=== PATIENT | male | born 1965 | race Caucasian/White ===

== ENCOUNTER 2020-04-04 10:50 | Inpatient (IN) ==
[2020-04-04 11:34] LABS: Hematocrit (blood only) 31.4 % (42-52); Hemoglobin 9.8 g/dL (14.0-18.0); Mean Corpuscular Hemoglobin 28.5 pg (25-34); Mean Corpuscular Hgb Conc 31.2 g/dL (32-36); Mean Corpuscular Volume 91.3 fL (80-100); RDW Coefficient of Variation 14.1 % (11.5-14.5); RDW Standard Deviation 46.2 fL (36.4-46.3); Red Blood Count 3.44 M/uL (4.7-6.1); White Blood Count 5.41 K/uL (4.8-10.8)
[2020-04-04 11:48] LABS: INR 1.2 (0.9-1.1); Partial Thromboplastin Ratio 1.3; Prothrombin Time 12.4 Seconds (9.0-12.0)
[2020-04-04 11:54] LABS: Basophils # (auto) 0.01 K/uL (0-0.2); Basophils % (auto) 0.2 %; Eosinophils # (auto) 0.09 K/uL (0-0.5); Eosinophils % (auto) 1.7 %; Immature Granulocytes # (auto) 0.01 K/uL (0.00-0.02); Immature Granulocytes % (auto) 0.2 %; Lymphocytes # (auto) 0.62 K/uL (1.2-3.4); Lymphocytes % (auto) 11.5 %; Mean Platelet Volume 10.9 fL (7.4-10.4); Monocytes # (auto) 0.63 K/uL (0.11-0.59); Monocytes % (auto) 11.6 %; Neutrophils # (auto) 4.05 K/uL (1.4-6.5); Neutrophils % (auto) 74.8 %; Platelet Count 80 K/uL (130-400); Platelet Estimate Decreased (Normal)
[2020-04-04] MEDS ORDERED: ACETAMINOPHEN 1000 MG/100 ML IV IV STA (11:55)
--- NOTE | 2020-04-04 12:06 | Emergency Department Note ---
History of Present Illness General Chief complaint: Illness Time Seen by Provider: 04/04/20 11:41 Source: patient and EMS Mode of arrival: EMS Limitations: no limitations History of Present Illness Provider complaint: shortness of breath This 54-year-old male patient with significant past medical history of MS, type 2 diabetes with CKD, end-stage renal disease on dialysis, morbid obesity, thrombocytopenia, hypertension, DVT, asthma, presents to the emergency department today via ambulance for evaluation of abnormal vital signs and shortness of breath. The patient was diagnosed 2 days ago with Covid-19. He st ates at that time, he was feeling some increased shortness of breath and fever. He does occasionally wear 2 L of oxygen at night, but since his diagnosis has been on oxygen [id number]. The patient is feeling somewhat better with 5 L of O2 via nasal cannula. He reports congestion and difficulty catching his breath. He is having difficulty with any sort of activity. He has taken no medications for his symptoms. Patient denies any chest pain, abdominal pain, nausea, vomiting, headache, dizziness, visual disturbances, numbness, tingling, weakness, or other associated symptoms. Home Medications Home Medications Medication Instructions Recorded Confirmed Type Unobtainable 04/04/20 04/04/20 History Allergies Allergy/AdvReac Type Severity Reaction Status Date / Time No Known Allergies Allergy Unverified 04/04/20 12:13 Past Med/Surg History Medical History A-V fistula left forearm Abnormal posture Anemia Asthma Chronic kidney disease Depression DVT (deep venous thrombosis) ESRD (end stage renal disease) on dialysis Generalized muscle weakness GERD (gastroesophageal reflux disease) Hyperlipidemia Hypertension Morbid obesity Multiple sclerosis Osteoarthritis Paradoxical insomnia Thrombocytopenia Type 2 diabetes mellitus Family History (Updated 04/04/20 @ 15:00 by Tyrone Geiger) Father , in his late 40s Myocardial infarction Social History Smoking Status: Former smoker Tobacco Type: Cigarettes Age Started Using Tobacco: 18; packs per day: 0.5; Smoking End Date: 2011; Hx Alcohol Use: No marital status: Current Living Situation: Shelter current occupational status: disabled 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 Children do You have: 4 Feels Safe at Home: Yes Review of Systems A total of 10 systems reviewed and were otherwise negative Physical Exam Vital Signs Vital Signs - 24 hr 04/04/20 11:21 04/04/20 11:31 04/04/20 13:10 Temperature 38.7 C H Temperature Source Oral Pulse Rate 55 L 55 L Pulse Rate [Apical] 53 L Pulse Rate from SpO2 Sensor 55 L Respiratory Rate 24 23 20 Respiratory Effort / Characteristics Respiratory Depth Respiratory Pattern Blood Pressure 121/59 L 118/35 L Blood Pressure [Right Arm] 135/66 Blood Pressure Mean 79 49 Blood Pressure Mean [Right Arm] 89 Pulse Oximetry 100 100 95 Oxygen Delivery Method Nasal Cannula Nasal Cannula Oxygen Flow Rate 5 5 Sepsis Recent Fever Within 48 Hours Yes Sepsis New/Unexplained Change in Mental Status N/A Sepsis Action Taken by Nursing No Action Required 04/04/20 14:00 04/04/20 14:49 04/04/20 16:08 Temperature Temperature Source Pulse Rate Pulse Rate [Apical] 57 L 52 L 46 L Pulse Rate from SpO2 Sensor Respiratory Rate 20 16 22 Respiratory Effort / Characteristics Non-Labored Spontaneous Respiratory Depth Normal Respiratory Pattern Regular Blood Pressure Blood Pressure [Right Arm] 132/65 108/55 L 110/54 L Blood Pressure Mean Blood Pressure Mean [Right Arm] 87 72 72 Pulse Oximetry 98 97 98 Oxygen Delivery Method Nasal Cannula Nasal Cannula Nasal Cannula Oxygen Flow Rate 5 5 5 Sepsis Recent Fever Within 48 Hours Sepsis New/Unexplained Change in Mental Status Sepsis Action Taken by Nursing VITALS: Vitals are noted on the nurse's note and reviewed by myself. P. He is normotensive atient is febrile and bradycardic. O2 saturation 100% on 5 L of oxygen. GENERAL: This is a 54-year-old obese white male, chronically ill-appearing but in no acute distress, nondiaphoretic, well-developed well-nourished. SKIN: The skin was without rashes, erythema, edema, or bruising. There is no tenting of the skin. Capillary refill less than 2 seconds. HEAD: Normocephalic atraumatic. EYES: Conjunctivae without injection, sclerae without icterus. NECK: Supple without nuchal rigidity. No lymphadenopathy. No JVD. HEART: Regular rate and rhythm without murmurs gallops or rubs. LUNGS: Diffuse wheezing and rhonchi throughout. No retractions or accessory muscle use. ABDOMEN: Positive bowel sounds x 4. Obese, soft, nontender, without masses or organomegaly. Torres sign negative. No guarding or rebound tenderness. MUSCULOSKELETAL: No muscle atrophy, erythema, or edema noted. Full range of motion without joint tenderness in all extremities. No tenderness to palpation. Normal gait. Strength 5/5 throughout. NEURO: Patient was alert and oriented to person place and time. No focal neurological deficits. Course Course The patient was seen and evaluated as above. An order was placed for continuous cardiac monitoring. The monitor shows a sinus bradycardia at a rate of 46. IV access obtained, labs drawn. Imaging performed and reviewed by myself and radiologist as noted. Labs reviewed by myself. I discussed the findings with the patient at bedside. I discussed the case with my attending. I discussed case with the process engineering manager. I discussed the case with nurse working with Dr. Geiger who did agree to see and evaluate the patient. Please see hospitalist dictation regarding ongoing management and pain. Administered Medications Discontinued Medications Acetaminophen (Acetaminophen 1000 Mg/100 Ml Iv) 1,000 mg IV NOW STA Stop: 04/04/20 11:56 Last Admin: 04/04/20 13:09 Dose: 1,000 mg Documented by: [id number] Dexamethasone (Dexamethasone 4 Mg Tab) 6 mg PO NOW STA Stop: 04/04/20 14:46 Last Admin: 04/04/20 15:36 Dose: Not Given Documented by: [id number] Dexamethasone (Dexamethasone Sod Inj 4 Mg/Ml Vial) 6 mg IV NOW STA Stop: 04/04/20 14:56 Last Admin: 04/04/20 15:46 Dose: 6 mg Documented by: [id number] Medical Decision Making Differential Diagnosis Reactive airway disease, pneumonia, pneumothorax, COPD, CHF, infections, cardiac ischemia, pulmonary embolism, musculoskeletal, gastrointestinal, as well as other pathologies. Medical Records Attestation: I reviewed the patient's medical records. Notes sent with the patient from [facility] reviewed. Home Medications Current Medication List: was personally reviewed by me Laboratory Data Attestation: I reviewed the patient's lab results. No leukocytosis. Mild anemia with a hemoglobin of 9.8. This is appear to be chronic. Thrombocytopenia of 80,000, which again is slightly lower than baseline. INR 1.2. Creatinine 6.26, but note the patient is on dialysis. Sodium 130. Magnesium 2.2, potassium 4.3. Lactic acid 1.0. Troponin negative.. No significant hepatic abnormality. Result diagrams: 04/04/20 11:15 04/04/20 11:15 Lab Results 04/04/20 04/04/20 04/04/20 Range/Units 11:15 11:15 11:15 WBC 5.41 (4.8-10.8) K/uL RBC 3.44 L (4.7-6.1) M/uL Hgb 9.8 L (14.0-18.0) g/dL Hct 31.4 L (42-52) % MCV 91.3 (80-100) fL MCH 28.5 (25-34) pg MCHC 31.2 L (32-36) g/dL RDW Std Deviation 46.2 (36.4-46.3) fL RDW Coeff of Emiliano 14.1 (11.5-14.5) % Plt Count 80 L (130-400) K/uL MPV 10.9 H (7.4-10.4) fL Immature Gran % (Auto) 0.2 % Neut % (Auto) 74.8 % Lymph % (Auto) 11.5 % Waldo % (Auto) 11.6 % Eos % (Auto) 1.7 % Baso % (Auto) 0.2 % Neut # (Auto) 4.05 (1.4-6.5) K/uL Lymph # (Auto) 0.62 L (1.2-3.4) K/uL Waldo # (Auto) 0.63 H (0.11-0.59) K/uL Eos # (Auto) 0.09 (0-0.5) K/uL Baso # (Auto) 0.01 (0-0.2) K/uL Immature Gran # (Auto) 0.01 (0.00-0.02) K/uL Platelet Estimate Decreased L (Normal) PT 12.4 H (9.0-12.0) Seconds INR 1.2 H (0.9-1.1) APTT 37.0 H (21.0-31.0) Seconds PTT Ratio 1.3 D-Dimer (0-500) ug/L FEU Sodium 130 L (136-145) mmol/L Potassium 4.3 (3.5-5.1) mmol/L Chloride 97 L (98-107) mmol/L Carbon Dioxide 26 (21-32) mmol/L Anion Gap 7.0 (3-11) BUN 41 H (7-18) mg/dl Creatinine 6.26 H* (0.6-1.4) mg/dl Est Cr Clr Drug Dosing 16.5 ml/min Est GFR ( Amer) 10.9 Est GFR (Non-Af Amer) 9.4 BUN/Creatinine Ratio 6.5 L (10-20) Glucose 128 H (70-99) mg/dl Lactate (0.4-2.0) mmol/L Calcium 9.4 (8.5-10.1) mg/dl Magnesium 2.2 (1.8-2.4) mg/dl Ferritin (8-388) ng/ml Total Bilirubin 0.6 (0.2-1) mg/dl AST 29 (15-37) U/L ALT 34 (12-78) U/L Alkaline Phosphatase 77 (45-117) U/L Lactate Dehydrogenase (87-241) U/L Total Creatine Kinase (39-308) U/L Troponin I < 0.015 (0-0.045) ng/ml C-Reactive Protein (0-0.29) mg/dl Total Protein 6.2 L (6.4-8.2) gm/dl Albumin 3.0 L (3.4-5.0) gm/dl Globulin 3.2 (2.5-4.0) gm/dl Albumin/Globulin Ratio 0.9 (0.9-2) 04/04/20 04/04/20 04/04/20 Range/Units 11:15 11:15 11:24 WBC (4.8-10.8) K/uL RBC (4.7-6.1) M/uL Hgb (14.0-18.0) g/dL Hct (42-52) % MCV (80-100) fL MCH (25-34) pg MCHC (32-36) g/dL RDW Std Deviation (36.4-46.3) fL RDW Coeff of Emiliano (11.5-14.5) % Plt Count (130-400) K/uL MPV (7.4-10.4) fL Immature Gran % (Auto) % Neut % (Auto) % Lymph % (Auto) % Waldo % (Auto) % Eos % (Auto) % Baso % (Auto) % Neut # (Auto) (1.4-6.5) K/uL Lymph # (Auto) (1.2-3.4) K/uL Waldo # (Auto) (0.11-0.59) K/uL Eos # (Auto) (0-0.5) K/uL Baso # (Auto) (0-0.2) K/uL Immature Gran # (Auto) (0.00-0.02) K/uL Platelet Estimate (Normal) PT (9.0-12.0) Seconds INR (0.9-1.1) APTT (21.0-31.0) Seconds PTT Ratio D-Dimer 500 (0-500) ug/L FEU Sodium (136-145) mmol/L Potassium (3.5-5.1) mmol/L Chloride (98-107) mmol/L Carbon Dioxide (21-32) mmol/L Anion Gap (3-11) BUN (7-18) mg/dl Creatinine (0.6-1.4) mg/dl Est Cr Clr Drug Dosing ml/min Est GFR ( Amer) Est GFR (Non-Af Amer) BUN/Creatinine Ratio (10-20) Glucose (70-99) mg/dl Lactate 1.0 (0.4-2.0) mmol/L Calcium (8.5-10.1) mg/dl Magnesium (1.8-2.4) mg/dl Ferritin (8-388) ng/ml Total Bilirubin (0.2-1) mg/dl AST (15-37) U/L ALT (12-78) U/L Alkaline Phosphatase (45-117) U/L Lactate Dehydrogenase 160 (87-241) U/L Total Creatine Kinase (39-308) U/L Troponin I (0-0.045) ng/ml C-Reactive Protein (0-0.29) mg/dl Total Protein (6.4-8.2) gm/dl Albumin (3.4-5.0) gm/dl Globulin (2.5-4.0) gm/dl Albumin/Globulin Ratio (0.9-2) 04/04/20 Range/Units 11:24 WBC (4.8-10.8) K/uL RBC (4.7-6.1) M/uL Hgb (14.0-18.0) g/dL Hct (42-52) % MCV (80-100) fL MCH (25-34) pg MCHC (32-36) g/dL RDW Std Deviation (36.4-46.3) fL RDW Coeff of Emiliano (11.5-14.5) % Plt Count (130-400) K/uL MPV (7.4-10.4) fL Immature Gran % (Auto) % Neut % (Auto) % Lymph % (Auto) % Waldo % (Auto) % Eos % (Auto) % Baso % (Auto) % Neut # (Auto) (1.4-6.5) K/uL Lymph # (Auto) (1.2-3.4) K/uL Waldo # (Auto) (0.11-0.59) K/uL Eos # (Auto) (0-0.5) K/uL Baso # (Auto) (0-0.2) K/uL Immature Gran # (Auto) (0.00-0.02) K/uL Platelet Estimate (Normal) PT (9.0-12.0) Seconds INR (0.9-1.1) APTT (21.0-31.0) Seconds PTT Ratio D-Dimer (0-500) ug/L FEU Sodium (136-145) mmol/L Potassium (3.5-5.1) mmol/L Chloride (98-107) mmol/L Carbon Dioxide (21-32) mmol/L Anion Gap (3-11) BUN (7-18) mg/dl Creatinine (0.6-1.4) mg/dl Est Cr Clr Drug Dosing ml/min Est GFR ( Amer) Est GFR (Non-Af Amer) BUN/Creatinine Ratio (10-20) Glucose (70-99) mg/dl Lactate (0.4-2.0) mmol/L Calcium (8.5-10.1) mg/dl Magnesium (1.8-2.4) mg/dl Ferritin 2751.8 H (8-388) ng/ml Total Bilirubin (0.2-1) mg/dl AST (15-37) U/L ALT (12-78) U/L Alkaline Phosphatase (45-117) U/L Lactate Dehydrogenase (87-241) U/L Total Creatine Kinase 40 (39-308) U/L Troponin I (0-0.045) ng/ml C-Reactive Protein 1.10 H (0-0.29) mg/dl Total Protein (6.4-8.2) gm/dl Albumin (3.4-5.0) gm/dl Globulin (2.5-4.0) gm/dl Albumin/Globulin Ratio (0.9-2) Imaging Data Radiologist's Impression: XR chest 1V portable HISTORY: 54 years-old Male Sepsis acute sepsis COMPARISON: None TECHNIQUE: Portable AP view the chest FINDINGS: Cardiac silhouette is mildly enlarged. Hypoinflation. Mild to moderate right hemidiaphragm elevation with bibasilar densities. No pneumothorax, large pleural effusion or overt pulmonary edema. Cholecystectomy. Bones appear grossly intact. IMPRESSION: 1. No acute process. 2. Hypoinflation with right diaphragmatic elevation and right greater left bibasilar opacities suggestive of atelectasis. Superimposed pneumonia would be difficult to exclude. ACT 112: Negative or not required by law. The above report was generated using voice recognition software. It may contain grammatical, syntax or spelling errors. Electronically signed by: Esequiel Israel M.D. 04/04/2020 12:14 PM ECG Data Attestation: I personally reviewed and interpreted this ECG as follows: Indication: + SOB/dyspnea Rate (beats per minute): 72 Rhythm: + sinus with SA ECG Intervals/blocks: + Normal QT ECG Bradford: + Left axis deviation ECG ST segments: no ST depression, no ST elevation and no T-wave inversions ECG Findings: + PVCs Comparison ECG Date: no prior available Blood Pressure Blood Pressure Findings: Normal blood pressure MDM Narrative This 54-year-old male patient presents to the emergency department today for acute respiratory failure associated with COVID-19. Patient has had increased o xygen requirements for the past 2 days. He is febrile with diffuse wheezing and rhonchi noted on examination. The patient is otherwise in no acute distress. Patient is anemic and thrombocytopenic which is chronic. Acute cardiac work-up negative. Chest x-ray without clear evidence of pneumonia. Patient is mildly hyponatremic with a sodium of 130. Patient will be admitted due to his increased oxygen requirements associated with the acute respiratory failure with hypoxia and COVID-19, particularly in the setting of many chronic illnesses. Please see hospitalist dictation regarding agree management care of this patient. The chart was completed utilizing [employer] voice recognition software. Grammatical errors, random word insertions, pronoun errors, and incomplete sentences are an occasional consequence of this system due to software limitations, ambient noise, and hardware issues. Any formal questions or concerns about the content, text, or information contained within the body of this dictation should be directly addressed to the provider for clarification. Impression & Plan Acute respiratory failure with hypoxia, Pneumonia due to COVID-19 virus, ESRD (end stage renal disease) on dialysis Discharge Plan Visit Data Chief Complaint: Illness ED Provider: James Bah ED Midlevel Provider: Lolis Senior Discharge Problem: Acute respiratory failure with hypoxia, Pneumonia due to COVID-19 virus, ESRD (end stage renal disease) on dialysis Patient Disposition: Admitted As Inpatient Discharge Instructions Interventions: ED Discharge Assessment Last Done: 04/04/20 16:09 Forms Stand Alone Forms: [employer] Prescriptions Prescriptions: No Action Unobtainable RF: 0 Referrals Referrals: Dionna Mayfield [Primary Care Provider] -
[2020-04-04 12:08] LABS: Alanine Aminotransferase 34 U/L (12-78); Albumin Globulin Ratio 0.9 (0.9-2); Alkaline Phosphatase 77 U/L (45-117); Aspartate Aminotransferase 29 U/L (15-37); BUN Creatinine Ratio 6.5 (10-20); Bilirubin,Total 0.6 mg/dl (0.2-1); Blood Urea Nitrogen 41 mg/dl (7-18); Calcium 9.4 mg/dl (8.5-10.1); Carbon Dioxide 26 mmol/L (21-32); Chloride 97 mmol/L (98-107); Creatinine Clr Calc Pharmacy 16.5 ml/min; Est GFR (African American) 10.9; Est GFR (Non-African American) 9.4; Globulin 3.2 gm/dl (2.5-4.0); Glucose 128 mg/dl (70-99); Magnesium 2.2 mg/dl (1.8-2.4); Potassium 4.3 mmol/L (3.5-5.1); Sodium 130 mmol/L (136-145); Total Protein 6.2 gm/dl (6.4-8.2); Troponin I < 0.015 ng/ml (0-0.045)
--- NOTE | 2020-04-04 12:16 | XRay Report ---
XR chest 1V portable HISTORY: 54 years-old Male Sepsis acute sepsis COMPARISON: None TECHNIQUE: Portable AP view the chest FINDINGS: Cardiac silhouette is mildly enlarged. Hypoinflation. Mild to moderate right hemidiaphragm elevation with bibasilar densities. No pneumothorax, large pleural effusion or overt pulmonary edema. Cholecyst ectomy. Bones appear grossly intact. IMPRESSION: 1. No acute process. 2. Hypoinflation with right diaphragmatic elevation and right greater left bibasilar opacities sugges tive of atelectasis. Superimposed pneumonia would be difficult to exclude. ACT 112: Negative or not required by law. The above report was generated using voice recognition software. It may contain grammatical, syntax o r spelling errors. Electronically signed by: Esequiel Israel M.D. 04/04/2020 12:14 PM
--- NOTE | 2020-04-04 14:07 | Emergency Department Note ---
ED Visit Note Patient was seen by our PA/SENIOR HADOOP DEVELOPER. I was involved in the patient's care and did evaluate the patient myself. I was involved in the care throughout the ER stay. The patient presents short of breath. He is coronavirus positive. The test was done prior to arrival and had returned positive. The patient is requiring oxygen, this is not typically the case. He does have some significant underlying medical issues. He is a custodial resident. The patient is going to be hospitalized, the on-call hospitalist was consulted. .
[2020-04-04] MEDS ORDERED: ACETAMINOPHEN 325 MG TAB PO SCH (14:37)
[2020-04-04] MEDS ORDERED: dexAMETHasone 4 MG TAB PO STA (14:45)
[2020-04-04] MEDS ORDERED: DEXAMETHASONE SOD INJ 4 MG/ML VIAL IV STA (14:55)
[2020-04-04 15:01] LABS: D Dimer 500 ug/L FEU (0-500)
--- NOTE | 2020-04-04 15:02 | History & Physical Report ---
Date of Service April 04, 2020 Assessment & Plan (1) Pneumonia due to COVID-19 virus: Initial diagnosis on 04/02/20. Escalating O2 requirements since that time. At baseline is not on O2. Has known asthma (vs COPD). In light of hypoxia, severe wheezing, NC O2 requirement, etc will treat with decadron x 10 days. Will use larger dose than studied/conventional given his asthma exacerbation (will start with decadron 6mg IV TID). Unfortunately remdesivir has NOT been studied in patients with ESRD. [id number], I would consider a 5-day course of remdesivir if patient worsens further overnight. There is now a building thought that benefits may outweigh risks in those with GFR <30. Lastly, I spoke extensively with patient regarding convalescent plasma. I reviewed risks/benefits and gave FDA-issued handout on convalescent plasma. Blood consent form completed, type/screen done, and plasma ordered. Give as soon as available. Check baseline d-dimer, ferritin, crp, cpk. Repeat dimer in am. Pulmonary toilet - mucinex, flutter valve, etc. (2) Acute respiratory failure with hypoxia: 2nd to COVID-19. see above. If any worsening obtain repeat imaging and consider IV antibiotic therapy to cover any superimposed pneumonia process. (3) Asthma: Long-standing history of such. Cannot rule out COPD given prior, extensive smoking history. [id number] he has significant wheezing on exam. Will Rx for asthma exacerbation with decadron 6mg IV q8h. Combivent 1 puff qid. (4) ESRD (end stage renal disease) on dialysis: Spoke with Dr Stoll from [facility] who will coordinate the pt's HD schedule of M/W/F. Continue phosphate binders. No evidence of any volume overload today. (5) Type 2 diabetes mellitus: Diet-controlled at the SNF, but with IV steroids anticipate hyperglycemia. Lantus 10 units HS. Novolog ac/hs. Adjust as needed. (6) Multiple sclerosis: Takes Aubagio 14mg daily. I looked at prescribing data for this medication and it suggests that the drug be suspended in the face of a serious infection. Will check with neurology about this in am to see if they agree that it should be held while here. He has a left foot drop and left proximal leg weakness as well. Does not ambulate at the SNF. (7) Depression: Cont home meds including prozac, abilify, etc. (8) Thrombocytopenia: Platelet count was 114 in January. Now 80s today. It is listed in his SNF records that this is a chronic issue for him. Uncertain of etiology. Chronic ITP? other? COVID-19 can cause bone marrow suppression and thrombocytopenia. CBC in am. (9) Morbid obesity: (10) History of DVT (deep vein thrombosis): details uncertain. does take eliquis 5mg BID at SNF. at high risk of recurrent VTE in light of COVID-19 infection, nonambulatory status, and prior VTE history. continue eliquis as previous. (11) Hypertension: hold amlodipine 10mg daily. (12) Hyperlipidemia: hold statin. (13) DVT prophylaxis: eliquis 5mg BID no contact information in chart for family/friends/POA place in PCU History of Present Illness Chief Complaint: worsening O2 requirement, known COVID-19 infection Primary Care Provider: Dionna Mayfield 54yo male, ESRD on HD M/W/F, MS, asthma, HTN, h/o DVT - presenting from [facility] with worsening O2 requirement related to COVID-19 infection. Was diagnosed on Wednesday of this week. I was unclear by his history if this was discovered during routine screening OR the test was obtained because of symptoms. Either way he states his symptoms began on Wednesday with generalized malaise, fevers, chills, cough and shortness of breath. Multiple times during the encounter he said "I just don't feel good." Cough is dry. He has ongoing wheezing. Was started on oxygen earlier this week and his O2 requirements have steadily increased in the last 24 hours. Mentions a h/o PAULINE and should be on BIPAP but has not used such in a long time. Records from the SNF were reviewed. Medication list shows that he takes daily Aubagio for his MS. Dose is 14mg once daily by mouth. Also takes amlodipine 10mg daily and lyrica. Oddly he is also on gabapentin. Patient reports moving from [place] to [facility] in the last year. He is originally from [place] and wanted to be closer to family. He has 4 children and states that he is but they all live out of state (?). Allergies Allergy/AdvReac Type Severity Reaction Status Date / Time No Known Allergies Allergy Unverified 04/04/20 12:13 Home Medications Home Medications Medication Instructions Recorded Confirmed Type Unobtainable 04/04/20 04/04/20 History Past Med/Surg History Medical History (Updated 04/04/20 @ 21:49 by Tyrone Geiger) A-V fistula left forearm Abnormal posture Anemia Asthma Depression DVT (deep venous thrombosis) ESRD (end stage renal disease) on dialysis Generalized muscle weakness GERD (gastroesophageal reflux disease) Hyperlipidemia Hypertension Morbid obesity Multiple sclerosis Osteoarthritis Paradoxical insomnia Thrombocytopenia Type 2 diabetes mellitus Surgical History (Updated 04/04/20 @ 21:43 by Tyrone Geiger) S/P arteriovenous (AV) fistula creation Family History (Updated 04/04/20 @ 15:00 by Tyrone Geiger) Father , in his late 40s Myocardial infarction Social History Smoking Status: Former smoker Tobacco Type: Cigarettes Age Started Using Tobacco: 18; packs per day: 0.5; Smoking End Date: 2011; Hx Alcohol Use: No Hx Substance Use: No Preferred Language: Nigerien Communication Ability: Effective Rubber Attacher Required: No Beliefs That Will Affect Care: None marital status: Current Living Situation: Prison current occupational status: disabled 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 Children do You have: 4 Other Information That Helps Us Care for You: No Feels Safe at Home: Yes Safety Concerns: Feels Safe At This Time Assistive Devices: Denture - Upper, Denture - Lower, Glasses and Mechanical Lift Review of Systems Constitutional: + fever, + chills, + fatigue, + malaise and + weakness; no anorexia Eyes: no worsening vision Ear, Nose, Mouth, Throat: no nasal congestion, no sore throat and no dysphagia Respiratory: + cough, + chest congestion, + dyspnea and + wheezing; no sputum production Cardiovascular: no chest pain Gastrointestinal: no abdominal pain, no nausea, no vomiting, no constipation, no diarrhea/loose stools and no blood in stools Genitourinary: + problem reported (rare urine production ) Musculoskeletal: no myalgia Integumentary: no rash Neurologic: + localized weakness (left leg and foot - chronic; patient does not ambulate at [facility]) Psychiatric: + depression Endocrine: diet-controlled T2DM Hematologic / Lymphatic: no easy bruising Physical Exam Constitutional: + ill appearing and + morbidly obese; no acute distress and no altered mental status Eyes: PERRL ENMT: Mouth: + dry oral mucous membranes Neck: trachea midline, no thyromegaly Respiratory: no respiratory distress Auscultation: + crackles (b/l bases, worse on left) and + wheezes (extensive, all lung segments b/l ) Cardiovascular: Rate/Rhythm: regular rhythm and + bradycardic Heart Sounds: normal S1 and normal S2; no murmur Vessels: posterior tibial pulses present and dorsalis pedis pulses present; no JVD Extremities: + AV fistula (left arm ); no edema Gastrointestinal (Abdomen): normal bowel sounds, soft, nontender, no hepatosplenomegaly Musculoskeletal: Extremities: + clubbing Skin: no rashes, warm and dry Neurologic: left hip flexion 3/5 strength; foot drop on left; RLE strength 5/5 Psychiatric: Orientation: alert and oriented x 3 Affect: + depressed affect Lymphatic: no cervical lymphadenopathy Results & Data Results & Data ([facility]) Vital Signs (Past 12 Hours) Vital Signs Temp Pulse Pulse Resp BP BP Pulse Ox 04/04/20 14:49 52 L 16 108/55 L 97 04/04/20 14:00 57 L 20 132/65 98 04/04/20 13:10 53 L 20 135/66 95 04/04/20 11:31 55 L 23 118/35 L 100 04/04/20 11:21 38.7 C H 55 L 24 121/59 L 100 Laboratory Results Laboratory Results - last 24 hr 04/04/20 04/04/20 04/04/20 11:15 11:15 11:15 WBC 5.41 RBC 3.44 L Hgb 9.8 L Hct 31.4 L MCV 91.3 MCH 28.5 MCHC 31.2 L RDW Std Deviation 46.2 RDW Coeff of Emiliano 14.1 Plt Count 80 L MPV 10.9 H Immature Gran % (Auto) 0.2 Neut % (Auto) 74.8 Lymph % (Auto) 11.5 [place] % (Auto) 11.6 Eos % (Auto) 1.7 Baso % (Auto) 0.2 Neut # (Auto) 4.05 Lymph # (Auto) 0.62 L [place] # (Auto) 0.63 H Eos # (Auto) 0.09 Baso # (Auto) 0.01 Immature Gran # (Auto) 0.01 Platelet Estimate Decreased L PT 12.4 H INR 1.2 H APTT 37.0 H PTT Ratio 1.3 D-Dimer Sodium 130 L Potassium 4.3 Chloride 97 L Carbon Dioxide 26 Anion Gap 7.0 BUN 41 H Creatinine 6.26 H* Est Cr Clr Drug Dosing 16.5 Est GFR ( Amer) 10.9 Est GFR (Non-Af Amer) 9.4 BUN/Creatinine Ratio 6.5 L Glucose 128 H POC Glucose Lactate Calcium 9.4 Magnesium 2.2 Ferritin Total Bilirubin 0.6 AST 29 ALT 34 Alkaline Phosphatase 77 Lactate Dehydrogenase Total Creatine Kinase Troponin I < 0.015 C-Reactive Protein Total Protein 6.2 L Albumin 3.0 L Globulin 3.2 Albumin/Globulin Ratio 0.9 Blood Type Antibody Screen 04/04/20 04/04/20 04/04/20 11:15 11:15 11:24 WBC RBC Hgb Hct MCV MCH MCHC RDW Std Deviation RDW Coeff of Emiliano Plt Count MPV Immature Gran % (Auto) Neut % (Auto) Lymph % (Auto) [place] % (Auto) Eos % (Auto) Baso % (Auto) Neut # (Auto) Lymph # (Auto) [place] # (Auto) Eos # (Auto) Baso # (Auto) Immature Gran # (Auto) Platelet Estimate PT INR APTT PTT Ratio D-Dimer 500 Sodium Potassium Chloride Carbon Dioxide Anion Gap BUN Creatinine Est Cr Clr Drug Dosing Est GFR ( Amer) Est GFR (Non-Af Amer) BUN/Creatinine Ratio Glucose POC Glucose Lactate 1.0 Calcium Magnesium Ferritin Total Bilirubin AST ALT Alkaline Phosphatase Lactate Dehydrogenase 160 Total Creatine Kinase Troponin I C-Reactive Protein Total Protein Albumin Globulin Albumin/Globulin Ratio Blood Type Antibody Screen 04/04/20 04/04/20 04/04/20 11:24 15:07 17:00 WBC RBC Hgb Hct MCV MCH MCHC RDW Std Deviation RDW Coeff of Emiliano Plt Count MPV Immature Gran % (Auto) Neut % (Auto) Lymph % (Auto) [place] % (Auto) Eos % (Auto) Baso % (Auto) Neut # (Auto) Lymph # (Auto) [place] # (Auto) Eos # (Auto) Baso # (Auto) Immature Gran # (Auto) Platelet Estimate PT INR APTT PTT Ratio D-Dimer Sodium Potassium Chloride Carbon Dioxide Anion Gap BUN Creatinine Est Cr Clr Drug Dosing Est GFR ( Amer) Est GFR (Non-Af Amer) BUN/Creatinine Ratio Glucose POC Glucose 96 Lactate Calcium Magnesium Ferritin 2751.8 H Total Bilirubin AST ALT Alkaline Phosphatase Lactate Dehydrogenase Total Creatine Kinase 40 Troponin I C-Reactive Protein 1.10 H Total Protein Albumin Globulin Albumin/Globulin Ratio Blood Type O Negative Antibody Screen NEGATIVE 04/04/20 20:22 WBC RBC Hgb Hct MCV MCH MCHC RDW Std Deviation RDW Coeff of Emiliano Plt Count MPV Immature Gran % (Auto) Neut % (Auto) Lymph % (Auto) [place] % (Auto) Eos % (Auto) Baso % (Auto) Neut # (Auto) Lymph # (Auto) [place] # (Auto) Eos # (Auto) Baso # (Auto) Immature Gran # (Auto) Platelet Estimate PT INR APTT PTT Ratio D-Dimer Sodium Potassium Chloride Carbon Dioxide Anion Gap BUN Creatinine Est Cr Clr Drug Dosing Est GFR ( Amer) Est GFR (Non-Af Amer) BUN/Creatinine Ratio Glucose POC Glucose 209 H Lactate Calcium Magnesium Ferritin Total Bilirubin AST ALT Alkaline Phosphatase Lactate Dehydrogenase Total Creatine Kinase Troponin I C-Reactive Protein Total Protein Albumin Globulin Albumin/Globulin Ratio Blood Type Antibody Screen Diagnostic Findings cxr: IMPRESSION: 1. No acute process. 2. Hypoinflation with right diaphragmatic elevation and right greater left bibasilar opacities suggestive of atelectasis. Superimposed pneumonia would be difficult to exclude. EKG - sinus bradycardia, no ST changes Code Status & VTE Plan Code Status full VTE Prophylaxis Plan VTE Prophylaxis will be ordered: Yes PG Care Time/CCT Total # of Minutes Spent Total Time Spent with Patient: Total time spent is greater than 50% in coordination of care (as documented) at patient's floor/unit and/or counseling patient: Coding Level of Care Code 22400 Initial Inpt Care Lvl 3 Diagnoses Pneumonia due to COVID-19 virus U07.1; J12.89 Acute respiratory failure with hypoxia J96.01 Asthma J45.901 Asthma severity: unspecified severity Asthma persistence: unspecified Asthma complication type: with acute exacerbation ESRD (end stage renal disease) on dialysis N18.6; Z99.2 Type 2 diabetes mellitus E11.69 Diabetes mellitus mcfp insulin use: without long term care social worker use Diabetes mellitus complication status: with other specified complication Multiple sclerosis G35 Depression F32.9 Depression Type: unspecified Thrombocytopenia D69.6 Morbid obesity E66.01 History of DVT (deep vein thrombosis) Z86.718 Hypertension I10 Hypertension type: essential hypertension Hyperlipidemia E78.2 Hyperlipidemia type: mixed hyperlipidemia DVT prophylaxis Z29.9 (1) Type 2 diabetes mellitus Diabetes mellitus long term care social worker insulin use: without mcfp use Diabetes mellitus complication status: with other specified complication Qualified Code(s): E11.69 - Type 2 diabetes mellitus with other specified complication (2) Depression Depression Type: unspecified Qualified Code(s): F32.9 - Major depressive disorder, single episode, unspecified (3) Asthma Asthma severity: unspecified severity Asthma persistence: unspecified Asthma complication type: with acute exacerbation Qualified Code(s): J45.901 - Unspecified asthma with (acute) exacerbation (4) Hypertension Hypertension type: essential hypertension Qualified Code(s): I10 - Essential (primary) hypertension (5) Hyperlipidemia Hyperlipidemia type: mixed hyperlipidemia Qualified Code(s): E78.2 - Mixed hyperlipidemia
[2020-04-04 15:58] LABS: C Reactive Protein 1.1 mg/dl (0-0.29); Ferritin 2751.8 ng/ml (8-388)
[2020-04-04] MEDS ORDERED: ONDANSETRON INJ 2 MG/ML 2 ML VIAL IV PRN (16:56)
[2020-04-04] MEDS ORDERED: ACETAMINOPHEN 325 MG TAB PO PRN (16:56)
[2020-04-04] MEDS ORDERED: IPRATROPIUM BROMIDE/ALBUTEROL respimat INH INH SCH (17:00)
[2020-04-04] MEDS: IPRATROPIUM BROMIDE HFA INHALER INH SCH ×2 (17:37→20:41)
[2020-04-04] MEDS: ALBUTEROL HFA 8 GM INHALER INH SCH ×2 (17:37→20:41)
[2020-04-04] MEDS ORDERED: DEXTROSE 50% 50 ML SYRINGE IV PRN (17:45)
[2020-04-04] MEDS ORDERED: GLUCOSE 40% GEL 15 GM TUBE PO PRN (17:45)
[2020-04-04] MEDS ORDERED: CARBOHYDRATES FOR HYPOGLYCEMIA PO PRN (17:45)
[2020-04-04] MEDS ORDERED: GLUCOSE 10 TABS/TUBE PO PRN (17:45)
[2020-04-04] MEDS ORDERED: GLUCAGON FOR INJ 1 MG VIAL IM PRN (17:45)
--- NOTE | 2020-04-04 17:54 | Electrocardiogram Report ---
Test Reason : Blood Pressure : / mmHG Vent. Rate : 072 BPM Atrial Rate : 062 BPM P-R Int : 190 ms QRS Dur : 098 ms QT Int : 392 ms P-R-T Axes : 061 -37 055 degrees QTc Int : 429 ms Sinus rhythm with sinus arrhythmia with frequent Premature ventricular complexes Left axis deviation Abnormal ECG No previous ECGs available Confirmed by Gregg Currie ([id number]) on 04/04/2020 5:53:28 PM Referred By: Confirmed By:Franck Currie
[2020-04-04] MEDS: CALCIUM ACETATE 667 MG CAP/TAB PO SCH (18:29)
[2020-04-04] MEDS: INSULIN ASPART 100 UNITS/ML 3 ML PEN SC SCH ×2 (18:35→20:32)
[2020-04-04] MEDS: traZODone HCL 100 MG TAB PO SCH (20:18)
[2020-04-04] MEDS: APIXABAN 2.5 MG TAB PO SCH (20:18)
[2020-04-04] MEDS: guaiFENesin 600 MG TABCR PO SCH (20:19)
[2020-04-04] MEDS: ERYTHROMYCIN DELAYED RELEASE 250 MG CAP PO SCH (20:19)
[2020-04-04] MEDS: GABAPENTIN 100 MG CAP PO SCH (20:20)
[2020-04-04] MEDS: FLUoxetine HCL 20 MG CAP PO SCH (20:22)
[2020-04-04] MEDS: rOPINIRole HCL 0.25 MG TABLET PO SCH (20:22)
[2020-04-04] MEDS: PANTOprazole 40 MG TAB PO SCH (20:23)
[2020-04-04] MEDS ORDERED: dexAMETHasone 6 MG in DEXTROSE 5% 25 ML IV SCH (21:00)
[2020-04-04] MEDS: INSULIN GLARGINE SOLOSTAR 100 UNITS/ML 3 ML PEN SC SCH (22:02)
[2020-04-04] MEDS: DEXAMETHASONE SOD PHOSPHATE 6 MG in SYRINGE 0 ML IV SCH (23:13)
[2020-04-05 06:33] LABS: Hematocrit (blood only) 33.5 % (42-52); Hemoglobin 10.7 g/dL (14.0-18.0); Mean Corpuscular Hemoglobin 28.5 pg (25-34); Mean Corpuscular Hgb Conc 31.9 g/dL (32-36); Mean Corpuscular Volume 89.3 fL (80-100); RDW Coefficient of Variation 13.7 % (11.5-14.5); RDW Standard Deviation 44.9 fL (36.4-46.3); Red Blood Count 3.75 M/uL (4.7-6.1)
[2020-04-05 06:43] LABS: Platelet Count 69 K/uL (130-400)
[2020-04-05 06:58] LABS: Eosinophils # (auto) 0.01 K/uL (0-0.5); Eosinophils % (auto) 0.5 %; Immature Granulocytes # (auto) 0.02 K/uL (0.00-0.02); Immature Granulocytes % (auto) 1.1 %; Lymphocytes # (auto) 0.27 K/uL (1.2-3.4); Lymphocytes % (auto) 14.2 %; Monocytes # (auto) 0.08 K/uL (0.11-0.59); Monocytes % (auto) 4.2 %; Neutrophils # (auto) 1.52 K/uL (1.4-6.5)
[2020-04-05 07:12] LABS: BUN Creatinine Ratio 7.3 (10-20); Calcium 9.1 mg/dl (8.5-10.1); Creatinine Clr Calc Pharmacy 14.1 ml/min; Est GFR (African American) 8.8; Est GFR (Non-African American) 7.6; Potassium 4.4 mmol/L (3.5-5.1)
[2020-04-05 07:18] LABS: D Dimer 580 ug/L FEU (0-500)
--- NOTE | 2020-04-05 07:29 | Hospitalist Progress Note ---
Date of Service April 05, 2020 Assessment & Plan (1) Pneumonia due to COVID-19 virus: Initial diagnosis on 04/02/20. At baseline is not on O2. Has known asthma (vs COPD). In light of hypoxia, severe wheezing, NC O2 requirement, etc will treat with decadron x 10 days. Unfortunately remdesivir has NOT been studied in patients with ESRD. The patient was educated and consented regarding convalescent plasma. I reviewed risks/benefits and gave FDA-issued handout on convalescent plasma. Blood consent form completed, type/screen done, and plasma ordered. Pulmonary toilet - mucinex, flutter valve, etc., CXR is not significantly altered, oxygen requirement is 2L, will consider reducing decadron if clinically improving (2) Acute respiratory failure with hypoxia: 2nd to COVID-19. see above. No pneumonia (3) Asthma: Long-standing history of such. Cannot rule out COPD given prior, extensive smoking history. [id number] he has significant wheezing on exam. Will Rx for asthma exacerbation with decadron Combivent 1 puff qid. (4) ESRD (end stage renal disease) on dialysis: Dr Stoll from [facility] who will coordinate the pt's HD s chedule of M/W/F. Continue phosphate binders. No evidence of any volume overload today. (5) Type 2 diabetes mellitus: Diet-controlled at the SNF, but with IV steroids anticipate hyperglycemia. Lantus 10 units HS. Novolog ac/hs. Adjust as needed. (6) Multiple sclerosis: Takes Aubagio 14mg daily. The prescribing data for this medication and it suggests that the drug be suspended in the face of a serious infection. Will check with neurology about this in am to see if they agree that it should be held while here. He has a left foot drop and left proximal leg weakness as well. Does not ambulate at the SNF. (7) Depression: Cont home meds including prozac, abilify, etc. (8) Thrombocytopenia: Platelet count low, records that this is a chronic issue for him. CBC in am. (9) Morbid obesity: (10) History of DVT (deep vein thrombosis): details uncertain. does take eliquis 5mg BID at SNF. at high risk of recurrent VTE in light of COVID-19 infection, nonambulatory status, and prior VTE history. continue eliquis as previous. (11) Hypertension: hold amlodipine 10mg daily. (12) Hyperlipidemia: hold statin. (13) DVT prophylaxis: eliquis 5mg BID no contact information in chart for family/friends/POA Pt is a full code Admission and Anticipated Discharge Date Admission Date: April 04, 2020 Subjective Patient seen in his hospital room. He states he feels better. He feels fairly significantly short of breath. He does have audible wheezes on examination. He is having diarrhea for the first time over the last 24 hours he denies loss of taste or smell Review of Systems Review of Systems: Mild distress and fatigue no headache, blurry or double vision no speech or swallowing issues no chest pain, pressure or palpitations Venous breath nonproductive cough no abdominal pain, nausea or vomiting, diarrhea on 04/05/2020 no dysuria, hematuria or frequency no focal joint pain or swelling no back pain, CVA tenderness or radicular pain no bruising, bleeding or rashes Physical Exam Physical Exam: The patient appeared well nourished and normally developed. Vital signs as documented. Head exam is normocephalic atraumatic no scleral icterus Neck is without JVD, thyromegaly, or carotid bruits. Lungs are clear to auscultation, no focal loss of breath sounds Cardiac exam, Rhythm is regular.. No murmurs, rubs or gallops. Abdominal exam reveals normal bowel sounds, soft non tender, no masses Extremities are nonedematous and both pedal pulses are present Neurologic exam is alert and oriented, no focal loss of strength or sensation Skin is without bruises or rashes Psychologically is without concerns for anxiety or depression. Results & Data Results & Data ([facility]) Vital Signs (Past 12 Hours) Vital Signs Temp Pulse Pulse Resp BP BP Pulse Ox 04/05/20 03:08 97.7 F 48 L 18 165/75 H 96 04/04/20 23:40 44 L 16 150/79 H 97 04/04/20 23:14 98.1 F 44 L 16 163/79 H 97 04/04/20 23:04 98.2 F 45 L 18 156/97 H 98 04/04/20 22:04 97.7 F 45 L 20 156/78 H 98 04/04/20 21:46 99.5 F 47 L 20 151/74 H 98 04/04/20 21:34 98.2 F 45 L 16 154/76 H 98 04/04/20 21:19 98.2 F 92 H 18 152/64 H 98 04/04/20 21:03 98.2 F 46 L 18 154/92 H 97 04/04/20 20:37 97.9 F 50 L 20 148/79 H 98 04/04/20 20:02 87 18 98 PG Care Time/CCT Total # of Minutes Spent Total Time Spent with Patient: Total time spent is greater than 50% in coordination of care (as documented) at patient's floor/unit and/or counseling p atient: Coding Level of Care Code 12341 Subseq Hosp Care Lvl 3 Diagnoses Pneumonia due to COVID-19 virus U07.1; J12.89 Acute respiratory failure with hypoxia J96.01 Asthma J45.901 Asthma complication type: with acute exacerbation Asthma persistence: unspecified Asthma severity: unspecified severity ESRD (end stage renal disease) on dialysis N18.6; Z99.2 Type 2 diabetes mellitus E11.69 Diabetes mellitus complication status: with other specified complication Diabetes mellitus group home insulin use: without bed bug exterminator use Multiple sclerosis G35 Depression F32.9 Depression Type: unspecified Thrombocytopenia D69.6 Morbid obesity E66.01 History of DVT (deep vein thrombosis) Z86.718 Hypertension I10 Hypertension type: essential hypertension Hyperlipidemia E78.2 Hyperlipidemia type: mixed hyperlipidemia DVT prophylaxis Z29.9 (1) Type 2 diabetes mellitus Diabetes mellitus complication status: with other specified complication Diabetes mellitus group home insulin use: without bed bug exterminator use Qualified Code(s): E11.69 - Type 2 diabetes mellitus with other specified complication (2) Depression Depression Type: unspecified Qualified Code(s): F32.9 - Major depressive disorder, single episode, unspecified (3) Hyperlipidemia Hyperlipidemia type: mixed hyperlipidemia Qualified Code(s): E78.2 - Mixed hyperlipidemia (4) Hypertension Hypertension type: essential hypertension Qualified Code(s): I10 - Essential (primary) hypertension (5) Asthma Asthma complication type: with acute exacerbation Asthma persistence: unspecified Asthma severity: unspecified severity Qualified Code(s): J45.901 - Unspecified asthma with (acute) exacerbation
[2020-04-05] MEDS: ALBUTEROL HFA 8 GM INHALER INH SCH ×4 (07:59→21:18)
[2020-04-05] MEDS: IPRATROPIUM BROMIDE HFA INHALER INH SCH ×4 (08:00→21:19)
[2020-04-05] MEDS: guaiFENesin 600 MG TABCR PO SCH ×2 (08:15→20:12)
[2020-04-05] MEDS: ARIPiprazole 15 MG TAB PO SCH (08:15)
[2020-04-05] MEDS: DEXAMETHASONE SOD PHOSPHATE 6 MG in SYRINGE 0 ML IV SCH (08:15)
[2020-04-05] MEDS: APIXABAN 2.5 MG TAB PO SCH ×2 (08:15→20:11)
[2020-04-05] MEDS: INSULIN ASPART 100 UNITS/ML 3 ML PEN SC SCH ×4 (08:15→20:17)
[2020-04-05] MEDS: ERYTHROMYCIN DELAYED RELEASE 250 MG CAP PO SCH ×3 (08:16→20:11)
[2020-04-05] MEDS: TAMSULOSIN HCL 0.4 MG CAP PO SCH (08:16)
[2020-04-05] MEDS: CALCIUM ACETATE 667 MG CAP/TAB PO SCH ×3 (08:16→16:55)
[2020-04-05] MEDS: GABAPENTIN 100 MG CAP PO SCH ×3 (08:16→20:11)
[2020-04-05 09:03] LABS: Hepatitis B Surface Ab Quant 40.47 mIU/mL (>or=10mIU/mL Immune); Hepatitis B Surface Antibody Immune
[2020-04-05 09:13] LABS: Hepatitis B Surface Antigen Neg (Neg)
[2020-04-05] MEDS: rOPINIRole HCL 0.25 MG TABLET PO SCH ×2 (10:17→20:11)
[2020-04-05] MEDS: PANTOprazole 40 MG TAB PO SCH ×2 (10:17→20:11)
--- NOTE | 2020-04-05 11:53 | Consultation Report ---
DATE OF CONSULTATION: 04/05/2020 REASON FOR CONSULT: Dialysis, patient admitted with shortness of breath related with COVID-19 infection. HISTORY OF PRESENT ILLNESS: The patient is a 54-year-old male with ESRD, on chronic hemodialysis Wednesday, Wednesday, and Wednesday at the [facility] in [place]. The patient is currently a resident of [facility] for rehabilitation. He was sent over from the assisted living because of shortness of breath. He was found to have COVID-19 infection. He did not get remdesivir because of dialysis status, but he did get convalescent plasma yesterday. He missed his dialysis on Wednesday because he was too sick to go to dialysis. He has not been eating, drinking much in the last 4-5 days. He was having pretty classic symptoms of the COVID-19 infection for the last few days. He appears to be somewhat better today than yesterday. It also appears that he was diagnosed with COVID-19 infection at the snf itself on Wednesday. He was transferred yesterday because of worsening of the symptoms. Since admission, he is feeling better and at this time he is on 1 liter of oxygen and is able to maintain normal oxygen saturation. His vital signs are also stable otherwise with a blood pressure of 158/69. ALLERGIES: None. HOME MEDICATIONS: List was reviewed and is as per the reconciliation list. PAST MEDICAL AND SURGICAL HISTORY: He has an AV fistula, anemia, depression, history of DVT, end-stage renal disease on dialysis, GERD, hyperlipidemia, hypertension, history of obesity, thrombocytopenia, longstanding type 2 diabetes, status post AV fistula creation surgery. SOCIAL HISTORY: Former smoker, no alcohol. Currently in snf, he is disabled. He is of the impression that his stay at the snf is temporary. REVIEW OF SYSTEMS: As detailed in HPI and listed otherwise, 12 systems reviewed and negative. The positive review of system includes fever, chills, fatigue, malaise, weakness, cough, shortness of breath, wheezing, some nausea and poor appetite. PHYSICAL EXAMINATION: GENERAL: Middle-aged white male who appears chronically ill. He does not appear to be in severe respiratory distress at this time. He is awake, alert, oriented x3 and was able to tell me pretty detailed account of his problem. HEENT: Mucous membrane moist. NECK: Supple. No jugular venous distention. CHEST: Bilateral decreased breath sounds and crackles and wheezing bilaterally. CARDIOVASCULAR: S1 and S2, regular. Soft systolic murmur heard. ABDOMEN: Soft, nontender. EXTREMITIES: Shows no edema. VITAL SIGNS: Shows blood pressure 158/69, pulse rate 56, temperature 36.5, 98% on 1 liter nasal cannula. LABORATORY TESTS: From this morning shows sodium 127, potassium 4.4, chloride 94, BUN 55, creatinine 7.5, calcium 9.1. Ferritin is 2752. CRP is 1.1, hemoglobin 10.7, WBC count 1.9. He does have lymphopenia and it is lower today than yesterday. Chest x-ray shows no major finding. ASSESSMENT AND PLAN: A 54-year-old male with endstage renal disease, on chronic hemodialysis, now admitted with severe COVID-19 infection. I have been consulted for dialysis management. End-stage renal disease: Does not have any fluid overload at this time, his shortness of breath appears to be almost entirely from the pulmonary aspect rather than fluid overload. He will be getting dialysis later today for 3 hours and we will try to take about 1.5-2 kilo of fluid off. He has hyponatremia from endstage renal disease and should get better after dialysis. Otherwise, no major electrolyte issue. His next dialysis will be on Wednesday as per his regular schedule. It is worth noting that as a chronic dialysis patient with diabetes, his risk of mortality is significantly higher. It is also concerning that he has markers of systemic inflammation including extremely elevated ferritin, elevated CRP and decreasing lymphocyte count which makes his prognosis worse. However, he does appear to be somewhat better today than yesterday which is encouraging. Continue daily labs.
[2020-04-05] MEDS: ZINC SULFATE 220 MG CAPSULE PO SCH (16:55)
[2020-04-05] MEDS: traZODone HCL 100 MG TAB PO SCH (20:11)
[2020-04-05] MEDS: FLUoxetine HCL 20 MG CAP PO SCH (20:12)
[2020-04-05] MEDS: INSULIN GLARGINE SOLOSTAR 100 UNITS/ML 3 ML PEN SC SCH (20:17)
[2020-04-05] MEDS ORDERED: FAMOTIDINE 20 MG in SYRINGE 3 ML IV SCH (21:00)
[2020-04-06] MEDS: ALBUTEROL HFA 8 GM INHALER INH SCH ×4 (07:58→20:21)
[2020-04-06] MEDS: IPRATROPIUM BROMIDE HFA INHALER INH SCH ×4 (07:58→20:22)
[2020-04-06] MEDS: rOPINIRole HCL 0.25 MG TABLET PO SCH ×2 (09:00→20:05)
[2020-04-06] MEDS: PANTOprazole 40 MG TAB PO SCH ×2 (09:00→20:05)
[2020-04-06] MEDS: APIXABAN 2.5 MG TAB PO SCH (09:00)
[2020-04-06] MEDS: GABAPENTIN 100 MG CAP PO SCH ×3 (09:00→20:06)
[2020-04-06] MEDS: guaiFENesin 600 MG TABCR PO SCH ×2 (09:00→20:03)
[2020-04-06] MEDS: ERYTHROMYCIN DELAYED RELEASE 250 MG CAP PO SCH ×3 (09:00→20:07)
[2020-04-06] MEDS: ZINC SULFATE 220 MG CAPSULE PO SCH (09:01)
[2020-04-06] MEDS: TAMSULOSIN HCL 0.4 MG CAP PO SCH (09:01)
[2020-04-06] MEDS: CALCIUM ACETATE 667 MG CAP/TAB PO SCH ×3 (09:01→17:07)
[2020-04-06] MEDS: ARIPiprazole 15 MG TAB PO SCH (09:01)
[2020-04-06] MEDS: DEXAMETHASONE SOD PHOSPHATE 6 MG in SYRINGE 0 ML IV SCH (09:02)
[2020-04-06] MEDS: INSULIN ASPART 100 UNITS/ML 3 ML PEN SC SCH ×4 (09:22→21:07)
--- NOTE | 2020-04-06 13:56 | Hospitalist Progress Note ---
Date of Service April 06, 2020 Assessment & Plan (1) Pneumonia due to COVID-19 virus: Initial diagnosis on 04/02/20. At baseline is not on O2. Has known asthma (vs COPD). In light of hypoxia, severe wheezing, NC O2 requirement, etc will treat with decadron x 10 days. Unfortunately remdesivir has NOT been studied in patients with ESRD. The patient was educated and consented regarding convalescent plasma. Dr fernández reviewed risks/benefits and gave FDA-issued handout on convalescent plasma. Blood consent form completed, type/screen done, and plasma given. Pulmonary toilet - mucinex, flutter valve, etc., CXR is not significantly altered, oxygen requirement now on room air, will consider reducing decadron if clinically improving (2) Acute respiratory failure with hypoxia: 2nd to COVID-19. see above. No pneumonia (3) Asthma: improved with decadron Combivent 1 puff qid. (4) ESRD (end stage renal disease) on dialysis: Dr Stoll from [facility] who will coordinate the pt's HD schedule of M/W/F. Continue phosphate binders. No evidence of any volume overload today. (5) Type 2 diabetes mellitus: Diet-controlled at the [facility], but with IV steroids anticipate hyperglycemia. Lantus 10 units HS. Novolog ac/hs. (6) Multiple sclerosis: Takes Aubagio 14mg daily. The prescribing data for this medication and it suggests that the drug be suspended in the face of a serious infection. Will check with neurology about this in am to see if they agree that it should be held while here. He has a left foot drop and left proximal leg weakness as well. Does not ambulate at the SNF. (7) Depression: Cont home meds including prozac, abilify, etc. (8) Thrombocytopenia: Platelet count low, records that this is a chronic issue for him. CBC in am. (9) Morbid obesity: (10) History of DVT (deep vein thrombosis): details uncertain. does take eliquis 5mg BID at SNF. at high risk of recurrent VTE in light of COVID-19 infection, nonambulatory status, and prior VTE history. continue eliquis as previous. (11) Hypertension: hold amlodipine 10mg daily. (12) Hyperlipidemia: hold statin. (13) DVT prophylaxis: eliquis 5mg BID no contact information in chart for family/friends/POA Pt is a full code Admission and Anticipated Discharge Date Admission Date: April 04, 2020 Subjective Patient seen in his hospital room. He states he feels better. HE is now on room air and feels near his baseline, some scant wheezes remain on exam Review of Systems Review of Systems: Mild distress and fatigue no headache, blurry or double vision no speech or swallowing issues no chest pain, pressure or palpitations minor shortness of breath nonproductive cough no abdominal pain, nausea or vomiting, diarrhea on 04/05/2020 no dysuria, hematuria or frequency no focal joint pain or swelling no back pain, CVA tenderness or radicular pain no bruising, bleeding or rashes Physical Exam Physical Exam: The patient appeared well nourished and normally developed. Vital signs as documented. Head exam is normocephalic atraumatic no scleral icterus Neck is without JVD, thyromegaly, or carotid bruits. Lungs are clear to auscultation, no focal loss of breath sounds Cardiac exam, Rhythm is regular.. No murmurs, rubs or gallops. Abdominal exam reveals normal bowel sounds, soft non tender, no masses Extremities are nonedematous and both pedal pulses are present Neurologic exam is alert and oriented, no focal loss of strength or sensation Skin is without bruises or rashes Psychologically is without concerns for anxiety or depression. Results & Data Results & Data ([facility]) Vital Signs (Past 12 Hours) Vital Signs Temp Pulse Pulse Resp BP Pulse Ox 04/06/20 11:46 98.1 F 48 L 19 121/53 L 94 04/06/20 11:18 46 L 18 93 04/06/20 08:01 98.2 F 44 L 19 125/67 94 04/06/20 08:00 46 L 04/06/20 07:58 46 L 18 96 04/06/20 03:02 97.9 F 47 L 16 134/75 95 PG Care Time/CCT Total # of Minutes Spent Total Time Spent with Patient: Total time spent is greater than 50% in coordination of care (as documented) at patient's floor/unit and/or counseling patient: Coding Level of Care Code 56476 Subseq Hosp Care Lvl 2 Diagnoses Pneumonia due to COVID-19 virus U07.1; J12.89 Acute respiratory failure with hypoxia J96.01 Asthma J45.901 Asthma severity: unspecified severity Asthma persistence: unspecified Asthma complication type: with acute exacerbation ESRD (end stage renal disease) on dialysis N18.6; Z99.2 Type 2 diabetes mellitus E11.69 Diabetes mellitus 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 insulin use: without longterm use Diabetes mellitus complication status: with other specified complication Multiple sclerosis G35 Depression F32.9 Depression Type: unspecified Thrombocytopenia D69.6 Morbid obesity E66.01 History of DVT (deep vein thrombosis) Z86.718 Hypertension I10 Hypertension type: essential hypertension Hyperlipidemia E78.2 Hyperlipidemia type: mixed hyperlipidemia DVT prophylaxis Z29.9 (1) Asthma Asthma severity: unspecified severity Asthma persistence: unspecified Asthma complication type: with acute exacerbation Qualified Code(s): J45.901 - Unspecified asthma with (acute) exacerbation (2) Type 2 diabetes mellitus Diabetes mellitus longterm insulin use: without 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 use Diabetes mellitus complication status: with other specified complication Qualified Code(s): E11.69 - Type 2 diabetes mellitus with other specified complication (3) Depression Depression Type: unspecified Qualified Code(s): F32.9 - Major depressive disorder, single episode, unspecified (4) Hypertension Hypertension type: essential hypertension Qualified Code(s): I10 - Essential (primary) hypertension (5) Hyperlipidemia Hyperlipidemia type: mixed hyperlipidemia Qualified Code(s): E78.2 - Mixed hyperlipidemia
[2020-04-06] MEDS: FLUoxetine HCL 20 MG CAP PO SCH (20:02)
[2020-04-06] MEDS: traZODone HCL 100 MG TAB PO SCH (20:03)
[2020-04-06] MEDS: APIXABAN 5 MG TABLET PO SCH (20:04)
[2020-04-06] MEDS: INSULIN GLARGINE SOLOSTAR 100 UNITS/ML 3 ML PEN SC SCH (21:06)
[2020-04-07] MEDS: IPRATROPIUM BROMIDE HFA INHALER INH SCH ×4 (07:20→20:27)
[2020-04-07] MEDS: ALBUTEROL HFA 8 GM INHALER INH SCH ×4 (07:20→20:27)
[2020-04-07 07:35] LABS: Creatinine Clr Calc Pharmacy 14.6 ml/min; Est GFR (Non-African American) 7.8
[2020-04-07] MEDS: ARIPiprazole 15 MG TAB PO SCH (08:43)
[2020-04-07] MEDS: ERYTHROMYCIN DELAYED RELEASE 250 MG CAP PO SCH ×3 (08:43→20:00)
[2020-04-07] MEDS: guaiFENesin 600 MG TABCR PO SCH ×2 (08:43→20:02)
[2020-04-07] MEDS: ZINC SULFATE 220 MG CAPSULE PO SCH (08:43)
[2020-04-07] MEDS: GABAPENTIN 100 MG CAP PO SCH ×3 (08:44→20:02)
[2020-04-07] MEDS: rOPINIRole HCL 0.25 MG TABLET PO SCH ×2 (08:44→20:01)
[2020-04-07] MEDS: PANTOprazole 40 MG TAB PO SCH ×2 (08:44→20:01)
[2020-04-07] MEDS: TAMSULOSIN HCL 0.4 MG CAP PO SCH (08:44)
[2020-04-07] MEDS: APIXABAN 5 MG TABLET PO SCH ×2 (08:45→20:02)
[2020-04-07] MEDS: CALCIUM ACETATE 667 MG CAP/TAB PO SCH ×3 (08:46→17:25)
[2020-04-07] MEDS: DEXAMETHASONE SOD PHOSPHATE 6 MG in SYRINGE 0 ML IV SCH (08:46)
[2020-04-07] MEDS: INSULIN ASPART 100 UNITS/ML 3 ML PEN SC SCH ×4 (09:23→21:09)
[2020-04-07 09:38] LABS: BUN Creatinine Ratio 9.5 (10-20); Calcium 8.3 mg/dl (8.5-10.1); Creatinine Clr Calc Pharmacy 14.3 ml/min; Est GFR (African American) 8.8; Est GFR (Non-African American) 7.6
--- NOTE | 2020-04-07 14:22 | Hospitalist Progress Note ---
Date of Service April 07, 2020 Assessment & Plan (1) Pneumonia due to COVID-19 virus: Initial diagnosis on 04/02/20. At baseline is now on minimal O2. Has known asthma (vs COPD). In light of hypoxia, severe wheezing, NC O2 requirement, etc will treat with decadron x 10 days. Unfortunately remdesivir has NOT been studied in patients with ESRD. The patient was educated and consented regarding convalescent plasma. Dr fernández reviewed risks/benefits and gave FDA-issued handout on convalescent plasma. Blood consent form completed, type/screen done, and plasma given. Pulmonary toilet - mucinex, flutter valve, etc., CXR is not significantly altered, oxygen requirement now on room air, will consider reducing decadron if clinically improving (2) Acute respiratory failure with hypoxia: 2nd to COVID-19. see above. No pneumonia (3) Asthma: improved with decadron Combivent 1 puff qid. (4) ESRD (end stage renal disease) on dialysis: Dr Stoll from [facility] who will coordinate the pt's HD schedule of M/W/F. Continue phosphate binders. No evidence of any volume overload today. (5) Type 2 diabetes mellitus: Diet-controlled at the SNF, but with IV steroids anticipate hyperglycemia. Lantus 10 units HS. Novolog ac/hs. (6) Multiple sclerosis: Takes Aubagio 14mg daily. The prescribing data for this medication and it suggests that the drug be suspended in the face of a serious infection. He has a left foot drop and left proximal leg weakness as well. Does not ambulate at the SNF. (7) Depression: Cont home meds including prozac, abilify, etc. (8) Thrombocytopenia: Platelet count low, records that this is a chronic issue for him. (9) Morbid obesity: (10) History of DVT (deep vein thrombosis): details uncertain. does take eliquis 5mg BID at SNF. at high risk of recurrent VTE in light of COVID-19 infection, nonambulatory status, and prior VTE history. continue eliquis as previous. (11) Hypertension: hold amlodipine 10mg daily. (12) Hyperlipidemia: hold statin. (13) DVT prophylaxis: eliquis 5mg BID no contact information in chart for family/friends/POA Pt is a full code Admission and Anticipated Discharge Date Admission Date: April 04, 2020 Subjective Patient seen in his hospital room. He states he feels better. Once again returns to some supplemental oxygen however this may have somewhat something to do with the fact that he is predialysis will continue to be supported overall he has no clinical decline Review of Systems Review of Systems: Mild distress and fatigue no headache, blurry or double vision no speech or swallowing issues no chest pain, pressure or palpitations minor shortness of breath nonproductive cough no abdominal pain, nausea or vomiting, diarrhea on 04/05/2020 no dysuria, hematuria or frequency no focal joint pain or swelling no back pain, CVA tenderness or radicular pain no bruising, bleeding or rashes Physical Exam Physical Exam: The patient appeared well nourished and normally developed. Vital signs as documented. Head exam is normocephalic atraumatic no scleral icterus Neck is without JVD, thyromegaly, or carotid bruits. Lungs are clear to auscultation, no focal loss of breath sounds Cardiac exam, Rhythm is regular.. No murmurs, rubs or gallops. Abdominal exam reveals normal bowel sounds, soft non tender, no masses Extremities are nonedematous and both pedal pulses are present Neurologic exam is alert and oriented, no focal loss of strength or sensation Skin is without bruises or rashes Psychologically is without concerns for anxiety or depression. Results & Data Results & Data ([facility]) Vital Signs (Past 12 Hours) Vital Signs Temp Pulse Pulse Resp BP Pulse Ox 04/07/20 11:40 97.7 F 51 L 19 131/69 93 04/07/20 11:39 18 93 04/07/20 07:26 49 L 04/07/20 07:23 20 93 04/07/20 07:15 97.7 F 58 L 18 144/71 H 93 04/07/20 02:44 98.1 F 46 L 18 127/80 96 PG Care Time/CCT Total # of Minutes Spent Total Time Spent with Patient: Total time spent is greater than 50% in coordination of care (as documented) at patient's floor/unit and/or counseling patient: Coding Level of Care Code 28487 Subseq Hosp Care Lvl 2 Diagnoses Pneumonia due to COVID-19 virus U07.1; J12.89 Acute respiratory failure with hypoxia J96.01 Asthma J45.901 Asthma severity: unspecified severity Asthma persistence: unspecified Asthma complication type: with acute exacerbation ESRD (end stage renal disease) on dialysis N18.6; Z99.2 Type 2 diabetes mellitus E11.69 Diabetes mellitus skilled nursing insulin use: without long term care administrator use Diabetes mellitus complication status: with other specified complication Multiple sclerosis G35 Depression F32.9 Depression Type: unspecified Thrombocytopenia D69.6 Morbid obesity E66.01 History of DVT (deep vein thrombosis) Z86.718 Hypertension I10 Hypertension type: essential hypertension Hyperlipidemia E78.2 Hyperlipidemia type: mixed hyperlipidemia DVT prophylaxis Z29.9 (1) Asthma Asthma severity: unspecified severity Asthma persistence: unspecified Asthma complication type: with acute exacerbation Qualified Code(s): J45.901 - Unspecified asthma with (acute) exacerbation (2) Type 2 diabetes mellitus Diabetes mellitus long term care administrator insulin use: without skilled nursing use Diabetes mellitus complication status: with other specified complication Qualified Code(s): E11.69 - Type 2 diabetes mellitus with other specified complication (3) Depression Depression Type: unspecified Qualified Code(s): F32.9 - Major depressive disorder, single episode, unspecified (4) Hypertension Hypertension type: essential hypertension Qualified Code(s): I10 - Essential (primary) hypertension (5) Hyperlipidemia Hyperlipidemia type: mixed hyperlipidemia Qualified Code(s): E78.2 - Mixed hyperlipidemia
[2020-04-07] MEDS: traZODone HCL 100 MG TAB PO SCH (20:00)
[2020-04-07] MEDS: FLUoxetine HCL 20 MG CAP PO SCH (20:03)
[2020-04-07] MEDS ORDERED: FAMOTIDINE 20 MG TAB PO SCH (21:00)
[2020-04-07] MEDS: INSULIN GLARGINE SOLOSTAR 100 UNITS/ML 3 ML PEN SC SCH (21:09)
[2020-04-08] MEDS ORDERED: SODIUM CHLORIDE 0.9% 1000ML 1,000 ML IV PRN (07:40)
[2020-04-08] MEDS: IPRATROPIUM BROMIDE HFA INHALER INH SCH (07:52)
[2020-04-08] MEDS: ALBUTEROL HFA 8 GM INHALER INH SCH (07:53)
[2020-04-08] MEDS ORDERED: EPOETIN ALFA 4,000 UNIT/ML VIAL IV SCH (08:00)
[2020-04-08] MEDS ORDERED: HEPARIN SOD (PORCINE) 1000 UNIT/ML 10 ML VIAL IV ONE (08:00)
[2020-04-08] MEDS: CALCIUM ACETATE 667 MG CAP/TAB PO SCH ×3 (08:47→18:37)
[2020-04-08] MEDS: rOPINIRole HCL 0.25 MG TABLET PO SCH ×2 (08:47→21:13)
[2020-04-08] MEDS: APIXABAN 5 MG TABLET PO SCH ×2 (08:47→21:14)
[2020-04-08] MEDS: guaiFENesin 600 MG TABCR PO SCH ×2 (08:47→21:14)
[2020-04-08] MEDS: DEXAMETHASONE SOD PHOSPHATE 6 MG in SYRINGE 0 ML IV SCH (08:47)
[2020-04-08] MEDS: TAMSULOSIN HCL 0.4 MG CAP PO SCH (08:47)
[2020-04-08] MEDS: GABAPENTIN 100 MG CAP PO SCH ×3 (08:47→21:18)
[2020-04-08] MEDS: PANTOprazole 40 MG TAB PO SCH ×2 (08:47→21:14)
[2020-04-08] MEDS: ERYTHROMYCIN DELAYED RELEASE 250 MG CAP PO SCH ×3 (08:48→21:14)
[2020-04-08] MEDS: ZINC SULFATE 220 MG CAPSULE PO SCH (08:48)
[2020-04-08] MEDS: ARIPiprazole 15 MG TAB PO SCH (08:48)
[2020-04-08] MEDS: INSULIN ASPART 100 UNITS/ML 3 ML PEN SC SCH ×4 (09:02→21:16)
[2020-04-08] MEDS ORDERED: ALBUTEROL HFA 8 GM INHALER INH PRN (09:29)
[2020-04-08] MEDS ORDERED: IPRATROPIUM BROMIDE HFA INHALER INH PRN (09:29)
[2020-04-08] MEDS ORDERED: HEPARIN SOD (PORCINE) 1000 UNIT/ML 10 ML VIAL ONE (14:55)
[2020-04-08] MEDS: HEPARIN SOD (PORCINE) 1000 UNIT/ML 10 ML VIAL IV SCH (15:13)
[2020-04-08] MEDS ORDERED: EPOETIN ALFA IV SCH (15:45)
--- NOTE | 2020-04-08 16:53 | Hospitalist Progress Note ---
Date of Service April 08, 2020 Assessment & Plan (1) Pneumonia due to COVID-19 virus: Initial diagnosis on 04/02/20. At baseline is now on minimal O2. Has known asthma (vs COPD). In light of hypoxia, severe wheezing, NC O2 requirement, etc will treat with decadron x 10 days. Unfortunately remdesivir has NOT been studied in patients with ESRD. The patient was educated and consented regarding convalescent plasma. Blood consent form completed, type/screen done, and plasma given. Pulmonary toilet - mucinex, flutter valve, etc., CXR is not significantly altered, oxygen requirement now on room air stable for discharge tomorrow, complete full course of Decadron (2) Acute respiratory failure with hypoxia: 2nd to COVID-19. see above. No pneumonia no distress on room air during my visit (3) Asthma: improved with decadron Combivent 1 puff qid. no wheezing on exam (4) ESRD (end stage renal disease) on dialysis: Dr Stoll from [facility] who will coordinate the pt's HD schedule of M/W/F. Continue phosphate binders. No evidence of any volume overload on exam tolerated HD today under direction of Dr. North (5) Type 2 diabetes mellitus: Diet-controlled at the SNF, but with IV steroids anticipate hyperglycemia. Lantus 10 units HS. Novolog ac/hs, will tighten correction factor and carb coverage due to hyperglycemia follow closely (6) Multiple sclerosis: Takes Aubagio 14mg daily. The prescribing data for this medication and it suggests that the drug be suspended in the face of a serious infection. He has a left foot drop and left proximal leg weakness as well. Does not ambulate at the SNF. (7) Depression: Cont home meds including prozac, abilify, etc. (8) Thrombocytopenia: Platelet count low, records that this is a chronic issue for him. check CBC tomorrow (9) Morbid obesity: (10) History of DVT (deep vein thrombosis): details uncertain. does take eliquis 5mg BID at SNF. at high risk of recurrent VTE in light of COVID-19 infection, nonambulatory status, and prior VTE history. continue eliquis as previous. (11) Hypertension: resume Norvasc (12) Hyperlipidemia: hold statin. (13) DVT prophylaxis: eliquis 5mg BID no contact information in chart for family/friends/POA Pt is a full code Admission and Anticipated Discharge Date Admission Date: April 04, 2020 Subjective patient is breathing well, no cough, no fever, no distress at all tolerating HD well he is eating, no nausea, he is moving bowels d/w Dr. Norht, plan for discharge tomorrow and resume HD on Wed as normally scheduled d/w , patient can go back to [facility] tomorrow Review of Systems Review of Systems: All systems reviewed & are unremarkable except as noted in Subjective Physical Exam Constitutional: WD/WN, vitals as above no acute distress Eyes: PERRL, conjunctivae normal, anicteric sclerae ENMT: external ear and nose normal, oropharynx normal Neck: trachea midline, no thyromegaly Respiratory: normal respiratory effort, lungs clear to auscultation Cardiovascular: RRR, no murmur, no edema Gastrointestinal (Abdomen): normal bowel sounds, soft, nontender, no hepatosplenomegaly Musculoskeletal: no cyanosis or clubbing, extremities motor strength 5/5 Skin: no rashes, warm and dry Neurologic: patellar DTR's 2+ bilat, sensation intact and PERRL, EOMI, accommodation nl, no face palsy, no dysarthria Psychiatric: A+Ox3, euthymic affect Lymphatic: no cervical or axillary lymphadenopathy Results & Data Results & Data ([facility]) Vital Signs (Past 12 Hours) Vital Signs Temp Pulse Pulse Resp BP BP Pulse Ox 04/08/20 16:40 66 173/82 H 04/08/20 16:20 65 176/97 H 04/08/20 16:00 60 150/96 H 04/08/20 15:40 63 178/99 H 04/08/20 15:20 64 176/98 H 04/08/20 15:00 64 150/49 H 04/08/20 14:40 63 169/95 H 04/08/20 14:20 59 L 171/90 H 04/08/20 14:00 36.6 C 57 L 04/08/20 11:24 37.0 C 57 L 19 158/85 H 85 L 04/08/20 10:09 90 04/08/20 07:53 52 L 16 91 04/08/20 07:36 36.7 C 53 L 18 157/83 H 91 Laboratory Results Laboratory Results - last 24 hr 04/07/20 04/07/20 04/08/20 16:54 19:59 07:39 POC Glucose 209 H 246 H 139 H 04/08/20 04/08/20 12:05 16:17 POC Glucose 190 H 135 H Medications Administered Current Inpatient Medications Acetaminophen (Acetaminophen 325 Mg Tab) 650 mg PO Q4H PRN PRN Reason: Pain or Fever Stop: 05/04/20 16:55 Albuterol (Albuterol Hfa 8 Gm Inhaler) 1 puffs INH QIDR PRN PRN Reason: Shortness Of Breath Or Wheezing Stop: 05/04/20 16:55 Apixaban (Apixaban 5 Mg Tablet) 5 mg PO BID [facility] Stop: 05/06/20 20:59 Last Admin: 04/08/20 08:47 Dose: 5 mg Documented by: Aripiprazole (Aripiprazole 15 Mg Tab) [facility] [place] Stop: 05/05/20 08:59 Last Admin: 04/08/20 08:48 Dose: 15 mg Documented by: Calcium Acetate (Calcium Acetate 667 Mg Cap/Tab) 2,668 mg PO TIDM [facility] Stop: 05/04/20 16:59 Last Admin: 04/08/20 12:14 Dose: 2,668 mg Documented by: Dextrose (Dextrose 50% 50 Ml Syringe) 25 - 50 ml IV UD PRN; Protocol PRN Reason: Hypoglycemia Protocol Stop: 05/04/20 17:44 Erythromycin (Erythromycin Delayed Release 250 Mg Cap) 250 mg PO TID [facility] Stop: 05/04/20 20:59 Last Admin: 04/08/20 14:33 Dose: 250 mg Documented by: Famotidine (Famotidine 20 Mg Tab) 20 mg PO Q2D@2100 [facility]; Protocol Stop: 05/07/20 20:59 Last Admin: 04/07/20 20:03 Dose: 20 mg Documented by: Fluoxetine HCl (Fluoxetine Hcl 20 Mg Cap) 60 mg PO HS [facility] Stop: 05/04/20 20:59 Last Admin: 04/07/20 20:03 Dose: 60 mg Documented by: Gabapentin (Gabapentin 100 Mg Cap) 100 mg PO TID [facility] Stop: 05/04/20 20:59 Last Admin: 04/08/20 14:33 Dose: 100 mg Documented by: Glucagon (Glucagon For Inj 1 Mg Vial) 1 mg IM UD PRN; Protocol PRN Reason: Hypoglycemia Protocol Stop: 05/04/20 17:44 Glucose (Glucose 40% Gel 15 Gm Tube) 15 - 30 gm PO UD PRN; Protocol PRN Reason: Hypoglycemia Protocol Stop: 05/04/20 17:44 Glucose (Glucose 10 Tabs/Tube) 4 - 8 tabs PO UD PRN; Protocol PRN Reason: Hypoglycemia Protocol Stop: 05/04/20 17:44 Guaifenesin (Guaifenesin 600 Mg Tabcr) 600 mg PO Q12 CATIE Stop: 05/04/20 20:59 Last Admin: 04/08/20 08:47 Dose: 600 mg Documented by: Dexamethasone Sodium Phosphate (6 mg/ Syringe) 1.5 mls @ 1 mls/min IV DAILY@0900 [facility] Stop: 05/06/20 08:59 Last Admin: 04/08/20 08:47 Dose: 1 mls/min Documented by: Insulin Aspart (Insulin Aspart 100 Units/Ml 3 Ml Pen) 0 units SC ACHS [facility] Stop: 05/04/20 17:14 Last Admin: 04/08/20 16:45 Dose: Not Given Documented by: Insulin Glargine (Insulin Glargine Solostar 100 Units/Ml 3 Ml Pen) 10 units SC HS [facility] Stop: 05/04/20 21:34 Last Admin: 04/07/20 21:09 Dose: 10 units Documented by: Ipratropium Gibbs (Ipratropium Gibbs Hfa Inhaler) 1 puffs INH QIDR PRN PRN Reason: Shortness Of Breath Or Wheezing Stop: 05/04/20 16:55 Miscellaneous (Carbohydrates For Hypoglycemia ) 15 - 30 gm PO UD PRN PRN Reason: Hypoglycemia Treatment Stop: 05/04/20 17:44 Miscellaneous (Aubagio - Teriflunomide - Order Awaiting Action) 1 ea N/A QAM [facility] Stop: 05/05/20 08:59 Ondansetron HCl (Ondansetron Inj 2 Mg/Ml 2 Ml Vial) 4 mg IV Q6H PRN PRN Reason: Nausea Stop: 05/04/20 16:55 Pantoprazole Sodium (Pantoprazole 40 Mg Tab) 40 mg PO BID [facility] Stop: 05/04/20 20:59 Last Admin: 04/08/20 08:47 Dose: 40 mg Documented by: Ropinirole HCl (Ropinirole Hcl 0.25 Mg Tablet) 0.5 mg PO BID [facility] Stop: 05/04/20 20:59 Last Admin: 04/08/20 08:47 Dose: 0.5 mg Documented by: Tamsulosin HCl (Tamsulosin Hcl 0.4 Mg Cap) 0.4 mg PO QAM [facility] Stop: 05/05/20 08:59 Last Admin: 04/08/20 08:47 Dose: 0.4 mg Documented by: Trazodone HCl (Trazodone Hcl 100 Mg Tab) 100 mg PO HS [facility] Stop: 05/04/20 20:59 Last Admin: 04/07/20 20:00 Dose: 100 mg Documented by: Zinc Sulfate (Zinc Sulfate 220 Mg Capsule) 220 mg PO QAM [facility] Stop: 05/05/20 15:44 Last Admin: 04/08/20 08:48 Dose: 220 mg Documented by: PG Care Time/CCT Total # of Minutes Spent Total Time Spent with Patient: Total time spent is greater than 50% in coordination of care (as documented) at patient's floor/unit and/or counseling patient: Coding Level of Care Code 30991 Subseq Hosp Care Lvl 3 Diagnoses Pneumonia due to COVID-19 virus U07.1; J12.89 Acute respiratory failure with hypoxia J96.01 Asthma J45.901 Asthma complication type: with acute exacerbation Asthma persistence: unspecified Asthma severity: unspecified severity ESRD (end stage renal disease) on dialysis N18.6; Z99.2 Type 2 diabetes mellitus E11.69 Diabetes mellitus complication status: with other specified complication Diabetes mellitus fpc insulin use: without buttermaker continuous churn use Multiple sclerosis G35 Depression F32.9 Depression Type: unspecified Thrombocytopenia D69.6 Morbid obesity E66.01 History of DVT (deep vein thrombosis) Z86.718 Hypertension I10 Hypertension type: essential hypertension Hyperlipidemia E78.2 Hyperlipidemia type: mixed hyperlipidemia DVT prophylaxis Z29.9 (1) Type 2 diabetes mellitus Diabetes mellitus complication status: with other specified complication Diabetes mellitus fpc insulin use: without fpc use Qualified Code(s): E11.69 - Type 2 diabetes mellitus with other specified complication (2) Depression Depression Type: unspecified Qualified Code(s): F32.9 - Major depressive disorder, single episode, unspecified (3) Hyperlipidemia Hyperlipidemia type: mixed hyperlipidemia Qualified Code(s): E78.2 - Mixed hyperlipidemia (4) Hypertension Hypertension type: essential hypertension Qualified Code(s): I10 - Essential (primary) hypertension (5) Asthma Asthma complication type: with acute exacerbation Asthma persistence: unspecified Asthma severity: unspecified severity Qualified Code(s): J45.901 - Unspecified asthma with (acute) exacerbation
[2020-04-08] MEDS: FLUoxetine HCL 20 MG CAP PO SCH (21:13)
[2020-04-08] MEDS: traZODone HCL 100 MG TAB PO SCH (21:14)
[2020-04-08] MEDS: INSULIN GLARGINE SOLOSTAR 100 UNITS/ML 3 ML PEN SC SCH (21:14)
--- NOTE | 2020-04-08 21:31 | Communication Note ---
Date of Service: April 08, 2020 Pt care reviewed w/ Dr Sevilla and RN. he is improving clinically and per report for possible d/c tomorrow I reviewed his chart and after discussion w/ care team modified his dialysis orders for today. PE deferred in interest of preserving PPE. I increased his tx time to 4h, increased UF target, added heparin to tx plan>> pt tolerated 2.5L UF w/o incident. He will dialyze next at [facility] unit on covid shift at end of the day on 04/10.
[2020-04-09 06:44] LABS: Hematocrit (blood only) 31.5 % (42-52); Hemoglobin 9.8 g/dL (14.0-18.0); Mean Corpuscular Hemoglobin 27.3 pg (25-34); Mean Corpuscular Hgb Conc 31.1 g/dL (32-36); Mean Corpuscular Volume 87.7 fL (80-100); Red Blood Count 3.59 M/uL (4.7-6.1)
[2020-04-09 06:45] LABS: Mean Platelet Volume 10.2 fL (7.4-10.4); Platelet Count 87 K/uL (130-400)
[2020-04-09 07:15] LABS: Eosinophils # (auto) 0.02 K/uL (0-0.5); Eosinophils % (auto) 0.2 %; Immature Granulocytes # (auto) 0.06 K/uL (0.00-0.02); Immature Granulocytes % (auto) 0.7 %; Lymphocytes # (auto) 0.58 K/uL (1.2-3.4); Lymphocytes % (auto) 6.9 %; Monocytes # (auto) 0.41 K/uL (0.11-0.59); Monocytes % (auto) 4.9 %; Neutrophils # (auto) 7.33 K/uL (1.4-6.5); Neutrophils % (auto) 87.3 %
[2020-04-09 07:33] LABS: BUN Creatinine Ratio 8.9 (10-20); Calcium 8.4 mg/dl (8.5-10.1); Creatinine Clr Calc Pharmacy 19.6 ml/min; Est GFR (African American) 12.9; Est GFR (Non-African American) 11.1; Magnesium 2.1 mg/dl (1.8-2.4); Potassium 3.4 mmol/L (3.5-5.1)
[2020-04-09] MEDS: ERYTHROMYCIN DELAYED RELEASE 250 MG CAP PO SCH (08:35)
[2020-04-09] MEDS: APIXABAN 5 MG TABLET PO SCH (08:35)
[2020-04-09] MEDS: guaiFENesin 600 MG TABCR PO SCH (08:36)
[2020-04-09] MEDS: rOPINIRole HCL 0.25 MG TABLET PO SCH (08:36)
[2020-04-09] MEDS: ZINC SULFATE 220 MG CAPSULE PO SCH (08:36)
[2020-04-09] MEDS: CALCIUM ACETATE 667 MG CAP/TAB PO SCH ×2 (08:36→11:51)
[2020-04-09] MEDS: TAMSULOSIN HCL 0.4 MG CAP PO SCH (08:36)
[2020-04-09] MEDS: PANTOprazole 40 MG TAB PO SCH (08:36)
[2020-04-09] MEDS: ARIPiprazole 15 MG TAB PO SCH (08:36)
[2020-04-09] MEDS: GABAPENTIN 100 MG CAP PO SCH (08:37)
[2020-04-09] MEDS: DEXAMETHASONE SOD PHOSPHATE 6 MG in SYRINGE 0 ML IV SCH (08:37)
[2020-04-09] MEDS ORDERED: amLODIPine BESYLATE 5 MG TAB PO SCH (09:00)
[2020-04-09] MEDS: INSULIN ASPART 100 UNITS/ML 3 ML PEN SC SCH ×2 (09:06→12:12)
--- NOTE | 2020-04-09 10:51 | Discharge Summary ---
Date of Service April 09, 2020 Admission HPI Per Admitting Provider 54yo male, ESRD on HD M/W/F, MS, asthma, HTN, h/o DVT - presenting from [facility] with worsening O2 requirement related to COVID-19 infection. Was diagnosed on Wednesday of this week. I was unclear by his history if this was discovered during routine screening OR the test was obtained because of symptoms. Either way he states his symptoms began on Wednesday with generalized malaise, fevers, chills, cough and shortness of breath. Multiple times during the encounter he said "I just don't feel good." Cough is dry. He has ongoing wheezing. Was started on oxygen earlier this week and his O2 requirements have steadily increased in the last 24 hours. Mentions a h/o PAULINE and should be on BIPAP but has not used such in a long time. Records from the SNF were reviewed. Medication list shows that he takes daily Aubagio for his MS. Dose is 14mg once daily by mouth. Also takes amlodipine 10mg daily and lyrica. Oddly he is also on gabapentin. Patient reports moving from [place] to [facility] in the last year. He is originally from [place] and wanted to be closer to family. He has 4 children and states that he is but they all live out of state (?). Principal Diagnosis Pneumonia due to COVID 19 Discharge Exam Constitutional WD/WN, vitals as above no acute distress Eyes PERRL, conjunctivae normal, anicteric sclerae ENMT external ear and nose normal, oropharynx normal Neck trachea midline, no thyromegaly Respiratory normal respiratory effort, lungs clear to auscultation Cardiovascular RRR, no murmur, no edema Gastrointestinal (Abdomen) normal bowel sounds, soft, nontender, no hepatosplenomegaly Musculoskeletal no cyanosis or clubbing, extremities motor strength 5/5 Skin no rashes, warm and dry Neurologic patellar DTR's 2+ bilat, sensation intact and PERRL, EOMI, accommodation nl, no face palsy, no dysarthria Psychiatric A+Ox3, euthymic affect Lymphatic no cervical or axillary lymphadenopathy Discharge Data Allergies Allergy/AdvReac Type Severity Reaction Status Date / Time No Known Allergies Allergy Unverified 04/04/20 12:13 Consultations 04/04/20 13:31 ED Decision to Admit Stat 04/04/20 14:37 Consult Nephrology Routine Hospital Course (1) Pneumonia due to COVID-19 virus: Initial diagnosis on 04/02/20. At baseline is now on minimal O2. Has known asthma (vs COPD). In light of hypoxia, severe wheezing, NC O2 requirement, etc will treat with decadron Unfortunately remdesivir has NOT been studied in patients with ESRD. The patient was educated and consented regarding convalescent plasma. Blood consent form completed, type/screen done, and plasma given. Pulmonary toilet - mucinex, flutter valve, etc., CXR is not significantly altered, oxygen requirement now on room air stable for discharge, he is not on oxygen during the day, only at night time which is typical for him completed 7 days of Decadron, his breathing is at baseline, no further Decadron prescribed (2) Acute respiratory failure with hypoxia: 2nd to COVID-19. see above. No pneumonia no distress on room air two days in a row, says he is feeling back to baseline (3) Asthma: improved with decadron Combivent 1 puff qid. no wheezing on exam (4) ESRD (end stage renal disease) on dialysis: Dr Stoll from [facility] who will coordinate the pt's HD schedule of M/W/F. Continue phosphate binders. No evidence of any volume overload on exam tolerated HD the day prior to discharge, plan to resume outpatient HD on 04/10 (5) Type 2 diabetes mellitus: Diet-controlled at the SNF, but with IV steroids anticipate hyperglycemia. Lantus 10 units HS. Novolog ac/hs, will tighten correction factor and carb coverage due to hyperglycemia follow closely (6) Multiple sclerosis: Takes Aubagio 14mg daily. The prescribing data for this medication and it suggests that the drug be suspended in the face of a serious infection. He has a left foot drop and left proximal leg weakness as well. Does not ambulate at the SNF. (7) Depression: Cont home meds including prozac, abilify, etc. (8) Thrombocytopenia: Platelet count low, records that this is a chronic issue for him. check CBC tomorrow (9) Morbid obesity: (10) History of DVT (deep vein thrombosis): details uncertain. does take eliquis 5mg BID at SNF. at high risk of recurrent VTE in light of COVID-19 infection, nonambulatory status, and prior VTE history. continue eliquis as previous. (11) Hypertension: resume Norvasc (12) Hyperlipidemia: hold statin. Total Time Total Time Spent Total Time Spent (In Minutes): 32 Total Time Includes: Examination of the Patient, Discharge Planning, Medication Reconciliation and Communication With Other Providers Discharge Plan Discharge Items Patient Disposition: Transfer Assisted Fac Reason For Visit: COVID 19 PNEUMONIA,ACUTE HYPOXIC RESP FAILURE, ESR Discharge Diagnosis: COVID 19 pneumonia Acute hypoxic respiratory failure ESRD on dialysis Asthma Multiple sclerosis Condition on Discharge: Good Activity: Resume your previous activity Non-emergency contact: Primary Care Provider Call non-emergency contact if: you have any medication questions, your symptoms worsen and you have a fever Follow-up/Referrals: Dionna Mayfield [Primary Care Provider] - (this week) Diet: Carb Consistent or DM2 and Dialysis Renal Addtl Attending Provider Instructions: Medications: listed as new medications due to issue with initial medicine reconciliation please continue prior medications that he was taking prior to hospitalization COVID 19 viral pneumonia, acute hypoxic respiratory failure he is now stable on room air during the day, continues to use oxygen at night which is his baseline completed 7 days of Decadron, received convalescent plasma and took Zinc for 7 days no further treatment needed, he is recovered continue to use his inhalers PRN for his asthma if he has dyspnea, wheezing ESRD on HD: resume HD tomorrow as normally scheduled follows with [facility] DM type II: follow diabetic diet he was on insulin while here due to Decadron use you can resume his prior regimen once back at [facility] follow up with provider at [facility] this week if possible Pending Studies at Discharge: No Stand-Alone Forms: My [facility] Skilled Items Patient informed of condition?: Yes DNR: No Discharge Level of Care: Skilled Communicable Disease: No Discharge Prognosis: Stable Lines: None Urinary Catheter: No Medications and DC Order Prescriptions: New acetaminophen 325 mg Tablet 650 mg PO Q4H PRN (Reason: fever or pain) Qty: 30 RF: 0 erythromycin [Diaz-Tab] 250 mg Tablet,Delayed Release (Dr/Ec) 250 mg PO TID 30 Days Qty: 90 RF: 0 amlodipine [Norvasc] 5 mg Tablet 10 mg PO QAM 30 Days Qty: 60 RF: 0 famotidine 20 mg Tablet 20 mg PO Q2D@2100 30 Days RF: 0 tamsulosin 0.4 mg Capsule 0.4 mg PO QAM 30 Days Qty: 30 RF: 0 trazodone 100 mg Tablet 100 mg PO HS 30 Days Qty: 30 RF: 0 ropinirole 0.25 mg Tablet 0.5 mg PO BID 30 Days Qty: 120 RF: 0 pantoprazole 40 mg Tablet,Delayed Release (Dr/Ec) 40 mg PO BID 30 Days Qty: 60 RF: 0 gabapentin 100 mg Capsule 100 mg PO TID 30 Days Qty: 90 RF: 0 albuterol sulfate [Ventolin HFA] 90 mcg/actuation Hfa Aerosol Inhaler 1 puff inhalation QIDR PRN (Reason: shortness of breath or wheezing) Qty: 8.5 RF: 0 fluoxetine 20 mg Capsule 60 mg PO HS 30 Days Qty: 90 RF: 0 aripiprazole [Abilify] 15 mg Tablet 15 mg PO QAM 30 Days Qty: 30 RF: 0 calcium acetate(phosphat bind) 667 mg Capsule 2,668 mg PO TIDM 30 Days Qty: 120 RF: 0 Atrovent HFA 17 mcg/actuation Hfa Aerosol Inhaler 1 puff inhalation QIDR PRN (Reason: shortness of breath or wheezing) 30 Days RF: 0 Eliquis 5 mg Tablet 5 mg PO BID 30 Days Qty: 60 RF: 0 No Action Unobtainable RF: 0 Discharge Orders: Discharge Order (Routine); Ordered 04/09/20 Ordered By: Werner Sheehan/Other Patient Handouts: 2019-nCoV, COVID-19 Home Care, Preventing the Spread of ..., COVID-19 Childbirth, Caring for Someone Who Has COVID- 19, Dealing With the Stress of ..., Simple Ways to Avoid COVID-19, Symptoms of COVID-19 Infection Admission Data Admit Date/Time: 04/04/20 14:55 Attending Provider: Werner Sevilla Admit Provider: Tyrone Geiger Primary Care Provider: Dionna Mayfield Other Providers: Tyrone Geiger ; Tristen Stoll ; Tran, Other Interventions: Discharge Summary Assessment (RN) Last Done: 04/09/20 12:27 Coding Level of Care Code D/C Day Management >30 mins Diagnoses Pneumonia due to COVID-19 virus U07.1; J12.89 Acute respiratory failure with hypoxia J96.01 Asthma J45.901 Asthma complication type: with acute exacerbation Asthma persistence: unspecified Asthma severity: unspecified severity ESRD (end stage renal disease) on dialysis N18.6; Z99.2 Type 2 diabetes mellitus E11.69 Diabetes mellitus complication status: with other specified complication 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
== END 2020-04-09 13:23 | DRG 177 ==
LOC: ED 10:50 → 2E 14:55 → SUATTDRO 14:55 → 2E 16:09

== ENCOUNTER 2020-04-12 08:19 | Inpatient (IN) ==
[2020-04-12] MEDS ORDERED: ALBUTEROL HFA 8 GM INHALER INH ONE (08:31)
--- NOTE | 2020-04-12 09:06 | Emergency Department Note ---
History of Present Illness General Chief complaint: Shortness of Breath/Dyspnea Stated complaint: SOB after dialysis +COVID Time Seen by Provider: 04/12/20 08:23 Source: patient, EMS, RN notes reviewed and old records reviewed Mode of arrival: EMS Limitations: no limitations History of Present Illness Provider complaint: Shortness of Breath Onset (ago): hour(s) less than 1 Location: chest Radiation: non-radiation Severity: moderate Current Pain Intensity: 0 Relieved By: + immobilization Exacerbated By: + movement Associated symptoms: no chest pain, no diaphoresis, no fever/chills, no he adaches and no nausea/vomiting Treatments prior to arrival: none This is a 54-year-old male who tested positive for COVID approximately 10 days ago who presents the emergency department after dialysis today. The patient reportedly got through about 90% of his dialysis before he became extremely short of breath. The patient has been living at the [facility]. He is normally on 5 L of oxygen however is on 6 L here. Home Medications Home Medications Medication Instructions Recorded Confirmed Type acetaminophen 650 mg PO Q4H PRN #30 tab 04/09/20 04/12/20 Rx albuterol sulfate [Ventolin HFA] 1 puff INHALATION QIDR PRN #8.5 g 04/09/20 04/12/20 Rx amlodipine [Norvasc] 10 mg PO QAM 30 Days #60 tab 04/09/20 04/12/20 Rx apixaban [Eliquis] 5 mg PO BID 30 Days #60 tab 04/09/20 04/12/20 Rx aripiprazole [Abilify] 15 mg PO QAM 30 Days #30 tab 04/09/20 04/12/20 Rx calcium acetate(phosphat bind) 2,668 mg PO TIDM 30 Days #120 cap 04/09/20 04/12/20 Rx erythromycin [Diaz-Tab] 250 mg PO TID 30 Days #90 tab 04/09/20 04/12/20 Rx famotidine 20 mg PO Q2D@2100 30 Days tab 04/09/20 04/12/20 Rx fluoxetine 60 mg PO HS 30 Days #90 cap 04/09/20 04/12/20 Rx gabapentin 100 mg PO TID 30 Days #90 cap 04/09/20 04/12/20 Rx ipratropium bromide [Atrovent HFA] 1 puff INHALATION QIDR PRN 30 Days 04/09/20 04/12/20 Rx g pantoprazole 40 mg PO BID 30 Days #60 tab 04/09/20 04/12/20 Rx ropinirole 0.5 mg PO BID 30 Days #120 tab 04/09/20 04/12/20 Rx tamsulosin 0.4 mg PO QAM 30 Days #30 cap 04/09/20 04/12/20 Rx trazodone 100 mg PO HS 30 Days #30 tab 04/09/20 04/12/20 Rx Allergies Allergy/AdvReac Type Severity Reaction Status Date / Time No Known Allergies Allergy Unverified 04/12/20 10:10 Past Med/Surg History Medical History A-V fistula left forearm Abnormal posture Acute respiratory failure with hypoxia Anemia Asthma Depression DVT (deep venous thrombosis) ESRD (end stage renal disease) on dialysis Generalized muscle weakness GERD (gastroesophageal reflux disease) Hyperlipidemia Hypertension Morbid obesity Multiple sclerosis Osteoarthritis Paradoxical insomnia Pneumonia due to COVID-19 virus Thrombocytopenia Type 2 diabetes mellitus Surgical History S/P arteriovenous (AV) fistula creation Family History Father , in his late 40s Myocardial infarction Social History Smoking Status: Former smoker Tobacco Type: Cigarettes Age Started Using Tobacco: 18; packs per day: 0.5; Smoking End Date: 2011; Second Hand Exposure: No; Do You Dip or Chew Tobacco: No; Tobacco Cessation Education Requested by Patient: No Hx Alcohol Use: No Hx Substance Use: No Preferred Language: Sinhala Communication Ability: Effective Guard Entrance Registrar Required: No Beliefs That Will Affect Care: None marital status: Unknown Current Living Situation: Skilled Nursing current occupational status: disabled 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 Children do You have: 4 Other Information That Helps Us Care for You: No Feels Safe at Home: Yes Safety Concerns: Feels Safe At This Time Assistive Devices: Oxygen - Continuous Assistive Devices Comment: list needs verified on unit, Review of Systems A total of 10 systems reviewed and were otherwise negative Physical Exam Vital Signs Vital Signs - 24 hr 04/12/20 09:10 04/12/20 09:20 04/12/20 09:30 Pulse Rate 71 69 70 Pulse Rate from SpO2 Sensor 71 69 70 Respiratory Rate Blood Pressure 155/92 H Blood Pressure Mean 107 Pulse Oximetry 98 98 98 04/12/20 09:40 04/12/20 09:50 04/12/20 10:00 Pulse Rate 67 70 67 Pulse Rate from SpO2 Sensor 67 70 67 Respiratory Rate 20 20 22 Blood Pressure 153/84 H Blood Pressure Mean 110 Pulse Oximetry 98 97 98 04/12/20 10:10 04/12/20 10:20 Pulse Rate 66 66 Pulse Rate from SpO2 Sensor Respiratory Rate 22 20 Blood Pressure Blood Pressure Mean Pulse Oximetry VITAL SIGNS - Vital signs and nursing notes were reviewed. GENERAL - 54-year-old male appearing stated age who is in moderate distress. Communicates poorly with provider, Belly breathing SKIN - Without rashes. HEAD - NC/AT. EYES - PERRL with EOMI bilaterally. Sclera anicteric. Palpebral conjunctiva pink and moist with no injection noted. EARS - No deformities of external structures noted on gross examination bilaterally. No pain elicited with palpation of the tragus bilaterally. External auditory canals without discharge or otorrhea. Tympanic membranes pearly cabrera without retraction or bulging. No fluid or purulent material visualized behind the TM. Handle of malleus, umbo, cone of light, pars tensa/flaccid all easily visualized. NOSE - Midline and without cyanosis. No epistaxis or purulent drainage noted. Septum midline without deviation or septal hematoma noted. MOUTH/OROPHARYNX - Without perioral cyanosis. Buccal mucosa pink and moist and without leukoplakia. Tongue midline with equal elevation of palate bilaterally. No tonsillar hypertrophy, erythema, or exudates noted. dentition noted. NECK - Neck with FROM. Supple to palpation. lymphadenopathy noted. No nuchal rigidity. LUNGS - Chest wall symmetric without accessory muscle use, intercostals retractions, or central cyanosis. Normal vesicular breath sounds CTA B/L. No wheezes, rales, or rhonchi appreciated. CARDIAC - RRR with S1/S2. No murmur, rubs, or gallops appreciated. ABDOMEN - Abdominal contour without pulsations or visible masses. BS normoactive all four quadrants. No tenderness, palpable masses, hepatospl enomegaly, or ascites noted. EXTREMITIES - No clubbing or peripheral cyanosis. No pretibial edema present. AV fistula noted left arm NEUROLOGIC - Cranial nerves II through XII grossly intact. Sensory intact to light touch throughout. Patellar reflexes +2/4. PSYCH - A&Ox3 and cooperates fully with examiner. Pt is very pleasant and interacts well with examiner. Course Administered Medications Amlodipine Besylate (Amlodipine Besylate 5 Mg Tab) 10 mg PO QAM CATIE Stop: 05/13/20 08:59 Last Admin: 04/13/20 08:32 Dose: 10 mg Documented by: [id number] Apixaban (Apixaban 5 Mg Tablet) 5 mg PO BID CATIE Stop: 05/12/20 20:59 Last Admin: 04/13/20 08:31 Dose: 5 mg Documented by: [id number] Admin: 04/12/20 20:42 Dose: 5 mg Documented by: [id number] Aripiprazole (Aripiprazole 15 Mg Tab) 15 mg PO QAM CATIE Stop: 05/13/20 08:59 Last Admin: 04/13/20 08:33 Dose: 15 mg Documented by: [id number] Calcium Acetate (Calcium Acetate 667 Mg Cap/Tab) 2,668 mg PO TIDM CATIE Stop: 05/12/20 12:16 Last Admin: 04/13/20 08:33 Dose: 2,668 mg Documented by: [id number] Admin: 04/12/20 17:00 Dose: 2,668 mg Documented by: [id number] Admin: 04/12/20 13:43 Dose: 2,668 mg Documented by: [id number] Famotidine (Famotidine 20 Mg Tab) 20 mg PO Q2D@2100 CATIE Stop: 05/12/20 20:59 Last Admin: 04/12/20 20:44 Dose: 20 mg Documented by: [id number] Fluoxetine HCl (Fluoxetine Hcl 20 Mg Cap) 60 mg PO HS CATIE Stop: 05/12/20 20:59 Last Admin: 04/12/20 20:44 Dose: 60 mg Documented by: [id number] Gabapentin (Gabapentin 100 Mg Cap) 100 mg PO TID CATIE Stop: 05/12/20 13:59 Last Admin: 04/13/20 08:31 Dose: 100 mg Documented by: [id number] Admin: 04/12/20 20:43 Dose: 100 mg Documented by: [id number] Admin: 04/12/20 13:42 Dose: 100 mg Documented by: [id number] Dexamethasone Sodium Phosphate (6 mg/ Syringe) 1.5 mls @ 1 mls/min IV QAM CATIE Stop: 05/13/20 08:59 Last Admin: 04/13/20 08:34 Dose: 1 mls/min Documented by: [id number] Piperacillin Sod/Tazobactam (Sod 4.5 gm/ Dextrose) 120 mls @ 30 mls/hr IV Q12H CATIE; Protocol Stop: 04/19/20 19:59 Last Admin: 04/13/20 07:39 Dose: 30 mls/hr Documented by: [id number] Infusion: 04/13/20 01:40 Dose: 0 mls/hr Documented by: [id number] Admin: 04/12/20 20:41 Dose: 30 mls/hr Documented by: [id number] Insulin Aspart (Insulin Aspart 100 Units/Ml 3 Ml Pen) 0 units SC ACHS CATIE Stop: 05/12/20 16:29 Last Admin: 04/13/20 08:40 Dose: 9 units Documented by: [id number] Cosigned by: [id number] Admin: 04/12/20 20:51 Dose: 4 units Documented by: [id number] Cosigned by: [id number] Admin: 04/12/20 16:56 Dose: 7 units Documented by: [id number] Cosigned by: [id number] Pantoprazole Sodium (Pantoprazole 40 Mg Tab) 40 mg PO BID CATIE Stop: 05/12/20 20:59 Last Admin: 04/13/20 08:31 Dose: 40 mg Documented by: [id number] Admin: 04/12/20 20:43 Dose: 40 mg Documented by: [id number] Ropinirole HCl (Ropinirole Hcl 0.25 Mg Tablet) 0.5 mg PO BID CATIE Stop: 05/12/20 20:59 Last Admin: 04/13/20 08:32 Dose: 0.5 mg Documented by: [id number] Admin: 04/12/20 20:44 Dose: 0.5 mg Documented by: [id number] Tamsulosin HCl (Tamsulosin Hcl 0.4 Mg Cap) 0.4 mg PO QAM [facility] Stop: 05/13/20 08:59 Last Admin: 04/13/20 08:34 Dose: 0.4 mg Documented by: [id number] Trazodone HCl (Trazodone Hcl 100 Mg Tab) 100 mg PO HS CATIE Stop: 05/12/20 20:59 Last Admin: 04/12/20 20:42 Dose: 100 mg Documented by: [id number] Discontinued Medications Albuterol (Albuterol Hfa 8 Gm Inhaler) 2 puffs INH NOW ONE Stop: 04/12/20 08:32 Last Admin: 04/12/20 09:50 Dose: 2 puffs Documented by: [id number] Dexamethasone (Dexamethasone Sod Inj 10 Mg/Ml Vial) 10 mg IV NOW ONE Stop: 04/12/20 09:57 Last Admin: 04/12/20 11:17 Dose: 10 mg Documented by: [id number] Piperacillin Sod/Tazobactam Sod (Zosyn) 4.5 gm in 120 mls @ 240 mls/hr IV NOW ONE Stop: 04/12/20 10:25 Last Infusion: 04/12/20 12:20 Dose: 0 mls/hr Documented by: [id number] Admin: 04/12/20 11:17 Dose: 240 mls/hr Documented by: [id number] Levofloxacin/Dextrose (Levaquin/D5w) 750 mg in 150 mls @ 100 mls/hr IV NOW STA Stop: 04/12/20 11:25 Last Infusion: 04/12/20 13:19 Dose: 0 mls/hr Documented by: [id number] Admin: 04/12/20 11:17 Dose: 100 mls/hr Documented by: [id number] Medical Decision Making Differential Diagnosis Reactive airway disease, pneumonia, pneumothorax, COPD, CHF, infections, cardiac ischemia, pulmonary embolism, musculoskeletal, gastrointestinal, as well as other pathologies. Medical Records Attestation: I reviewed the patient's medical records. Home Medications Current Medication List: was personally reviewed by me Laboratory Data Attestation: I reviewed the patient's lab results. Result diagrams: 04/13/20 06:31 04/13/20 06:31 Lab Results 04/12/20 04/12/20 04/12/20 Range/Units 08:36 08:36 09:17 WBC (4.8-10.8) K/uL RBC (4.7-6.1) M/uL Hgb (14.0-18.0) g/dL Hct (42-52) % MCV (80-100) fL MCH (25-34) pg MCHC (32-36) g/dL RDW Std Deviation (36.4-46.3) fL RDW Coeff of Emiliano (11.5-14.5) % Plt Count (130-400) K/uL MPV (7.4-10.4) fL Immature Gran % (Auto) % Neut % (Auto) % Lymph % (Auto) % Mcminn % (Auto) % Eos % (Auto) % Baso % (Auto) % Neut # (Auto) (1.4-6.5) K/uL Lymph # (Auto) (1.2-3.4) K/uL Mcminn # (Auto) (0.11-0.59) K/uL Eos # (Auto) (0-0.5) K/uL Baso # (Auto) (0-0.2) K/uL Immature Gran # (Auto) (0.00-0.02) K/uL ESR (0-14) mm/hr PT (9.0-12.0) Seconds INR (0.9-1.1) APTT (21.0-31.0) Seconds PTT Ratio VBG pH (7.36-7.41) VBG pCO2 (38-50) mmHg VBG pO2 mmHg VBG HCO3 mmol/L VBG O2 Saturation % VBG Base Excess mEq/L Barometric Pressure mm/Hg Sodium (136-145) mmol/L Potassium (3.5-5.1) mmol/L Chloride (98-107) mmol/L Carbon Dioxide (21-32) mmol/L Anion Gap (3-11) BUN (7-18) mg/dl Creatinine (0.6-1.4) mg/dl Est Cr Clr Drug Dosing ml/min Est GFR ( Amer) Est GFR (Non-Af Amer) BUN/Creatinine Ratio (10-20) Glucose (70-99) mg/dl Lactate (0.4-2.0) mmol/L Calcium (8.5-10.1) mg/dl Magnesium (1.8-2.4) mg/dl Ferritin (8-388) ng/ml Total Bilirubin (0.2-1) mg/dl AST (15-37) U/L ALT (12-78) U/L Alkaline Phosphatase (45-117) U/L Total Creatine Kinase (39-308) U/L CK-MB (CK-2) (0.5-3.6) ng/ml CK/CKMB % Calc (0-3.0) Troponin I (0-0.045) ng/ml C-Reactive Protein (0-0.29) mg/dl Total Protein (6.4-8.2) gm/dl Albumin (3.4-5.0) gm/dl Globulin (2.5-4.0) gm/dl Albumin/Globulin Ratio (0.9-2) Procalcitonin (0-0.5) ng/ml COVID-19 Eval Order Covid19 Done at [facility] COVID-19 PCR POSITIVE A* (Negative) Blood Type O Negative Antibody Screen NEGATIVE 04/12/20 04/12/20 04/12/20 Range/Units 09:17 09:17 09:17 WBC 10.12 (4.8-10.8) K/uL RBC 3.89 L (4.7-6.1) M/uL Hgb 11.0 L (14.0-18.0) g/dL Hct 35.1 L (42-52) % MCV 90.2 (80-100) fL MCH 28.3 (25-34) pg MCHC 31.3 L (32-36) g/dL RDW Std Deviation 47.4 H (36.4-46.3) fL RDW Coeff of Emiliano 14.4 (11.5-14.5) % Plt Count 114 L (130-400) K/uL MPV 9.7 (7.4-10.4) fL Immature Gran % (Auto) 1.4 % Neut % (Auto) 87.0 % Lymph % (Auto) 3.1 % Mcminn % (Auto) 6.9 % Eos % (Auto) 1.5 % Baso % (Auto) 0.1 % Neut # (Auto) 8.81 H (1.4-6.5) K/uL Lymph # (Auto) 0.31 L (1.2-3.4) K/uL Mcminn # (Auto) 0.70 H (0.11-0.59) K/uL Eos # (Auto) 0.15 (0-0.5) K/uL Baso # (Auto) 0.01 (0-0.2) K/uL Immature Gran # (Auto) 0.14 H (0.00-0.02) K/uL ESR 43 H (0-14) mm/hr PT 14.0 H (9.0-12.0) Seconds INR 1.3 H (0.9-1.1) APTT 29.9 (21.0-31.0) Seconds PTT Ratio 1.1 VBG pH (7.36-7.41) VBG pCO2 (38-50) mmHg VBG pO2 mmHg VBG HCO3 mmol/L VBG O2 Saturation % VBG Base Excess mEq/L Barometric Pressure mm/Hg Sodium (136-145) mmol/L Potassium (3.5-5.1) mmol/L Chloride (98-107) mmol/L Carbon Dioxide (21-32) mmol/L Anion Gap (3-11) BUN (7-18) mg/dl Creatinine (0.6-1.4) mg/dl Est Cr Clr Drug Dosing ml/min Est GFR ( Amer) Est GFR (Non-Af Amer) BUN/Creatinine Ratio (10-20) Glucose (70-99) mg/dl Lactate (0.4-2.0) mmol/L Calcium (8.5-10.1) mg/dl Magnesium (1.8-2.4) mg/dl Ferritin (8-388) ng/ml Total Bilirubin (0.2-1) mg/dl AST (15-37) U/L ALT (12-78) U/L Alkaline Phosphatase (45-117) U/L Total Creatine Kinase (39-308) U/L CK-MB (CK-2) (0.5-3.6) ng/ml CK/CKMB % Calc (0-3.0) Troponin I (0-0.045) ng/ml C-Reactive Protein (0-0.29) mg/dl Total Protein (6.4-8.2) gm/dl Albumin (3.4-5.0) gm/dl Globulin (2.5-4.0) gm/dl Albumin/Globulin Ratio (0.9-2) Procalcitonin (0-0.5) ng/ml COVID-19 Eval Order COVID-19 PCR (Negative) Blood Type Antibody Screen 1004/12/20 04/12/20 Range/Units 09:17 09:17 09:17 WBC (4.8-10.8) K/uL RBC (4.7-6.1) M/uL Hgb (14.0-18.0) g/dL Hct (42-52) % MCV (80-100) fL MCH (25-34) pg MCHC (32-36) g/dL RDW Std Deviation (36.4-46.3) fL RDW Coeff of Emiliano (11.5-14.5) % Plt Count (130-400) K/uL MPV (7.4-10.4) fL Immature Gran % (Auto) % Neut % (Auto) % Lymph % (Auto) % Mcminn % (Auto) % Eos % (Auto) % Baso % (Auto) % Neut # (Auto) (1.4-6.5) K/uL Lymph # (Auto) (1.2-3.4) K/uL Mcminn # (Auto) (0.11-0.59) K/uL Eos # (Auto) (0-0.5) K/uL Baso # (Auto) (0-0.2) K/uL Immature Gran # (Auto) (0.00-0.02) K/uL ESR (0-14) mm/hr PT (9.0-12.0) Seconds INR (0.9-1.1) APTT (21.0-31.0) Seconds PTT Ratio VBG pH (7.36-7.41) VBG pCO2 (38-50) mmHg VBG pO2 mmHg VBG HCO3 mmol/L VBG O2 Saturation % VBG Base Excess mEq/L Barometric Pressure mm/Hg Sodium 134 L (136-145) mmol/L Potassium 3.4 L (3.5-5.1) mmol/L Chloride 94 L (98-107) mmol/L Carbon Dioxide 31 (21-32) mmol/L Anion Gap 9.0 (3-11) BUN 40 H (7-18) mg/dl Creatinine 5.05 H* (0.6-1.4) mg/dl Est Cr Clr Drug Dosing 20.9 ml/min Est GFR ( Amer) 14.1 Est GFR (Non-Af Amer) 12.2 BUN/Creatinine Ratio 7.9 L (10-20) Glucose 108 H (70-99) mg/dl Lactate 0.5 (0.4-2.0) mmol/L Calcium 8.8 (8.5-10.1) mg/dl Magnesium 2.2 (1.8-2.4) mg/dl Ferritin 2950.6 H (8-388) ng/ml Total Bilirubin 1.0 (0.2-1) mg/dl AST 12 L (15-37) U/L ALT 16 (12-78) U/L Alkaline Phosphatase 68 (45-117) U/L Total Creatine Kinase 62 (39-308) U/L CK-MB (CK-2) 3.1 (0.5-3.6) ng/ml CK/CKMB % Calc 5.0 H (0-3.0) Troponin I < 0.015 (0-0.045) ng/ml C-Reactive Protein 6.82 H (0-0.29) mg/dl Total Protein 6.7 (6.4-8.2) gm/dl Albumin 2.9 L (3.4-5.0) gm/dl Globulin 3.8 (2.5-4.0) gm/dl Albumin/Globulin Ratio 0.8 L (0.9-2) Procalcitonin 4.42 H (0-0.5) ng/ml COVID-19 Eval Order COVID-19 PCR (Negative) Blood Type Antibody Screen 04/12/20 Range/Units 09:21 WBC (4.8-10.8) K/uL RBC (4.7-6.1) M/uL Hgb (14.0-18.0) g/dL Hct (42-52) % MCV (80-100) fL MCH (25-34) pg MCHC (32-36) g/dL RDW Std Deviation (36.4-46.3) fL RDW Coeff of Emiliano (11.5-14.5) % Plt Count (130-400) K/uL MPV (7.4-10.4) fL Immature Gran % (Auto) % Neut % (Auto) % Lymph % (Auto) % Mcminn % (Auto) % Eos % (Auto) % Baso % (Auto) % Neut # (Auto) (1.4-6.5) K/uL Lymph # (Auto) (1.2-3.4) K/uL Mcminn # (Auto) (0.11-0.59) K/uL Eos # (Auto) (0-0.5) K/uL Baso # (Auto) (0-0.2) K/uL Immature Gran # (Auto) (0.00-0.02) K/uL ESR (0-14) mm/hr PT (9.0-12.0) Seconds INR (0.9-1.1) APTT (21.0-31.0) Seconds PTT Ratio VBG pH 7.43 H (7.36-7.41) VBG pCO2 47 (38-50) mmHg VBG pO2 40 mmHg VBG HCO3 30 mmol/L VBG O2 Saturation 71.6 % VBG Base Excess 5.2 mEq/L Barometric Pressure 735.3 mm/Hg Sodium (136-145) mmol/L Potassium (3.5-5.1) mmol/L Chloride (98-107) mmol/L Carbon Dioxide (21-32) mmol/L Anion Gap (3-11) BUN (7-18) mg/dl Creatinine (0.6-1.4) mg/dl Est Cr Clr Drug Dosing ml/min Est GFR ( Amer) Est GFR (Non-Af Amer) BUN/Creatinine Ratio (10-20) Glucose (70-99) mg/dl Lactate (0.4-2.0) mmol/L Calcium (8.5-10.1) mg/dl Magnesium (1.8-2.4) mg/dl Ferritin (8-388) ng/ml Total Bilirubin (0.2-1) mg/dl AST (15-37) U/L ALT (12-78) U/L Alkaline Phosphatase (45-117) U/L Total Creatine Kinase (39-308) U/L CK-MB (CK-2) (0.5-3.6) ng/ml CK/CKMB % Calc (0-3.0) Troponin I (0-0.045) ng/ml C-Reactive Protein (0-0.29) mg/dl Total Protein (6.4-8.2) gm/dl Albumin (3.4-5.0) gm/dl Globulin (2.5-4.0) gm/dl Albumin/Globulin Ratio (0.9-2) Procalcitonin (0-0.5) ng/ml COVID-19 Eval Order COVID-19 PCR (Negative) Blood Type Antibody Screen Imaging Data Radiologist's Impression: [place], [place] [phone] XRay Report Patient: LEI ARDONAdmit Date: 04/12/20 MR#: [id number]: [id number] ENZODick Acct ID:[id number]: HEARTKACY Date: 1965City Zip: [place] [address] Age: 54Location: ED Sex: MRoom/Bed: Att Phy:Diagnosis: SOB after dialysis +COVID Kassi Phy: Garcia MayfieldyService Date: 04/12/20 Fam Phy:Interpreting Phy: Jam Israel Admit Phy: Ordering Phy: Liban Lamas MD cc: ~ XR chest 1V portable HISTORY: 54 years-old Male SEPSIS acute sepsis COMPARISON: Chest radiograph 04/04/2020 TECHNIQUE: Portable AP view of the chest FINDINGS: Cardiomegaly with hypoinflation. Unchanged right hemidiaphragmatic elevation with right lung base opacities. Mild blunting of the costophrenic angles. Pulmonary vascular congestion. No pneumothorax. Patchy bilateral opacities. Degenerative changes of the shoulders and spine. Cholecystectomy. IMPRESSION: 1. Cardiomegaly with pulmonary vascular congestion. 2. Subtle patchy bilateral opacities are suspicious for a nonspecific infectious or inflammatory pneumonitis. 3. Unchanged right hemidiaphragmatic elevation. ACT 112: Negative or not required by law. The above report was generated using voice recognition software. It may contain grammatical, syntax or spelling errors. Electronically signed by: Esequiel Israel M.D. 04/12/2020 9:54 AM Dictated: 04/12/20952 Transcribed: 04/12/20952 ECG Data Attestation: I personally reviewed and interpreted this ECG as follows: Indication: + SOB/dyspnea Rate (beats per minute): 75 Rhythm: + normal sinus ECG Intervals/blocks: + Prolonged QT ECG [place]: + Normal ECG ST segments: no ST depression and no ST elevation ECG Findings: + PACs Comparison ECG Date: from (04/04/2020) Change: the following changes noted (Qt has lengthened) MDM Narrative This is a 54-year-old male sent over from dialysis over concerns of the patient is extremely short of breath. He is requiring more oxygen here at 6 L. The patient does have a slight elevation in his white blood cell count was started on broad-spectrum antibiotics including Zosyn. He is still COVID positive. He was given Decadron here in the emergency department. I did discuss the case with the hospitalist service who did agree to admit the patient. Patient is in agreement with the treatment plan. Patient was seen and evaluated as above in room C5. Review was performed of nursing notes and vital signs. I did review pertinent previous visits and patient history. After obtaining a thorough history and physical examination the above work up was performed. An order was placed for continuous cardiac monitoring. The monitor shows a rate of 47 with Normal Sinus rhythm. The patient was evaluated during the global COVID-19 pandemic, and that diagnosis was suspected/considered upon their initial presentation. Their evaluation, treatment and testing was consistent with current guidelines for patients who present with complaints or symptoms that may be related to COVID- 19. Impression & Plan COVID-19, Acute hypoxemic respiratory failure Discharge Plan Visit Data Chief Complaint: Shortness of Breath/Dyspnea Stated Complaint: SOB after dialysis +COVID ED Provider: Liban Lamas Discharge Problem: COVID-19, Acute hypoxemic respiratory failure Patient Disposition: Admitted As Inpatient Discharge Instructions Interventions: ED Discharge Assessment Last Done: 04/12/20 11:16
[2020-04-12 09:37] LABS: Basophils # (auto) 0.01 K/uL (0-0.2); Basophils % (auto) 0.1 %; Eosinophils # (auto) 0.15 K/uL (0-0.5); Eosinophils % (auto) 1.5 %; Hematocrit (blood only) 35.1 % (42-52); Immature Granulocytes # (auto) 0.14 K/uL (0.00-0.02); Immature Granulocytes % (auto) 1.4 %; Lymphocytes # (auto) 0.31 K/uL (1.2-3.4); Lymphocytes % (auto) 3.1 %; Mean Corpuscular Hemoglobin 28.3 pg (25-34); Mean Corpuscular Hgb Conc 31.3 g/dL (32-36); Mean Corpuscular Volume 90.2 fL (80-100); Mean Platelet Volume 9.7 fL (7.4-10.4); Monocytes % (auto) 6.9 %; Neutrophils # (auto) 8.81 K/uL (1.4-6.5); Platelet Count 114 K/uL (130-400); RDW Coefficient of Variation 14.4 % (11.5-14.5); RDW Standard Deviation 47.4 fL (36.4-46.3); Red Blood Count 3.89 M/uL (4.7-6.1); White Blood Count 10.12 K/uL (4.8-10.8)
[2020-04-12 09:41] LABS: Base Excess VBG 5.2 mEq/L; Oxygen Saturation VBG 71.6 %; pH VBG 7.43 (7.36-7.41)
[2020-04-12 09:47] LABS: INR 1.3 (0.9-1.1); Partial Thromboplastin Ratio 1.1; Partial Thromboplastin Time 29.9 Seconds (21.0-31.0)
--- NOTE | 2020-04-12 09:55 | XRay Report ---
XR chest 1V portable HISTORY: 54 years-old Male SEPSIS acute sepsis COMPARISON: Chest radiograph 04/04/2020 TECHNIQUE: Portable AP view of the chest FINDINGS: Cardiomegaly with hypoinflation. Unchanged right hemidiaphragmatic elevation with right lung base opa cities. Mild blunting of the costophrenic angles. Pulmonary vascular congestion. No pneumothorax. Pat emi bilateral opacities. Degenerative changes of the shoulders and spine. Cholecystectomy. IMPRESSION: 1. Cardiomegaly with pulmonary vascular congestion. 2. Subtle patchy bilateral opacities are suspicious for a nonspecific infectious or inflammatory pneu monitis. 3. Unchanged right hemidiaphragmatic elevation. ACT 112: Negative or not required by law. The above report was generated using voice recognition software. It may contain grammatical, syntax o r spelling errors. Electronically signed by: Esequiel Israel M.D. 04/12/2020 9:54 AM
[2020-04-12] MEDS ORDERED: PIPERACILL/TAZOBAC CONSULT ACTIVE PRN (09:56)
[2020-04-12] MEDS ORDERED: levoFLOXacin/D5W 750 MG/150 ML BAG IV STA (09:56)
[2020-04-12] MEDS ORDERED: PIPERACILLIN/TAZOBACTAM 4.5 GM/120 ML BAG IV ONE (09:56)
[2020-04-12] MEDS ORDERED: DEXAMETHASONE SOD INJ 10 MG/ML VIAL IV ONE (09:56)
[2020-04-12 10:29] LABS: Alanine Aminotransferase 16 U/L (12-78); Albumin Globulin Ratio 0.8 (0.9-2); Albumin Level 2.9 gm/dl (3.4-5.0); Alkaline Phosphatase 68 U/L (45-117); Aspartate Aminotransferase 12 U/L (15-37); BUN Creatinine Ratio 7.9 (10-20); Blood Urea Nitrogen 40 mg/dl (7-18); C Reactive Protein 6.82 mg/dl (0-0.29); Calcium 8.8 mg/dl (8.5-10.1); Carbon Dioxide 31 mmol/L (21-32); Chloride 94 mmol/L (98-107); Creatine Kinase 62 U/L (39-308); Creatine Kinase MB 3.1 ng/ml (0.5-3.6); Creatinine Clr Calc Pharmacy 20.9 ml/min; Est GFR (African American) 14.1; Est GFR (Non-African American) 12.2; Ferritin 2950.6 ng/ml (8-388); Globulin 3.8 gm/dl (2.5-4.0); Glucose 108 mg/dl (70-99); Magnesium 2.2 mg/dl (1.8-2.4); Potassium 3.4 mmol/L (3.5-5.1); Sodium 134 mmol/L (136-145); Total Protein 6.7 gm/dl (6.4-8.2); Troponin I < 0.015 ng/ml (0-0.045)
--- NOTE | 2020-04-12 10:54 | Electrocardiogram Report ---
Test Reason : Blood Pressure : / mmHG Vent. Rate : 075 BPM Atrial Rate : 075 BPM P-R Int : 196 ms QRS Dur : 088 ms QT Int : 434 ms P-R-T Axes : 028 -32 048 degrees QTc Int : 484 ms Poor data quality, interpretation may be adversely affected Sinus rhythm with Premature atrial complexes Possible Left atrial enlargement Left axis deviation Prolonged QT Abnormal ECG When compared with ECG of 04-APR-2020 11:05, QT has lengthened Confirmed by Angel Baez ([id number]) on 04/12/2020 10:53:44 AM Referred By: Dionna Montesdrew Confirmed By:Angel Baez
[2020-04-12] MEDS ORDERED: ACETAMINOPHEN 325 MG TAB PO PRN (12:17)
[2020-04-12] MEDS ORDERED: ALBUT/IPRATROP 3MG/0.5MG NEB 3 ML VIAL NEB PRN (12:17)
[2020-04-12] MEDS ORDERED: ONDANSETRON INJ 2 MG/ML 2 ML VIAL IV PRN (12:17)
[2020-04-12] MEDS ORDERED: levoFLOXacin/D5W 750 MG/150 ML BAG IV ONE (12:45)
[2020-04-12] MEDS: GABAPENTIN 100 MG CAP PO SCH ×2 (13:42→20:43)
[2020-04-12] MEDS: CALCIUM ACETATE 667 MG CAP/TAB PO SCH ×2 (13:43→17:00)
[2020-04-12] MEDS ORDERED: GLUCOSE 10 TABS/TUBE PO PRN (14:00)
[2020-04-12] MEDS ORDERED: ERYTHROMYCIN 250 MG TABEC PO SCH (14:00)
[2020-04-12] MEDS ORDERED: GLUCAGON FOR INJ 1 MG VIAL IM PRN (14:00)
[2020-04-12] MEDS ORDERED: CARBOHYDRATES FOR HYPOGLYCEMIA PO PRN (14:00)
[2020-04-12] MEDS ORDERED: DEXTROSE 50% 50 ML SYRINGE IV PRN (14:00)
[2020-04-12] MEDS ORDERED: GLUCOSE 40% GEL 15 GM TUBE PO PRN (14:00)
--- NOTE | 2020-04-12 15:48 | History & Physical Report ---
Date of Service April 12, 2020 Assessment & Plan (1) Bacterial pneumonia: patient was discharged three days ago with COVID 19 pneumonia he completed plasma and Decadron he was doing well, 90% saturations on room air, no distress he returns with wet cough, more dyspnea, he denies fever/chills, says his appetite has been okay he made it through HD today will treat with Zosyn and Levaquin initially, likely cut to one antibiotic after 48 hours resume Decadron flutter valve, incentive spirometer, duoneb PRN (2) COVID-19: original diagnosis on 04/02 he tested positive still here in the ED, today is day 10 since diagnosis will resume Decadron 6mg IV daily since he returned to hospital with dyspnea (3) ESRD (end stage renal disease) on dialysis: had HD today, follows with Dr. North, Estefanía will consult nephrology, appears euvolemic, plan for HD on Wednesday which is normal schedule (4) Type 2 diabetes mellitus: diabetic diet, Novolog SS (5) Multiple sclerosis: (6) Acute hypoxemic respiratory failure: due to combination of suspected bacterial pneumonia, COVID 19, asthma no wheezing on exam treat pneumonia and COVID 19, wean oxygen as tolerated of note, he wears up to 4L at night normally Admission and Anticipated Discharge Date Admission Date: April 12, 2020 History of Present Illness Chief Complaint: I feel short of breath Primary Care Provider: Dionna Mayfield 54 yo male with history of ESRD on HD, multiple sclerosis confined to bed, resident of [facility], presents to the ED today due to worsening shortness of breath. Patient was treated for 7 days for COVID 19 pneumonia here at [facility], he was discharged on 11/07 after receiving 7 days of dexamethasone and convalescent plasma, did not get Remdesivir due to renal failure. He did quite well, was stable on room air for two days prior to discharge. He received HD on 04/08 and was discharged on 04/09. He said that he started to develop worsening breathing and a wet cough yesterday. He was not eating as well. No fever or chills. He went to HD this morning and was actually able to complete a session and was then sent to the ED for evaluation. He was requiring 6L NC with saturations in high 90's. He was not in respiratory distress. CXR with bilateral infiltrates. ESR, CRP and procalcitonin all elevated. He was given Zosyn and Levaquin and admission requested. Allergies Allergy/AdvReac Type Severity Reaction Status Date / Time No Known Allergies Allergy Unverified 04/12/20 10:10 Home Medications Home Medications Medication Instructions Recorded Confirmed Type acetaminophen 650 mg PO Q4H PRN #30 tab 04/09/20 04/12/20 Rx albuterol sulfate [Ventolin HFA] 1 puff INHALATION QIDR PRN #8.5 g 04/09/20 04/12/20 Rx amlodipine [Norvasc] 10 mg PO QAM 30 Days #60 tab 04/09/20 04/12/20 Rx apixaban [Eliquis] 5 mg PO BID 30 Days #60 tab 04/09/20 04/12/20 Rx aripiprazole [Abilify] 15 mg PO QAM 30 Days #30 tab 04/09/20 04/12/20 Rx calcium acetate(phosphat bind) 2,668 mg PO TIDM 30 Days #120 cap 04/09/20 04/12/20 Rx erythromycin [Diaz-Tab] 250 mg PO TID 30 Days #90 tab 04/09/20 04/12/20 Rx famotidine 20 mg PO Q2D@2100 30 Days tab 04/09/20 04/12/20 Rx fluoxetine 60 mg PO HS 30 Days #90 cap 04/09/20 04/12/20 Rx gabapentin 100 mg PO TID 30 Days #90 cap 04/09/20 04/12/20 Rx ipratropium bromide [Atrovent HFA] 1 puff INHALATION QIDR PRN 30 Days 04/09/20 04/12/20 Rx g pantoprazole 40 mg PO BID 30 Days #60 tab 04/09/20 04/12/20 Rx ropinirole 0.5 mg PO BID 30 Days #120 tab 04/09/20 04/12/20 Rx tamsulosin 0.4 mg PO QAM 30 Days #30 cap 04/09/20 04/12/20 Rx trazodone 100 mg PO HS 30 Days #30 tab 04/09/20 04/12/20 Rx Past Med/Surg History Medical History A-V fistula left forearm Abnormal posture Acute respiratory failure with hypoxia Anemia Asthma Depression DVT (deep venous thrombosis) ESRD (end stage renal disease) on dialysis Generalized muscle weakness GERD (gastroesophageal reflux disease) Hyperlipidemia Hypertension Morbid obesity Multiple sclerosis Osteoarthritis Paradoxical insomnia Pneumonia due to COVID-19 virus Thrombocytopenia Type 2 diabetes mellitus Surgical History S/P arteriovenous (AV) fistula creation Family History Father , in his late 40s Myocardial infarction Social History Smoking Status: Former smoker Tobacco Type: Cigarettes Age Started Using Tobacco: 18; packs per day: 0.5; Smoking End Date: 2011; Second Hand Exposure: No; Do You Dip or Chew Tobacco: No; Tobacco Cessation Education Requested by Patient: No Hx Alcohol Use: No Hx Substance Use: No Preferred Language: Frisian Communication Ability: Effective Beater Boss Required: No Beliefs That Will Affect Care: None marital status: Unknown Current Living Situation: [facility] current occupational status: disabled 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 Children do You have: 4 Other Information That Helps Us Care for You: No Feels Safe at Home: Yes Safety Concerns: Feels Safe At This Time Assistive Devices: Oxygen - Continuous Assistive Devices Comment: list needs verified on unit, Review of Systems Review of Systems: All systems reviewed & are unremarkable except as noted in HPI & below Constitutional: + fatigue, + weakness and + anorexia; no fever, no chills and no sweats Respiratory: + cough, + chest congestion, + dyspnea, + dyspnea on exertion and + sputum production; no wheezing Cardiovascular: no chest pain, no palpitations, no lightheadedness, no syncope and no edema Gastrointestinal: no abdominal pain, no nausea, no vomiting, no constipation and no diarrhea/loose stools Physical Exam Constitutional: WD/WN, vitals as above + ill appearing; no acute distress Eyes: PERRL, conjunctivae normal, anicteric sclerae ENMT: external ear and nose normal, oropharynx normal Neck: trachea midline, no thyromegaly Respiratory: + cough and + tachypneic Auscultation: + diminished lung sounds, + rhonchi and + wheezes; no crackles Cardiovascular: RRR, no murmur, no edema Gastrointestinal (Abdomen): normal bowel sounds, soft, nontender, no hepatosplenomegaly Musculoskeletal: Head/Neck/Chest: normocephalic, head atraumatic and neck supple Extremities: extremities normal to inspection and + abnormal strength (lower extremity weakness) Skin: no rashes, warm and dry Neurologic: patellar DTR's 2+ bilat, sensation intact and PERRL, EOMI, accommodation nl, no face palsy, no dysarthria Psychiatric: A+Ox3, euthymic affect Lymphatic: no cervical or axillary lymphadenopathy Results & Data Results & Data ([facility]) Vital Signs (Past 12 Hours) Vital Signs Temp Pulse Resp BP BP Pulse Ox 04/12/20 12:23 37 C 18 155/75 H 97 04/12/20 10:50 71 23 04/12/20 10:40 72 23 04/12/20 10:30 64 23 146/84 H 04/12/20 10:20 66 20 04/12/20 10:10 66 22 04/12/20 10:00 67 22 153/84 H 98 04/12/20 09:50 70 20 97 04/12/20 09:40 67 20 98 04/12/20 09:30 70 155/92 H 98 04/12/20 09:20 69 98 04/12/20 09:10 71 98 04/12/20 09:00 71 20 99 04/12/20 08:50 74 23 98 04/12/20 08:40 78 18 99 04/12/20 08:35 74 24 135/83 99 04/12/20 08:33 77 26 H 99 04/12/20 08:30 75 25 H 149/86 H 99 04/12/20 08:28 36.9 C 75 26 H 149/86 H 99 Laboratory Results Laboratory Results - last 24 hr 04/12/20 04/12/20 04/12/20 08:36 08:36 09:17 WBC RBC Hgb Hct MCV MCH MCHC RDW Std Deviation RDW Coeff of Emiliano Plt Count MPV Immature Gran % (Auto) Neut % (Auto) Lymph % (Auto) [place] % (Auto) Eos % (Auto) Baso % (Auto) Neut # (Auto) Lymph # (Auto) [place] # (Auto) Eos # (Auto) Baso # (Auto) Immature Gran # (Auto) ESR PT INR APTT PTT Ratio VBG pH VBG pCO2 VBG pO2 VBG HCO3 VBG O2 Saturation VBG Base Excess Barometric Pressure Sodium Potassium Chloride Carbon Dioxide Anion Gap BUN Creatinine Est Cr Clr Drug Dosing Est GFR ( Amer) Est GFR (Non-Af Amer) BUN/Creatinine Ratio Glucose POC Glucose Lactate Calcium Magnesium Ferritin Total Bilirubin AST ALT Alkaline Phosphatase Total Creatine Kinase CK-MB (CK-2) CK/CKMB % Calc Troponin I C-Reactive Protein Total Protein Albumin Globulin Albumin/Globulin Ratio Procalcitonin COVID-19 Eval Order Covid19 Done at [facility] COVID-19 PCR POSITIVE A* Blood Type O Negative Antibody Screen NEGATIVE 04/12/20 04/12/20 04/12/20 09:17 09:17 09:17 WBC 10.12 RBC 3.89 L Hgb 11.0 L Hct 35.1 L MCV 90.2 MCH 28.3 MCHC 31.3 L RDW Std Deviation 47.4 H RDW Coeff of Emiliano 14.4 Plt Count 114 L MPV 9.7 Immature Gran % (Auto) 1.4 Neut % (Auto) 87.0 Lymph % (Auto) 3.1 [place] % (Auto) 6.9 Eos % (Auto) 1.5 Baso % (Auto) 0.1 Neut # (Auto) 8.81 H Lymph # (Auto) 0.31 L [place] # (Auto) 0.70 H Eos # (Auto) 0.15 Baso # (Auto) 0.01 Immature Gran # (Auto) 0.14 H ESR 43 H PT 14.0 H INR 1.3 H APTT 29.9 PTT Ratio 1.1 VBG pH VBG pCO2 VBG pO2 VBG HCO3 VBG O2 Saturation VBG Base Excess Barometric Pressure Sodium Potassium Chloride Carbon Dioxide Anion Gap BUN Creatinine Est Cr Clr Drug Dosing Est GFR ( Amer) Est GFR (Non-Af Amer) BUN/Creatinine Ratio Glucose POC Glucose Lactate Calcium Magnesium Ferritin Total Bilirubin AST ALT Alkaline Phosphatase Total Creatine Kinase CK-MB (CK-2) CK/CKMB % Calc Troponin I C-Reactive Protein Total Protein Albumin Globulin Albumin/Globulin Ratio Procalcitonin COVID-19 Eval Order COVID-19 PCR Blood Type Antibody Screen 04/12/20 04/12/20 04/12/20 09:17 09:17 09:17 WBC RBC Hgb Hct MCV MCH MCHC RDW Std Deviation RDW Coeff of Emiliano Plt Count MPV Immature Gran % (Auto) Neut % (Auto) Lymph % (Auto) [place] % (Auto) Eos % (Auto) Baso % (Auto) Neut # (Auto) Lymph # (Auto) [place] # (Auto) Eos # (Auto) Baso # (Auto) Immature Gran # (Auto) ESR PT INR APTT PTT Ratio VBG pH VBG pCO2 VBG pO2 VBG HCO3 VBG O2 Saturation VBG Base Excess Barometric Pressure Sodium 134 L Potassium 3.4 L Chloride 94 L Carbon Dioxide 31 Anion Gap 9.0 BUN 40 H Creatinine 5.05 H* Est Cr Clr Drug Dosing 20.9 Est GFR ( Amer) 14.1 Est GFR (Non-Af Amer) 12.2 BUN/Creatinine Ratio 7.9 L Glucose 108 H POC Glucose Lactate 0.5 Calcium 8.8 Magnesium 2.2 Ferritin 2950.6 H Total Bilirubin 1.0 AST 12 L ALT 16 Alkaline Phosphatase 68 Total Creatine Kinase 62 CK-MB (CK-2) 3.1 CK/CKMB % Calc 5.0 H Troponin I < 0.015 C-Reactive Protein 6.82 H Total Protein 6.7 Albumin 2.9 L Globulin 3.8 Albumin/Globulin Ratio 0.8 L Procalcitonin 4.42 H COVID-19 Eval Order COVID-19 PCR Blood Type Antibody Screen 04/12/20 04/12/20 04/12/20 09:21 12:24 16:35 WBC RBC Hgb Hct MCV MCH MCHC RDW Std Deviation RDW Coeff of Emiliano Plt Count MPV Immature Gran % (Auto) Neut % (Auto) Lymph % (Auto) [place] % (Auto) Eos % (Auto) Baso % (Auto) Neut # (Auto) Lymph # (Auto) [place] # (Auto) Eos # (Auto) Baso # (Auto) Immature Gran # (Auto) ESR PT INR APTT PTT Ratio VBG pH 7.43 H VBG pCO2 47 VBG pO2 40 VBG HCO3 30 VBG O2 Saturation 71.6 VBG Base Excess 5.2 Barometric Pressure 735.3 Sodium Potassium Chloride Carbon Dioxide Anion Gap BUN Creatinine Est Cr Clr Drug Dosing Est GFR ( Amer) Est GFR (Non-Af Amer) BUN/Creatinine Ratio Glucose POC Glucose 181 H 201 H Lactate Calcium Magnesium Ferritin Total Bilirubin AST ALT Alkaline Phosphatase Total Creatine Kinase CK-MB (CK-2) CK/CKMB % Calc Troponin I C-Reactive Protein Total Protein Albumin Globulin Albumin/Globulin Ratio Procalcitonin COVID-19 Eval Order COVID-19 PCR Blood Type Antibody Screen 04/12/20 20:24 WBC RBC Hgb Hct MCV MCH MCHC RDW Std Deviation RDW Coeff of Emiliano Plt Count MPV Immature Gran % (Auto) Neut % (Auto) Lymph % (Auto) [place] % (Auto) Eos % (Auto) Baso % (Auto) Neut # (Auto) Lymph # (Auto) [place] # (Auto) Eos # (Auto) Baso # (Auto) Immature Gran # (Auto) ESR PT INR APTT PTT Ratio VBG pH VBG pCO2 VBG pO2 VBG HCO3 VBG O2 Saturation VBG Base Excess Barometric Pressure Sodium Potassium Chloride Carbon Dioxide Anion Gap BUN Creatinine Est Cr Clr Drug Dosing Est GFR ( Amer) Est GFR (Non-Af Amer) BUN/Creatinine Ratio Glucose POC Glucose 220 H Lactate Calcium Magnesium Ferritin Total Bilirubin AST ALT Alkaline Phosphatase Total Creatine Kinase CK-MB (CK-2) CK/CKMB % Calc Troponin I C-Reactive Protein Total Protein Albumin Globulin Albumin/Globulin Ratio Procalcitonin COVID-19 Eval Order COVID-19 PCR Blood Type Antibody Screen Diagnostic Findings XR chest 1V portable HISTORY: 54 years-old Male SEPSIS acute sepsis COMPARISON: Chest radiograph 04/04/2020 TECHNIQUE: Portable AP view of the chest FINDINGS: Cardiomegaly with hypoinflation. Unchanged right hemidiaphragmatic elevation with right lung base opacities. Mild blunting of the costophrenic angles. Pulmonary vascular congestion. No pneumothorax. Patchy bilateral opacities. Degenerative changes of the shoulders and spine. Cholecystectomy. IMPRESSION: 1. Cardiomegaly with pulmonary vascular congestion. 2. Subtle patchy bilateral opacities are suspicious for a nonspecific infectious or inflammatory pneumonitis. 3. Unchanged right hemidiaphragmatic elevation. Medications Administered Current Inpatient Medications Acetaminophen (Acetaminophen 325 Mg Tab) 650 mg PO Q4H PRN PRN Reason: fever or pain Stop: 05/12/20 12:16 Albuterol (Albut/Ipratrop 3mg/0.5mg Neb 3 Ml Vial) 3 ml NEB Q2R PRN PRN Reason: Dyspnea Stop: 05/12/20 12:16 Amlodipine Besylate (Amlodipine Besylate 5 Mg Tab) 10 mg PO QAM [facility] Stop: 05/13/20 08:59 Apixaban (Apixaban 5 Mg Tablet) 5 mg PO BID [facility] Stop: 05/12/20 20:59 Last Admin: 04/12/20 20:42 Dose: 5 mg Documented by: Aripiprazole (Aripiprazole 15 Mg Tab) 15 mg PO QAM [facility] Stop: 05/13/20 08:59 Calcium Acetate (Calcium Acetate 667 Mg Cap/Tab) 2,668 mg PO TIDM [facility]IE Stop: 05/12/20 12:16 Last Admin: 04/12/20 17:00 Dose: 2,668 mg Documented by: Dextrose (Dextrose 50% 50 Ml Syringe) 25 - 50 ml IV UD PRN; Protocol PRN Reason: Hypoglycemia Protocol Stop: 05/12/20 13:59 Famotidine (Famotidine 20 Mg Tab) 20 mg PO Q2D@2100 [facility] Stop: 05/12/20 20:59 Last Admin: 04/12/20 20:44 Dose: 20 mg Documented by: Fluoxetine HCl (Fluoxetine Hcl 20 Mg Cap) 60 mg PO HS [facility] Stop: 05/12/20 20:59 Last Admin: 04/12/20 20:44 Dose: 60 mg Documented by: Gabapentin (Gabapentin 100 Mg Cap) 100 mg PO TID [facility]IE Stop: 05/12/20 13:59 Last Admin: 04/12/20 20:43 Dose: 100 mg Documented by: Glucagon (Glucagon For Inj 1 Mg Vial) 1 mg IM UD PRN; Protocol PRN Reason: Hypoglycemia Protocol Stop: 05/12/20 13:59 Glucose (Glucose 40% Gel 15 Gm Tube) 15 - 30 gm PO UD PRN; Protocol PRN Reason: Hypoglycemia Protocol Stop: 05/12/20 13:59 Glucose (Glucose 10 Tabs/Tube) 4 - 8 tabs PO UD PRN; Protocol PRN Reason: Hypoglycemia Protocol Stop: 05/12/20 13:59 Levofloxacin/Dextrose (Levaquin/D5w) 500 mg in 100 mls @ 100 mls/hr IV Q48H CATIE; Protocol Stop: 04/19/20 23:59 Dexamethasone Sodium Phosphate (6 mg/ Syringe) 1.5 mls @ 1 mls/min IV QAM [facility] Stop: 05/13/20 08:59 Piperacillin Sod/Tazobactam (Sod 4.5 gm/ Dextrose) 120 mls @ 30 mls/hr IV Q12H [facility]; Protocol Stop: 04/19/20 19:59 Last Admin: 04/12/20 20:41 Dose: 30 mls/hr Documented by: Insulin Aspart (Insulin Aspart 100 Units/Ml 3 Ml Pen) 0 units SC ACHS [facility] Stop: 05/12/20 16:29 Last Admin: 04/12/20 20:51 Dose: 4 units Documented by: Miscellaneous (Carbohydrates For Hypoglycemia ) 15 - 30 gm PO UD PRN PRN Reason: Hypoglycemia Treatment Stop: 05/12/20 13:59 Miscellaneous Information (Piperacill/Tazobac Consult Active) 1 ea N/A UD PRN PRN Reason: Consult Stop: 05/12/20 09:55 Ondansetron HCl (Ondansetron Inj 2 Mg/Ml 2 Ml Vial) 4 mg IV Q6H PRN PRN Reason: Nausea Stop: 05/12/20 12:16 Pantoprazole Sodium (Pantoprazole 40 Mg Tab) 40 mg PO BID [facility] Stop: 05/12/20 20:59 Last Admin: 04/12/20 20:43 Dose: 40 mg Documented by: Ropinirole HCl (Ropinirole Hcl 0.25 Mg Tablet) 0.5 mg PO BID CATIE Stop: 05/12/20 20:59 Last Admin: 04/12/20 20:44 Dose: 0.5 mg Documented by: Tamsulosin HCl (Tamsulosin Hcl 0.4 Mg Cap) 0.4 mg PO QAM [facility] Stop: 05/13/20 08:59 Trazodone HCl (Trazodone Hcl 100 Mg Tab) 100 mg PO HS [facility] Stop: 05/12/20 20:59 Last Admin: 04/12/20 20:42 Dose: 100 mg Documented by: Code Status & VTE Plan VTE Prophylaxis Plan VTE Prophylaxis will be ordered: Yes PG Care Time/CCT Total # of Minutes Spent Total Time Spent with Patient: Total time spent is greater than 50% in coordination of care (as documented) at patient's floor/unit and/or counseling patient: Coding Level of Care Code 36932 Initial Inpt Care Lvl 3 Diagnoses Bacterial pneumonia J15.9 COVID-19 U07.1 ESRD (end stage renal disease) on dialysis N18.6; Z99.2 Type 2 diabetes mellitus E11.69 Diabetes mellitus complication status: with other specified complication Diabetes mellitus long term care social worker insulin use: without fpc use Multiple sclerosis G35 Acute hypoxemic respiratory failure J96.01 (1) Type 2 diabetes mellitus Diabetes mellitus complication status: with other specified complication Diabetes mellitus long term care social worker insulin use: without long term care social worker use Qualified Code(s): E11.69 - Type 2 diabetes mellitus with other specified complication
[2020-04-12] MEDS: INSULIN ASPART 100 UNITS/ML 3 ML PEN SC SCH ×2 (16:56→20:51)
[2020-04-12] MEDS: PIPERACILLIN/TAZOBACTAM 4.5 GM in DEXTROSE 5% 100 ML IV SCH (20:41)
[2020-04-12] MEDS: APIXABAN 5 MG TABLET PO SCH (20:42)
[2020-04-12] MEDS: traZODone HCL 100 MG TAB PO SCH (20:42)
[2020-04-12] MEDS: PANTOprazole 40 MG TAB PO SCH (20:43)
[2020-04-12] MEDS: FAMOTIDINE 20 MG TAB PO SCH (20:44)
[2020-04-12] MEDS: rOPINIRole HCL 0.25 MG TABLET PO SCH (20:44)
[2020-04-12] MEDS: FLUoxetine HCL 20 MG CAP PO SCH (20:44)
[2020-04-13] MEDS ORDERED: HEPARIN SOD (PORCINE) 1000 UNIT/ML 10 ML VIAL IV ONE (06:18)
[2020-04-13] MEDS ORDERED: SODIUM CHLORIDE 0.9% 1000ML 1,000 ML IV PRN (06:18)
--- NOTE | 2020-04-13 06:36 | Nephrology Consultation ---
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 -HD today 3hr tx goal uf 2.5L as bp tolerates to help optimize breathing -next HD planned for 04/15 Present on Admission?: Yes (2) Acute hypoxemic respiratory failure: at baseline pt does not require 02NC by day; was on 4L 72 hrs ago and bumped up to 6L at dialysis prior to admission Present on Admission?: Yes (3) COVID-19: per primary service Present on Admission?: Yes History of Present Illness Reason for Consultation: ESRD on dialysis Requesting Physician: Dr Sevilla Attending Physician: Werner Sevilla, DO History of Present Illness 54 y/o M whom I'm asked to see for dialysis needs was admitted yesterday with covid pneumonia. PMH includes multiple sclerosis and w/c bound at baseline, ESRD on MWF HD under my care at [facility]; DM, depression, nocturnal hypoxia on 02HS. He is a [facility] resident. He was recently admitted here for a week w/ covid PNA with 04/09 d/c on RA. He dialyzed at [facility] on 04/11 and was on 4L at that time (does not routinely require 02NC by day). Yesterday he was sent to hospital after dialysis d/t productive cough, increasing 02 needs of 6L, dyspnea. C19 in ER yesterday was again positive; CXR w/ BL infiltrates. He has been afebrile since admission; is this AM on 5L 02nc . nursing reports excoriated areas on buttocks but no edema Allergies Allergy/AdvReac Type Severity Reaction Status Date / Time No Known Allergies Allergy Unverified 04/12/20 10:10 Home Medications Home Medications Medication Instructions Recorded Confirmed Type acetaminophen 650 mg PO Q4H PRN #30 tab 04/09/20 04/12/20 Rx albuterol sulfate [Ventolin HFA] 1 puff INHALATION QIDR PRN #8.5 g 04/09/20 04/12/20 Rx amlodipine [Norvasc] 10 mg PO QAM 30 Days #60 tab 04/09/20 04/12/20 Rx apixaban [Eliquis] 5 mg PO BID 30 Days #60 tab 04/09/20 04/12/20 Rx aripiprazole [Abilify] 15 mg PO QAM 30 Days #30 tab 04/09/20 04/12/20 Rx calcium acetate(phosphat bind) 2,668 mg PO TIDM 30 Days #120 cap 04/09/2003/28 Rx erythromycin [Diaz-Tab] 250 mg PO TID 30 Days #90 tab 04/09/20 04/12/20 Rx famotidine 20 mg PO Q2D@2100 30 Days tab 04/09/20 04/12/20 Rx fluoxetine 60 mg PO HS 30 Days #90 cap 04/09/20 04/12/20 Rx gabapentin 100 mg PO TID 30 Days #90 cap 04/09/20 04/12/20 Rx ipratropium bromide [Atrovent HFA] 1 puff INHALATION QIDR PRN 30 Days 04/09/20 04/12/20 Rx g pantoprazole 40 mg PO BID 30 Days #60 tab 04/09/20 04/12/20 Rx ropinirole 0.5 mg PO BID 30 Days #120 tab 04/09/20 04/12/20 Rx tamsulosin 0.4 mg PO QAM 30 Days #30 cap 04/09/20 04/12/20 Rx trazodone 100 mg PO HS 30 Days #30 tab 04/09/20 04/12/20 Rx Patient History Medical History A-V fistula left forearm Abnormal posture Acute respiratory failure with hypoxia Anemia Asthma Depression DVT (deep venous thrombosis) ESRD (end stage renal disease) on dialysis Generalized muscle weakness GERD (gastroesophageal reflux disease) Hyperlipidemia Hypertension Morbid obesity Multiple sclerosis Osteoarthritis Paradoxical insomnia Pneumonia due to COVID-19 virus Thrombocytopenia Type 2 diabetes mellitus Surgical History S/P arteriovenous (AV) fistula creation Family History Father , in his late 40s Myocardial infarction Social History Smoking Status: Former smoker Tobacco Type: Cigarettes Age Started Using Tobacco: 18; packs per day: 0.5; Smoking End Date: 2011; Second Hand Exposure: No; Do You Dip or Chew Tobacco: No; Tobacco Cessation Education Requested by Patient: No Hx Alcohol Use: No Hx Substance Use: No Preferred Language: Tristanian Communication Ability: Effective Business Continuity Specialist Required: No Beliefs That Will Affect Care: None marital status: Unknown Current Living Situation: Shelter current occupational status: disabled 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 Children do You have: 4 Other Information That Helps Us Care for You: No Feels Safe at Home: Yes Safety Concerns: Feels Safe At This Time Assistive Devices: Oxygen - Continuous Assistive Devices Comment: list needs verified on unit, Review of Systems Review of Systems: obtained w/ pt permission by phone Respiratory: + cough (improving) and + dyspnea (improving) Cardiovascular: no chest pain and no edema Genitourinary: + problem reported (anuric at baseline) Musculoskeletal: no joint pain and no myalgia Physical Exam Physical Exam: PE deferred d/t efforts to limit staff exposure to covid and to preserve PPE; his voice is tired and weak but not overtly dypsneic by phone Results & Data ([facility]) Vital Signs (Past 12 Hours) Vital Signs Temp Pulse Resp BP Pulse Ox 04/13/20 04:11 36.4 C L 46 L 16 135/74 96 04/12/20 23:59 36.5 C 52 L 13 135/72 96 04/12/20 20:22 36.8 C 61 25 H 147/71 H 97 Laboratory Results 04/12/20 09:17 04/12/20 09:17 Diagnostic Findings cxr 1. Cardiomegaly with pulmonary vascular congestion. 2. Subtle patchy bilateral opacities are suspicious for a nonspecific infectious or inflammatory pneumonitis. 3. Unchanged right hemidiaphragmatic elevation.
[2020-04-13 07:37] LABS: Eosinophils # (auto) 0.01 K/uL (0-0.5); Eosinophils % (auto) 0.2 %; Hematocrit (blood only) 32.4 % (42-52); Hemoglobin 10.2 g/dL (14.0-18.0); Immature Granulocytes # (auto) 0.22 K/uL (0.00-0.02); Immature Granulocytes % (auto) 3.9 %; Lymphocytes # (auto) 0.28 K/uL (1.2-3.4); Mean Corpuscular Hemoglobin 28.3 pg (25-34); Mean Corpuscular Hgb Conc 31.5 g/dL (32-36); Mean Corpuscular Volume 89.8 fL (80-100); Mean Platelet Volume 9.8 fL (7.4-10.4); Monocytes # (auto) 0.33 K/uL (0.11-0.59); Monocytes % (auto) 5.9 %; Neutrophils # (auto) 4.78 K/uL (1.4-6.5); Platelet Count 124 K/uL (130-400); RDW Coefficient of Variation 14.2 % (11.5-14.5); RDW Standard Deviation 46.7 fL (36.4-46.3); Red Blood Count 3.61 M/uL (4.7-6.1); White Blood Count 5.62 K/uL (4.8-10.8)
[2020-04-13] MEDS: PIPERACILLIN/TAZOBACTAM 4.5 GM in DEXTROSE 5% 100 ML IV SCH ×2 (07:39→21:05)
[2020-04-13 08:22] LABS: BUN Creatinine Ratio 9.7 (10-20); Calcium 8.5 mg/dl (8.5-10.1); Creatinine Clr Calc Pharmacy 15.8 ml/min; Est GFR (African American) 10.1; Est GFR (Non-African American) 8.7; Magnesium 2.4 mg/dl (1.8-2.4); Potassium 4.1 mmol/L (3.5-5.1)
[2020-04-13] MEDS: APIXABAN 5 MG TABLET PO SCH ×2 (08:31→21:29)
[2020-04-13] MEDS: GABAPENTIN 100 MG CAP PO SCH ×3 (08:31→21:27)
[2020-04-13] MEDS: PANTOprazole 40 MG TAB PO SCH ×2 (08:31→21:29)
[2020-04-13] MEDS: rOPINIRole HCL 0.25 MG TABLET PO SCH ×2 (08:32→21:29)
[2020-04-13] MEDS: amLODIPine BESYLATE 5 MG TAB PO SCH (08:32)
[2020-04-13] MEDS: CALCIUM ACETATE 667 MG CAP/TAB PO SCH ×3 (08:33→17:47)
[2020-04-13] MEDS: ARIPiprazole 15 MG TAB PO SCH (08:33)
[2020-04-13] MEDS: TAMSULOSIN HCL 0.4 MG CAP PO SCH (08:34)
[2020-04-13] MEDS: DEXAMETHASONE SOD PHOSPHATE 6 MG in SYRINGE 0 ML IV SCH (08:34)
[2020-04-13] MEDS: INSULIN ASPART 100 UNITS/ML 3 ML PEN SC SCH ×4 (08:40→21:05)
[2020-04-13] MEDS ORDERED: dexAMETHasone 6 MG in DEXTROSE 5% 25 ML IV SCH (09:00)
[2020-04-13] MEDS: HEPARIN SOD (PORCINE) 1000 UNIT/ML 10 ML VIAL IV SCH ×2 (15:15→15:16)
--- NOTE | 2020-04-13 18:37 | Hospitalist Progress Note ---
Date of Service April 13, 2020 Assessment & Plan (1) Bacterial pneumonia: patient was discharged on 04/09 after 7 day admission for COVID 19 pneumonia he completed plasma and Decadron he was doing well, 90% saturations on room air, no distress he returns with wet cough, more dyspnea, he denies fever/chills, says his appetite has been okay he made it through HD on 04/12 will treat with Zosyn and Levaquin initially, likely cut to one antibiotic tomorrow resume Decadron flutter valve, incentive spirometer, duoneb PRN no fever, WBC normal, coughing less, requiring only 4L NC (2) COVID-19: original diagnosis on 04/02 he tested positive still here in the ED, today is day 10 since diagnosis will resume Decadron 6mg IV daily since he returned to hospital with dyspnea complete 5 days of Decadron, today is day 2 (3) ESRD (end stage renal disease) on dialysis: had HD 04/12, follows with Dr. North, Estefanía will consult nephrology, appears euvolemic, plan for HD on Wednesday which is normal schedule (4) Type 2 diabetes mellitus: diabetic diet, Novolog SS (5) Multiple sclerosis: (6) Acute hypoxemic respiratory failure: due to combination of suspected bacterial pneumonia, COVID 19, asthma no wheezing on exam treat pneumonia and COVID 19, wean oxygen as tolerated responding to treatment, titrated down to 4L from 6L Admission and Anticipated Discharge Date Admission Date: April 12, 2020 Subjective patient breathing better today, coughing up less sputum, less rhonchi he slept well last night, no fever/chills appetite is intact reviewed labs, WBC normal, BMP with elevated Cr and low sodium but he is dialysis patient Review of Systems Review of Systems: All systems reviewed & are unremarkable except as noted in Subjective Physical Exam Constitutional: WD/WN, vitals as above + ill appearing; no acute distress Eyes: PERRL, conjunctivae normal, anicteric sclerae ENMT: external ear and nose normal, oropharynx normal Neck: trachea midline, no thyromegaly Respiratory: + cough and + tachypneic Auscultation: + diminished lung sounds and + rhonchi; no crackles and no wheezes Cardiovascular: RRR, no murmur, no edema Gastrointestinal (Abdomen): normal bowel sounds, soft, nontender, no hepato splenomegaly Musculoskeletal: Head/Neck/Chest: normocephalic, head atraumatic and neck supple Extremities: extremities normal to inspection and + abnormal strength (lower extremity weakness) Skin: no rashes, warm and dry Neurologic: patellar DTR's 2+ bilat, sensation intact and PERRL, EOMI, accommodation nl, no face palsy, no dysarthria Psychiatric: A+Ox3, euthymic affect Lymphatic: no cervical or axillary lymphadenopathy Results & Data Results & Data ([facility]) Vital Signs (Past 12 Hours) Vital Signs Temp Pulse Pulse Pulse Resp BP BP 04/13/20 17:42 36.5 C 56 L 18 132/78 04/13/20 17:00 55 L 114/70 04/13/20 16:45 50 L 120/66 04/13/20 16:30 52 L 108/68 04/13/20 16:15 56 L 112/67 04/13/20 16:00 59 L 118/64 04/13/20 15:45 55 L 108/70 04/13/20 15:30 55 L 118/66 04/13/20 15:15 56 L 128/72 04/13/20 15:00 56 L 116/66 04/13/20 14:45 55 L 127/69 04/13/20 14:30 56 L 142/68 H 04/13/20 14:15 36.6 C 56 L 04/13/20 12:07 36.7 C 65 20 135/70 04/13/20 08:18 36.6 C 47 L 20 148/73 H 04/13/20 08:00 45 L Pulse Ox 04/13/20 17:42 97 04/13/20 17:00 04/13/20 16:45 04/13/20 16:30 04/13/20 16:15 04/13/20 16:00 04/13/20 15:45 04/13/20 15:30 04/13/20 15:15 04/13/20 15:00 04/13/20 14:45 04/13/20 14:30 04/13/20 14:15 04/13/20 12:07 95 04/13/20 08:18 98 04/13/20 08:00 Laboratory Results Laboratory Results - last 24 hr 04/12/20 04/13/20 04/13/20 20:24 06:31 06:31 WBC 5.62 RBC 3.61 L Hgb 10.2 L Hct 32.4 L MCV 89.8 MCH 28.3 MCHC 31.5 L RDW Std Deviation 46.7 H RDW Coeff of Emiliano 14.2 Plt Count 124 L MPV 9.8 Immature Gran % (Auto) 3.9 Neut % (Auto) 85.0 Lymph % (Auto) 5.0 Bradford % (Auto) 5.9 Eos % (Auto) 0.2 Baso % (Auto) 0.0 Neut # (Auto) 4.78 Lymph # (Auto) 0.28 L Bradford # (Auto) 0.33 Eos # (Auto) 0.01 Baso # (Auto) 0.00 Immature Gran # (Auto) 0.22 H Sodium 131 L Potassium 4.1 D Chloride 92 L Carbon Dioxide 27 Anion Gap 12.0 H BUN 65 H D Creatinine 6.67 H* D Est Cr Clr Drug Dosing 15.8 Est GFR ( Amer) 10.1 Est GFR (Non-Af Amer) 8.7 BUN/Creatinine Ratio 9.7 L Glucose 191 H POC Glucose 220 H Calcium 8.5 Magnesium 2.4 04/13/20 04/13/20 04/13/20 07:29 11:16 17:28 WBC RBC Hgb Hct MCV MCH MCHC RDW Std Deviation RDW Coeff of Emiliano Plt Count MPV Immature Gran % (Auto) Neut % (Auto) Lymph % (Auto) Bradford % (Auto) Eos % (Auto) Baso % (Auto) Neut # (Auto) Lymph # (Auto) Bradford # (Auto) Eos # (Auto) Baso # (Auto) Immature Gran # (Auto) Sodium Potassium Chloride Carbon Dioxide Anion Gap BUN Creatinine Est Cr Clr Drug Dosing Est GFR ( Amer) Est GFR (Non-Af Amer) BUN/Creatinine Ratio Glucose POC Glucose 201 H 262 H 168 H Calcium Magnesium Medications Administered Current Inpatient Medications Acetaminophen (Acetaminophen 325 Mg Tab) 650 mg PO Q4H PRN PRN Reason: fever or pain Stop: 05/12/20 12:16 Albuterol (Albut/Ipratrop 3mg/0.5mg Neb 3 Ml Vial) 3 ml NEB Q2R PRN PRN Reason: Dyspnea Stop: 05/12/20 12:16 Amlodipine Besylate (Amlodipine Besylate 5 Mg Tab) 10 mg PO QAM [facility] Stop: 05/13/20 08:59 Last Admin: 04/13/20 08:32 Dose: 10 mg Documented by: Apixaban (Apixaban 5 Mg Tablet) 5 mg PO BID [facility] Stop: 05/12/20 20:59 Last Admin: 04/13/20 08:31 Dose: 5 mg Documented by: Aripiprazole (Aripiprazole 15 Mg Tab) 15 mg PO QAM [facility] Stop: 05/13/20 08:59 Last Admin: 04/13/20 08:33 Dose: 15 mg Documented by: Calcium Acetate (Calcium Acetate 667 Mg Cap/Tab) 2,668 mg PO TIDM [facility] Stop: 05/12/20 12:16 Last Admin: 04/13/20 17:47 Dose: 2,668 mg Documented by: Dextrose (Dextrose 50% 50 Ml Syringe) 25 - 50 ml IV UD PRN; Protocol PRN Reason: Hypoglycemia Protocol Stop: 05/12/20 13:59 Famotidine (Famotidine 20 Mg Tab) 20 mg PO Q2D@2100 [facility] Stop: 05/12/20 20:59 Last Admin: 04/12/20 20:44 Dose: 20 mg Documented by: Fluoxetine HCl (Fluoxetine Hcl 20 Mg Cap) 60 mg PO HS [facility] Stop: 05/12/20 20:59 Last Admin: 04/12/20 20:44 Dose: 60 mg Documented by: Gabapentin (Gabapentin 100 Mg Cap) 100 mg PO TID [facility] Stop: 05/12/20 13:59 Last Admin: 04/13/20 16:09 Dose: Not Given Documented by: Glucagon (Glucagon For Inj 1 Mg Vial) 1 mg IM UD PRN; Protocol PRN Reason: Hypoglycemia Protocol Stop: 05/12/20 13:59 Glucose (Glucose 40% Gel 15 Gm Tube) 15 - 30 gm PO UD PRN; Protocol PRN Reason: Hypoglycemia Protocol Stop: 05/12/20 13:59 Glucose (Glucose 10 Tabs/Tube) 4 - 8 tabs PO UD PRN; Protocol PRN Reason: Hypoglycemia Protocol Stop: 05/12/20 13:59 Levofloxacin/Dextrose (Levaquin/D5w) 500 mg in 100 mls @ 100 mls/hr IV Q48H [facility]; Protocol Stop: 04/19/20 23:59 Dexamethasone Sodium Phosphate (6 mg/ Syringe) 1.5 mls @ 1 mls/min IV QAM [facility] Stop: 05/13/20 08:59 Last Admin: 04/13/20 08:34 Dose: 1 mls/min Documented by: Piperacillin Sod/Tazobactam (Sod 4.5 gm/ Dextrose) 120 mls @ 30 mls/hr IV Q12H [facility]; Protocol Stop: 04/19/20 19:59 Last Infusion: 04/13/20 11:39 Dose: Infused Documented by: Insulin Aspart (Insulin Aspart 100 Units/Ml 3 Ml Pen) 0 units SC ACHS [facility] Stop: 05/12/20 16:29 Last Admin: 04/13/20 17:45 Dose: 11 units Documented by: Miscellaneous (Carbohydrates For Hypoglycemia ) 15 - 30 gm PO UD PRN PRN Reason: Hypoglycemia Treatment Stop: 05/12/20 13:59 Miscellaneous Information (Piperacill/Tazobac Consult Active) 1 ea N/A UD PRN PRN Reason: Consult Stop: 05/12/20 09:55 Ondansetron HCl (Ondansetron Inj 2 Mg/Ml 2 Ml Vial) 4 mg IV Q6H PRN PRN Reason: Nausea Stop: 05/12/20 12:16 Pantoprazole Sodium (Pantoprazole 40 Mg Tab) 40 mg PO BID [facility] Stop: 05/12/20 20:59 Last Admin: 04/13/20 08:31 Dose: 40 mg Documented by: Ropinirole HCl (Ropinirole Hcl 0.25 Mg Tablet) 0.5 mg PO BID [facility] Stop: 05/12/20 20:59 Last Admin: 04/13/20 08:32 Dose: 0.5 mg Documented by: Tamsulosin HCl (Tamsulosin Hcl 0.4 Mg Cap) 0.4 mg PO QAM [facility] Stop: 05/13/20 08:59 Last Admin: 04/13/20 08:34 Dose: 0.4 mg Documented by: Trazodone HCl (Trazodone Hcl 100 Mg Tab) 100 mg PO HS [facility] Stop: 05/12/20 20:59 Last Admin: 04/12/20 20:42 Dose: 100 mg Documented by: PG Care Time/CCT Total # of Minutes Spent Total Time Spent with Patient: Total time spent is greater than 50% in coordination of care (as documented) at patient's floor/unit and/or counseling patient: Coding Level of Care Code 22207 Subseq Hosp Care Lvl 3 Diagnoses Bacterial pneumonia J15.9 COVID-19 U07.1 ESRD (end stage renal disease) on dialysis N18.6; Z99.2 Type 2 diabetes mellitus E11.69 Diabetes mellitus snf insulin use: without supervisor intermediates use Diabetes mellitus complication status: with other specified complication Multiple sclerosis G35 Acute hypoxemic respiratory failure J96.01 (1) Type 2 diabetes mellitus Diabetes mellitus snf insulin use: without supervisor intermediates use Diabetes mellitus complication status: with other specified complication Qualified Code(s): E11.69 - Type 2 diabetes mellitus with other specified complication
[2020-04-13] MEDS: traZODone HCL 100 MG TAB PO SCH (21:28)
[2020-04-13] MEDS: FLUoxetine HCL 20 MG CAP PO SCH (21:30)
[2020-04-14] MEDS: INSULIN ASPART 100 UNITS/ML 3 ML PEN SC SCH ×4 (08:15→20:38)
[2020-04-14] MEDS: DEXAMETHASONE SOD PHOSPHATE 6 MG in SYRINGE 0 ML IV SCH (08:20)
[2020-04-14] MEDS: CALCIUM ACETATE 667 MG CAP/TAB PO SCH ×3 (08:20→17:23)
[2020-04-14] MEDS: amLODIPine BESYLATE 5 MG TAB PO SCH (08:21)
[2020-04-14] MEDS: ARIPiprazole 15 MG TAB PO SCH (08:22)
[2020-04-14] MEDS: TAMSULOSIN HCL 0.4 MG CAP PO SCH (08:22)
[2020-04-14] MEDS: rOPINIRole HCL 0.25 MG TABLET PO SCH ×2 (08:23→20:31)
[2020-04-14] MEDS: GABAPENTIN 100 MG CAP PO SCH ×3 (08:24→20:32)
[2020-04-14] MEDS: APIXABAN 5 MG TABLET PO SCH ×2 (08:24→20:30)
[2020-04-14] MEDS: PANTOprazole 40 MG TAB PO SCH ×2 (08:24→20:32)
[2020-04-14] MEDS: PIPERACILLIN/TAZOBACTAM 4.5 GM in DEXTROSE 5% 100 ML IV SCH ×2 (08:25→20:24)
[2020-04-14] MEDS ORDERED: levoFLOXacin/D5W 500 MG/100 ML BAG IV SCH (16:00)
[2020-04-14] MEDS: FAMOTIDINE 20 MG TAB PO SCH (20:30)
[2020-04-14] MEDS: FLUoxetine HCL 20 MG CAP PO SCH (20:31)
[2020-04-14] MEDS: traZODone HCL 100 MG TAB PO SCH (20:32)
--- NOTE | 2020-04-14 23:05 | Hospitalist Progress Note ---
Date of Service April 14, 2020 Assessment & Plan (1) Bacterial pneumonia: patient was discharged on 04/09 after 7 day admission for COVID 19 pneumonia he completed plasma and Decadron he was doing well, 90% saturations on room air, no distress he returns with wet cough, more dyspnea, he denies fever/chills, says his appetite has been okay he made it through HD on 04/12 treated with Zosyn and Levaquin initially, stop Zosyn after today resumed Decadron 6mg IV daily, complete on 04/16 flutter valve, incentive spirometer, duoneb PRN no fever, WBC normal, coughing less, requiring only 3L NC plan for 7 days total antibiotics, cut to Levaquin alone complete 5 days total of Decadron, he had 7 days last admission for COVID likely back to [facility] on 04/16 (2) COVID-19: original diagnosis on 04/02 he is still testing positive on re-admission will resume Decadron 6mg IV daily since he returned to hospital with dyspnea complete 5 days of Decadron, today is day 3 (3) ESRD (end stage renal disease) on dialysis: had HD 04/12, follows with Dr. North, Estefanía will consult nephrology, appears euvolemic, plan for HD on Wednesday which is normal schedule (4) Type 2 diabetes mellitus: diabetic diet, Novolog SS no hypoglycemia (5) Multiple sclerosis: (6) Acute hypoxemic respiratory failure: due to combination of suspected bacterial pneumonia, COVID 19, asthma no wheezing on exam treat pneumonia and COVID 19, wean oxygen as tolerated responding to treatment, titrated down to 3L from 6L on admission no distress at all today of note, he wears 3-4L at night chronically Admission and Anticipated Discharge Date Admission Date: April 12, 2020 Subjective patient feeling much, much better breathing well on 3L, no distress at all, minimal cough eating quite well plan for HD tomorrow no labs today Review of Systems Review of Systems: All systems reviewed & are unremarkable except as noted in Subjective Constitutional: + weakness; no fever, no chills, no sweats and no fatigue Respiratory: + cough; no chest congestion, no dyspnea, no dyspnea on exertion, no pain with cough and no sputum production Cardiovascular: no chest pain, no syncope and no edema Gastrointestinal: no abdominal pain, no nausea, no vomiting, no constipation and no diarrhea/loose stools Physical Exam Constitutional: WD/WN, vitals as above no acute distress Neck: trachea midline, no thyromegaly Respiratory: normal respiratory effort and + cough; no respiratory distress and no labored breathing Auscultation: + diminished lung sounds; no crackles, no rales, no rhonchi and no wheezes Cardiovascular: Rate/Rhythm: regular rhythm and + bradycardic Heart Sounds: normal S1 and normal S2; no murmur Vessels: no JVD Extremities: normal capillary refill; no edema Gastrointestinal (Abdomen): normal bowel sounds, soft, nontender, no hepatosplenomegaly Musculoskeletal: Head/Neck/Chest: normocephalic, head atraumatic and neck s upple Extremities: extremities normal to inspection and + abnormal strength (lower extremity weakness) Skin: no rashes, warm and dry Neurologic: patellar DTR's 2+ bilat, sensation intact and PERRL, EOMI, accommodation nl, no face palsy, no dysarthria Psychiatric: A+Ox3, euthymic affect Lymphatic: no cervical or axillary lymphadenopathy Results & Data Results & Data ([facility]) Vital Signs (Past 12 Hours) Vital Signs Temp Pulse Pulse Pulse Resp BP Pulse Ox 04/14/20 19:00 36.4 C L 55 L 21 132/74 96 04/14/20 16:00 51 L 04/14/20 15:28 36.5 C 48 L 19 127/65 97 04/14/20 11:48 36.6 C 45 L 18 155/66 H 98 Laboratory Results Laboratory Results - last 24 hr 04/14/20 04/14/20 04/14/20 07:45 11:19 16:31 POC Glucose 193 H 250 H 215 H 04/14/20 20:21 POC Glucose 281 H Medications Administered Current Inpatient Medications Acetaminophen (Acetaminophen 325 Mg Tab) 650 mg PO Q4H PRN PRN Reason: fever or pain Stop: 05/12/20 12:16 Albuterol (Albut/Ipratrop 3mg/0.5mg Neb 3 Ml Vial) 3 ml NEB Q2R PRN PRN Reason: Dyspnea Stop: 05/12/20 12:16 Amlodipine Besylate (Amlodipine Besylate 5 Mg Tab) 10 mg PO QAM [facility] Stop: 05/13/20 08:59 Last Admin: 04/14/20 08:21 Dose: 10 mg Documented by: Apixaban (Apixaban 5 Mg Tablet) 5 mg PO BID [facility] Stop: 05/12/20 20:59 Last Admin: 04/14/20 20:30 Dose: 5 mg Documented by: Aripiprazole (Aripiprazole 15 Mg Tab) 15 mg PO QAM [facility] Stop: 05/13/20 08:59 Last Admin: 04/14/20 08:22 Dose: 15 mg Documented by: Calcium Acetate (Calcium Acetate 667 Mg Cap/Tab) 2,668 mg PO TIDM [facility] Stop: 05/12/20 12:16 Last Admin: 04/14/20 17:23 Dose: 2,668 mg Documented by: Dextrose (Dextrose 50% 50 Ml Syringe) 25 - 50 ml IV UD PRN; Protocol PRN Reason: Hypoglycemia Protocol Stop: 05/12/20 13:59 Famotidine (Famotidine 20 Mg Tab) 20 mg PO Q2D@2100 [facility] Stop: 05/12/20 20:59 Last Admin: 04/14/20 20:30 Dose: 20 mg Documented by: Fluoxetine HCl (Fluoxetine Hcl 20 Mg Cap) 60 mg PO HS [facility] Stop: 05/12/20 20:59 Last Admin: 04/14/20 20:31 Dose: 60 mg Documented by: Gabapentin (Gabapentin 100 Mg Cap) 100 mg PO TID [facility] Stop: 05/12/20 13:59 Last Admin: 04/14/20 20:32 Dose: 100 mg Documented by: Glucagon (Glucagon For Inj 1 Mg Vial) 1 mg IM UD PRN; Protocol PRN Reason: Hypoglycemia Protocol Stop: 05/12/20 13:59 Glucose (Glucose 40% Gel 15 Gm Tube) 15 - 30 gm PO UD PRN; Protocol PRN Reason: Hypoglycemia Protocol Stop: 05/12/20 13:59 Glucose (Glucose 10 Tabs/Tube) 4 - 8 tabs PO UD PRN; Protocol PRN Reason: Hypoglycemia Protocol Stop: 05/12/20 13:59 Levofloxacin/Dextrose (Levaquin/D5w) 500 mg in 100 mls @ 100 mls/hr IV Q48H [facility]; Protocol Stop: 04/19/20 23:59 Last Infusion: 04/14/20 16:40 Dose: Infused Documented by: Dexamethasone Sodium Phosphate (6 mg/ Syringe) 1.5 mls @ 1 mls/min IV QAM [facility] Stop: 05/13/20 08:59 Last Admin: 04/14/20 08:20 Dose: 1 mls/min Documented by: Piperacillin Sod/Tazobactam (Sod 4.5 gm/ Dextrose) 120 mls @ 30 mls/hr IV Q12H [facility]; Protocol Stop: 04/19/20 19:59 Last Admin: 04/14/20 20:24 Dose: 30 mls/hr Documented by: Insulin Aspart (Insulin Aspart 100 Units/Ml 3 Ml Pen) 0 units SC ACHS [facility] Stop: 05/12/20 16:29 Last Admin: 04/14/20 20:38 Dose: 8 units Documented by: Miscellaneous (Carbohydrates For Hypoglycemia ) 15 - 30 gm PO UD PRN PRN Reason: Hypoglycemia Treatment Stop: 05/12/20 13:59 Miscellaneous Information (Piperacill/Tazobac Consult Active) 1 ea N/A UD PRN PRN Reason: Consult Stop: 05/12/20 09:55 Ondansetron HCl (Ondansetron Inj 2 Mg/Ml 2 Ml Vial) 4 mg IV Q6H PRN PRN Reason: Nausea Stop: 05/12/20 12:16 Pantoprazole Sodium (Pantoprazole 40 Mg Tab) 40 mg PO BID [facility] Stop: 05/12/20 20:59 Last Admin: 04/14/20 20:32 Dose: 40 mg Documented by: Ropinirole HCl (Ropinirole Hcl 0.25 Mg Tablet) 0.5 mg PO BID [facility] Stop: 05/12/20 20:59 Last Admin: 04/14/20 20:31 Dose: 0.5 mg Documented by: Tamsulosin HCl (Tamsulosin Hcl 0.4 Mg Cap) 0.4 mg PO QAM [facility] Stop: 05/13/20 08:59 Last Admin: 04/14/20 08:22 Dose: 0.4 mg Documented by: Trazodone HCl (Trazodone Hcl 100 Mg Tab) 100 mg PO HS [facility] Stop: 05/12/20 20:59 Last Admin: 04/14/20 20:32 Dose: 100 mg Documented by: PG Care Time/CCT Total # of Minutes Spent Total Time Spent with Patient: Total time spent is greater than 50% in coordination of care (as documented) at patient's floor/unit and/or counseling patient: Coding Level of Care Code 82791 Subseq Hosp Care Lvl 3 Diagnoses Bacterial pneumonia J15.9 COVID-19 U07.1 ESRD (end stage renal disease) on dialysis N18.6; Z99.2 Type 2 diabetes mellitus E11.69 Diabetes mellitus exterminator helper termite insulin use: without exterminator helper termite use Diabetes mellitus complication status: with other specified complication Multiple sclerosis G35 Acute hypoxemic respiratory failure J96.01 (1) Type 2 diabetes mellitus Diabetes mellitus usp insulin use: without usp use Diabetes mellitus complication status: with other specified complication Qualified Code(s): E11.69 - Type 2 diabetes mellitus with other specified complication
[2020-04-15 06:35] LABS: Hematocrit (blood only) 31.7 % (42-52); Hemoglobin 9.7 g/dL (14.0-18.0); Mean Corpuscular Hgb Conc 30.6 g/dL (32-36); Mean Corpuscular Volume 91.6 fL (80-100); Mean Platelet Volume 9.5 fL (7.4-10.4); Platelet Count 136 K/uL (130-400); RDW Coefficient of Variation 14.4 % (11.5-14.5); RDW Standard Deviation 48.3 fL (36.4-46.3); Red Blood Count 3.46 M/uL (4.7-6.1); White Blood Count 8.78 K/uL (4.8-10.8)
[2020-04-15 07:18] LABS: BUN Creatinine Ratio 10.9 (10-20); Calcium 8.8 mg/dl (8.5-10.1); Creatinine Clr Calc Pharmacy 16.2 ml/min; Est GFR (African American) 10.5; Est GFR (Non-African American) 9.1; Potassium 3.6 mmol/L (3.5-5.1)
[2020-04-15] MEDS ORDERED: HEPARIN SOD (PORCINE) 1000 UNIT/ML 10 ML VIAL IV ONE (07:59)
[2020-04-15] MEDS ORDERED: SODIUM CHLORIDE 0.9% 1000ML 1,000 ML IV PRN (07:59)
[2020-04-15] MEDS ORDERED: EPOETIN ALFA 10,000 UNITS/ML VIAL IV ONE (07:59)
[2020-04-15] MEDS ORDERED: IRON SUCROSE 50 MG in SYRINGE 0 ML IV ONE (08:30)
[2020-04-15] MEDS: rOPINIRole HCL 0.25 MG TABLET PO SCH ×2 (08:54→20:58)
[2020-04-15] MEDS: PANTOprazole 40 MG TAB PO SCH ×2 (08:54→20:58)
[2020-04-15] MEDS: DEXAMETHASONE SOD PHOSPHATE 6 MG in SYRINGE 0 ML IV SCH (08:54)
[2020-04-15] MEDS: PIPERACILLIN/TAZOBACTAM 4.5 GM in DEXTROSE 5% 100 ML IV SCH (08:54)
[2020-04-15] MEDS: ARIPiprazole 15 MG TAB PO SCH (08:55)
[2020-04-15] MEDS: APIXABAN 5 MG TABLET PO SCH ×2 (08:55→20:58)
[2020-04-15] MEDS: amLODIPine BESYLATE 5 MG TAB PO SCH (08:55)
[2020-04-15] MEDS: GABAPENTIN 100 MG CAP PO SCH ×3 (08:55→20:58)
[2020-04-15] MEDS: CALCIUM ACETATE 667 MG CAP/TAB PO SCH ×3 (08:55→20:57)
[2020-04-15] MEDS: TAMSULOSIN HCL 0.4 MG CAP PO SCH (08:56)
[2020-04-15] MEDS: INSULIN ASPART 100 UNITS/ML 3 ML PEN SC SCH ×4 (09:28→21:03)
[2020-04-15] MEDS ORDERED: INSULIN GLARGINE SOLOSTAR 100 UNITS/ML 3 ML PEN SC SCH (11:30)
--- NOTE | 2020-04-15 12:50 | Progress Notes ---
DATE: 04/15/2020 NEPHROLOGY PROGRESS NOTE SUBJECTIVE: The patient appears to be stable and slightly better from yesterday. He feels less short of breath. His oxygen requirement has gone down a bit to 2-3 liters per minute now. He had dialysis without major problem on Wednesday and is due for dialysis again later today. OBJECTIVE: VITAL SIGNS: Blood pressure 136/75, pulse rate is 47 per minute, temperature 36.6, 98% on 2 liters nasal cannula, respiratory rate 18. GENERAL: The patient is awake, alert, oriented x3. HEENT: Mucous membranes moist. NECK: Supple. No jugular venous distention. CHEST: Bilateral occasional crackles at the bases. CARDIOVASCULAR: S1 and S2 regular. ABDOMEN: Soft, nontender. EXTREMITIES: Show no edema. Advanced signs of ischemia noted. LABORATORY TESTS: From this morning show hemoglobin 9.7. Sodium 137, potassium 3.6, BUN 70, creatinine 6.4, calcium 8.8. Chest x-ray shows pulmonary vascular congestion. ASSESSMENT AND PLAN: A 54-year-old male with end-stage renal disease as well as significant comorbid disease, now admitted with COVID-19 infection with pneumonia as well as congestive heart failure. The patient is an end-stage renal disease patient and gets dialysis Wednesday, Wednesday, Wednesday. We will do dialysis later today for 3 hours 45 minutes and we will try to take about 3.5 kilo off as tolerated by blood pressure. He does have some evidence of congestive heart failure on the x-ray, but not overtly on exam. We will do him on a 2K bath.
[2020-04-15] MEDS: HEPARIN SOD (PORCINE) 1000 UNIT/ML 10 ML VIAL IV SCH ×2 (15:30→16:30)
--- NOTE | 2020-04-15 19:08 | Hospitalist Progress Note ---
Date of Service April 15, 2020 Assessment & Plan (1) Bacterial pneumonia: patient was discharged on 04/09 after 7 day admission for COVID 19 pneumonia he completed plasma and Decadron he was doing well, 90% saturations on room air, no distress at that time of discharge he returned with wet cough, more dyspnea, he denies fever/chills, says his appetite has been okay he made it through HD on 04/12 prior to admission treated with Zosyn and Levaquin initially, have since discontinued Zosyn resumed Decadron 6mg IV daily, complete on 04/16 Continue flutter valve, incentive spirometer, duoneb PRN Remains afebrile, WBC normal, coughing less, oxygen requirement down to 2 L Blood cultures remain no growth plan for 7 days total antibiotics, cut to Levaquin alone today complete 5 days total of Decadron, he had 7 days last admission for COVID-last day would be 04/16 We will check procalcitonin again in the morning We will need to follow chest x-ray to resolution likely back to [facility] on 04/16 (2) COVID-19: original diagnosis on 04/02 he is still testing positive on re-admission As above, resumed Decadron 6mg IV daily since he returned to hospital with dyspnea complete 5 days of Decadron, today is day 4 Mild thrombocytopenia is improving (3) ESRD (end stage renal disease) on dialysis: had HD 04/12 and again on 04/15, follows with Estefanía Cobos Appreciate nephrology consultation Continue phosphate binder (4) Type 2 diabetes mellitus: diabetic diet, Novolog SS Becoming hyperglycemic with IV Decadron Increase Lantus and NovoLog today Check hemoglobin A1c in the morning (5) Multiple sclerosis: Bedbound and wheelchair-bound Supportive care Is not on medication for this Does take ropinirole for restless legs and gabapentin (6) Acute hypoxemic respiratory failure: Acute on chronic respiratory failure with hypoxia due to combination of suspected bacterial pneumonia, COVID 19, asthma Some mild wheezing on examination today treat pneumonia and COVID 19, wean oxygen as tolerated responding to treatment, titrated down to 2L from 6L on admission no distress at all today of note, he wears 3-4L at night chronically (7) Anemia: Anemia of chronic disease Was given IV iron today by nephrology Follow CBC Hemoglobin stable at 9.7 (8) Depression: Stable -Continue fluoxetine Trazodone at bedtime, Abilify (9) Hypertension: Blood pressures are controlled -Continue home amlodipine (10) History of DVT (deep vein thrombosis): Continues on apixaban Disposition-continued stay, but much improved, can likely discharge back to [facility] tomorrow Case management requested PT/OT consultations to make sure he is at his baseline physical status Admission and Anticipated Discharge Date Admission Date: April 12, 2020 Subjective Patient reports he feels well. He is currently receiving dialysis when I saw him. Denies any chest pains or shortness of breath, no nausea or vomiting. No abdominal pain. He reports that at baseline he does not stand and pivot as per case management notes. Question if he would benefit from any PT/OT as he is seems to be at his baseline. He is coughing up some white mucus. Remains on 2 L nasal cannula but pulse ox is 98% Telemetry with sinus bradycardia with rates in the 40s to 50s Review of Systems Review of Systems: All systems reviewed & are unremarkable except as noted in HPI & below Physical Exam Constitutional: well developed, + obese and comfortable; no acute distress and not ill appearing Eyes: + anicteric sclerae Neck: trachea midline, no thyromegaly Respiratory: normal respiratory effort Auscultation: + wheezes (A few scattered expiratory wheezes bilaterally); no rales and no rhonchi Cardiovascular: RRR, no murmur, no edema Extremities: + AV fistula (Left upper extremity) Chest (Breasts): Chest: normal inspection of chest Gastrointestinal (Abdomen): normal bowel sounds, soft, nontender, no hepatosplenomegaly Musculoskeletal: Extremities: + extremities abnormal to inspection (Atrophy of lower extremities), no cyanosis and no clubbing Skin: no rashes, warm and dry Neurologic: moves all extremities and awake; no focal motor deficits Psychiatric: A+Ox3, euthymic affect Lymphatic: no lymphedema Results & Data Results & Data ([facility]) Vital Signs (Past 12 Hours) Vital Signs Temp Pulse Pulse Pulse Pulse Resp BP 04/15/20 18:00 59 L 103/55 L 04/15/20 17:40 60 102/59 L 04/15/20 17:20 59 L 103/67 04/15/20 17:00 52 L 103/61 04/15/20 16:40 56 L 104/66 04/15/20 16:20 56 L 114/67 04/15/20 16:00 57 L 106/65 04/15/20 15:40 58 L 118/67 04/15/20 15:20 58 L 118/67 04/15/20 15:00 56 L 114/68 04/15/20 14:40 55 L 115/69 04/15/20 14:25 36.8 C 55 L 04/15/20 11:59 36.6 C 47 L 18 04/15/20 08:21 36.4 C L 44 L 19 BP Pulse Ox 04/15/20 18:00 04/15/20 17:40 04/15/20 17:20 04/15/20 17:00 04/15/20 16:40 04/15/20 16:20 04/15/20 16:00 04/15/20 15:40 04/15/20 15:20 04/15/20 15:00 04/15/20 14:40 04/15/20 14:25 04/15/20 11:59 136/75 98 04/15/20 08:21 164/70 H 100 Laboratory Results 04/15/20 04/15/20 04/15/20 Range/Units 18:50 16:30 11:52 WBC (4.8-10.8) K/uL RBC (4.7-6.1) M/uL Hgb (14.0-18.0) g/dL Hct (42-52) % MCV (80-100) fL MCH (25-34) pg MCHC (32-36) g/dL RDW Std Deviation (36.4-46.3) fL RDW Coeff of Emiliano (11.5-14.5) % Plt Count (130-400) K/uL MPV (7.4-10.4) fL Sodium (136-145) mmol/L Potassium (3.5-5.1) mmol/L Chloride (98-107) mmol/L Carbon Dioxide (21-32) mmol/L Anion Gap (3-11) BUN (7-18) mg/dl Creatinine (0.6-1.4) mg/dl Est Cr Clr Drug Dosing ml/min Est GFR ( Amer) Est GFR (Non-Af Amer) BUN/Creatinine Ratio (10-20) Glucose (70-99) mg/dl POC Glucose 150 H 206 H 292 H (70-99) mg/dl Calcium (8.5-10.1) mg/dl 04/15/20 04/15/20 04/15/20 Range/Units 07:52 06:14 06:14 WBC 8.78 (4.8-10.8) K/uL RBC 3.46 L (4.7-6.1) M/uL Hgb 9.7 L (14.0-18.0) g/dL Hct 31.7 L (42-52) % MCV 91.6 (80-100) fL MCH 28.0 (25-34) pg MCHC 30.6 L (32-36) g/dL RDW Std Deviation 48.3 H (36.4-46.3) fL RDW Coeff of Emiliano 14.4 (11.5-14.5) % Plt Count 136 (130-400) K/uL MPV 9.5 (7.4-10.4) fL Sodium 137 (136-145) mmol/L Potassium 3.6 (3.5-5.1) mmol/L Chloride 97 L (98-107) mmol/L Carbon Dioxide 30 (21-32) mmol/L Anion Gap 10.0 (3-11) BUN 70 H (7-18) mg/dl Creatinine 6.42 H* (0.6-1.4) mg/dl Est Cr Clr Drug Dosing 16.2 ml/min Est GFR ( Amer) 10.5 Est GFR (Non-Af Amer) 9.1 BUN/Creatinine Ratio 10.9 (10-20) Glucose 188 H (70-99) mg/dl POC Glucose 206 H (70-99) mg/dl Calcium 8.8 (8.5-10.1) mg/dl 04/14/20 Range/Units 20:21 WBC (4.8-10.8) K/uL RBC (4.7-6.1) M/uL Hgb (14.0-18.0) g/dL Hct (42-52) % MCV (80-100) fL MCH (25-34) pg MCHC (32-36) g/dL RDW Std Deviation (36.4-46.3) fL RDW Coeff of Emiliano (11.5-14.5) % Plt Count (130-400) K/uL MPV (7.4-10.4) fL Sodium (136-145) mmol/L Potassium (3.5-5.1) mmol/L Chloride (98-107) mmol/L Carbon Dioxide (21-32) mmol/L Anion Gap (3-11) BUN (7-18) mg/dl Creatinine (0.6-1.4) mg/dl Est Cr Clr Drug Dosing ml/min Est GFR ( Amer) Est GFR (Non-Af Amer) BUN/Creatinine Ratio (10-20) Glucose (70-99) mg/dl POC Glucose 281 H (70-99) mg/dl Calcium (8.5-10.1) mg/dl PG Care Time/CCT Total # of Minutes Spent Total Time Spent with Patient: Total time spent is greater than 50% in coordination of care (as documented) at patient's floor/unit and/or counseling patient: Coding Level of Care Code 36730 Subseq Hosp Care Lvl 3 Diagnoses Bacterial pneumonia J15.9 COVID-19 U07.1 ESRD (end stage renal disease) on dialysis N18.6; Z99.2 Type 2 diabetes mellitus E11.69 Diabetes mellitus alf insulin use: without alf use Diabetes mellitus complication status: with other specified complication Multiple sclerosis G35 Acute hypoxemic respiratory failure J96.01 Anemia D64.9 Depression F32.9 Depression Type: unspecified Hypertension I10 Hypertension type: essential hypertension History of DVT (deep vein thrombosis) Z86.718 (1) Type 2 diabetes mellitus Diabetes mellitus alf insulin use: without termite treater helper use Diabetes mellitus complication status: with other specified complication Qualified Code(s): E11.69 - Type 2 diabetes mellitus with other specified complication (2) Depression Depression Type: unspecified Qualified Code(s): F32.9 - Major depressive disorder, single episode, unspecified (3) Hypertension Hypertension type: essential hypertension Qualified Code(s): I10 - Essential (primary) hypertension
[2020-04-15] MEDS: traZODone HCL 100 MG TAB PO SCH (20:59)
[2020-04-15] MEDS: FLUoxetine HCL 20 MG CAP PO SCH (20:59)
[2020-04-16 06:23] LABS: Basophils # (auto) 0.01 K/uL (0-0.2); Basophils % (auto) 0.1 %; Eosinophils # (auto) 0.07 K/uL (0-0.5); Eosinophils % (auto) 0.8 %; Hematocrit (blood only) 34.1 % (42-52); Hemoglobin 10.3 g/dL (14.0-18.0); Immature Granulocytes # (auto) 0.21 K/uL (0.00-0.02); Immature Granulocytes % (auto) 2.5 %; Lymphocytes # (auto) 0.84 K/uL (1.2-3.4); Mean Corpuscular Hemoglobin 27.8 pg (25-34); Mean Corpuscular Hgb Conc 30.2 g/dL (32-36); Mean Corpuscular Volume 92.2 fL (80-100); Mean Platelet Volume 9.8 fL (7.4-10.4); Monocytes # (auto) 0.74 K/uL (0.11-0.59); Monocytes % (auto) 8.8 %; Neutrophils % (auto) 77.8 %; Platelet Count 131 K/uL (130-400); RDW Coefficient of Variation 14.5 % (11.5-14.5); RDW Standard Deviation 48.6 fL (36.4-46.3); White Blood Count 8.37 K/uL (4.8-10.8)
[2020-04-16 07:10] LABS: Albumin Globulin Ratio 0.8 (0.9-2); Albumin Level 2.7 gm/dl (3.4-5.0); BUN Creatinine Ratio 8.2 (10-20); Bilirubin,Total 0.5 mg/dl (0.2-1); Calcium 9.1 mg/dl (8.5-10.1); Creatinine Clr Calc Pharmacy 23.3 ml/min; Est GFR (African American) 16.1; Est GFR (Non-African American) 13.9; Globulin 3.5 gm/dl (2.5-4.0); Potassium 3.3 mmol/L (3.5-5.1); Total Protein 6.2 gm/dl (6.4-8.2)
[2020-04-16] MEDS: HEPARIN SOD (PORCINE) 1000 UNIT/ML 10 ML VIAL IV SCH (07:19)
[2020-04-16 08:08] LABS: Estimated Average Glucose 105 mg/dl; Hemoglobin A1C 5.3 % (4.5-5.6)
[2020-04-16] MEDS: DEXAMETHASONE SOD PHOSPHATE 6 MG in SYRINGE 0 ML IV SCH (08:48)
[2020-04-16] MEDS: ARIPiprazole 15 MG TAB PO SCH (08:49)
[2020-04-16] MEDS: TAMSULOSIN HCL 0.4 MG CAP PO SCH (08:49)
[2020-04-16] MEDS: PANTOprazole 40 MG TAB PO SCH (08:49)
[2020-04-16] MEDS: GABAPENTIN 100 MG CAP PO SCH ×2 (08:49→13:30)
[2020-04-16] MEDS: rOPINIRole HCL 0.25 MG TABLET PO SCH (08:49)
[2020-04-16] MEDS: CALCIUM ACETATE 667 MG CAP/TAB PO SCH ×2 (08:49→12:08)
[2020-04-16] MEDS: APIXABAN 5 MG TABLET PO SCH (08:49)
[2020-04-16] MEDS: amLODIPine BESYLATE 5 MG TAB PO SCH (08:49)
[2020-04-16] MEDS ORDERED: INSULIN GLARGINE SOLOSTAR 100 UNITS/ML 3 ML PEN SC SCH (09:00)
[2020-04-16] MEDS: INSULIN ASPART 100 UNITS/ML 3 ML PEN SC SCH ×2 (09:22→12:26)
[2020-04-16] MEDS ORDERED: levoFLOXacin 500 MG TAB PO SCH (12:00)
--- NOTE | 2020-04-16 14:43 | Discharge Summary ---
Date of Service April 16, 2020 Admission HPI Per Admitting Provider 54 yo male with history of ESRD on HD, multiple sclerosis confined to bed, resident of [facility], presents to the ED today due to worsening shortness of breath. Patient was treated for 7 days for COVID 19 pneumonia here at [facility], he was discharged on 11/07 after receiving 7 days of dexamethasone and convalescent plasma, did not get Remdesivir due to renal failure. He did quite well, was stable on room air for two days prior to discharge. He received HD on 04/08 and was discharged on 04/09. He said that he started to develop worsening breathing and a wet cough yesterday. He was not eating as well. No fever or chills. He went to HD this morning and was actually able to complete a session and was then sent to the ED for evaluation. He was requiring 6L NC with saturations in high 90's. He was not in respiratory distress. CXR with bilateral infiltrates. ESR, CRP and procalcitonin all elevated. He was given Zosyn and Levaquin and admission requested. Principal Diagnosis COVID-19 Pneumonia, Bacterial secondary pneumonia, acute on chronic respiratory failure with hypoxia Discharge Exam Constitutional well developed, + obese and comfortable; no acute distress and not ill appearing Eyes + anicteric sclerae Neck trachea midline, no thyromegaly Respiratory normal respiratory effort, lungs clear to auscultation Cardiovascular RRR, no murmur, no edema Extremities: + AV fistula (Left upper extremity) Chest (Breasts) Chest: normal inspection of chest Gastrointestinal (Abdomen) normal bowel sounds, soft, nontender, no hepatosplenomegaly Musculoskeletal Extremities: + extremities abnormal to inspection (Atrophy of lower extremities), no cyanosis and no clubbing Skin no rashes, warm and dry Neurologic moves all extremities and awake; no focal motor deficits Psychiatric A+Ox3, euthymic affect Lymphatic no lymphedema Discharge Data Allergies Allergy/AdvReac Type Severity Reaction Status Date / Time No Known Allergies Allergy Unverified 04/12/20 10:10 Consultations 04/12/20 10:19 ED Decision to Admit Stat 04/12/20 12:17 Consult Case Management - Discharge Planning Routine 04/12/20 13:44 Consult Nephrology Routine Ordered Studies CXR Hospital Course (1) Bacterial pneumonia: patient was discharged on 04/09 after 7 day admission for COVID 19 pneumonia he completed plasma and Decadron he was doing well, 90% saturations on room air, no distress at that time of discharge he returned with wet cough, more dyspnea, he denies fever/chills, says his appetite has been okay he made it through HD on 04/12 prior to admission treated with Zosyn and Levaquin initially, have since discontinued Zosyn resumed Decadron 6mg IV daily, finish out 3 more days of decadron po after discharge Continue flutter valve, incentive spirometer, duoneb PRN Remains afebrile, WBC normal, coughing less, oxygen requirement down to 2-3 L Blood cultures remain no growth plan for 7 days total antibiotics, cut to Levaquin alone for 4 more days Procalcitonin elevated secondary to renal failure We will need to follow chest x-ray to resolution Stable for dc back to [facility] on 04/16 (2) COVID-19: original diagnosis on 04/02 he is still testing positive on re-admission As above, resumed Decadron Mild thrombocytopenia is improving (3) ESRD (end stage renal disease) on dialysis: had HD 04/12 and again on 04/15, follows with Estefanía Cobos Appreciate nephrology consultation Continue phosphate binder (4) Type 2 diabetes mellitus: diabetic diet, Novolog SS Became hyperglycemic with IV Decadron Increased Lantus and NovoLog but no need to continue upon dc hemoglobin A1c low but unreliable in setting of anemia and CKD (5) Multiple sclerosis: Bedbound and wheelchair-bound Supportive care Is not on medication for this Does take ropinirole for restless legs and gabapentin (6) Acute hypoxemic respiratory failure: Acute on chronic respiratory failure with hypoxia due to combination of suspected bacterial pneumonia, COVID 19, asthma no wheezing treat pneumonia and COVID 19, wean oxygen as tolerated responding to treatment, titrated down to 2L from 6L on admission no distress at all today of note, he wears 3-4L at night chronically (7) Anemia: Anemia of chronic disease Was given IV iron today by nephrology Follow CBC Hemoglobin stable at 9.7 (8) Depression: Stable -Continue fluoxetine Trazodone at bedtime, Abilify (9) Hypertension: Blood pressures are controlled -Continue home amlodipine (10) History of DVT (deep vein thrombosis): Continues on apixaban Disposition-stable for dc to SNF Total Time Total Time Spent Total Time Spent (In Minutes): 35 min Total Time Includes: Examination of the Patient, Discharge Planning and Medic ation Reconciliation Discharge Plan Discharge Items Patient Disposition: Transfer Assisted Fac Reason For Visit: SOB after dialysis +COVID Discharge Diagnosis: COVID-19 Pneumonia bacterial pneumonia,acute on chronic respiratory failure with hypoxia Condition on Discharge: Fair Activity: Resume your previous activity Non-emergency contact: Primary Care Provider Call non-emergency contact if: you have any medication questions and your symptoms worsen Follow-up/Referrals: Dionna Mayfield [Primary Care Provider] - Diet: Carb Consistent or DM2 and Dialysis Renal Fluids: 1500ml (6 cups) Addtl Attending Provider Instructions: Please finish out the course of Levaquin for the pneumonia. You can continue 3 more days of dexamethasone for the COVID-19 pneumonia. Pending Studies at Discharge: Yes (Final blood cultures) Stand-Alone Forms: My [facility] Skilled Items Patient informed of condition?: Yes DNR: No Discharge Level of Care: Skilled Communicable Disease: No Discharge Prognosis: Improving Lines: None Urinary Catheter: No Medications and DC Order Prescriptions: New levofloxacin 500 mg Tablet 500 mg PO Q48H Qty: 2 RF: 0 dexamethasone 4 mg tablet 6 mg PO DAILY 3 Days Qty: 5 RF: 0 Continued acetaminophen 325 mg Tablet 650 mg PO Q4H PRN (Reason: fever or pain) Qty: 30 RF: 0 erythromycin [Diaz-Tab] 250 mg Tablet,Delayed Release (Dr/Ec) 250 mg PO TID 30 Days Qty: 90 RF: 0 amlodipine [Norvasc] 5 mg Tablet 10 mg PO QAM 30 Days Qty: 60 RF: 0 famotidine 20 mg Tablet 20 mg PO Q2D@2100 30 Days RF: 0 tamsulosin 0.4 mg Capsule 0.4 mg PO QAM 30 Days Qty: 30 RF: 0 trazodone 100 mg Tablet 100 mg PO HS 30 Days Qty: 30 RF: 0 ropinirole 0.25 mg Tablet 0.5 mg PO BID 30 Days Qty: 120 RF: 0 pantoprazole 40 mg Tablet,Delayed Release (Dr/Ec) 40 mg PO BID 30 Days Qty: 60 RF: 0 gabapentin 100 mg Capsule 100 mg PO TID 30 Days Qty: 90 RF: 0 albuterol sulfate [Ventolin HFA] 90 mcg/actuation Hfa Aerosol Inhaler 1 puff inhalation QIDR PRN (Reason: shortness of breath or wheezing) Qty: 8.5 RF: 0 fluoxetine 20 mg Capsule 60 mg PO HS 30 Days Qty: 90 RF: 0 aripiprazole [Abilify] 15 mg Tablet 15 mg PO QAM 30 Days Qty: 30 RF: 0 calcium acetate(phosphat bind) 667 mg Capsule 2,668 mg PO TIDM 30 Days Qty: 120 RF: 0 Atrovent HFA 17 mcg/actuation Hfa Aerosol Inhaler 1 puff inhalation QIDR PRN (Reason: shortness of breath or wheezing) 30 Days RF: 0 Eliquis 5 mg Tablet 5 mg PO BID 30 Days Qty: 60 RF: 0 Discharge Orders: Discharge Order (Routine); Ordered 04/16/20 Ordered By: Rebecca Ruelas Admission Data Admit Date/Time: 04/12/20 10:25 Attending Provider: Rebecca Ruelas Admit Provider: Werner Sevilla Primary Care Provider: Dionna Mayfield Other Providers: Werner Sevilla ; Kira North Other Interventions: Discharge Summary Assessment (RN) Last Done: 04/16/20 14:25 Coding Level of Care Code D/C Day Management >30 mins Diagnoses Bacterial pneumonia J15.9 COVID-19 U07.1 ESRD (end stage renal disease) on dialysis N18.6; Z99.2 Type 2 diabetes mellitus E11.69 Diabetes mellitus half-way insulin use: without project architect use Diabetes mellitus complication status: with other specified complication Multiple sclerosis G35 Acute hypoxemic respiratory failure J96.01 Anemia D64.9 Depression F32.9 Depression Type: unspecified Hypertension I10 Hypertension type: essential hypertension History of DVT (deep vein thrombosis) Z86.718
[2020-04-17] MEDS ORDERED: dexAMETHasone 1 MG TAB PO SCH (09:00)
== END 2020-04-16 14:59 | DRG 177 ==
LOC: ED 08:19 → SUATTDRO 10:25 → 2E 10:25

== ENCOUNTER 2020-04-24 21:55 | Inpatient (IN) ==
[2020-04-24 22:40] LABS: Hematocrit (blood only) 33.5 % (42-52); Hemoglobin 10.3 g/dL (14.0-18.0); Mean Corpuscular Hemoglobin 28.4 pg (25-34); Mean Corpuscular Hgb Conc 30.7 g/dL (32-36); Mean Corpuscular Volume 92.3 fL (80-100); RDW Coefficient of Variation 14.8 % (11.5-14.5); RDW Standard Deviation 50.4 fL (36.4-46.3); Red Blood Count 3.63 M/uL (4.7-6.1); White Blood Count 6.97 K/uL (4.8-10.8)
[2020-04-24 22:58] LABS: INR 1.2 (0.9-1.1); Partial Thromboplastin Ratio 1.2; Partial Thromboplastin Time 33.6 Seconds (21.0-31.0); Prothrombin Time 12.5 Seconds (9.0-12.0)
[2020-04-24 23:02] LABS: Mean Platelet Volume 10.5 fL (7.4-10.4); Platelet Count 93 K/uL (130-400)
[2020-04-24 23:03] LABS: Eosinophils # (auto) 0.06 K/uL (0-0.5); Eosinophils % (auto) 0.9 %; Immature Granulocytes # (auto) 0.04 K/uL (0.00-0.02); Immature Granulocytes % (auto) 0.6 %; Lymphocytes # (auto) 0.73 K/uL (1.2-3.4); Lymphocytes % (auto) 10.5 %; Monocytes # (auto) 0.46 K/uL (0.11-0.59); Monocytes % (auto) 6.6 %; Neutrophils # (auto) 5.68 K/uL (1.4-6.5); Neutrophils % (auto) 81.4 %; Platelet Estimate Decreased (Normal)
[2020-04-24 23:06] LABS: Alanine Aminotransferase 23 U/L (12-78); Albumin Globulin Ratio 0.7 (0.9-2); Albumin Level 2.6 gm/dl (3.4-5.0); Alkaline Phosphatase 92 U/L (45-117); Aspartate Aminotransferase 8 U/L (15-37); BUN Creatinine Ratio 8.6 (10-20); Bilirubin,Total 0.5 mg/dl (0.2-1); Blood Urea Nitrogen 43 mg/dl (7-18); Calcium 8.7 mg/dl (8.5-10.1); Carbon Dioxide 31 mmol/L (21-32); Chloride 94 mmol/L (98-107); Creatinine Clr Calc Pharmacy 21.4 ml/min; Est GFR (African American) 13.9; Globulin 3.6 gm/dl (2.5-4.0); Glucose 283 mg/dl (70-99); Magnesium 2.1 mg/dl (1.8-2.4); Potassium 3.7 mmol/L (3.5-5.1); Sodium 131 mmol/L (136-145); Total Protein 6.2 gm/dl (6.4-8.2); Troponin I < 0.015 ng/ml (0-0.045)
[2020-04-24] MEDS ORDERED: PIPERACILLIN/TAZOBACTAM 4.5 GM/120 ML BAG IV ONE (23:07)
[2020-04-24] MEDS ORDERED: PIPERACILL/TAZOBAC CONSULT ACTIVE PRN (23:07)
[2020-04-24] MEDS ORDERED: DEXAMETHASONE SOD INJ 10 MG/ML VIAL IV ONE (23:16)
[2020-04-24] MEDS ORDERED: VANCOMYCIN HCL 2,250 MG in SODIUM CHLORIDE 0.9% 500 ML IV ONE (23:16)
[2020-04-24] MEDS ORDERED: VANCOMYCIN CONSULT ACTIVE PRN (23:16)
--- NOTE | 2020-04-24 23:17 | Emergency Department Note ---
ED Visit Note Patient was seen by our PA/INSIDE CHANNEL ACCOUNT MANAGER. I was involved in the patient's care and did evaluate the patient myself. I was involved in the care throughout the ER stay. Patient presents with some shortness of breath. He does have a recent coronavirus diagnosis. Chest film shows a white out of the right lung. This will likely need to be addressed by pulmonology. He may require a thoracentesis. Certainly, this finding explains his dyspnea. Given his findings, given his worsening situation, hospitalization is warranted. .
[2020-04-24 23:23] LABS: Influenza A virus by PCR Negative (Negative); Influenza B virus by PCR Negative (Negative)
--- NOTE | 2020-04-24 23:26 | Emergency Department Note ---
History of Present Illness General Chief complaint: Shortness of Breath/Dyspnea Stated complaint: SOB, R LOWER LOBE PNX, COVID + Time Seen by Provider: 04/24/20 22:27 History of Present Illness This 54 yo presents to the ER complaining of cough, congestion shortness of breath and fever today Location: Chest Quality: Coughing Severity: Moderate Duration:1 Day Timing: Patient an x-ray at the senior care and has pneumonia and was sent in Context: Symptoms got worse and patient came in Modifying factors: better with nothing; worse with activity This is the patient's third ER evaluation for Covid this month. He was hospitalized 2 of the times. He states he was feeling better until today from his last discharge. Patient denies chest pain, abdominal pain, loss of taste, loss of smell, vomiting, diarrhea. Patient states he is end-stage renal disease and dialyzes Wednesday. He went today. He is a full code. Home Medications Home Medications Medication Instructions Recorded Confirmed Type Eliquis 5 mg PO BID 30 Days #60 tab 04/09/20 04/24/20 Rx amlodipine [Norvasc] 10 mg PO QAM 30 Days #60 tab 04/09/20 04/24/20 Rx aripiprazole [Abilify] 15 mg PO QAM 30 Days #30 tab 04/09/20 04/24/20 Rx calcium acetate(phosphat bind) 2,668 mg PO TIDM 30 Days #120 cap 04/09/20 04/24/20 Rx erythromycin [Diaz-Tab] 250 mg PO TID 30 Days #90 tab 04/09/20 04/24/20 Rx fluoxetine 60 mg PO HS 30 Days #90 cap 04/09/20 04/24/20 Rx gabapentin 100 mg PO TID 30 Days #90 cap 04/09/20 04/24/20 Rx pantoprazole 40 mg PO BID 30 Days #60 tab 04/09/20 04/24/20 Rx ropinirole 0.5 mg PO BID 30 Days #120 tab 04/09/20 04/24/20 Rx tamsulosin 0.4 mg PO QAM 30 Days #30 cap 04/09/20 04/24/20 Rx trazodone 100 mg PO HS 30 Days #30 tab 04/09/20 04/24/20 Rx albuterol sulfate [Ventolin HFA] 1 puff INHALATION Q4H PRN 04/24/20 04/24/20 History dextromethorphan-guaifenesin 1 tab PO Q12H PRN 04/24/20 04/24/20 History [Mucinex DM] famotidine 20 mg PO Q OTHER DAY 04/24/20 04/24/20 History teriflunomide 14 mg PO QAM 04/24/20 04/24/20 History Allergies Allergy/AdvReac Type Severity Reaction Status Date / Time No Known Allergies Allergy Verified 04/24/20 23:33 Past Med/Surg History Medical History (Updated 04/25/20 @ 00:17 by Awilda Sanchez PA-C) A-V fistula left forearm Abnormal posture Acute respiratory failure with hypoxia Anemia Asthma Depression DVT (deep venous thrombosis) ESRD (end stage renal disease) on dialysis Generalized muscle weakness GERD (gastroesophageal reflux disease) Hyperlipidemia Hypertension Morbid obesity Multiple sclerosis Osteoarthritis Paradoxical insomnia Pneumonia due to COVID-19 virus Thrombocytopenia Type 2 diabetes mellitus Surgical History S/P arteriovenous (AV) fistula creation Family History Father , in his late 40s Myocardial infarction Social History Smoking Status: Former smoker Tobacco Type: Cigarettes Age Started Using Tobacco: 18; packs per day: 0.5; Second Hand Exposure: No; Hx Alcohol Use: No Hx Substance Use: No Preferred Language: Japanese Communication Ability: Effective Wire Temperer Required: No Beliefs That Will Affect Care: None marital status: Unknown Current Living Situation: [facility] current occupational status: disabled 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 Children do You have: 4 Feels Safe at Home: Yes Assistive Devices: Oxygen - Continuous Review of Systems A total of 10 systems reviewed and were otherwise negative Physical Exam Vital Signs Vital Signs - 24 hr 04/24/20 22:18 04/24/20 22:33 04/24/20 23:15 Temperature 37.2 C Temperature Source Oral Pulse Rate 90 Pulse Rate [Right] 79 Pulse Rhythm [Right] Regular Pulse Strength [Right] Normal Respiratory Rate 19 16 Respiratory Effort / Characteristics Labored Labored Non-Labored Respiratory Depth Normal Normal Respiratory Pattern Regular Blood Pressure 155/77 H Blood Pressure [Right Arm] 155/77 H Blood Pressure Mean 103 Blood Pressure Mean [Right Arm] 103 Blood Pressure Position [Right Arm] Sitting Pulse Oximetry 95 95 94 Oxygen Delivery Method Nasal Cannula Nasal Cannula Nasal Cannula Oxygen Flow Rate 3 3 3 Sepsis Recent Fever Within 48 Hours Yes Sepsis New/Unexplained Change in Mental Status N/A Sepsis Action Taken by Nursing No Action Required 04/24/20 23:54 Temperature Temperature Source Pulse Rate Pulse Rate [Right] 103 H Pulse Rhythm [Right] Regular Pulse Strength [Right] Normal Respiratory Rate 22 Respiratory Effort / Characteristics Respiratory Depth Shallow Respiratory Pattern Blood Pressure Blood Pressure [Right Arm] 137/79 Blood Pressure Mean Blood Pressure Mean [Right Arm] 98 Blood Pressure Position [Right Arm] Sitting Pulse Oximetry 94 Oxygen Delivery Method Non-rebreather Oxygen Flow Rate 15 Sepsis Recent Fever Within 48 Hours Sepsis New/Unexplained Change in Mental Status Sepsis Action Taken by Nursing VITALS: Vitals are noted on the nurse's note and reviewed by myself. Vital signs reviewed. GENERAL: White male working to breathe chronically ill-appearing SKIN: Left arm fistula, rest of the skin was without rashes, erythema, edema, or bruising. There is no tenting of the skin. Capillary reflex less than 2 seconds. HEAD: Normocephalic atraumatic. EARS: External auditory canals clear, tympanic membranes pearly cabrera without erythema or effusion bilaterally. EYES: Pupils equal round and reactive to light and accommodation. Conjunctivae without injection, sclerae without icterus. Extraocular movements intact. NOSE: Patent, turbinates without inflammation or discharge. No sinus tenderness. MOUTH: Mucous membranes mildly dry. Pharynx without erythema or exudate. Uvula midline. Airway patent. Tongue does not deviate. NECK: Supple without nuchal rigidity. No lymphadenopathy. No thyromegaly. Cervical spine is nontender. No JVD. HEART: Regular rate and rhythm LUNGS: Diminished breath sounds in the right lung, left lung with end expiratory wheezes. ABDOMEN: Positive bowel sounds x 4. Normal tympanic percussion. Soft, nontender, without masses or organomegaly. Torres sign negative. No guarding or rebound tenderness. No CVA tenderness MUSCULOSKELETAL: No muscle atrophy, erythema, noted. NEURO: Patient was alert and oriented to person place and time. Normal sensation to light and sharp touch. No focal neurological deficits. Course Administered Medications Vancomycin HCl 2,250 mg/ (Sodium Chloride) 545 mls @ 200 mls/hr IV NOW ONE Stop: 04/25/20 01:59 Last Admin: 04/24/20 23:38 Dose: 200 mls/hr Documented by: [id number] Miscellaneous Information (Piperacill/Tazobac Consult Active) 1 ea N/A UD PRN PRN Reason: Consult Stop: 05/24/20 23:06 Last Admin: 04/24/20 23:15 Dose: 1 ea Documented by: [id number] Discontinued Medications Albuterol (Albut/Ipratrop 3mg/0.5mg Neb 3 Ml Vial) 12 ml NEB ONE ONE Stop: 04/24/20 23:49 Last Admin: 04/25/20 00:10 Dose: 12 ml Documented by: [id number] Dexamethasone (Dexamethasone Sod Inj 10 Mg/Ml Vial) 10 mg IV NOW ONE Stop: 04/24/20 23:17 Last Admin: 04/24/20 23:38 Dose: 10 mg Documented by: [id number] Piperacillin Sod/Tazobactam Sod (Zosyn) 4.5 gm in 120 mls @ 240 mls/hr IV NOW ONE Stop: 04/24/20 23:36 Last Infusion: 04/24/20 23:39 Dose: 0 mls/hr Documented by: [id number] Admin: 04/24/20 23:15 Dose: 240 mls/hr Documented by: [id number] Miscellaneous (Rapid Sequence Induction Bag) Confirm Administered Dose 1 ea .ROUTE .STK-MED ONE Stop: 04/25/20 00:37 Last Admin: 04/25/20 00:43 Dose: Not Given Documented by: [id number] Critical Care Time Critical Care Time: Yes Total Critical Care Time: 60 I have personally spent 60 minutes of critical care time in the direct kriss gement of this patient. This includes bedside care, interpretation of diagnostic studies, and testing, discussion with consultants, patient, and family members, and other required patient management activities. This 60 minutes is in excess of all separately billable procedures. Medical Decision Making Medical Records Attestation: I reviewed the patient's medical records. Home Medications Current Medication List: was personally reviewed by me Laboratory Data Attestation: I reviewed the patient's lab results. Result diagrams: 04/24/20 22:00 04/24/20 22:00 Lab Results 04/24/20 04/24/20 04/24/20 Range/Units 22:00 22:00 22:00 WBC 6.97 (4.8-10.8) K/uL RBC 3.63 L (4.7-6.1) M/uL Hgb 10.3 L (14.0-18.0) g/dL POC Hgb (14.0-18.0) g/dl Hct 33.5 L (42-52) % POC Hct (42-52) % MCV 92.3 (80-100) fL MCH 28.4 (25-34) pg MCHC 30.7 L (32-36) g/dL RDW Std Deviation 50.4 H (36.4-46.3) fL RDW Coeff of Emiliano 14.8 H (11.5-14.5) % Plt Count 93 L (130-400) K/uL MPV 10.5 H (7.4-10.4) fL Immature Gran % (Auto) 0.6 % Neut % (Auto) 81.4 % Lymph % (Auto) 10.5 % [place] % (Auto) 6.6 % Eos % (Auto) 0.9 % Baso % (Auto) 0.0 % Neut # (Auto) 5.68 (1.4-6.5) K/uL Lymph # (Auto) 0.73 L (1.2-3.4) K/uL [place] # (Auto) 0.46 (0.11-0.59) K/uL Eos # (Auto) 0.06 (0-0.5) K/uL Baso # (Auto) 0.00 (0-0.2) K/uL Immature Gran # (Auto) 0.04 H (0.00-0.02) K/uL Platelet Estimate Decreased L (Normal) PT 12.5 H (9.0-12.0) Seconds INR 1.2 H (0.9-1.1) APTT 33.6 H (21.0-31.0) Seconds PTT Ratio 1.2 POC pH (7.35-7.45) POC pCO2 (35-46) mmHg POC pO2 (80-95) mmHg POC HCO3 (19-24) ghassan/L POC Total CO2 (24-31) mmol/L POC Base Excess (-9-1.8) ghassan/L POC ABG O2 Sat (90-95) % POC Sodium (135-144) mmol/L Sodium 131 L (136-145) mmol/L POC Potassium (3.3-5.0) mmol/L Potassium 3.7 (3.5-5.1) mmol/L Chloride 94 L (98-107) mmol/L Carbon Dioxide 31 (21-32) mmol/L Anion Gap 6.0 (3-11) BUN 43 H (7-18) mg/dl Creatinine 5.10 H* (0.6-1.4) mg/dl Est Cr Clr Drug Dosing 21.4 ml/min Est GFR ( Amer) 13.9 Est GFR (Non-Af Amer) 12.0 BUN/Creatinine Ratio 8.6 L (10-20) Glucose 283 H (70-99) mg/dl Lactate (0.4-2.0) mmol/L Calcium 8.7 (8.5-10.1) mg/dl Magnesium 2.1 (1.8-2.4) mg/dl Total Bilirubin 0.5 (0.2-1) mg/dl AST 8 L (15-37) U/L ALT 23 (12-78) U/L Alkaline Phosphatase 92 (45-117) U/L Troponin I < 0.015 (0-0.045) ng/ml Total Protein 6.2 L (6.4-8.2) gm/dl Albumin 2.6 L (3.4-5.0) gm/dl Globulin 3.6 (2.5-4.0) gm/dl Albumin/Globulin Ratio 0.7 L (0.9-2) Procalcitonin (0-0.5) ng/ml COVID-19 Eval Order COVID-19 PCR (Negative) Influ A Molecular Assay (Negative) Influ B Molecular Assay (Negative) 04/24/20 04/24/20 04/24/20 Range/Units 22:00 22:15 22:48 WBC (4.8-10.8) K/uL RBC (4.7-6.1) M/uL Hgb (14.0-18.0) g/dL POC Hgb (14.0-18.0) g/dl Hct (42-52) % POC Hct (42-52) % MCV (80-100) fL MCH (25-34) pg MCHC (32-36) g/dL RDW Std Deviation (36.4-46.3) fL RDW Coeff of Emiliano (11.5-14.5) % Plt Count (130-400) K/uL MPV (7.4-10.4) fL Immature Gran % (Auto) % Neut % (Auto) % Lymph % (Auto) % [place] % (Auto) % Eos % (Auto) % Baso % (Auto) % Neut # (Auto) (1.4-6.5) K/uL Lymph # (Auto) (1.2-3.4) K/uL [place] # (Auto) (0.11-0.59) K/uL Eos # (Auto) (0-0.5) K/uL Baso # (Auto) (0-0.2) K/uL Immature Gran # (Auto) (0.00-0.02) K/uL Platelet Estimate (Normal) PT (9.0-12.0) Seconds INR (0.9-1.1) APTT (21.0-31.0) Seconds PTT Ratio POC pH (7.35-7.45) POC pCO2 (35-46) mmHg POC pO2 (80-95) mmHg POC HCO3 (19-24) ghassan/L POC Total CO2 (24-31) mmol/L POC Base Excess (-9-1.8) ghassan/L POC ABG O2 Sat (90-95) % POC Sodium (135-144) mmol/L Sodium (136-145) mmol/L POC Potassium (3.3-5.0) mmol/L Potassium (3.5-5.1) mmol/L Chloride (98-107) mmol/L Carbon Dioxide (21-32) mmol/L Anion Gap (3-11) BUN (7-18) mg/dl Creatinine (0.6-1.4) mg/dl Est Cr Clr Drug Dosing ml/min Est GFR ( Amer) Est GFR (Non-Af Amer) BUN/Creatinine Ratio (10-20) Glucose (70-99) mg/dl Lactate 1.2 (0.4-2.0) mmol/L Calcium (8.5-10.1) mg/dl Magnesium (1.8-2.4) mg/dl Total Bilirubin (0.2-1) mg/dl AST (15-37) U/L ALT (12-78) U/L Alkaline Phosphatase (45-117) U/L Troponin I (0-0.045) ng/ml Total Protein (6.4-8.2) gm/dl Albumin (3.4-5.0) gm/dl Globulin (2.5-4.0) gm/dl Albumin/Globulin Ratio (0.9-2) Procalcitonin 4.22 H (0-0.5) ng/ml COVID-19 Eval Order COVID-19 PCR (Negative) Influ A Molecular Assay Negative (Negative) Influ B Molecular Assay Negative (Negative) 04/24/20 04/24/20 04/25/20 Range/Units 22:48 22:48 00:17 WBC (4.8-10.8) K/uL RBC (4.7-6.1) M/uL Hgb (14.0-18.0) g/dL POC Hgb 12.6 L (14.0-18.0) g/dl Hct (42-52) % POC Hct 37 L (42-52) % MCV (80-100) fL MCH (25-34) pg MCHC (32-36) g/dL RDW Std Deviation (36.4-46.3) fL RDW Coeff of Emiliano (11.5-14.5) % Plt Count (130-400) K/uL MPV (7.4-10.4) fL Immature Gran % (Auto) % Neut % (Auto) % Lymph % (Auto) % [place] % (Auto) % Eos % (Auto) % Baso % (Auto) % Neut # (Auto) (1.4-6.5) K/uL Lymph # (Auto) (1.2-3.4) K/uL [place] # (Auto) (0.11-0.59) K/uL Eos # (Auto) (0-0.5) K/uL Baso # (Auto) (0-0.2) K/uL Immature Gran # (Auto) (0.00-0.02) K/uL Platelet Estimate (Normal) PT (9.0-12.0) Seconds INR (0.9-1.1) APTT (21.0-31.0) Seconds PTT Ratio POC pH 7.39 (7.35-7.45) POC pCO2 49 H (35-46) mmHg POC pO2 93 (80-95) mmHg POC HCO3 29 H (19-24) ghassan/L POC Total CO2 31 (24-31) mmol/L POC Base Excess 4.0 H (-9-1.8) ghassan/L POC ABG O2 Sat 97.0 H (90-95) % POC Sodium 131 L (135-144) mmol/L Sodium (136-145) mmol/L POC Potassium 3.7 (3.3-5.0) mmol/L Potassium (3.5-5.1) mmol/L Chloride (98-107) mmol/L Carbon Dioxide (21-32) mmol/L Anion Gap (3-11) BUN (7-18) mg/dl Creatinine (0.6-1.4) mg/dl Est Cr Clr Drug Dosing ml/min Est GFR ( Amer) Est GFR (Non-Af Amer) BUN/Creatinine Ratio (10-20) Glucose (70-99) mg/dl Lactate (0.4-2.0) mmol/L Calcium (8.5-10.1) mg/dl Magnesium (1.8-2.4) mg/dl Total Bilirubin (0.2-1) mg/dl AST (15-37) U/L ALT (12-78) U/L Alkaline Phosphatase (45-117) U/L Troponin I (0-0.045) ng/ml Total Protein (6.4-8.2) gm/dl Albumin (3.4-5.0) gm/dl Globulin (2.5-4.0) gm/dl Albumin/Globulin Ratio (0.9-2) Procalcitonin (0-0.5) ng/ml COVID-19 Eval Order Covid19 Done at [facility] COVID-19 PCR POSITIVE A* (Negative) Influ A Molecular Assay (Negative) Influ B Molecular Assay (Negative) Imaging Data Attestation: I personally reviewed and interpreted this imaging study as follows: MDM Narrative Prior records/ancillary studies reviewed. Triage Nursing notes reviewed. Additional history obtained from nursing. The patient's history was concerning for respiratory difficulties. Differential diagnosis: Etiologies such as infections, reactive airway disease, pneumonia, pneumothorax, COPD, CHF, cardiac ischemia, pulmonary embolism, musculoskeletal, gastrointestinal, as well as others were entertained. Physical examination: As above. ER treatment provided: An order was placed for continuous cardiac monitoring. The monitor shows a rate of 60-1 10 with a sinus rhythm. Zosyn, vancomycin, Decadron, nebulizer, BiPAP Intubation, propofol drip On reassessment the patient felt better. Diagnostic interpretation by me: The electrocardiogram was poor baseline, left axis deviation, no acute ST-T wave changes. Impression sinus rhythm with left axis deviation unchanged from prior interpreted by myself EKG ordered for dyspnea I think arrhythmia is unlikely. EKG shows normal sinus rhythm with no interval abnormalities such as QT prolongation or WPW. There are no findings to suggest Brugada syndrome. Cardiac monitoring in the emergency department reveals no tachycardic or bradycardic dysrhythmia. Hypertrophic cardiomyopathy was considered but there are no clear historical elements pointing toward this. EKG is not suggestive. The QRS voltage is not extremely large and there are no suggestive Q waves. The labs revealed blood cultures pending. Positive Covid test, patient was positive last week and has not had a negative yet. Elevated procalcitonin ABG was reviewed. Imaging studies: Chest x-ray with right lung hao out possibly underlying pneumonia per my interpretation Chest x-ray shows proper placement of ET tube. Consultation: A consultation was placed with the midlevel home help aide Gerardo and Dr. Mccoy hospitalist. The case was discussed and diagnostics were reviewed. The patient was evaluated in the ER for further treatment. This appears to be consistent with pneumonia with Covid and acute respiratory failure. Patient was placed on BiPAP. He did have great improvement. Pulmonology is requesting the patient be intubated for bronchoscopy in the morning. Patient was intubated by my attending. Patient is a full code. He was started on broad-spectrum antibiotics. Blood cultures are pending. Positive Covid test. He was admitted to the unit. Case was discussed extensively with the admitting team, Dr. Mccoy and Gerardo the midlevel who spoke with pulmonology and is requesting the patient be intubated for bronchoscopy in the morning. By the evaluation outlined above emergent etiologies such as cardiac ischemia, reactive airway disease, pneumothorax, musculoskeletal, as well as others were deemed relatively unlikely. The pt informed about the findings as listed above. All questions were answered and pleased with the treatment. The chart was completed utilizing [employer] Speech voice recognition software. Grammatical errors, random word insertions, pronoun errors, and incomplete s entences are an occassional consequence of this system due to software limitations, ambient noise, and hardware issues. Any formal questions or concerns about the content, text, or information contained within the body of this dictation should be directly addressed to the physician news production assistant for cl arification. Impression & Plan ARF (acute respiratory failure), Sepsis, Pneumonia, COVID-19 Discharge Plan Visit Data Chief Complaint: Shortness of Breath/Dyspnea Stated Complaint: SOB, R LOWER LOBE PNX, COVID + ED Provider: James Bah ED Midlevel Provider: Awilda Sanchez Discharge Problem: ARF (acute respiratory failure), Sepsis, Pneumonia, COVID-19 Patient Disposition: Admitted As Inpatient Condition: Critical Forms Stand Alone Forms: [facility] Prescriptions Prescriptions: No Action erythromycin [Diaz-Tab] 250 mg Tablet,Delayed Release (Dr/Ec) 250 mg PO TID 30 Days Qty: 90 RF: 0 amlodipine [Norvasc] 5 mg Tablet 10 mg PO QAM 30 Days Qty: 60 RF: 0 tamsulosin 0.4 mg Capsule 0.4 mg PO QAM 30 Days Qty: 30 RF: 0 trazodone 100 mg Tablet 100 mg PO HS 30 Days Qty: 30 RF: 0 ropinirole 0.25 mg Tablet 0.5 mg PO BID 30 Days Qty: 120 RF: 0 pantoprazole 40 mg Tablet,Delayed Release (Dr/Ec) 40 mg PO BID 30 Days Qty: 60 RF: 0 gabapentin 100 mg Capsule 100 mg PO TID 30 Days Qty: 90 RF: 0 fluoxetine 20 mg Capsule 60 mg PO HS 30 Days Qty: 90 RF: 0 aripiprazole [Abilify] 15 mg Tablet 15 mg PO QAM 30 Days Qty: 30 RF: 0 calcium acetate(phosphat bind) 667 mg Capsule 2,668 mg PO TIDM 30 Days Qty: 120 RF: 0 Eliquis 5 mg Tablet 5 mg PO BID 30 Days Qty: 60 RF: 0 Mucinex DM 30-600 mg Tablet Extended Release 12 Hr 1 tab PO Q12H PRN (Reason: COUGH/CONGESTION) RF: 0 teriflunomide 14 mg Tablet 14 mg PO QAM RF: 0 famotidine 20 mg tablet 20 mg PO Q OTHER DAY RF: 0 albuterol sulfate [Ventolin HFA] 90 mcg/actuation HFA aerosol inhaler 1 puff inhalation Q4H PRN (Reason: shortness of breath or wheezing) RF: 0 Referrals Referrals: Dionna Mayfield [Primary Care Provider] - Discharge Problem: ARF (acute respiratory failure) Qualifiers: Respiratory failure complication: unspecified whether with hypoxia or hypercapnia Qualified Code(s): J96.00 - Acute respiratory failure, unspecified whether with hypoxia or hypercapnia
[2020-04-24] MEDS ORDERED: ALBUT/IPRATROP 3MG/0.5MG NEB 3 ML VIAL NEB ONE (23:48)
--- NOTE | 2020-04-25 00:22 | History & Physical Report ---
Date of Service April 25, 2020 Assessment & Plan (1) Admitted to intensive care unit: Admit to intensive care unit with acute respiratory failure/collapse of right lung/pneumonia due to COVID-19 virus Present on Admission?: Yes (2) Pneumonia due to COVID-19 virus: Decadron 6 mg IV every morning. Vancomycin IV per pharmacokinetic monitoring Zosyn 4.5 g IV every 12 hours Lovenox 100 mg subcu every 24 hours Famotidine 20 mg IV every 12 hours Present on Admission?: Yes (3) Sepsis: Present on Admission?: Yes (4) Collapse of right lung: Will need bronchoscopy Present on Admission?: Yes (5) ESRD (end stage renal disease) on dialysis: Dialysis on Wednesday, Wednesday, Wednesday Present on Admission?: Yes (6) Multiple sclerosis: Hold medications until extubated Present on Admission?: Yes History of Present Illness Chief Complaint: The patient is referred from [facility] due to worsening shortness of breath, cough and fever that developed today after dialysis. Primary Care Provider: Dionna Mayfield The patient is a 54-year-old male with a past medical history including COVID- 19 pneumonia, hyperlipidemia, hypertension, history of DVT, thrombocytopenia, diabetes mellitus type 2, depression, asthma, ESRD on dialysis and multiple sclerosis. He was most recently admitted for Covid from 04/12-04/16/2020, and reports he been feeling better until today. While in the emergency department, the patient continued to decompensate, he was found to have white out of his right lung, and was intubated while in the ED and then admitted to the ICU. Allergies Allergy/AdvReac Type Severity Reaction Status Date / Time No Known Allergies Allergy Verified 04/24/20 23:33 Home Medications Home Medications Medication Instructions Recorded Confirmed Type Eliquis 5 mg PO BID 30 Days #60 tab 04/09/20 04/24/20 Rx amlodipine [Norvasc] 10 mg PO QAM 30 Days #60 tab 04/09/20 04/24/20 Rx aripiprazole [Abilify] 15 mg PO QAM 30 Days #30 tab 04/09/20 04/24/20 Rx calcium acetate(phosphat bind) 2,668 mg PO TIDM 30 Days #120 cap 04/09/20 04/24/20 Rx erythromycin [Diaz-Tab] 250 mg PO TID 30 Days #90 tab 04/09/20 04/24/20 Rx fluoxetine 60 mg PO HS 30 Days #90 cap 04/09/20 04/24/20 Rx gabapentin 100 mg PO TID 30 Days #90 cap 04/09/20 04/24/20 Rx pantoprazole 40 mg PO BID 30 Days #60 tab 04/09/20 04/24/20 Rx ropinirole 0.5 mg PO BID 30 Days #120 tab 04/09/20 04/24/20 Rx tamsulosin 0.4 mg PO QAM 30 Days #30 cap 04/09/20 04/24/20 Rx trazodone 100 mg PO HS 30 Days #30 tab 04/09/20 04/24/20 Rx albuterol sulfate [Ventolin HFA] 1 puff INHALATION Q4H PRN 04/24/20 04/24/20 History dextromethorphan-guaifenesin 1 tab PO Q12H PRN 04/24/20 04/24/20 History [Mucinex DM] famotidine 20 mg PO Q OTHER DAY 04/24/20 04/24/20 History teriflunomide 14 mg PO QAM 04/24/20 04/24/20 History Past Med/Surg History Medical History (Updated 04/25/20 @ 06:12 by Claude Moe MD) A-V fistula left forearm Abnormal posture Acute respiratory failure with hypoxia Anemia Asthma Depression DVT (deep venous thrombosis) ESRD (end stage renal disease) on dialysis Generalized muscle weakness GERD (gastroesophageal reflux disease) Hyperlipidemia Hypertension Morbid obesity Multiple sclerosis Osteoarthritis Paradoxical insomnia Pneumonia due to COVID-19 virus Thrombocytopenia Type 2 diabetes mellitus Surgical History S/P arteriovenous (AV) fistula creation Family History Father , in his late 40s Myocardial infarction Social History Smoking Status: Unknown if ever smoked Tobacco Type: Cigarettes Age Started Using Tobacco: 18; packs per day: 0.5; Second Hand Exposure: No; Hx Alcohol Use: No Hx Substance Use: No Preferred Language: Bhutanese Communication Ability: Impaired Solar Energy 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 Required: No Beliefs That Will Affect Care: None marital status: Unknown Current Living Situation: Skilled Nursing current occupational status: disabled 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 Neck--supple. No JVD. No bruits. Thyroid normal, trachea midline, no adenopathy. Heart--normal S1 and S2. No murmurs, rubs or gallops. Lungs--decreased breath sounds on right. Abdomen--normal bowel sounds and soft. Nontender. Nondistended. Extremities--no cyanosis or clubbing. No edema. Dermatologic--normal skin turgor, normal color, no abnormal lymph nodes, no rash. Neurologic--cranial nerves II through XII grossly intact. Rheumatologic--limited exam Psychiatric--lethargic Results & Data Results & Data ([facility]) Vital Signs (Past 12 Hours) Vital Signs Temp Pulse Pulse Resp BP BP Pulse Ox 04/24/20 23:54 103 H 22 137/79 94 04/24/20 23:15 79 16 155/77 H 94 04/24/20 22:33 95 04/24/20 22:18 99.0 F 90 19 155/77 H 95 Laboratory Results Laboratory Results WBC 11.08 K/uL (4.8-10.8) H 04/25/20 05:13 RBC 3.66 M/uL (4.7-6.1) L 04/25/20 05:13 Hgb 10.3 g/dL (14.0-18.0) L 04/25/20 05:13 POC Hgb 11.9 g/dl (14.0-18.0) L 04/25/20 02:51 Hct 33.4 % (42-52) L 04/25/20 05:13 POC Hct 35 % (42-52) L 04/25/20 02:51 MCV 91.3 fL (80-100) 04/25/20 05:13 MCH 28.1 pg (25-34) 04/25/20 05:13 MCHC 30.8 g/dL (32-36) L 04/25/20 05:13 RDW Std Deviation 49.3 fL (36.4-46.3) H 04/25/20 05:13 RDW Coeff of Emiliano 14.8 % (11.5-14.5) H 04/25/20 05:13 Plt Count 80 K/uL (130-400) L 04/25/20 05:13 MPV 9.8 fL (7.4-10.4) 04/25/20 05:13 Immature Gran % (Auto) 0.5 % 04/25/20 05:13 Neut % (Auto) 92.6 % 04/25/20 05:13 Lymph % (Auto) 5.4 % 04/25/20 05:13 [place] % (Auto) 1.4 % 04/25/20 05:13 Eos % (Auto) 0.0 % 04/25/20 05:13 Baso % (Auto) 0.1 % 04/25/20 05:13 Neut # (Auto) 10.27 K/uL (1.4-6.5) H 04/25/20 05:13 Lymph # (Auto) 0.60 K/uL (1.2-3.4) L 04/25/20 05:13 [place] # (Auto) 0.15 K/uL (0.11-0.59) 04/25/20 05:13 Eos # (Auto) 0.00 K/uL (0-0.5) 04/25/20 05:13 Baso # (Auto) 0.01 K/uL (0-0.2) 04/25/20 05:13 Immature Gran # (Auto) 0.05 K/uL (0.00-0.02) H 04/25/20 05:13 Platelet Estimate Decreased (Normal) L 04/24/20 22:00 PT 12.8 Seconds (9.0-12.0) H 04/25/20 05:13 INR 1.2 (0.9-1.1) H 04/25/20 05:13 APTT 31.3 Seconds (21.0-31.0) H 04/25/20 05:13 PTT Ratio 1.1 04/25/20 05:13 Sample Site R Radial 04/25/20 02:51 POC pH 7.42 (7.35-7.45) 04/25/20 02:51 POC pCO2 45 mmHg (35-46) 04/25/20 02:51 POC pO2 84 mmHg (80-95) 04/25/20 02:51 POC HCO3 29 ghassan/L (19-24) H 04/25/20 02:51 POC Total CO2 30 mmol/L (24-31) 04/25/20 02:51 POC Base Excess 4.0 ghassan/L (-9-1.8) H 04/25/20 02:51 ABG pH (Temp Correct) 7.409 (7.35-7.45) 04/25/20 02:51 ABG pCO2 (Temp Corrct 46 mmHg (35-46) 04/25/20 02:51 POC ABG pO2 at Pt Temp 86 04/25/20 02:51 POC ABG O2 Sat 96.0 % (90-95) H 04/25/20 02:51 Davonte Test Pass 04/25/20 02:51 O2 Delivery Device Ventilator 04/25/20 02:51 POC O2 Rate 22 04/25/20 02:51 POC FiO2 100 % 04/25/20 02:51 Tidal Volume 450 04/25/20 02:51 PEEP 8 04/25/20 02:51 POC Sodium 130 mmol/L (135-144) L 04/25/20 02:51 Sodium 131 mmol/L (136-145) L 04/24/20 22:00 POC Potassium 3.8 mmol/L (3.3-5.0) 04/25/20 02:51 Potassium 3.7 mmol/L (3.5-5.1) 04/24/20 22:00 Chloride 94 mmol/L (98-107) L 04/24/20 22:00 Carbon Dioxide 31 mmol/L (21-32) 04/24/20 22:00 Anion Gap 6.0 (3-11) 04/24/20 22:00 BUN 43 mg/dl (7-18) H 04/24/20 22:00 Creatinine 5.10 mg/dl (0.6-1.4) H* 04/24/20 22:00 Est Cr Clr Drug Dosing 21.4 ml/min 04/24/20 22:00 Est GFR ( Amer) 13.9 04/24/20 22:00 Est GFR (Non-Af Amer) 12.0 04/24/20 22:00 BUN/Creatinine Ratio 8.6 (10-20) L 04/24/20 22:00 Glucose 283 mg/dl (70-99) H 04/24/20 22:00 POC Glucose 249 mg/dl (70-99) H 04/25/20 05:22 Lactate 1.2 mmol/L (0.4-2.0) 04/24/20 22:15 Calcium 8.7 mg/dl (8.5-10.1) 04/24/20 22:00 Magnesium 2.1 mg/dl (1.8-2.4) 04/24/20 22:00 Total Bilirubin 0.5 mg/dl (0.2-1) 04/24/20 22:00 AST 8 U/L (15-37) L 04/24/20 22:00 ALT 23 U/L (12-78) 04/24/20 22:00 Alkaline Phosphatase 92 U/L (45-117) 04/24/20 22:00 Troponin I < 0.015 ng/ml (0-0.045) 04/24/20 22:00 Total Protein 6.2 gm/dl (6.4-8.2) L 04/24/20 22:00 Albumin 2.6 gm/dl (3.4-5.0) L 04/24/20 22:00 Globulin 3.6 gm/dl (2.5-4.0) 04/24/20 22:00 Albumin/Globulin Ratio 0.7 (0.9-2) L 04/24/20 22:00 Procalcitonin 4.22 ng/ml (0-0.5) H 04/24/20 22:00 COVID-19 Eval Order Covid19 Done at [facility] 04/24/20 22:48 COVID-19 PCR POSITIVE (Negative) A* 04/24/20 22:48 Influ A Molecular Assay Negative (Negative) 04/24/20 22:48 Influ B Molecular Assay Negative (Negative) 04/24/20 22:48 Diagnostic Findings [facility] Patient: LEI ARDON (Male) : 69 Status: IP Date: 04/25/20 01:59 Room #: 106 History: POSITIVE COVID-19, PT ON VENT, SOB, PNA Slices: [phone] Priors: Cindy: Dawit Plasencia @ [phone] Exams: CT CHEST Without Contrast Contrast: Accession Numbers: [id number] Preliminary Findings Only See Final Report For Complete Findings CT CHEST Without Contrast: Essentially complete collapse of the right lung with consolidation/aspiration. Central obstructing lesion not excluded. Some debris/opacification and obliteration of the airway on the right side. Small right pleural effusion. Significant volume loss in the right hemithorax with shift of the heart and other mediastinal structures to the right. Endotracheal tube. Small pericardial effusion. Mild consolidation in the left lung base. Surgical changes related to the stomach. Cholecystectomy. Radiologist: Stanislav Malagon M.D. Study ready at 02:03 and initial results transmitted at 02:33 Results also transmitted to [facility] Floor ICU @ [phone] (Fax) *This report constitutes a preliminary interpretation only. Non-acute findings felt to be unrelated to the clinical presentation may not be discussed in this report. The study will be interpreted and a final report will be generated by the local Radiologist the following shift. To reach the hospital radiology department call [phone]. If a discrepancy is found between the preliminary and final interpretations of this study, please notify us via our Client Portal at [email or web address] under QA Exams.You can also fax this report with a description of the discrepancy, or include the final report, to our daytime fax number [phone].If faxing, please indicate the severity of discrepancy using one of the following categories: [ ] 1 - Agree/Informational [ ] 2 - Unlikely to Affect Management [ ] 3 - Possible Eventual Change of Management [ ] 4 - Probable Immediate Change of Management For all other patient related information, please fax us at [phone]. [id number] Code Status & VTE Plan Code Status Full code VTE Prophylaxis Plan VTE Prophylaxis will be ordered: Yes Critical Care Time Critical Care Time: Yes Total Critical Care Time: 40 PG Care Time/CCT Total # of Minutes Spent Total Time Spent with Patient: Total time spent is greater than 50% in coordination of care (as documented) at patient's floor/unit and/or counseling patient: Critical Care Time: Yes Total Critical Care Time: 40 Coding Level of Care Code 68581 Initial Inpt Care Lvl 3 Diagnoses Admitted to intensive care unit Z78.9 Pneumonia due to COVID-19 virus U07.1; J12.89 Sepsis A41.9 Collapse of right lung J98.11 ESRD (end stage renal disease) on dialysis N18.6; Z99.2 Multiple sclerosis G35 Additional Codes Critical Care Time - Critical Care Time: Yes ([id number]) Time Spent (min) 40
[2020-04-25 00:31] LABS: iSTAT Arterial Blood Gas HCO3 29 meg/L (19-24); iSTAT Arterial Blood Gas pCO2 49 mmHg (35-46); iSTAT Arterial Blood Gas pH 7.39 (7.35-7.45); iSTAT Arterial Blood Gas pO2 93 mmHg (80-95); iSTAT Carbon Dioxide 31 mmol/L (24-31); iSTAT Hematocrit 37 % (42-52); iSTAT Hemoglobin 12.6 g/dl (14.0-18.0); iSTAT Potassium 3.7 mmol/L (3.3-5.0); iSTAT Sodium 131 mmol/L (135-144)
[2020-04-25] MEDS ORDERED: RAPID SEQUENCE INDUCTION BAG ONE (00:36)
[2020-04-25] MEDS ORDERED: PROPOFOL IV EMULSION 10 MG/ML 100 ML VIAL IV ONE (00:56)
[2020-04-25] MEDS ORDERED: PROPOFOL BOLUS FROM BAG IV PRN (01:07)
[2020-04-25] MEDS ORDERED: STAT IV Infusion **Titration per Protocol STA ×3 (01:07→04:55)
[2020-04-25] MEDS ORDERED: propofoL 1,000 MG/100 ML VIAL IV SCH (01:15)
--- NOTE | 2020-04-25 01:17 | Emergency Department Note ---
ED Visit Note Patient's respiratory status declined while here in the ED. He was seen by the ICU staff and intubation was felt necessary. Patient did consent to intubation. He understands the need for help with his breathing. Intubation: This procedure was performed by me. Patient received 20 mg of etomidate IV, 70 mg of rocuronium IV. The patient was hyper oxygenated. Using rapid technique, the patient was intubated with the glide scope, a #4 blade was used. Some suction was required. No complication. The endotracheal tube was placed at 25 centimeters at the the lips. Good O2 saturation noted afterwards. Good CO2 color change. Breath sounds were full on the left, there were minimal breath sounds on the right but the right lung was known to be a white out on the previous chest film. Post intubation chest x-ray was ordered. Patient was placed on a propofol drip for sedation. Patient was transferred to the ICU. . : ARF (acute respiratory failure) Qualifiers: Respiratory failure complication: unspecified whether with hypoxia or hypercapnia Qualified Code(s): J96.00 - Acute respiratory failure, unspecified whether with hypoxia or hypercapnia
[2020-04-25] MEDS ORDERED: VANCOMYCIN CONSULT ACTIVE PRN (02:30)
[2020-04-25] MEDS ORDERED: VANCOMYCIN HCL 1,000 MG in SODIUM CHLORIDE 0.9% 250 ML IV SCH (02:30)
[2020-04-25] MEDS ORDERED: ICU PROTOCOL FOR HYPERGLYCEMIA PRN ×2 (02:30→05:25)
[2020-04-25] MEDS ORDERED: PIPERACILL/TAZOBAC CONSULT ACTIVE PRN (02:30)
--- NOTE | 2020-04-25 02:49 | Critical Care Consultation ---
Date of Consultation April 25, 2020 Assessment & Plan (1) Acute hypoxemic respiratory failure: Reason Critically Ill: 54-year-old male presents to the ICU with positive COVID-19, acute hypoxemic respiratory failure, and complete collapse of right lung from what appears to be consolidation of the right main bronchus. Neuro - Sedation: Propofol, fentanyl drips Multiple sclerosispatient is currently resident of [facility] and confined to bed, on teriflunomide Cardiac - Currently normotensive without vasopressors, normal sinus rhythm on monitor Troponin negative Continue to monitor on telemetry Respiratory - Acute hypoxic respiratory failurechest x-ray with hao out right lung burch, patient severely hypoxic on BiPAP, intubated in the emergency department with plans for bronch this a.m. -CT chest without contrast: "Complete collapse of right lung with consolidation/aspiration. Central obstructing lesion not excluded. Some debris/opacification in obliteration of the airway of the right side. Small right pleural effusion. Significant volume loss in the right kimberlyn thorax with shift of heart and other mediastinal structures to the right. Small pericardial effusion. Mild consolidation of the left lung base." -ET tube 25 cm at the teeth, vent settings: 22/450/8/90 percent. Will wean as tolerated -Anticipate bronc cultures to follow -Patient with previous diagnosis of COVID-19, retest remains positive, previously on 4 L nasal cannula at [facility] -History of asthma, will continue DuoNeb as needed -History of MS, anticipate potential difficulty weaning from ventilator -Continuous monitoring on pulse ox GI - N.p.o. RENAL/LYTES - ESRDscheduled for MWF hemodialysis, underwent HD earlier Wednesday without complication -Electrolytes within normal limits, monitor routine BMPs -Consult nephrology to coordinate hemodialysis - Anuric ENDO - DM type IIlast hemoglobin A1c 5.3 -Sliding scale as needed -ICU hyperglycemic protocol HEME - Anemiahemoglobin at baseline from prior admissions, no indication for transfusion at this time -We will monitor routine CBCs ID - Bacterial pneumonia?/Sepsis?/COVID-19per CT imaging patient likely has aspiration pneumonia versus potential superimposed bacterial pneumonia following COVID-19 infection -Procalcitonin is elevated to 5, lactate negative, no leukocytosis or fevers -Influenza negative -COVID-19 remains positive, patient has previously underwent convalescent plasma and dexamethasone, did not undergo remdesivir due to renal function -Blood cultures pending, unable to obtain urine sample due to anuria -Continue broad-spectrum antibiotics Zosyn and vancomycin for now -Patient undergo bronchoscopy today, will follow up bronchoscopy cultures with wash LINES/IV ACCESS - Peripheral IVs, ETT DVT PROPHYLAXIS - Rupali Marmolejo I have personally spent 55 minutes of critical care time in the direct management of this patient. This is a life/limb threatening event. This includes time spent evaluating patient, direct bedside care, chart review, placing orders, interpretation of diagnostic studies, discussion with consultants, patient, and family members, as well as other required patient management activities. This time is exclusive of all separately billable procedures, and teaching time and separate from and in addition to any other critical care service time. Thank you for allowing us to participate in the care of this patient. Please refer to my attending physician's documentation for any further recommendations. (2) COVID-19: (3) Pneumonia: (4) Anemia: (5) Bacterial pneumonia: (6) Hyperlipidemia: (7) Hypertension: (8) Multiple sclerosis: (9) Asthma: (10) Depression: (11) ESRD (end stage renal disease) on dialysis: (12) Thrombocytopenia: History of Present Illness Attending Physician: Claude Moe MD History of Present Illness Mr. Santos is a 54-year-old male and resident of [facility] with ESRD (on hemodialysis MW), DM type II, multiple sclerosis and confined to bed, and COVID-19 pneumonia and he is required 2 hospital admissions for hypoxia (is now on 4 L nasal cannula at baseline) within the last month. Patient still testing positive for COVID-19. He was brought into the emergency department last night with complaints of shortness of breath and chest x-ray revealed whiteout of the entire right lung. He became increasingly hypoxic, and was placed on BiPAP and did show some improvement with oxygenation, and ABG did reveal a PO2 92 on 100% FiO2 with PEEP of 8. I evaluated the patient in the emergency department and discussed the patient's case with service associate/leather crafter, Dr. Melton. Plan was made to intubate patient stabilize airway, and will undergo bronchoscopy this a.m., and obtain CT once patient's airway stabilized. I did speak with the patient regarding CODE STATUS and he would like to remain full code. The patient was intubated by ER physician, without complication and taken for CT Noncon of the chest which confirmed complete collapse of the right lung with consolidation/aspiration. He is now transferred to the ICU for further management at this time, currently sedated on mechanical ventilation. Review of symptoms was limited as patient was tachypneic and on BiPAP during interview. He denied headache, dizziness, chest pain or palpitations, abdominal pain, nausea vomiting or diarrhea. His only complaint was severe shortness of breath that had started yesterday and prior to this event he was at baseline on home dose 4 L of nasal cannula. Patient did state that he received dialysis earlier in the day without issues. Allergies Allergy/AdvReac Type Severity Reaction Status Date / Time No Known Allergies Allergy Verified 04/24/20 23:33 Home Medications Home Medications Medication Instructions Recorded Confirmed Type Eliquis 5 mg PO BID 30 Days #60 tab 04/09/20 04/24/20 Rx amlodipine [Norvasc] 10 mg PO QAM 30 Days #60 tab 04/09/20 04/24/20 Rx aripiprazole [Abilify] 15 mg PO QAM 30 Days #30 tab 04/09/20 04/24/20 Rx calcium acetate(phosphat bind) 2,668 mg PO TIDM 30 Days #120 cap 04/09/20 04/24/20 Rx erythromycin [Diaz-Tab] 250 mg PO TID 30 Days #90 tab 04/09/20 04/24/20 Rx fluoxetine 60 mg PO HS 30 Days #90 cap 04/09/20 04/24/20 Rx gabapentin 100 mg PO TID 30 Days #90 cap 04/09/20 04/24/20 Rx pantoprazole 40 mg PO BID 30 Days #60 tab 04/09/20 04/24/20 Rx ropinirole 0.5 mg PO BID 30 Days #120 tab 04/09/20 04/24/20 Rx tamsulosin 0.4 mg PO QAM 30 Days #30 cap 04/09/20 04/24/20 Rx trazodone 100 mg PO HS 30 Days #30 tab 04/09/20 04/24/20 Rx albuterol sulfate [Ventolin HFA] 1 puff INHALATION Q4H PRN 04/24/20 04/24/20 History dextromethorphan-guaifenesin 1 tab PO Q12H PRN 04/24/20 04/24/20 History [Mucinex DM] famotidine 20 mg PO Q OTHER DAY 04/24/20 04/24/20 History teriflunomide 14 mg PO QAM 04/24/20 04/24/20 History Patient History Medical History (Updated 04/25/20 @ 00:17 by Awilda Sanchez PA-C) A-V fistula left forearm Abnormal posture Acute respiratory failure with hypoxia Anemia Asthma Depression DVT (deep venous thrombosis) ESRD (end stage renal disease) on dialysis Generalized muscle weakness GERD (gastroesophageal reflux disease) Hyperlipidemia Hypertension Morbid obesity Multiple sclerosis Osteoarthritis Paradoxical insomnia Pneumonia due to COVID-19 virus Thrombocytopenia Type 2 diabetes mellitus Surgical History S/P arteriovenous (AV) fistula creation Family History Father , in his late 40s Myocardial infarction Social History Smoking Status: Unknown if ever smoked Tobacco Type: Cigarettes Age Started Using Tobacco: 18; packs per day: 0.5; Second Hand Exposure: No; Hx Alcohol Use: No Hx Substance Use: No Preferred Language: Chinese Communication Ability: Impaired Workforce Management Consultant Required: No Beliefs That Will Affect Care: None marital status: Unknown Current Living Situation: Assisted current occupational status: disabled 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 Children do You have: 4 Other Information That Helps Us Care for You: No Feels Safe at Home: Yes Safety Concerns: Feels Safe At This Time Assistive Devices: Oxygen - Continuous Review of Systems Review of Systems: All systems reviewed & are unremarkable except as noted in HPI & below Physical Exam Constitutional: + mechanically ventilated and + overweight Eyes: PERRL, conjunctivae normal, anicteric sclerae ENMT: external ear and nose normal, oropharynx normal Neck: trachea midline, no thyromegaly Respiratory: Lung sounds are significantly diminished in the right upper lower middle burch, rhonchi auscultated in the left lower lobe clear to auscultation on the left upper. Symmetrical movement. Mechanically ventilated. ET tube secured at 25 cm at the teeth. Cardiovascular: RRR, no murmur, no edema Heart Sounds: normal S1 and normal S2 Vessels: no JVD Extremities: no edema Gastrointestinal (Abdomen): normal bowel sounds, soft, nontender, no hepatosplenomegaly Skin: + dry skin Neurologic: Unable to assess due to sedation/paralytics following intubation Psychiatric: Prior to intubation patient was alert and oriented x3. He is now sedated. Results & Data Results & Data ([facility]) Vital Signs (Past 12 Hours) Vital Signs Temp Pulse Pulse Resp BP BP Pulse Ox 04/25/20 01:30 87 16 92/60 L 99 04/25/20 01:24 96 H 18 99/61 L 96 04/25/20 01:10 93 H 20 89/62 L 96 04/25/20 01:05 99 04/25/20 01:00 93 H 26 H 120/49 L 96 04/24/20 23:54 103 H 22 137/79 94 04/24/20 23:15 79 16 155/77 H 94 04/24/20 22:33 95 04/24/20 22:18 37.2 C 90 19 155/77 H 95 Coding Level of Care Code Critical Care 1st 30-74 mins Diagnoses Acute hypoxemic respiratory failure J96.01 COVID-19 U07.1 Pneumonia J18.9 Anemia D64.9 Bacterial pneumonia J15.9 Hyperlipidemia E78.2 Hyperlipidemia type: mixed hyperlipidemia Hypertension I10 Hypertension type: essential hypertension Multiple sclerosis G35 Asthma J45.901 Asthma complication type: with acute exacerbation Asthma persistence: unspecified Asthma severity: unspecified severity Depression F32.9 Depression Type: unspecified ESRD (end stage renal disease) on dialysis N18.6; Z99.2 Thrombocytopenia D69.6 (1) Depression Depression Type: unspecified Qualified Code(s): F32.9 - Major depressive disorder, single episode, unspecified (2) Hyperlipidemia Hyperlipidemia type: mixed hyperlipidemia Qualified Code(s): E78.2 - Mixed hyperlipidemia (3) Hypertension Hypertension type: essential hypertension Qualified Code(s): I10 - Essential (primary) hypertension (4) Asthma Asthma complication type: with acute exacerbation Asthma persistence: unspecified Asthma severity: unspecified severity Qualified Code(s): J45.901 - Unspecified asthma with (acute) exacerbation
[2020-04-25 03:06] LABS: iSTAT Allen Test Pass; iSTAT Art Bld Gas pCO2 Correct 46 mmHg (35-46); iSTAT Art Bld Gas pH Corrected 7.409 (7.35-7.45); iSTAT Arterial Blood Gas HCO3 29 meg/L (19-24); iSTAT Arterial Blood Gas pCO2 45 mmHg (35-46); iSTAT Arterial Blood Gas pH 7.42 (7.35-7.45); iSTAT Arterial Blood Gas pO2 84 mmHg (80-95); iSTAT Arterial Blood Gas pO2 C 86; iSTAT Carbon Dioxide 30 mmol/L (24-31); iSTAT FiO2 100 %; iSTAT Hematocrit 35 % (42-52); iSTAT Hemoglobin 11.9 g/dl (14.0-18.0); iSTAT Potassium 3.8 mmol/L (3.3-5.0); iSTAT Site R Radial; iSTAT Sodium 130 mmol/L (135-144)
[2020-04-25] MEDS: fentaNYL DRIP 1,250 MCG/250 ML BAG IV SCH (03:49)
[2020-04-25] MEDS ORDERED: GLUCOSE 40% GEL 15 GM TUBE PO PRN (05:24)
[2020-04-25] MEDS ORDERED: DEXTROSE 50% 50 ML SYRINGE IV PRN (05:24)
[2020-04-25] MEDS ORDERED: GLUCAGON FOR INJ 1 MG VIAL SQ PRN (05:24)
[2020-04-25] MEDS ORDERED: GLUCOSE 10 TABS/TUBE PO PRN (05:24)
[2020-04-25 05:35] LABS: Hematocrit (blood only) 33.4 % (42-52); Hemoglobin 10.3 g/dL (14.0-18.0); Mean Corpuscular Hemoglobin 28.1 pg (25-34); Mean Corpuscular Hgb Conc 30.8 g/dL (32-36); Mean Corpuscular Volume 91.3 fL (80-100); RDW Coefficient of Variation 14.8 % (11.5-14.5); RDW Standard Deviation 49.3 fL (36.4-46.3); Red Blood Count 3.66 M/uL (4.7-6.1); White Blood Count 11.08 K/uL (4.8-10.8)
[2020-04-25 05:47] LABS: INR 1.2 (0.9-1.1); Partial Thromboplastin Ratio 1.1; Partial Thromboplastin Time 31.3 Seconds (21.0-31.0); Prothrombin Time 12.8 Seconds (9.0-12.0)
[2020-04-25 05:55] LABS: Mean Platelet Volume 9.8 fL (7.4-10.4); Platelet Count 80 K/uL (130-400)
[2020-04-25 05:56] LABS: Basophils # (auto) 0.01 K/uL (0-0.2); Basophils % (auto) 0.1 %; Immature Granulocytes # (auto) 0.05 K/uL (0.00-0.02); Immature Granulocytes % (auto) 0.5 %; Lymphocytes % (auto) 5.4 %; Monocytes # (auto) 0.15 K/uL (0.11-0.59); Monocytes % (auto) 1.4 %; Neutrophils # (auto) 10.27 K/uL (1.4-6.5); Neutrophils % (auto) 92.6 %
[2020-04-25] MEDS ORDERED: PIPERACILLIN/TAZOBACTAM 3.375 GM in DEXTROSE 5% 100 ML IV SCH (06:00)
[2020-04-25 06:09] LABS: Albumin Level 2.3 gm/dl (3.4-5.0); BUN Creatinine Ratio 9.1 (10-20); Bilirubin Direct 0.2 mg/dl (0-0.2); Bilirubin,Total 0.8 mg/dl (0.2-1); Calcium 8.3 mg/dl (8.5-10.1); Creatinine Clr Calc Pharmacy 18.9 ml/min; Est GFR (African American) 12.7; Magnesium 2.2 mg/dl (1.8-2.4); Phosphorus 2.9 mg/dl (2.5-4.9); Potassium 4.5 mmol/L (3.5-5.1); Total Protein 5.6 gm/dl (6.4-8.2)
[2020-04-25] MEDS ORDERED: NovoLIN-R BOLUS FROM BAG IV ONE (06:15)
[2020-04-25] MEDS ORDERED: PHARMACY GLYCEMIC MGMT CONSULT PRN (06:16)
[2020-04-25] MEDS: INSULIN REGULAR 250 UNITS in SODIUM CHLORIDE 0.9% 247.5 ML IV SCH (06:24)
--- NOTE | 2020-04-25 06:48 | XRay Report ---
XR chest 1V portable HISTORY: 54 years-old Male SEPSIS acute sepsis COMPARISON: Chest radiograph 04/12/2020, chest CT 04/25/2020 TECHNIQUE: Portable AP view of the chest FINDINGS: Cardiac silhouette is normal in size. Left lung is generally clear. There is no pneumothorax. There i s near complete opacification of the right lung with minimal aerated right upper lung present. Mild r ightward midline shift. Degenerative changes of the shoulders and spine. IMPRESSION: 1. Near complete opacification of the right hemithorax with associated volume loss, likely secondary to mucous plugging. Correlate with chest CT of same day 2. Clear left lung. ACT 112: Negative or not required by law. The above report was generated using voice recognition software. It may contain grammatical, syntax o r spelling errors. Electronically signed by: Esequiel Israel M.D. 04/25/2020 6:47 AM
--- NOTE | 2020-04-25 06:58 | XRay Report ---
XR chest 1V portable CLINICAL HISTORY: post intubation RESPIRATORY FAILURE COMPARISON STUDY: 04/24/2020 FINDINGS: There has been interval insertion of a nasogastric tube 31 mm above the radha. There is ne ar complete opacification of the right hemithorax.[The left lung remains clear. IMPRESSION: 1. Near complete opacification right hemithorax 2. Interval placement of an endotracheal tube 31 mm above the radha ACT 112: Negative or not required by law. Electronically signed by: Jericho Gómez M.D. 04/25/2020 6:56 AM
--- NOTE | 2020-04-25 07:25 | Communication Note ---
Patient received in signout, continued severe acute hypoxic respiratory failure secondary to right lung consolidation with history of COVID-19 First diagnosed approximately April 04, not given right stem of year secondary to end-stage renal disease, status post convalescent serum given during 04/04/2010 admission. He was also started on Decadron during that hospital admission. He was subsequently admitted on 1016 while being started on Zosyn and Levaquin. He was discharged approximately 4 days later. He was deescalated from Zosyn to Levaquin and resumed Decadron 6 mg IV daily. It appears he finished 7 days of total treatment of Levaquin therapy. Date of Service: April 25, 2020 Neuro: Multiple sclerosis: -Steroids will be increasing his risk of long-term morbidity in relation to neuromuscular disease. Resp: (1) Acute hypoxemic respiratory failure: Severe - PF ratio 82 This is the third admission for hypoxic respiratory failure, this appears to be related to infiltrates of the right lung alone -Patient has a history of multiple sclerosis cannot exclude neuromuscular disease as a cause of this respiratory failure -Highly recommend pronation therapy, will attempt to utilize heavy sedation and minimize neuromuscular blockade given the neuromuscular disease On TERIFLUNOMIDE -Given this is the third exacerbation associated with Covid we will discontinue the TERIFLUNOMIDE given that high-dose steroids should also decrease the incidence of relapsing multiple sclerosis -We will order tracheal suction for MAIL HANDLER ASSISTANT with probable bronchoscopy to follow -Continue broad-spectrum antibiotics including vancomycin and Zosyn, adding doxycycline with hopes to transition to Levaquin should the prolonged QTC be resolved -Following ARDSnet high PEEP low FiO2 table COVID-19 infection -Patient outside optimal window for rest Denavir as well as end-stage renal disease unlikely to be effective at this time -Patient treated previously treated with convalescent plasma -Bio fire pending, I am more concerned about secondary consequence s/sequelae of a COVID-19 infection CV: Prolonged QTC -Last EKG obtained 04/12 and computer records Fluids/Renal: End-stage renal disease: Wednesday dialysis schedule -Nephrology consulted: Estefanía ID: Bio fire pending Sputum pending -Zosyn, vancomycin, doxycycline GI/Nutrition: Hold tube feeds in anticipation of need for proning Heme: Anemia of chronic disease -Previously given iron by the nephrology service DVT prophylaxis: Heparin Endocrine: Type 2 diabetes mellitus ICU hyperglycemia protocol Vascular access: PIV Code Status: Full Disposition: ICU Update: 1245. Was able to contact family friend Brina at [phone]. She has helped the patient since his relocation to the area from [place]. She reports that the patient has 2 children which have been estranged from him, she does not know of contact information however she will attempt to obtain what she can find. He has not filled out a healthcare power of corporate associate attorney at this time however they had discussions after his initial diagnosis and he would not want heroic measures undertaken which would include long-term mechanical ventilation or surgical tubes for artificial nutrition and hydration. Accordingly she also believes that he would not want cardiac resuscitation in event of cardiac arrest. I feel she has his best interests in mind and is the best surrogate decision maker we have at this time. She has also given consent for central venous access as the patient is crying vasoactive medication, arterial line for blood pressure monitoring as well as frequent ABGs as well as bronchoscopy in the event of mucous plugging or need for further diagnostics. Update: 1400 patient was arousable in the room, shook his head yes to him wanting cardiopulmonary resuscitation, appeared to understand concerns was hesitant in shaking his head yes a second time when we discussed a little bit of the possible outcomes. I feel that it is best to continue with a full code and routine ICU care at this time. We have successfully placed a central lumen catheter as well as a arterial line for blood draws. I have personally spent 100 minutes of critical care time in the direct management of this patient. This is a life/limb threatening event. This includes time spent evaluating patient, direct bedside care, chart review, placing orders, interpretation of diagnostic studies, discussion with consultants, patient, and/or family members regarding treatment decisions, as well as other required patient management activities. This time is exclusive of all separately billable procedures, and teaching time and separate from and in addition to any other critical care service time. Coding Level of Care Code Critical Care willie jacksont'l 30 min Time Spent (min) 100
[2020-04-25] MEDS ORDERED: INSULIN ASPART 100 UNITS/ML 3 ML PEN SC SCH (07:30)
--- NOTE | 2020-04-25 07:38 | CT Scan Report ---
CT chest wo con CT DOSE: 824.58 mGycm CLINICAL HISTORY: 54 years-old Male with pna, hx covid, sob. Pneumonia with shortness of breath. Acu te respiratory failure. TECHNIQUE: Multiaxial CT images of the chest were performed without contrast. A dose lowering techni que was utilized adhering to the principles of ALARA. COMPARISON: Chest radiograph of same day comment 04/12/2020. FINDINGS: Unremarkable thyroid. No pathologically enlarged lymph nodes identified. Heart is upper nielsen its of normal in size with moderate coronary artery calcifications. Small pericardial effusion. No th oracic aortic aneurysm. No pneumothorax. Trace left pleural effusion with minimal dependent subsegmental left lung base conso lidation with left lower lobe mucous plugging. Endotracheal tube is in satisfactory positioning termi nating 3.0 cm superior to the radha. Mild secretions within the trachea with a large amount of mucou s plugging within the right mainstem bronchus and right lung bronchi. Small right pleural effusion. T here is near complete consolidation/collapse of the right lung with minimal aerated lung and air bron chograms within the right upper lobe. There is mild rightward shift of the mediastinum. Postoperative changes of prior gastric bypass and cholecystectomy. No acute process of the imaged upp er abdomen. Degenerative changes of the spine and shoulders. No acute fracture. IMPRESSION: 1. Satisfactory positioning of the endotracheal tube. 2. Near complete collapse of the right lung secondary to extensive mucous plugging of the right yuko tem bronchus and right lung bronchi. 3. Mucous plugging of the left lower lobe with subsegmental left lower lobe consolidation. 4. Small right and trace left pleural effusions. 5. Small pericardial effusion. ACT 112: Negative or not required by law. Electronically signed by: Esequiel Israel M.D. 04/25/2020 7:37 AM
[2020-04-25] MEDS ORDERED: DOXYCYCLINE HYCLATE 200 MG in DEXTROSE 5% 100 ML IV ONE (08:00)
[2020-04-25] MEDS: INSULIN ASPART 100 UNITS/ML 3 ML PEN SC SCH ×4 (08:16→20:38)
[2020-04-25] MEDS: ENOXAPARIN 100 MG/1ML SYR SQ SCH (08:17)
[2020-04-25] MEDS ORDERED: FAMOTIDINE 20 MG in SYRINGE 3 ML IV SCH (09:00)
[2020-04-25] MEDS ORDERED: dexAMETHasone 6 MG in SYRINGE 0 ML IV SCH (09:00)
[2020-04-25] MEDS: PHENYLEPHRINE HCL 20 MG in DEXTROSE 5% 500 ML IV SCH ×5 (09:14→21:17)
--- NOTE | 2020-04-25 10:09 | Nephrology Consultation ---
Date of Consultation April 25, 2020 Assessment & Plan (1) ESRD (end stage renal disease) on dialysis: on MWF HD; this is not volume overload so much as mucous plugging/ consolidative process driving respiratory failure; chemistries acceptable >no indication for HD today; plan HD tomorrow Present on Admission?: Yes (2) Collapse of right lung: per critical care team; consider MS eval as below Present on Admission?: Yes (3) COVID-19: per critical care and primary service Present on Admission?: Yes (4) Multiple sclerosis: consider neuro eval to ensure MS care is optimized given serial admissions for respiratory issues after C19 >> ? if aspiration has a role here, ? if other care can be improved >> ? need for chest PT for example Present on Admission?: Yes History of Present Illness Reason for Consultation: ESRD on HD Requesting Physician: Dr. Moe Attending Physician: Tyrone Geiger History of Present Illness 54 y/o M whom I'm asked to see for dialysis needs was admitted last evening for 3rd time this month for acute respiratory failure. PMH includes bedbound status d/t multiple sclerosis, ESRD on HD MWF, DM2, C19 pneumonia earlier this month. At baseline this patient uses 2L 02 HS only; he was d/c from [facility] last admission on 2L NC; however on 04/19 on cohort shift at dialysis he was noted to be back on 4L NC. He did look clinically improved on 04/22 eval (cannot access what his 02 needs were though at this time) and he was per CDC guidelines dialyzed w/ regular dialysis patient population on 04/24 per routine and was on 3L 02NC at the time. Tmax since arrival to [facility] is 38.0. His breathing in ER deteriorated and he was intubated. Eval showed complete R lung collapse presumed from R mainstem bronchus consolidation. He is still C 19 positive. He is relatively new to this area as of late summer -- he is scheduled to establish with [facility] neurology but has not had any care for MS now for several months. Allergies Allergy/AdvReac Type Severity Reaction Status Date / Time No Known Allergies Allergy Verified 04/24/20 23:33 Home Medications Home Medications Medication Instructions Recorded Confirmed Type Eliquis 5 mg PO BID 30 Days #60 tab 04/09/20 04/24/20 Rx amlodipine [Norvasc] 10 mg PO QAM 30 Days #60 tab 04/09/20 04/24/20 Rx aripiprazole [Abilify] 15 mg PO QAM 30 Days #30 tab 04/09/20 04/24/20 Rx calcium acetate(phosphat bind) 2,668 mg PO TIDM 30 Days #120 cap 04/09/20 04/24/20 Rx erythromycin [Diaz-Tab] 250 mg PO TID 30 Days #90 tab 04/09/20 04/24/20 Rx fluoxetine 60 mg PO HS 30 Days #90 cap 04/09/20 04/24/20 Rx gabapentin 100 mg PO TID 30 Days #90 cap 04/09/20 04/24/20 Rx pantoprazole 40 mg PO BID 30 Days #60 tab 04/09/20 04/24/20 Rx ropinirole 0.5 mg PO BID 30 Days #120 tab 04/09/20 04/24/20 Rx tamsulosin 0.4 mg PO QAM 30 Days #30 cap 04/09/20 04/24/20 Rx trazodone 100 mg PO HS 30 Days #30 tab 04/09/20 04/24/20 Rx albuterol sulfate [Ventolin HFA] 1 puff INHALATION Q4H PRN 04/24/20 04/24/20 History dextromethorphan-guaifenesin 1 tab PO Q12H PRN 04/24/20 04/24/20 History [Mucinex DM] famotidine 20 mg PO Q OTHER DAY 04/24/20 04/24/20 History teriflunomide 14 mg PO QAM 04/24/20 04/24/20 History Patient History Medical History A-V fistula left forearm Abnormal posture Acute respiratory failure with hypoxia Anemia Asthma Depression DVT (deep venous thrombosis) ESRD (end stage renal disease) on dialysis Generalized muscle weakness GERD (gastroesophageal reflux disease) Hyperlipidemia Hypertension Morbid obesity Multiple sclerosis Osteoarthritis Palliative care encounter Paradoxical insomnia Pneumonia due to COVID-19 virus Thrombocytopenia Type 2 diabetes mellitus Surgical History S/P arteriovenous (AV) fistula creation Family History Father , in his late 40s Myocardial infarction Social History Smoking Status: Unknown if ever smoked Tobacco Type: Cigarettes Age Started Using Tobacco: 18; packs per day: 0.5; Second Hand Exposure: No; Hx Alcohol Use: No Hx Substance Use: No Preferred Language: [place] Communication Ability: Effective Bulbs Farmworker Required: No Beliefs That Will Affect Care: None marital status: Unknown Current Living Situation: Assisted current occupational status: disabled 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 Children do You have: 4 Other Information That Helps Us Care for You: No Feels Safe at Home: Yes Safety Concerns: Feels Safe At This Time Assistive Devices: Oxygen - Continuous Review of Systems Review of Systems: Unobtainable due to endotracheal tube Physical Exam Physical Exam: physical exam deferred d/t need to preserve PPE and minimize exposure to pt in iso for C19; pls refer to PE on H& P Results & Data ([facility]) Vital Signs (Past 12 Hours) Vital Signs Temp Pulse Pulse Pulse Resp BP BP 04/25/20 08:31 38.0 C H 75 81/45 L 04/25/20 08:01 38.0 C H 68 92/63 L 04/25/20 07:57 38.0 C H 69 94/56 L 04/25/20 07:41 59 L 22 04/25/20 07:30 37.9 C H 61 82/46 L 04/25/20 07:00 37.8 C H 61 89/57 L 04/25/20 04:38 37.5 C 64 72/49 L 04/25/20 04:30 37.5 C 65 74/48 L 04/25/20 04:00 37.4 C 68 73/45 L 04/25/20 03:37 37.4 C 73 75/50 L 04/25/20 03:30 37.4 C 74 79/49 L 04/25/20 03:10 37.4 C 73 86/51 L 04/25/20 03:00 37.4 C 77 83/49 L 04/25/20 02:51 22 04/25/20 02:30 84 107/66 04/25/20 02:05 37.4 C 78 23 105/67 04/25/20 01:55 37.4 C 84 25 H 107/54 L 04/25/20 01:30 87 16 92/60 L 04/25/20 01:24 96 H 18 99/61 L 04/25/20 01:10 93 H 20 89/62 L 04/25/20 01:05 04/25/20 01:00 93 H 26 H 120/49 L 04/25/20 00:10 100 H 27 H 04/25/20 00:00 100 H 27 H 04/24/20 23:54 103 H 22 137/79 04/24/20 23:15 79 16 155/77 H 04/24/20 22:33 04/24/20 22:18 37.2 C 90 19 155/77 H Pulse Ox 04/25/20 08:31 92 04/25/20 08:01 100 04/25/20 07:57 100 04/25/20 07:41 92 04/25/20 07:30 100 04/25/20 07:00 100 04/25/20 04:38 100 04/25/20 04:30 100 04/25/20 04:00 97 04/25/20 03:37 94 04/25/20 03:30 95 04/25/20 03:10 97 04/25/20 03:00 96 04/25/20 02:51 04/25/20 02:30 95 04/25/20 02:05 92 04/25/20 01:55 100 04/25/20 01:30 99 04/25/20 01:24 96 04/25/20 01:10 96 04/25/20 01:05 99 04/25/20 01:00 96 04/25/20 00:10 97 04/25/20 00:00 97 04/24/20 23:54 94 04/24/20 23:15 94 04/24/20 22:33 95 04/24/20 22:18 95 Laboratory Results 04/25/20 05:13 04/25/20 05:[address] 1. Satisfactory positioning of the endotracheal tube. 2. Near complete collapse of the right lung secondary to extensive mucous pl ugging of the right mainstem bronchus and right lung bronchi. 3. Mucous plugging of the left lower lobe with subsegmental left lower lobe consolidation. 4. Small right and trace left pleural effusions. 5. Small pericardial effusion.
[2020-04-25] MEDS ORDERED: ACETAMINOPHEN 1,000 MG/100 ML VIAL IV PRN (10:58)
--- NOTE | 2020-04-25 11:13 | Palliative Care Consultation ---
Date of Consultation April 25, 2020 Assessment & Plan (1) Palliative care encounter: This is a 54 year old male who presented to the [facility] from [facility] with SOB. He is COVID-19 positive. This is his third inpatient hospitalization since the beginning of March 2020. The patient has a PMH that includes multiple sclerosis for which he takes Teriflunomide chronically, DM2, ESRD on HD which is typically scheduled M/W/F, . The patient 54-year-old male presents to the ICU with positive COVID-19, acute hypoxemic respiratory failure, and complete collapse of right lung from what appears to be consolidation of the right main bronchus. The patient is currently intubated for management of acute respiratory failure. It is unclear whether the patient has bacterial pneumonia, sepsis or if this is being overall complicated by COVID-19. Palliative Care was consulted to discuss goals of care. As the patient is COVID-9 positive, I did not visit with this patient in his room. I did visualize the patient from the hallway window into his room and collaborated with Dr. Novoa and his care team. The patient is intubated and sedated with Fentanyl and Versed. His CXR today was thick white consolidation It is suspected that his neuromuscular disease is worsening with the steroids. The patient has a friend Yovani listed on his chart who I called and he said that he moved [place] here from [place] a few years ago and he knows he declined since. He does not have any legal decision making capabilities. He mentioned that the patient does have a sister, Brina who I did contact at [phone]. She and Yovani mentioned that their understanding that he would not want heroic measures taken. The patients sister Brina did mention that he has 3 adult children that are estranged from him and live in [place]. Dr. Novoa spoke with the patients sister as well and was able to get in touch with the patients legal ; however, they (patient and ) have not seen eachother in [address] Novoa did gain consent for central line placement and when he was in the room, the patient did nod appropriately while on the ventilator. He asked him if he would want to continue with aggressive care and he nodded yes that he would want to continue care. At this time, the patient will remain a full code as documented in the system. For now, continue aggressive treatment with hopes to extubate and have further discussion regarding goals of care, including a POLST form. Palliative will follow peripherally for now and see how patient progresses. POLST for prior to discharge, if discharge is possible, would be helpful. Patient seen with JO Villatoro. Discussed with Dr. Novoa. This unfortunate gentleman has poor prognosis with multiple admissions for covid 19 complications and comorbid ESRD and MS. He has likely had some neurological decline related to his serious illness. He has been able to indicate that he would like to continue with aggressive care at this time. We will work with him and his family to establish goals for his care moving forward. (2) ESRD (end stage renal disease) on dialysis: (3) COVID-19: (4) Collapse of right lung: History of Present Illness Reason for Consultation: Goals of Care Requesting Physician: Dr. Novoa Attending Physician: Tyrone Geiger History of Present Illness This is a 54 year old male who presented to the [facility] from [facility] with SOB. He is COVID-19 positive. This is his third inpatient hospitalization since the beginning of March 2020. The patient has a PMH that includes multiple sclerosis for which he takes Teriflunomide chronically, DM2, ESRD on HD which is typically scheduled M/W/, . The patient 54-year-old male presents to the ICU with positive COVID-19, acute hypoxemic respiratory failure, and complete collapse of right lung from what appears to be consolidation of the right main bronchus. The patient is currently intubated for management of acute respiratory failure. It is unclear whether the patient has bacterial pneumonia, sepsis or if this is being overall complicated by COVID-19. Palliative Care was consulted to discuss goals of care. Please see A/P for further details. Thank you kindly for involving the palliative care team with this patient. We will follow accordingly. Allergies Allergy/AdvReac Type Severity Reaction Status Date / Time No Known Allergies Allergy Verified 04/24/20 23:33 Home Medications Home Medications Medication Instructions Recorded Confirmed Type Eliquis 5 mg PO BID 30 Days #60 tab 04/09/20 04/24/20 Rx amlodipine [Norvasc] 10 mg PO QAM 30 Days #60 tab 04/09/20 04/24/20 Rx aripiprazole [Abilify] 15 mg PO QAM 30 Days #30 tab 04/09/20 04/24/20 Rx calcium acetate(phosphat bind) 2,668 mg PO TIDM 30 Days #120 cap 04/09/20 04/24/20 Rx erythromycin [Diaz-Tab] 250 mg PO TID 30 Days #90 tab 04/09/20 04/24/20 Rx fluoxetine 60 mg PO HS 30 Days #90 cap 04/09/20 04/24/20 Rx gabapentin 100 mg PO TID 30 Days #90 cap 04/09/20 04/24/20 Rx pantoprazole 40 mg PO BID 30 Days #60 tab 04/09/20 04/24/20 Rx ropinirole 0.5 mg PO BID 30 Days #120 tab 04/09/20 04/24/20 Rx tamsulosin 0.4 mg PO QAM 30 Days #30 cap 04/09/20 04/24/20 Rx trazodone 100 mg PO HS 30 Days #30 tab 04/09/20 04/24/20 Rx albuterol sulfate [Ventolin HFA] 1 puff INHALATION Q4H PRN 04/24/20 04/24/20 History dextromethorphan-guaifenesin 1 tab PO Q12H PRN 04/24/20 04/24/20 History [Mucinex DM] famotidine 20 mg PO Q OTHER DAY 04/24/20 04/24/20 History teriflunomide 14 mg PO QAM 04/24/20 04/24/20 History Patient History Medical History (Updated 04/25/20 @ 15:52 by JO Lin) A-V fistula left forearm Abnormal posture Acute respiratory failure with hypoxia Anemia Asthma Depression DVT (deep venous thrombosis) ESRD (end stage renal disease) on dialysis Generalized muscle weakness GERD (gastroesophageal reflux disease) Hyperlipidemia Hypertension Morbid obesity Multiple sclerosis Osteoarthritis Palliative care encounter Paradoxical insomnia Pneumonia due to COVID-19 virus Thrombocytopenia Type 2 diabetes mellitus Surgical History S/P arteriovenous (AV) fistula creation Family History Father , in his late 40s Myocardial infarction Social History Smoking Status: Unknown if ever smoked Tobacco Type: Cigarettes Age Started Using Tobacco: 18; packs per day: 0.5; Second Hand Exposure: No; Hx Alcohol Use: No Hx Substance Use: No Preferred Language: Danish Communication Ability: Impaired Auto Rental Clerk Required: No Beliefs That Will Affect Care: None marital status: Unknown Current Living Situation: [facility] current occupational status: disabled 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 Discussed with the manager warehouse Evaluated patients from the window. Results & Data ([facility]) Vital Signs (Past 12 Hours) Vital Signs Temp Pulse Pulse Pulse Resp BP BP 04/25/20 08:31 38.0 C H 75 81/45 L 04/25/20 08:01 38.0 C H 68 92/63 L 04/25/20 07:57 38.0 C H 69 94/56 L 04/25/20 07:41 59 L 22 04/25/20 07:30 37.9 C H 61 82/46 L 04/25/20 07:00 37.8 C H 61 89/57 L 04/25/20 04:38 37.5 C 64 72/49 L 04/25/20 04:30 37.5 C 65 74/48 L 04/25/20 04:00 37.4 C 68 73/45 L 04/25/20 03:37 37.4 C 73 75/50 L 04/25/20 03:30 37.4 C 74 79/49 L 04/25/20 03:10 37.4 C 73 86/51 L 04/25/20 03:00 37.4 C 77 83/49 L 04/25/20 02:51 22 04/25/20 02:30 84 107/66 04/25/20 02:05 37.4 C 78 23 105/67 04/25/20 01:55 37.4 C 84 25 H 107/54 L 04/25/20 01:30 87 16 92/60 L 04/25/20 01:24 96 H 18 99/61 L 04/25/20 01:10 93 H 20 89/62 L 04/25/20 01:05 04/25/20 01:00 93 H 26 H 120/49 L 04/25/20 00:10 100 H 27 H 04/25/20 00:00 100 H 27 H 04/24/20 23:54 103 H 22 137/79 04/24/20 23:15 79 16 155/77 H Pulse Ox 04/25/20 08:31 92 04/25/20 08:01 100 04/25/20 07:57 100 04/25/20 07:41 92 04/25/20 07:30 100 04/25/20 07:00 100 04/25/20 04:38 100 04/25/20 04:30 100 04/25/20 04:00 97 04/25/20 03:37 94 04/25/20 03:30 95 04/25/20 03:10 97 04/25/20 03:00 96 04/25/20 02:51 04/25/20 02:30 95 04/25/20 02:05 92 04/25/20 01:55 100 04/25/20 01:30 99 04/25/20 01:24 96 04/25/20 01:10 96 04/25/20 01:05 99 04/25/20 01:00 96 04/25/20 00:10 97 04/25/20 00:00 97 04/24/20 23:54 94 04/24/20 23:15 94 PG Care Time/CCT Total # of Minutes Spent Total Time Spent with Patient: Total time spent is greater than 50% in coordination of care (as documented) at patient's floor/unit and/or counseling patient: 70 Coding Level of Care Code 10970 Inpt Consult Level 3 Diagnoses Palliative care encounter Z51.5 ESRD (end stage renal disease) on dialysis N18.6; Z99.2 COVID-19 U07.1 Collapse of right lung J98.11 Time Spent (min) 70 Time Spent Midlevel Total time spent 70 minutes with > 50% of that time spent assessing the patient, discussing goals of care with patients family and collaborating with IDT.
[2020-04-25 11:32] LABS: Bordetella parapertussis PCR Not Detected (NotDetected); Bordetella pertussis PCR Not Detected (NotDetected); Chlamydia pneumoniae PCR Not Detected (NotDetected); Coronavirus 229E PCR Not Detected (NotDetected); Coronavirus CoV-2 (COVID19)PCR DETECTED (NotDetected); Coronavirus HKU1 PCR Not Detected (NotDetected); Coronavirus NL63 PCR Not Detected (NotDetected); Coronavirus OC43PCR Not Detected (NotDetected); Human Metapneumovirus PCR Not Detected (NotDetected); Influenza A PCR Not Detected (NotDetected); Influenza B PCR Not Detected (NotDetected); Mycoplasma pneumoniae PCR Not Detected (NotDetected); Parainfluenza Virus 1 PCR Not Detected (NotDetected); Parainfluenza Virus 2 PCR Not Detected (NotDetected); Parainfluenza Virus 3 PCR Not Detected (NotDetected); Parainfluenza Virus 4 PCR Not Detected (NotDetected); Respiratory Syncytial VirusPCR Not Detected (NotDetected); Rhinovirus/Enterovirus PCR Not Detected (NotDetected)
[2020-04-25 11:40] LABS: Adenovirus PCR Not Detected (NotDetected)
[2020-04-25] MEDS: ALBUMIN 25% 12.5 GM/50 ML VIAL IV SCH ×2 (11:51→13:11)
[2020-04-25] MEDS ORDERED: CASPOFUNGIN 70 MG in SODIUM CHLORIDE 0.9% 250 ML IV SCH (14:00)
--- NOTE | 2020-04-25 14:06 | Procedure Note ---
Procedure Note Date of Service April 25, 2020 Procedure date: Noted above Procedure: Central venous access Pre-procedure indication: Need for vasoactive medication administration Post-procedure Diagnosis: same as above Prior to Procedure: Informed Consent: The risks, benefits, indications, potential complications, and alternatives were explained to the patient's close decision-maker and informed consent obtained. Attending Staff: Flakita Novoa DO Resident/APC: Not applicable Skin Prep: Chlorhexidine Anesthesia: 4 mL 1% lidocaine without epinephrine The identity of the patient was confirmed and a bedside time out was performed. Description of Procedure: After sterile prep and sterile drape utilizing standard sterile technique the superficial skin of the right subclavian area was anesthetized. The target vessel was identified and entered with an 18-gauge needle. Dark venous blood return was noted. A guidewire was inserted through the needle and into the vessel. The needle was withdrawn and a small skin jeimy was made. A tissue dilator was advanced via Seldinger technique and removed. A triple lumen catheter was inserted via Seldinger technique and the guidewire removed. All ports camilo and flushed easily. A Biopatch was placed, and the catheter was secured via silk suture at 15 cm. A sterile dressing was then applied. Complications: None Estimated blood loss: Trace Patient tolerated the procedure well. The chest x-ray was reviewed, central venous catheter is in place, no pneumothorax is noted, there is improved aeration into the right lung, the NG tube tip terminates below the diaphragm. Coding CPT Codes Tubes, Drains, and Vasc Access - Tubes, Drains, and Vasc Access: [id number] Insertion Of Non-tunneled Catheter Age 7 Yrs> ([id number]) [facility] [place] Procedure Codes (Charges) Tubes, Drains, and Vasc Access Procedure 1: Tubes, Drains, and Vasc Access: [id number] Insertion Of Non-tunneled Catheter Age 7 Yrs>
--- NOTE | 2020-04-25 14:07 | Procedure Note ---
Procedure Note Date of Service April 25, 2020 Procedure date: Noted above Procedure: Radial artery cannulation Pre-procedure Diagnosis: Need for invasive monitoring, hypotension/frequent blood draws Post-procedure Diagnosis: same as above Prior to Procedure: Informed Consent: The risks, benefits, indications, potential complications, and alternatives were explained to the patient's medical decision-maker and informed consent obtained. Attending Staff: Flakita Novoa DO Skin Prep: Chlorhexidine Anesthesia: 3 mL 1% lidocaine without epinephrine The identity of the patient was confirmed and a bedside time out was performed. Description of Procedure: After sterile prep and sterile drape utilizing standard sterile technique the superficial skin of the right radial artery was anesthetized. The target artery was identified via dynamic ultrasound guidance and entered with a 20-gauge arrow Angiocath. Pulsatile bright red blood return was noted. Via modified Seldinger technique the self-contained guidewire was advanced and the Angiocath advanced over the guidewire. The guidewire was removed and brisk arterial blood return was noted. The pressure monitor was connected, and the arterial line was secured via commercial securement device. A sterile dressing was then applied. Complications: None Estimated blood loss: Trace Patient tolerated the procedure well. Procedure Date: April 25, 2020 Procedure: Procedural Ultrasound Indication: Arterial access for invasive monitoring Attending: Flakita Novoa DO Artery visualized: Yes Pulsatility of artery: Yes Artery patent: Yes Line confirmed in artery with ultrasound: Yes Impression: Successful arterial cannulation Images obtained are saved for permanent record Coding CPT Codes Tubes, Drains, and Vasc Access - Tubes, Drains, and Vasc Access: [id number] Place Catheter In Artery ([id number]) Tubes, Drains, and Vasc Access - Tubes, Drains, and Vasc Access: [id number] Ultrasound Guidance For Vascular ([id number]) [facility] Procedure Codes (Charges) Tubes, Drains, and Vasc Access Procedure 1: Tubes, Drains, and Vasc Access: [id number] Place Catheter In Artery Procedure 2: Tubes, Drains, and Vasc Access: [id number] Ultrasound Guidance For Vascular
--- NOTE | 2020-04-25 14:22 | XRay Report ---
SINGLE VIEW CHEST CLINICAL HISTORY: Enteric tube placement. Covid. FINDINGS: An AP, portable, upright chest radiograph is compared to chest x-ray and chest CT performed earlier the same day 04/25/2020. The examination is degraded by portable technique and patient rotat ion. The left lateral lung base is excluded. An endotracheal tube is unchanged in position. An enteri c tube has been placed. The tip projects below the diaphragm over the proximal stomach. A right subcl lu central venous catheter has been placed. The tip projects over the SVC. The cardiomediastinal s ilhouette is unremarkable. There is improved aeration of the right lung as compared to previous with right basilar consolidation and a small right pleural effusion. Mild dependent airspace opacities are seen at the left lung base. No pneumothorax is seen. The bony thorax is grossly intact. Cholecystect nellie clips are seen in the right upper quadrant. IMPRESSION: 1. A right subclavian central venous catheter and an enteric tube have been placed as above. 2. No pneumothorax is seen post procedure. 3. Significantly improved aeration of the right lung as compared to previous. 4. A small right pleural effusion and right basilar consolidation persist. ACT 112: Negative or not required by law. Electronically signed by: James Lucero M.D. 04/25/2020 2:20 PM
[2020-04-25] MEDS ORDERED: ROCURONIUM BROMIDE 10 MG/ML 5 ML VIAL IV ONE (14:27)
[2020-04-25] MEDS ORDERED: ETOMIDATE 2 MG/ML 20 ML VIAL IV ONE (14:27)
--- NOTE | 2020-04-25 14:36 | Communication Note ---
Date of Service: April 25, 2020 Events since admission noted. Patient received CVC and arterial line by ICU attending this am. FiO2 requirements have decreased since admission. Care plan was reviewed with bedside nursing. Cont IV decadron. Cont broad-spectrum IV antibiotics for bacterial superinfection. Initial diagnosis was several weeks ago at this point - additional plasma not indicated. Never received remdesivir due to ESRD/CKD. Appreciate nephrology and shirt folder assistance. Will continue to follow. Daily exam to be deferred due to vented status. yTrone Geiger MD
--- NOTE | 2020-04-25 14:52 | Pharmacy Report ---
Pharmacy Abx Dose Short Note - Date of Service April 25, 2020 - Assessment & Plan Assessment 54 year old M with his third admission this month presenting with COVID complications. He is receiving vancomycin, doxy, and zosyn empirically. MRSA nasal swab negative. Plan Vancomycin * Loading dose of 2,250mg X 1 administered last evening ~2330 * Will not redose today given loading dose and no HD plan * Random level ordered for: 04/26/20 with AM labs Pharmacy will continue to follow and will adjust dose/frequency as necessary. Thank you.
--- NOTE | 2020-04-25 15:00 | Pharmacy Report ---
Pharmacy Glycemic Short Note 2 - Date of Service April 25, 2020 - Glycemic Short BSG Results (Last 24 hours): 04/24/20 04/25/20 04/25/20 22:00 05:13 05:22 Glucose 283 H 250 H POC Glucose 249 H 04/25/20 04/25/20 04/25/20 07:52 09:18 10:15 Glucose POC Glucose 228 H 205 H 228 H 04/25/20 04/25/20 04/25/20 12:04 12:59 14:04 Glucose POC Glucose 208 H 191 H 175 H OUTPATIENT ANTIDIABETIC REGIMEN: * Does not appear to be on outpatient anti-diabetic agents * A1c: 5.3% 04-16-20, however, unreliable in HD. ASSESSMENT: * Despite no outpatient treatment for diabetes, patient has required ~4 units/hr of insulin infusion and appears to have been hyperglycemic in past admissions. He has been on a prolonged course of dexamethasone (taper to finish in 6 days) due to COVID-19 and is likely experiencing ICU stressors. Patient also requiring pressors at this time. Discussed with ICU team, and will continue with insulin infusion for now due to higher infusion rate and pressor requirement. * Will re-evaluate opportunities to transition off the insulin infusion as able. PLAN FOR INPATIENT GLYCEMIC CONTROL: * Hold outpatient oral diabetes medications * Continue IV insulin infusion * Goal 140-180 mg/dL * Bolus insulin * NovoLog per scale ACHS or Q6hrs while NPO per insulin infusion calculator
--- NOTE | 2020-04-25 15:59 | Consultation Report ---
DATE OF CONSULTATION: 04/25/2020 NEUROLOGY CONSULTATION NOTE CHIEF COMPLAINT: Acute hypoxic respiratory failure. HISTORY OF PRESENT ILLNESS: This is a 54-year-old male, unknown to the [facility] Neurology practice, although with a history of reported multiple sclerosis, on Aubagio (no records available or in EPIC), admitted to the intensive care unit on last evening for acute respiratory failure and collapse of the right lung secondary to pneumonia and COVID-19. On admission, the patient was started on Decadron as well as vancomycin and Zosyn. He does have a history of COVID-19 pneumonia. He also has a history of thrombocytopenia and end-stage renal disease, on dialysis. He was admitted for COVID from 04/12 through 04/16. He reportedly had been feeling better until yesterday. The patient decompensated in the Emergency Department, was found to have a hao-out right lung and was intubated in the Emergency Department. The patient never received remdesivir due to end-stage renal disease. The patient did have a temperature on admission, which was 38 degrees Celsius. Imaging showed a complete right lung collapse presumed due to a right main stem bronchus consolidation. The patient is new to the [facility] as of late summer. Per home medications, he is on Eliquis for history of DVT as well as he is on Abilify. He is also on teriflunomide 14 mg in the morning. There is no past medical record or previous records to review from his diagnosis of MS, although he is reportedly bedbound and lives at [facility]. Neurology was consulted regarding the multiple sclerosis management. ALLERGIES: No known drug allergies. HOME MEDICATIONS: Eliquis 5 mg twice daily, Norvasc 10 mg daily, Abilify 15 mg in the morning, fluoxetine 60 mg, gabapentin 100 mg 3 times daily, ropinirole 0.5 mg twice daily, trazodone 100 mg nightly, Aubagio 14 mg in the morning. PAST MEDICAL HISTORY: He has an AV fistula in the left forearm, [id number] respiratory failure, asthma, depression, DVT, end-stage renal disease, on dialysis, gastroesophageal reflux disease, hypertension, multiple sclerosis, pneumonia, thrombocytopenia, type 2 diabetes. PAST SURGICAL HISTORY: History of arteriovenous fistula. FAMILY HISTORY: His father is and in his late 40s of a myocardial infarction. SOCIAL HISTORY: He is a former smoker. Unknown if he is currently smoking. He is disabled. He is on continuous oxygen at home. REVIEW OF SYSTEMS: Unable to be obtained as the patient is intubated. PHYSICAL EXAMINATION: VITAL SIGNS: Blood pressure 128/82, pulse is 55, respiratory rate is 22, temperature is 37.5 degrees Celsius. The patient is mechanically ventilated. I did not see or examine this patient. DIAGNOSTIC TESTING AND LABORATORY VALUES: WBC 11.08, hemoglobin 10.3, platelet count 80. INR is 1.2. Sodium is 132, potassium is 3.8, chloride 95, carbon dioxide is 31, BUN is 50, creatinine is 5.50, AST is 8, ALT is 20. MRSA nasal screen is negative. COVID-19 PCR is detected. Chest x-ray; a right subclavian central venous catheter and an enteric tube have been in place. No pneumothorax is seen. Previous chest x-ray showed near complete opacification of the right hemithorax. Interval placement of an endotracheal tube above the radha. Chest CT performed on 04/24; near complete collapse of the right lung secondary to extensive mucus plugging of the right main stem bronchus and right lung bronchi. Mucus plugging of the left lower lobe with subsegmental left lower lobe consolidation. ASSESSMENT AND PLAN: A 54-year-old male with multiple medical comorbidities including end-stage renal disease, thrombocytopenia and reported multiple sclerosis on teriflunomide (no previous imaging or records available to review in [facility]) , admitted with acute hypoxic respiratory failure requiring mechanical ventilation due to COVID- 19 pneumonia or mucus plug. Currently, the patient is COVID-19 positive and on mechanical ventilation. Neurology was consulted regarding his reported diagnosis of multiple sclerosis and terminal manager management. It is unknown whether he was diagnosed with a primary progressive multiple sclerosis versus a relapse remitting multiple sclerosis. No previous neurology records, diagnostic testing, or imaging is available in [facility] or [facility]. Patient unknown to [facility]. Per review of medical notes the patient is bedbound and living in a [facility] facility which may suggest that he has a primary progressive multiple sclerosis which has a poor prognosis. I think at this point the acute respiratory hypoxic failure has nothing to do with his multiple sclerosis. Agree with stopping Aubagio for now. Can reconsider long-term disease modifying therapy once the patient is outside of the acute care hospital and more stable from an acute respiratory standpoint. We will need to obtain prior records. The overall clinical picture is not suggestive of a multiple sclerosis flare. Clinical history if devoid of features to suggest an underlying neuromuscular disorder. The patient will need MRI brain and cervical spine imaging at some point when stable to further dictate disease modifying therapy choice however this can be done as an outpatient when he is more stable. At this point, I think there is a limited role for neurology during this hospital admission. Please contact me with any additional questions or concerns. Otherwise, the patient can be seen on an outpatient basis to further discuss disease modifying therapy if needed. MTDD
[2020-04-25 16:18] LABS: iSTAT Arterial Blood Gas HCO3 24 meg/L (19-24); iSTAT Arterial Blood Gas pCO2 29 mmHg (35-46); iSTAT Arterial Blood Gas pH 7.53 (7.35-7.45); iSTAT Arterial Blood Gas pO2 61 mmHg (80-95); iSTAT Carbon Dioxide 25 mmol/L (24-31); iSTAT FiO2 30 %; iSTAT Site Art Line
[2020-04-25] MEDS: PIPERACILLIN/TAZOBACTAM 3.375 GM in DEXTROSE 5% 100 ML IV SCH (18:10)
[2020-04-25] MEDS: DOXYCYCLINE HYCLATE 100 MG in DEXTROSE 5% 100 ML IV SCH (20:12)
[2020-04-26] MEDS: PHENYLEPHRINE HCL 20 MG in DEXTROSE 5% 500 ML IV SCH ×2 (02:15→06:07)
[2020-04-26] MEDS: fentaNYL DRIP 1,250 MCG/250 ML BAG IV SCH (02:27)
[2020-04-26] MEDS: PIPERACILLIN/TAZOBACTAM 3.375 GM in DEXTROSE 5% 100 ML IV SCH (05:14)
[2020-04-26 05:20] LABS: Basophils # (auto) 0.01 K/uL (0-0.2); Basophils % (auto) 0.1 %; Eosinophils # (auto) 0.01 K/uL (0-0.5); Eosinophils % (auto) 0.1 %; Hematocrit (blood only) 30.5 % (42-52); Hemoglobin 9.6 g/dL (14.0-18.0); Immature Granulocytes # (auto) 0.04 K/uL (0.00-0.02); Immature Granulocytes % (auto) 0.5 %; Lymphocytes # (auto) 0.46 K/uL (1.2-3.4); Lymphocytes % (auto) 5.5 %; Mean Corpuscular Hemoglobin 28.5 pg (25-34); Mean Corpuscular Hgb Conc 31.5 g/dL (32-36); Mean Corpuscular Volume 90.5 fL (80-100); Mean Platelet Volume 9.8 fL (7.4-10.4); Neutrophils % (auto) 87.8 %; Platelet Count 101 K/uL (130-400); Red Blood Count 3.37 M/uL (4.7-6.1); White Blood Count 8.32 K/uL (4.8-10.8)
[2020-04-26 06:03] LABS: Albumin Level 2.6 gm/dl (3.4-5.0); BUN Creatinine Ratio 10.2 (10-20); Bilirubin Direct 0.1 mg/dl (0-0.2); Bilirubin,Total 0.6 mg/dl (0.2-1); Calcium 8.3 mg/dl (8.5-10.1); Creatinine Clr Calc Pharmacy 15.9 ml/min; Est GFR (African American) 10.4; Est GFR (Non-African American) 8.9; Magnesium 2.2 mg/dl (1.8-2.4); Phosphorus 4.1 mg/dl (2.5-4.9); Potassium 4.2 mmol/L (3.5-5.1)
[2020-04-26 06:19] LABS: INR 1.2 (0.9-1.1); Partial Thromboplastin Ratio 1.3; Partial Thromboplastin Time 36.2 Seconds (21.0-31.0); Prothrombin Time 12.6 Seconds (9.0-12.0)
--- NOTE | 2020-04-26 07:58 | XRay Report ---
XR chest 1V portable HISTORY: Pneumonia. Follow-up. COMPARISON: Chest 04/25/2020. FINDINGS: The endotracheal tube terminates approximately 3.8 cm from the radha. Right subclavian rubi tral venous catheter terminates in the SVC. A nasogastric tube terminates below the diaphragm. The ti p is not included on this study. Right perihilar and right base airspace opacities are again noted. T he heart remains enlarged. There are faint patchy left basilar airspace opacities. Suspect a trace ri ght pleural effusion. IMPRESSION: 1. Satisfactory support line placement. 2. Right greater than left basilar airspace opacities are again noted. This is consistent with pneumo carol. ACT 112: Negative or not required by law. Electronically signed by: Howard Stanford M.D. 04/26/2020 7:57 AM
--- NOTE | 2020-04-26 08:07 | Critical Care Progress Note ---
Date of Service April 26, 2020 Assessment & Plan (1) ARF (acute respiratory failure): Neuro: Multiple sclerosis: -Steroids will be increasing his risk of long-term morbidity in relation to neuromuscular disease. Resp: (1) Acute hypoxemic respiratory failure: Significant improvement -Patient saturating 94% on 30% FiO2 Significant improvement in right lung aeration -Patient has a history of multiple sclerosis cannot exclude neuromuscular disease as a cause of this respiratory failure -We did not need to utilize proning therapy because after intubation patient's ventilatory oxygenation requirements precipitously dropped -Given multiple sclerosis and risk for requiring long-term mechanical ventilation the patient has a negative inspiratory force of 30, he is coughing, his RSBI is an appropriate level and his vital capacity is approximately 1 L I feel it is best to proceed with extubation and support via high flow nasal cannula to provide some positive pressure but still allow him to clear his airway On TERIFLUNOMIDE -Given this is the third exacerbation associated with Covid we will discontinue the TERIFLUNOMIDE given that high-dose steroids should also decrease the incidence of relapsing multiple sclerosis -Given improvement in lung aeration and positive Covid we declined to perform a particle aerosolizing procedure -Awaiting sputum culture, will strongly consider de- escalation to single agent COVID-19 infection -Patient outside optimal window for resdemvir as well as end-stage renal disease unlikely to be effective at this time -Patient treated previously treated with convalescent plasma -Bio fire: Reviewed will discontinue vancomycin, Zosyn CV: Prolonged QTC: Resolved Fluids/Renal: End-stage renal disease: Wednesday dialysis schedule -Nephrology consulted: Estefanía ID: Sputum pending -Patient previously finished 7-day course of Levaquin, as I am most concerned of aspiration I will transition to Unasyn as single agent, patient does carry Pseudomonas risk however was also recently treated with Levaquin and statistics of hospital based sensitivities imply adequate sensitivity of Pseudomonas against Levaquin -Continue caspofungin for another 24 to 48 hours to allow for sputum culture growth GI/Nutrition: Will require swallow study, intubated for under 24 hours, extubation today Heme: Anemia of chronic disease -Previously given iron by the nephrology service DVT prophylaxis: Lovenox -Will transition to apixaban later today after swallow study. Endocrine: Type 2 diabetes mellitus ICU hyperglycemia protocol Vascular access: Central venous access placed 04/25, right radial A-line placed 04/25 Code Status: Full Disposition: ICU Wound care consult for gluteal skin issues (2) Sepsis: (3) Pneumonia: (4) COVID-19: (5) Anemia: (6) Acute hypoxemic respiratory failure: (7) Hypertension: (8) History of DVT (deep vein thrombosis): (9) S/P arteriovenous (AV) fistula creation: (10) Type 2 diabetes mellitus: (11) Multiple sclerosis: (12) ESRD (end stage renal disease) on dialysis: Admission and Anticipated Discharge Date Admission Date: April 25, 2020 Supervising Physician Co-Signing Physician Notes Patient was also discussed with the palliative care service. Patient does indeed want aggressive life-sustaining efforts undertaken. He also reports that surrogate decision makers. Brina and Yovani would be his We recognize that his goals may not be in line with what Yovani and surely may have understood and will be attempting to honor his wishes to the best of our ability and hopefully allow him to express these wishes with his chosen surrogate decision makers. Subjective No overnight events. Tolerating spontaneous breathing trial this morning Review of Systems Review of Systems: Unobtainable due to endotracheal tube Physical Exam Physical Exam: General: Alert. Following complex commands Skin: Warm, dry, Head: Atraumatic Ears, nose, mouth and throat: Obscured by endotracheal tube Cardiovascular: Normal peripheral perfusion Respiratory: no respiratory distress, coarse sounds over right lung field Gastrointestinal: Non distended Musculoskeletal: No deformity Results & Data Results & Data ([facility]) Vital Signs (Past 12 Hours) Vital Signs Temp Pulse Resp BP Pulse Ox 04/26/20 07:40 56 L 18 94 04/26/20 06:00 36.6 C 54 L 93 04/26/20 05:21 36.6 C 54 L 97 04/26/20 05:20 36.6 C 54 L 15 174/72 H 98 04/26/20 04:00 36.6 C 49 L 98 04/26/20 03:20 36.6 C 52 L 144/62 H 97 04/26/20 02:21 36.5 C 50 L 98 04/26/20 02:20 36.5 C 51 L 152/67 H 98 04/26/20 02:00 36.4 C L 63 97 04/26/20 01:20 36.4 C L 48 L 120/60 99 04/26/20 01:00 36.4 C L 47 L 99 04/26/20 00:21 36.5 C 47 L 99 04/26/20 00:20 36.5 C 46 L 128/60 99 04/26/20 00:00 36.5 C 47 L 98 04/25/20 23:20 36.6 C 48 L 123/64 97 04/25/20 22:38 48 L 13 98 04/25/20 22:19 36.8 C 48 L 130/61 100 04/25/20 22:00 36.8 C 49 L 100 04/25/20 21:20 36.7 C 51 L 114/57 L 98 04/25/20 21:00 36.6 C 57 L 96 04/25/20 20:20 36.4 C L 85 32 H 201/83 H 93 04/25/20 20:00 36.4 C L 69 94 Laboratory Results 04/26/20 04/26/20 04/26/20 Range/Units 08:41 04:50 04:50 WBC (4.8-10.8) K/uL RBC (4.7-6.1) M/uL Hgb (14.0-18.0) g/dL Hct (42-52) % MCV (80-100) fL MCH (25-34) pg MCHC (32-36) g/dL RDW Std Deviation (36.4-46.3) fL RDW Coeff of Emiliano (11.5-14.5) % Plt Count (130-400) K/uL MPV (7.4-10.4) fL Immature Gran % (Auto) % Neut % (Auto) % Lymph % (Auto) % [place] % (Auto) % Eos % (Auto) % Baso % (Auto) % Neut # (Auto) (1.4-6.5) K/uL Lymph # (Auto) (1.2-3.4) K/uL [place] # (Auto) (0.11-0.59) K/uL Eos # (Auto) (0-0.5) K/uL Baso # (Auto) (0-0.2) K/uL Immature Gran # (Auto) (0.00-0.02) K/uL PT 12.6 H (9.0-12.0) Seconds INR 1.2 H (0.9-1.1) APTT 36.2 H (21.0-31.0) Seconds PTT Ratio 1.3 Sample Site POC pH (7.35-7.45) POC pCO2 (35-46) mmHg POC pO2 (80-95) mmHg POC HCO3 (19-24) ghassan/L POC Total CO2 (24-31) mmol/L POC Base Excess (-9-1.8) ghassan/L POC ABG O2 Sat (90-95) % Davonte Test O2 Delivery Device POC O2 Rate POC FiO2 % Tidal Volume PEEP Sodium 130 L (136-145) mmol/L Potassium 4.2 (3.5-5.1) mmol/L Chloride 94 L (98-107) mmol/L Carbon Dioxide 25 (21-32) mmol/L Anion Gap 11.0 (3-11) BUN 65 H (7-18) mg/dl Creatinine 6.52 H* D (0.6-1.4) mg/dl Est Cr Clr Drug Dosing 15.9 ml/min Est GFR ( Amer) 10.4 Est GFR (Non-Af Amer) 8.9 BUN/Creatinine Ratio 10.2 (10-20) Glucose 102 H (70-99) mg/dl POC Glucose 114 H (70-99) mg/dl POC Glucose (other) (70-99) mg/dl Calcium 8.3 L (8.5-10.1) mg/dl Phosphorus 4.1 D (2.5-4.9) mg/dl Magnesium 2.2 (1.8-2.4) mg/dl Total Bilirubin 0.6 (0.2-1) mg/dl Direct Bilirubin 0.1 (0-0.2) mg/dl AST 6 L (15-37) U/L ALT 16 (12-78) U/L Alkaline Phosphatase 56 (45-117) U/L Total Protein 6.0 L (6.4-8.2) gm/dl Albumin 2.6 L (3.4-5.0) gm/dl Lipase 48 L (73-393) U/L Nasal Screen MRSA (PCR) (Negative) Random Vancomycin mcg/ml Adenovirus (PCR) (NotDetected) B. pertussis DNA (PCR) (NotDetected) B.parapertussis DNA PCR (NotDetected) C. pneumoniae DNA (PCR) (NotDetected) Coronavirus OC43 (PCR) (NotDetected) Coronavirus HKU1 (PCR) (NotDetected) Coronavirus 229E (PCR) (NotDetected) COVID-19 PCR (NotDetected) Coronavirus NL63 (PCR) (NotDetected) Human Metapneumovir PCR (NotDetected) Influenza Type A (PCR) (NotDetected) Influenza Type B (PCR) (NotDetected) M. pneumoniae (PCR) (NotDetected) Parainfluenza 1 (PCR) (NotDetected) Parainfluenza 2 (PCR) (NotDetected) Parainfluenza 3 (PCR) (NotDetected) Parainfluenza 4 (PCR) (NotDetected) RSV (PCR) (NotDetected) Entero/Rhino (PCR) (NotDetected) Beta-(1,3)-D-Glucan B-(1,3)-D-Glucan Intrp 04/26/20 04/26/20 04/26/20 Range/Units 04:50 04:50 03:20 WBC 8.32 (4.8-10.8) K/uL RBC 3.37 L (4.7-6.1) M/uL Hgb 9.6 L (14.0-18.0) g/dL Hct 30.5 L (42-52) % MCV 90.5 (80-100) fL MCH 28.5 (25-34) pg MCHC 31.5 L (32-36) g/dL RDW Std Deviation 50.0 H (36.4-46.3) fL RDW Coeff of Emiliano 15.0 H (11.5-14.5) % Plt Count 101 L (130-400) K/uL MPV 9.8 (7.4-10.4) fL Immature Gran % (Auto) 0.5 % Neut % (Auto) 87.8 % Lymph % (Auto) 5.5 % [place] % (Auto) 6.0 % Eos % (Auto) 0.1 % Baso % (Auto) 0.1 % Neut # (Auto) 7.30 H (1.4-6.5) K/uL Lymph # (Auto) 0.46 L (1.2-3.4) K/uL [place] # (Auto) 0.50 (0.11-0.59) K/uL Eos # (Auto) 0.01 (0-0.5) K/uL Baso # (Auto) 0.01 (0-0.2) K/uL Immature Gran # (Auto) 0.04 H (0.00-0.02) K/uL PT (9.0-12.0) Seconds INR (0.9-1.1) APTT (21.0-31.0) Seconds PTT Ratio Sample Site POC pH (7.35-7.45) POC pCO2 (35-46) mmHg POC pO2 (80-95) mmHg POC HCO3 (19-24) ghassan/L POC Total CO2 (24-31) mmol/L POC Base Excess (-9-1.8) ghassan/L POC ABG O2 Sat (90-95) % Davonte Test O2 Delivery Device POC O2 Rate POC FiO2 % Tidal Volume PEEP Sodium (136-145) mmol/L Potassium (3.5-5.1) mmol/L Chloride (98-107) mmol/L Carbon Dioxide (21-32) mmol/L Anion Gap (3-11) BUN (7-18) mg/dl Creatinine (0.6-1.4) mg/dl Est Cr Clr Drug Dosing ml/min Est GFR ( Amer) Est GFR (Non-Af Amer) BUN/Creatinine Ratio (10-20) Glucose (70-99) mg/dl POC Glucose (70-99) mg/dl POC Glucose (other) 95 (70-99) mg/dl Calcium (8.5-10.1) mg/dl Phosphorus (2.5-4.9) mg/dl Magnesium (1.8-2.4) mg/dl Total Bilirubin (0.2-1) mg/dl Direct Bilirubin (0-0.2) mg/dl AST (15-37) U/L ALT (12-78) U/L Alkaline Phosphatase (45-117) U/L Total Protein (6.4-8.2) gm/dl Albumin (3.4-5.0) gm/dl Lipase (73-393) U/L Nasal Screen MRSA (PCR) (Negative) Random Vancomycin 19.9 mcg/ml Adenovirus (PCR) (NotDetected) B. pertussis DNA (PCR) (NotDetected) B.parapertussis DNA PCR (NotDetected) C. pneumoniae DNA (PCR) (NotDetected) Coronavirus OC43 (PCR) (NotDetected) Coronavirus HKU1 (PCR) (NotDetected) Coronavirus 229E (PCR) (NotDetected) COVID-19 PCR (NotDetected) Coronavirus NL63 (PCR) (NotDetected) Human Metapneumovir PCR (NotDetected) Influenza Type A (PCR) (NotDetected) Influenza Type B (PCR) (NotDetected) M. pneumoniae (PCR) (NotDetected) Parainfluenza 1 (PCR) (NotDetected) Parainfluenza 2 (PCR) (NotDetected) Parainfluenza 3 (PCR) (NotDetected) Parainfluenza 4 (PCR) (NotDetected) RSV (PCR) (NotDetected) Entero/Rhino (PCR) (NotDetected) Beta-(1,3)-D-Glucan B-(1,3)-D-Glucan Intrp 04/26/20 04/26/20 04/26/20 Range/Units 02:07 01:05 00:09 WBC (4.8-10.8) K/uL RBC (4.7-6.1) M/uL Hgb (14.0-18.0) g/dL Hct (42-52) % MCV (80-100) fL MCH (25-34) pg MCHC (32-36) g/dL RDW Std Deviation (36.4-46.3) fL RDW Coeff of Emiliano (11.5-14.5) % Plt Count (130-400) K/uL MPV (7.4-10.4) fL Immature Gran % (Auto) % Neut % (Auto) % Lymph % (Auto) % [place] % (Auto) % Eos % (Auto) % Baso % (Auto) % Neut # (Auto) (1.4-6.5) K/uL Lymph # (Auto) (1.2-3.4) K/uL [place] # (Auto) (0.11-0.59) K/uL Eos # (Auto) (0-0.5) K/uL Baso # (Auto) (0-0.2) K/uL Immature Gran # (Auto) (0.00-0.02) K/uL PT (9.0-12.0) Seconds INR (0.9-1.1) APTT (21.0-31.0) Seconds PTT Ratio Sample Site POC pH (7.35-7.45) POC pCO2 (35-46) mmHg POC pO2 (80-95) mmHg POC HCO3 (19-24) ghassan/L POC Total CO2 (24-31) mmol/L POC Base Excess (-9-1.8) ghassan/L POC ABG O2 Sat (90-95) % Davonte Test O2 Delivery Device POC O2 Rate POC FiO2 % Tidal Volume PEEP Sodium (136-145) mmol/L Potassium (3.5-5.1) mmol/L Chloride (98-107) mmol/L Carbon Dioxide (21-32) mmol/L Anion Gap (3-11) BUN (7-18) mg/dl Creatinine (0.6-1.4) mg/dl Est Cr Clr Drug Dosing ml/min Est GFR ( Amer) Est GFR (Non-Af Amer) BUN/Creatinine Ratio (10-20) Glucose (70-99) mg/dl POC Glucose (70-99) mg/dl POC Glucose (other) 85 100 H 101 H (70-99) mg/dl Calcium (8.5-10.1) mg/dl Phosphorus (2.5-4.9) mg/dl Magnesium (1.8-2.4) mg/dl Total Bilirubin (0.2-1) mg/dl Direct Bilirubin (0-0.2) mg/dl AST (15-37) U/L ALT (12-78) U/L Alkaline Phosphatase (45-117) U/L Total Protein (6.4-8.2) gm/dl Albumin (3.4-5.0) gm/dl Lipase (73-393) U/L Nasal Screen MRSA (PCR) (Negative) Random Vancomycin mcg/ml Adenovirus (PCR) (NotDetected) B. pertussis DNA (PCR) (NotDetected) B.parapertussis DNA PCR (NotDetected) C. pneumoniae DNA (PCR) (NotDetected) Coronavirus OC43 (PCR) (NotDetected) Coronavirus HKU1 (PCR) (NotDetected) Coronavirus 229E (PCR) (NotDetected) COVID-19 PCR (NotDetected) Coronavirus NL63 (PCR) (NotDetected) Human Metapneumovir PCR (NotDetected) Influenza Type A (PCR) (NotDetected) Influenza Type B (PCR) (NotDetected) M. pneumoniae (PCR) (NotDetected) Parainfluenza 1 (PCR) (NotDetected) Parainfluenza 2 (PCR) (NotDetected) Parainfluenza 3 (PCR) (NotDetected) Parainfluenza 4 (PCR) (NotDetected) RSV (PCR) (NotDetected) Entero/Rhino (PCR) (NotDetected) Beta-(1,3)-D-Glucan B-(1,3)-D-Glucan Intrp 04/25/20 04/25/20 04/25/20 Range/Units 23:06 22:05 21:06 WBC (4.8-10.8) K/uL RBC (4.7-6.1) M/uL Hgb (14.0-18.0) g/dL Hct (42-52) % MCV (80-100) fL MCH (25-34) pg MCHC (32-36) g/dL RDW Std Deviation (36.4-46.3) fL RDW Coeff of Emiliano (11.5-14.5) % Plt Count (130-400) K/uL MPV (7.4-10.4) fL Immature Gran % (Auto) % Neut % (Auto) % Lymph % (Auto) % [place] % (Auto) % Eos % (Auto) % Baso % (Auto) % Neut # (Auto) (1.4-6.5) K/uL Lymph # (Auto) (1.2-3.4) K/uL [place] # (Auto) (0.11-0.59) K/uL Eos # (Auto) (0-0.5) K/uL Baso # (Auto) (0-0.2) K/uL Immature Gran # (Auto) (0.00-0.02) K/uL PT (9.0-12.0) Seconds INR (0.9-1.1) APTT (21.0-31.0) Seconds PTT Ratio Sample Site POC pH (7.35-7.45) POC pCO2 (35-46) mmHg POC pO2 (80-95) mmHg POC HCO3 (19-24) ghassan/L POC Total CO2 (24-31) mmol/L POC Base Excess (-9-1.8) ghassan/L POC ABG O2 Sat (90-95) % Davonte Test O2 Delivery Device POC O2 Rate POC FiO2 % Tidal Volume PEEP Sodium (136-145) mmol/L Potassium (3.5-5.1) mmol/L Chloride (98-107) mmol/L Carbon Dioxide (21-32) mmol/L Anion Gap (3-11) BUN (7-18) mg/dl Creatinine (0.6-1.4) mg/dl Est Cr Clr Drug Dosing ml/min Est GFR ( Amer) Est GFR (Non-Af Amer) BUN/Creatinine Ratio (10-20) Glucose (70-99) mg/dl POC Glucose (70-99) mg/dl POC Glucose (other) 98 100 H 100 H (70-99) mg/dl Calcium (8.5-10.1) mg/dl Phosphorus (2.5-4.9) mg/dl Magnesium (1.8-2.4) mg/dl Total Bilirubin (0.2-1) mg/dl Direct Bilirubin (0-0.2) mg/dl AST (15-37) U/L ALT (12-78) U/L Alkaline Phosphatase (45-117) U/L Total Protein (6.4-8.2) gm/dl Albumin (3.4-5.0) gm/dl Lipase (73-393) U/L Nasal Screen MRSA (PCR) (Negative) Random Vancomycin mcg/ml Adenovirus (PCR) (NotDetected) B. pertussis DNA (PCR) (NotDetected) B.parapertussis DNA PCR (NotDetected) C. pneumoniae DNA (PCR) (NotDetected) Coronavirus OC43 (PCR) (NotDetected) Coronavirus HKU1 (PCR) (NotDetected) Coronavirus 229E (PCR) (NotDetected) COVID-19 PCR (NotDetected) Coronavirus NL63 (PCR) (NotDetected) Human Metapneumovir PCR (NotDetected) Influenza Type A (PCR) (NotDetected) Influenza Type B (PCR) (NotDetected) M. pneumoniae (PCR) (NotDetected) Parainfluenza 1 (PCR) (NotDetected) Parainfluenza 2 (PCR) (NotDetected) Parainfluenza 3 (PCR) (NotDetected) Parainfluenza 4 (PCR) (NotDetected) RSV (PCR) (NotDetected) Entero/Rhino (PCR) (NotDetected) Beta-(1,3)-D-Glucan B-(1,3)-D-Glucan Intrp 04/25/20 04/25/20 04/25/20 Range/Units 20:27 18:18 16:05 WBC (4.8-10.8) K/uL RBC (4.7-6.1) M/uL Hgb (14.0-18.0) g/dL Hct (42-52) % MCV (80-100) fL MCH (25-34) pg MCHC (32-36) g/dL RDW Std Deviation (36.4-46.3) fL RDW Coeff of Emiliano (11.5-14.5) % Plt Count (130-400) K/uL MPV (7.4-10.4) fL Immature Gran % (Auto) % Neut % (Auto) % Lymph % (Auto) % [place] % (Auto) % Eos % (Auto) % Baso % (Auto) % Neut # (Auto) (1.4-6.5) K/uL Lymph # (Auto) (1.2-3.4) K/uL [place] # (Auto) (0.11-0.59) K/uL Eos # (Auto) (0-0.5) K/uL Baso # (Auto) (0-0.2) K/uL Immature Gran # (Auto) (0.00-0.02) K/uL PT (9.0-12.0) Seconds INR (0.9-1.1) APTT (21.0-31.0) Seconds PTT Ratio Sample Site POC pH (7.35-7.45) POC pCO2 (35-46) mmHg POC pO2 (80-95) mmHg POC HCO3 (19-24) ghassan/L POC Total CO2 (24-31) mmol/L POC Base Excess (-9-1.8) ghassan/L POC ABG O2 Sat (90-95) % [place]onte Test O2 Delivery Device POC O2 Rate POC FiO2 % Tidal Volume PEEP Sodium (136-145) mmol/L Potassium (3.5-5.1) mmol/L Chloride (98-107) mmol/L Carbon Dioxide (21-32) mmol/L Anion Gap (3-11) BUN (7-18) mg/dl Creatinine (0.6-1.4) mg/dl Est Cr Clr Drug Dosing ml/min Est GFR ( Amer) Est GFR (Non-Af Amer) BUN/Creatinine Ratio (10-20) Glucose (70-99) mg/dl POC Glucose (70-99) mg/dl POC Glucose (other) 96 124 H 155 H (70-99) mg/dl Calcium (8.5-10.1) mg/dl Phosphorus (2.5-4.9) mg/dl Magnesium (1.8-2.4) mg/dl Total Bilirubin (0.2-1) mg/dl Direct Bilirubin (0-0.2) mg/dl AST (15-37) U/L ALT (12-78) U/L Alkaline Phosphatase (45-117) U/L Total Protein (6.4-8.2) gm/dl Albumin (3.4-5.0) gm/dl Lipase (73-393) U/L Nasal Screen MRSA (PCR) (Negative) Random Vancomycin mcg/ml Adenovirus (PCR) (NotDetected) B. pertussis DNA (PCR) (NotDetected) B.parapertussis DNA PCR (NotDetected) C. pneumoniae DNA (PCR) (NotDetected) Coronavirus OC43 (PCR) (NotDetected) Coronavirus HKU1 (PCR) (NotDetected) Coronavirus 229E (PCR) (NotDetected) COVID-19 PCR (NotDetected) Coronavirus NL63 (PCR) (NotDetected) Human Metapneumovir PCR (NotDetected) Influenza Type A (PCR) (NotDetected) Influenza Type B (PCR) (NotDetected) M. pneumoniae (PCR) (NotDetected) Parainfluenza 1 (PCR) (NotDetected) Parainfluenza 2 (PCR) (NotDetected) Parainfluenza 3 (PCR) (NotDetected) Parainfluenza 4 (PCR) (NotDetected) RSV (PCR) (NotDetected) Entero/Rhino (PCR) (NotDetected) Beta-(1,3)-D-Glucan B-(1,3)-D-Glucan Intrp 04/25/20 04/25/20 04/25/20 Range/Units 16:01 15:23 14:04 WBC (4.8-10.8) K/uL RBC (4.7-6.1) M/uL Hgb (14.0-18.0) g/dL Hct (42-52) % MCV (80-100) fL MCH (25-34) pg MCHC (32-36) g/dL RDW Std Deviation (36.4-46.3) fL RDW Coeff of Emiliano (11.5-14.5) % Plt Count (130-400) K/uL MPV (7.4-10.4) fL Immature Gran % (Auto) % Neut % (Auto) % Lymph % (Auto) % [place] % (Auto) % Eos % (Auto) % Baso % (Auto) % Neut # (Auto) (1.4-6.5) K/uL Lymph # (Auto) (1.2-3.4) K/uL [place] # (Auto) (0.11-0.59) K/uL Eos # (Auto) (0-0.5) K/uL Baso # (Auto) (0-0.2) K/uL Immature Gran # (Auto) (0.00-0.02) K/uL PT (9.0-12.0) Seconds INR (0.9-1.1) APTT (21.0-31.0) Seconds PTT Ratio Sample Site Art Line POC pH 7.53 H* (7.35-7.45) POC pCO2 29 L (35-46) mmHg POC pO2 61 L (80-95) mmHg POC HCO3 24 (19-24) ghassan/L POC Total CO2 25 (24-31) mmol/L POC Base Excess 1.0 (-9-1.8) ghassan/L POC ABG O2 Sat 94.0 (90-95) % [place]onte Test NA O2 Delivery Device Ventilator POC O2 Rate 22 POC FiO2 30 % Tidal Volume 450 PEEP 10 Sodium (136-145) mmol/L Potassium (3.5-5.1) mmol/L Chloride (98-107) mmol/L Carbon Dioxide (21-32) mmol/L Anion Gap (3-11) BUN (7-18) mg/dl Creatinine (0.6-1.4) mg/dl Est Cr Clr Drug Dosing ml/min Est GFR ( Amer) Est GFR (Non-Af Amer) BUN/Creatinine Ratio (10-20) Glucose (70-99) mg/dl POC Glucose 166 H 175 H (70-99) mg/dl POC Glucose (other) (70-99) mg/dl Calcium (8.5-10.1) mg/dl Phosphorus (2.5-4.9) mg/dl Magnesium (1.8-2.4) mg/dl Total Bilirubin (0.2-1) mg/dl Direct Bilirubin (0-0.2) mg/dl AST (15-37) U/L ALT (12-78) U/L Alkaline Phosphatase (45-117) U/L Total Protein (6.4-8.2) gm/dl Albumin (3.4-5.0) gm/dl Lipase (73-393) U/L Nasal Screen MRSA (PCR) (Negative) Random Vancomycin mcg/ml Adenovirus (PCR) (NotDetected) B. pertussis DNA (PCR) (NotDetected) B.parapertussis DNA PCR (NotDetected) C. pneumoniae DNA (PCR) (NotDetected) Coronavirus OC43 (PCR) (NotDetected) Coronavirus HKU1 (PCR) (NotDetected) Coronavirus 229E (PCR) (NotDetected) COVID-19 PCR (NotDetected) Coronavirus NL63 (PCR) (NotDetected) Human Metapneumovir PCR (NotDetected) Influenza Type A (PCR) (NotDetected) Influenza Type B (PCR) (NotDetected) M. pneumoniae (PCR) (NotDetected) Parainfluenza 1 (PCR) (NotDetected) Parainfluenza 2 (PCR) (NotDetected) Parainfluenza 3 (PCR) (NotDetected) Parainfluenza 4 (PCR) (NotDetected) RSV (PCR) (NotDetected) Entero/Rhino (PCR) (NotDetected) Beta-(1,3)-D-Glucan B-(1,3)-D-Glucan Intrp 04/25/20 04/25/20 04/25/20 Range/Units 12:59 12:04 10:25 WBC (4.8-10.8) K/uL RBC (4.7-6.1) M/uL Hgb (14.0-18.0) g/dL Hct (42-52) % MCV (80-100) fL MCH (25-34) pg MCHC (32-36) g/dL RDW Std Deviation (36.4-46.3) fL RDW Coeff of Emiliano (11.5-14.5) % Plt Count (130-400) K/uL MPV (7.4-10.4) fL Immature Gran % (Auto) % Neut % (Auto) % Lymph % (Auto) % [place] % (Auto) % Eos % (Auto) % Baso % (Auto) % Neut # (Auto) (1.4-6.5) K/uL Lymph # (Auto) (1.2-3.4) K/uL [place] # (Auto) (0.11-0.59) K/uL Eos # (Auto) (0-0.5) K/uL Baso # (Auto) (0-0.2) K/uL Immature Gran # (Auto) (0.00-0.02) K/uL PT (9.0-12.0) Seconds INR (0.9-1.1) APTT (21.0-31.0) Seconds PTT Ratio Sample Site POC pH (7.35-7.45) POC pCO2 (35-46) mmHg POC pO2 (80-95) mmHg POC HCO3 (19-24) ghassan/L POC Total CO2 (24-31) mmol/L POC Base Excess (-9-1.8) ghassan/L POC ABG O2 Sat (90-95) % Davonte Test O2 Delivery Device POC O2 Rate POC FiO2 % Tidal Volume PEEP Sodium (136-145) mmol/L Potassium (3.5-5.1) mmol/L Chloride (98-107) mmol/L Carbon Dioxide (21-32) mmol/L Anion Gap (3-11) BUN (7-18) mg/dl Creatinine (0.6-1.4) mg/dl Est Cr Clr Drug Dosing ml/min Est GFR ( Amer) Est GFR (Non-Af Amer) BUN/Creatinine Ratio (10-20) Glucose (70-99) mg/dl POC Glucose 191 H 208 H (70-99) mg/dl POC Glucose (other) (70-99) mg/dl Calcium (8.5-10.1) mg/dl Phosphorus (2.5-4.9) mg/dl Magnesium (1.8-2.4) mg/dl Total Bilirubin (0.2-1) mg/dl Direct Bilirubin (0-0.2) mg/dl AST (15-37) U/L ALT (12-78) U/L Alkaline Phosphatase (45-117) U/L Total Protein (6.4-8.2) gm/dl Albumin (3.4-5.0) gm/dl Lipase (73-393) U/L Nasal Screen MRSA (PCR) (Negative) Random Vancomycin mcg/ml Adenovirus (PCR) Not Detected (NotDetected) B. pertussis DNA (PCR) Not Detected (NotDetected) B.parapertussis DNA PCR Not Detected (NotDetected) C. pneumoniae DNA (PCR) Not Detected (NotDetected) Coronavirus OC43 (PCR) Not Detected (NotDetected) Coronavirus HKU1 (PCR) Not Detected (NotDetected) Coronavirus 229E (PCR) Not Detected (NotDetected) COVID-19 PCR DETECTED A* (NotDetected) Coronavirus NL63 (PCR) Not Detected (NotDetected) Human Metapneumovir PCR Not Detected (NotDetected) Influenza Type A (PCR) Not Detected (NotDetected) Influenza Type B (PCR) Not Detected (NotDetected) M. pneumoniae (PCR) Not Detected (NotDetected) Parainfluenza 1 (PCR) Not Detected (NotDetected) Parainfluenza 2 (PCR) Not Detected (NotDetected) Parainfluenza 3 (PCR) Not Detected (NotDetected) Parainfluenza 4 (PCR) Not Detected (NotDetected) RSV (PCR) Not Detected (NotDetected) Entero/Rhino (PCR) Not Detected (NotDetected) Beta-(1,3)-D-Glucan B-(1,3)-D-Glucan Intrp 04/25/20 04/25/20 04/25/20 Range/Units 10:25 10:24 10:15 WBC (4.8-10.8) K/uL RBC (4.7-6.1) M/uL Hgb (14.0-18.0) g/dL Hct (42-52) % MCV (80-100) fL MCH (25-34) pg MCHC (32-36) g/dL RDW Std Deviation (36.4-46.3) fL RDW Coeff of Emiliano (11.5-14.5) % Plt Count (130-400) K/uL MPV (7.4-10.4) fL Immature Gran % (Auto) % Neut % (Auto) % Lymph % (Auto) % [place] % (Auto) % Eos % (Auto) % Baso % (Auto) % Neut # (Auto) (1.4-6.5) K/uL Lymph # (Auto) (1.2-3.4) K/uL [place] # (Auto) (0.11-0.59) K/uL Eos # (Auto) (0-0.5) K/uL Baso # (Auto) (0-0.2) K/uL Immature Gran # (Auto) (0.00-0.02) K/uL PT (9.0-12.0) Seconds INR (0.9-1.1) APTT (21.0-31.0) Seconds PTT Ratio Sample Site POC pH (7.35-7.45) POC pCO2 (35-46) mmHg POC pO2 (80-95) mmHg POC HCO3 (19-24) ghassan/L POC Total CO2 (24-31) mmol/L POC Base Excess (-9-1.8) ghassan/L POC ABG O2 Sat (90-95) % [place]onte Test O2 Delivery Device POC O2 Rate POC FiO2 % Tidal Volume PEEP Sodium (136-145) mmol/L Potassium (3.5-5.1) mmol/L Chloride (98-107) mmol/L Carbon Dioxide (21-32) mmol/L Anion Gap (3-11) BUN (7-18) mg/dl Creatinine (0.6-1.4) mg/dl Est Cr Clr Drug Dosing ml/min Est GFR ( Amer) Est GFR (Non-Af Amer) BUN/Creatinine Ratio (10-20) Glucose (70-99) mg/dl POC Glucose 228 H (70-99) mg/dl POC Glucose (other) (70-99) mg/dl Calcium (8.5-10.1) mg/dl Phosphorus (2.5-4.9) mg/dl Magnesium (1.8-2.4) mg/dl Total Bilirubin (0.2-1) mg/dl Direct Bilirubin (0-0.2) mg/dl AST (15-37) U/L ALT (12-78) U/L Alkaline Phosphatase (45-117) U/L Total Protein (6.4-8.2) gm/dl Albumin (3.4-5.0) gm/dl Lipase (73-393) U/L Nasal Screen MRSA (PCR) Negative (Negative) Random Vancomycin mcg/ml Adenovirus (PCR) (NotDetected) B. pertussis DNA (PCR) (NotDetected) B.parapertussis DNA PCR (NotDetected) C. pneumoniae DNA (PCR) (NotDetected) Coronavirus OC43 (PCR) (NotDetected) Coronavirus HKU1 (PCR) (NotDetected) Coronavirus 229E (PCR) (NotDetected) COVID-19 PCR (NotDetected) Coronavirus NL63 (PCR) (NotDetected) Human Metapneumovir PCR (NotDetected) Influenza Type A (PCR) (NotDetected) Influenza Type B (PCR) (NotDetected) M. pneumoniae (PCR) (NotDetected) Parainfluenza 1 (PCR) (NotDetected) Parainfluenza 2 (PCR) (NotDetected) Parainfluenza 3 (PCR) (NotDetected) Parainfluenza 4 (PCR) (NotDetected) RSV (PCR) (NotDetected) Entero/Rhino (PCR) (NotDetected) Beta-(1,3)-D-Glucan Pending B-(1,3)-D-Glucan Intrp Pending Coding Level of Care Code Critical Care 1st 30-74 mins Diagnoses ARF (acute respiratory failure) J96.00 Respiratory failure complication: unspecified whether with hypoxia or hypercapnia Sepsis A41.9 Pneumonia J18.9 COVID-19 U07.1 Anemia D64.9 Acute hypoxemic respiratory failure J96.01 Hypertension I10 Hypertension type: essential hypertension History of DVT (deep vein thrombosis) Z86.718 S/P arteriovenous (AV) fistula creation Z98.890 Type 2 diabetes mellitus E11.69 Diabetes mellitus complication status: with other specified complication Diabetes mellitus manager terminal insulin use: without manager terminal use Multiple sclerosis G35 ESRD (end stage renal disease) on dialysis N18.6; Z99.2 Time Spent (min) 55 (1) ARF (acute respiratory failure) Respiratory failure complication: unspecified whether with hypoxia or hy percapnia Qualified Code(s): J96.00 - Acute respiratory failure, unspecified whether with hypoxia or hypercapnia (2) Type 2 diabetes mellitus Diabetes mellitus complication status: with other specified complication Diabetes mellitus manager terminal insulin use: without fdc use Qualified Code(s): E11.69 - Type 2 diabetes mellitus with other specified complication (3) Hypertension Hypertension type: essential hypertension Qualified Code(s): I10 - Essential (primary) hypertension
[2020-04-26] MEDS: ENOXAPARIN 100 MG/1ML SYR SQ SCH (08:29)
[2020-04-26] MEDS: DEXAMETHASONE SOD PHOSPHATE 4 MG in SYRINGE 0 ML IV SCH (08:30)
[2020-04-26] MEDS ORDERED: EPOETIN ALFA 10,000 UNITS/ML VIAL IV ONE (08:48)
[2020-04-26] MEDS ORDERED: SODIUM CHLORIDE 0.9% 1000ML 1,000 ML IV PRN (08:48)
[2020-04-26] MEDS ORDERED: HEPARIN SOD (PORCINE) 1000 UNIT/ML 10 ML VIAL IV ONE (08:48)
[2020-04-26] MEDS ORDERED: FAMOTIDINE 20 MG in SYRINGE 3 ML IV SCH (09:00)
[2020-04-26] MEDS ORDERED: EPOETIN ALFA 14,000 UNITS in SYRINGE 0 ML IV SCH (09:00)
[2020-04-26] MEDS: INSULIN REGULAR 250 UNITS in SODIUM CHLORIDE 0.9% 247.5 ML IV SCH (09:06)
[2020-04-26] MEDS: INSULIN ASPART 100 UNITS/ML 3 ML PEN SC SCH ×4 (09:06→21:33)
[2020-04-26] MEDS: DOXYCYCLINE HYCLATE 100 MG in DEXTROSE 5% 100 ML IV SCH (09:37)
--- NOTE | 2020-04-26 09:42 | Nephrology Progress Note ---
Date of Service April 26, 2020 Assessment & Plan (1) ESRD (end stage renal disease) on dialysis: on MWF HD; thi >this is not volume overload so much as mucous plugging/ consolidative process driving respiratory failure; chemistries acceptable; sNa reflects excess fluid most likely >for HD today; goal 3L UF as tolerated; fairly aggressive heparin dosing on tx, since C19 pts often have clotting issues; for epo as well (2) Collapse of right lung: per critical care team; aeration improving on imaging today; not needing proning therapy todate (3) COVID-19: per critical care and primary service ; not a remdesivir candidate; already had convalescent plasma (4) Multiple sclerosis: neuro following; palliative care eval noted > pt wishes to continue aggressive/ full code care -stopped teriflunomide given that he is getting steroids and per neuro recs >> plan to reconsider disease modifying tx post d/c and once acute respiratory failure resolved; needs OP MRI brain, C spine, and outside records -neuro does not believe acute respiratory failure relates to MS Admission and Anticipated Discharge Date Admission Date: April 25, 2020 Subjective labs and pt status reviewed this am; extubated and alert/interactive as of this am; tolerated HD with 3L UF; on RA earlier but back to high flow now.evaluated pt this am and again on evenign rounds Review of Systems Review of Systems: All systems reviewed & are unremarkable except as noted in HPI & below Constitutional: + increased appetite; no fever Respiratory: + cough (productive); no dyspnea Gastrointestinal: no abdominal pain, no nausea and no vomiting Psychiatric: no depression and no confusion Physical Exam Physical Exam: full physical exam deferred d/t need to preserve PPE and minimize exposure to pt in iso for C19; pls refer to full PE on critical care note Eyes: EOM intact bilaterally Respiratory: no labored breathing and no cough Neurologic: fluent speech, cognition intact Psychiatric: Orientation: alert and oriented x 3 Results & Data ([facility]) Vital Signs (Past 12 Hours) Vital Signs Temp Pulse Pulse Resp BP Pulse Ox 04/26/20 08:10 59 L 19 93 04/26/20 07:40 56 L 18 94 04/26/20 06:00 36.6 C 54 L 93 04/26/20 05:21 36.6 C 54 L 97 04/26/20 05:20 36.6 C 54 L 15 174/72 H 98 04/26/20 04:00 36.6 C 49 L 98 04/26/20 03:20 36.6 C 52 L 144/62 H 97 04/26/20 02:21 36.5 C 50 L 98 04/26/20 02:20 36.5 C 51 L 152/67 H 98 04/26/20 02:00 36.4 C L 63 97 04/26/20 01:20 36.4 C L 48 L 120/60 99 04/26/20 01:00 36.4 C L 47 L 99 04/26/20 00:21 36.5 C 47 L 99 04/26/20 00:20 36.5 C 46 L 128/60 99 04/26/20 00:00 36.5 C 47 L 98 04/25/20 23:20 36.6 C 48 L 123/64 97 04/25/20 22:38 48 L 13 98 04/25/20 22:19 36.8 C 48 L 130/61 100 04/25/20 22:00 36.8 C 49 L 100 Laboratory Results 04/26/20 04:50 04/26/20 04:50 Diagnostic Findings cxr today 1. Satisfactory support line placement. 2. Right greater than left basilar airspace opacities are again noted. This is consistent with pneumonia.
[2020-04-26] MEDS: AMPICILLIN/SULBACTAM SOD 3,000 MG in 0.9 % SODIUM CHLORIDE 100 ML IV SCH ×2 (10:56→23:02)
--- NOTE | 2020-04-26 11:23 | Palliative Care Progress Note ---
Date of Service April 26, 2020 Assessment & Plan (1) Palliative care encounter: I met with Ruel in his room to discuss goals of care. He does not recall indicating that he would want full resuscitation when asked yesterday but does confirm that would be his wish. We discussed his current status and concern for aspiration. We discussed the impact that covid 19 infection has had on his already compromised status with MS and ESRD. When asked about whether there was any care or interventions that he would consider unacceptable he said that there were not. If he would need to be re-intubated, he is in agreement with this or any other interventions necessary at this point. He is aware that his prognosis would be poor if he were to require re-intubation. He is clear that he would want his sister, Brina, , to be his surrogate decision maker in addition to his friend, Yovani Pelayo, )[phone]. I spoke with Brina on the phone and updated her on his current status. She tells me that in the past he has said that he would not want to be kept alive on machines but is not surprised by his current wishes. She is comfortable with being his surrogate if he is unable to make decisions. She notes that he has an estranged and children in [place]. However, with his designation, Brina would be the decision maker. (2) COVID-19: (3) Acute hypoxemic respiratory failure: (4) Multiple sclerosis: (5) ESRD (end stage renal disease) on dialysis: Admission and Anticipated Discharge Date Admission Date: April 25, 2020 Subjective Ruel is awake and alert. He was successfully extubated this morning. He had improvement in right lung consolidation. He is asking for breakfast. A speech and swallowing evaluation is pending to rule out aspiration. He has no complaints of pain, dyspnea or anxiety. Review of Systems Constitutional: + sweats [place] Symptom Assessment Scale Pain 0/3 Dyspnea 1/3, using O2 Delirium 0/3 Nausea 0/3 Anxiety 0/3 Physical Exam Constitutional: no acute distress Respiratory: no labored breathing Neurologic: awake; not confused Psychiatric: Orientation: alert and oriented x 3 Thought Process: clear/coherent thought process Results & Data ([facility]) Vital Signs (Past 12 Hours) Vital Signs Temp Pulse Pulse Resp BP Pulse Ox 04/26/20 10:54 65 18 94 10/30/20 08:10 59 L 19 93 04/26/20 07:40 56 L 18 94 04/26/20 06:00 97.9 F 54 L 93 04/26/20 05:21 97.9 F 54 L 97 04/26/20 05:20 97.9 F 54 L 15 174/72 H 98 04/26/20 04:00 97.9 F 49 L 98 04/26/20 03:20 97.9 F 52 L 144/62 H 97 04/26/20 02:21 97.7 F 50 L 98 04/26/20 02:20 97.7 F 51 L 152/67 H 98 04/26/20 02:00 97.5 F L 63 97 04/26/20 01:20 97.5 F L 48 L 120/60 99 04/26/20 01:00 97.5 F L 47 L 99 04/26/20 00:21 97.7 F 47 L 99 04/26/20 00:20 97.7 F 46 L 128/60 99 04/26/20 00:00 97.7 F 47 L 98 04/25/20 23:20 97.9 F 48 L 123/64 97 PG Care Time/CCT Total # of Minutes Spent Total Time Spent with Patient: Total time spent is greater than 50% in coordination of care (as documented) at patient's floor/unit and/or counseling patient:72 minutes with more than 50% of time spent on coordination of care with ICU team, discussion of prognosis, goals of care and family discussion. Coding Level of Care Code 64581 Subseq Hosp Care Lvl 3 Diagnoses Palliative care encounter Z51.5 COVID-19 U07.1 Acute hypoxemic respiratory failure J96.01 Multiple sclerosis G35 ESRD (end stage renal disease) on dialysis N18.6; Z99.2 Time Spent (min) 72 Comment [id number]
[2020-04-26] MEDS ORDERED: guaiFENesin/DEXTROM SYRUP 100MG/10MG 5ML UDC PO PRN (12:54)
[2020-04-26] MEDS: HEPARIN SOD (PORCINE) 1000 UNIT/ML 10 ML VIAL IV SCH (13:09)
[2020-04-26] MEDS: ARIPiprazole 15 MG TAB PO SCH (13:31)
[2020-04-26] MEDS: GABAPENTIN 100 MG CAP PO SCH ×2 (13:31→19:54)
[2020-04-26] MEDS: amLODIPine BESYLATE 5 MG TAB PO SCH (13:32)
[2020-04-26] MEDS ORDERED: CASPOFUNGIN 50 MG in SODIUM CHLORIDE 0.9% 250 ML IV SCH (14:00)
[2020-04-26] MEDS: rOPINIRole HCL 0.25 MG TABLET PO SCH (15:07)
[2020-04-26] MEDS: CALCIUM ACETATE 667 MG CAP/TAB PO SCH (16:09)
--- NOTE | 2020-04-26 19:11 | Electrocardiogram Report ---
Test Reason : Blood Pressure : / mmHG Vent. Rate : 067 BPM Atrial Rate : 067 BPM P-R Int : 200 ms QRS Dur : 086 ms QT Int : 408 ms P-R-T Axes : 021 012 053 degrees QTc Int : 431 ms Normal sinus rhythm Normal ECG When compared with ECG of 12-APR-2020 08:28, ST no longer depressed in Anterior leads Confirmed by Alban Jones ([id number]) on 04/26/2020 7:10:29 PM Referred By: Dionna Mayfield Confirmed By:Alban Jones
[2020-04-26] MEDS: guaiFENesin 600 MG TABCR PO SCH (19:53)
[2020-04-26] MEDS: FLUoxetine HCL 20 MG CAP PO SCH (19:54)
[2020-04-26] MEDS: traZODone HCL 100 MG TAB PO SCH (19:54)
[2020-04-26] MEDS ORDERED: APIXABAN 5 MG TABLET PO SCH (21:00)
--- NOTE | 2020-04-26 21:30 | Hospitalist Progress Note ---
Date of Service April 26, 2020 Assessment & Plan (1) Pneumonia due to COVID-19 virus: Remains on Decadron but this is being weaned at this time. Previously received plasma during first admission earlier this month. Was never a remdesivir candidate due to ESRD status. Initial diagnosis made at [facility] about April 02. Cont airborne precautions and supportive care. Appreciate [facility] assistance. (2) Sepsis: 2nd to right-sided pneumonia in the face of recovering COVID-19 infection. Hemodynamically stable at this time. (3) Collapse of right lung: Resolving/improved clinically and radiographically. Did not need bronch to improve this issue. s/p intubation/mech ventilation and now successfully extubated to high-flow NC. needs aggressive pulmonary toilet. likely large mucous plug caused such; cannot rule out an endobronchial lesion. again not a good candidate at this time for invasive bronch. (4) ESRD (end stage renal disease) on dialysis: Dialysis on Wednesday, Wednesday, Wednesday Appreciate nephrology assistance (5) Multiple sclerosis: Holding teriflunomide. Seen by [facility]rology - MS felt NOT contributing to current respiratory state. (6) Acute hypoxemic respiratory failure: 2nd to right lung collapse, right sided pneumonia, COVID-19. Right-sided pneumonia - likely bacterial, cannot rule out fungal - defer abx selection to [facility]. cultures thus far negative. (7) History of DVT (deep vein thrombosis): eliquis 5mg BID (8) Hypertension: cont amlodipine (9) Thrombocytopenia: appears chronic follow w/ serial labs ITP?? (10) Type 2 diabetes mellitus: ICU pharmacy glycemic protocol (11) Asthma: questionable history will need f/u with pulmonary for this on the outpatient side (12) Depression: cont usual meds (13) Hyponatremia: 2nd to ESRD, "pseudo"hypontremia from high glucose, etc Na now 135 today (14) DVT prophylaxis: eliquis likely to PCU tomorrow appreciate palliative care assistance Admission and Anticipated Discharge Date Admission Date: April 25, 2020 Subjective events of last 24 hours noted. patient was extubated from the vent this am and transitioned to high-flow NC. I discussed the patient's care with bedside nursing and the ICU attending. nursing reports he is refusing SC insulin. telemetry and BPs wnl. Review of Systems Review of Systems: ROS not obtained - please refer to ICU attending documentation for expanded history/ROS Physical Exam Physical Exam: deferred due to previous intubated status / ICU status please refer to ICU attending physical exam documentation Results & Data Results & Data ([facility]) Vital Signs (Past 12 Hours) Vital Signs Temp Pulse Pulse Resp BP BP Pulse Ox 04/26/20 19:40 79 23 97 04/26/20 18:20 91 H 24 161/89 H 93 04/26/20 18:00 84 32 H 93 04/26/20 17:20 87 21 183/75 H 92 04/26/20 15:45 36.6 C 72 188/61 H 04/26/20 15:20 91 H 26 H 164/101 H 93 04/26/20 15:00 88 184/71 H 04/26/20 14:40 87 164/68 H 04/26/20 14:20 95 H 20 161/90 H 89 L 04/26/20 14:00 92 H 160/60 H 04/26/20 13:40 93 H 172/86 H 04/26/20 13:20 35.1 C L 85 18 172/86 H 91 04/26/20 13:00 84 156/59 H 04/26/20 12:40 82 178/62 H 04/26/20 12:21 36.4 C L 73 15 166/84 H 92 04/26/20 12:20 73 205/64 H 04/26/20 12:00 76 193/61 H 04/26/20 11:40 63 190/58 H 04/26/20 11:20 36.5 C 66 19 166/83 H 91 04/26/20 10:55 36.6 C 65 04/26/20 10:54 65 18 94 04/26/20 10:20 36.5 C 57 L 13 176/75 H 95 Laboratory Results Laboratory Results - last 24 hr 04/25/20 04/25/20 04/25/20 21:06 22:05 23:06 WBC RBC Hgb Hct MCV MCH MCHC RDW Std Deviation RDW Coeff of Emiliano Plt Count MPV Immature Gran % (Auto) Neut % (Auto) Lymph % (Auto) [place] % (Auto) Eos % (Auto) Baso % (Auto) Neut # (Auto) Lymph # (Auto) [place] # (Auto) Eos # (Auto) Baso # (Auto) Immature Gran # (Auto) PT INR APTT PTT Ratio Sodium Potassium Chloride Carbon Dioxide Anion Gap BUN Creatinine Est Cr Clr Drug Dosing Est GFR ( Amer) Est GFR (Non-Af Amer) BUN/Creatinine Ratio Glucose POC Glucose POC Glucose (other) 100 H 100 H 98 Calcium Phosphorus Magnesium Total Bilirubin Direct Bilirubin AST ALT Alkaline Phosphatase Total Protein Albumin Lipase Random Vancomycin 04/26/20 04/26/20 04/26/20 00:09 01:05 02:07 WBC RBC Hgb Hct MCV MCH MCHC RDW Std Deviation RDW Coeff of Emiliano Plt Count MPV Immature Gran % (Auto) Neut % (Auto) Lymph % (Auto) [place] % (Auto) Eos % (Auto) Baso % (Auto) Neut # (Auto) Lymph # (Auto) [place] # (Auto) Eos # (Auto) Baso # (Auto) Immature Gran # (Auto) PT INR APTT PTT Ratio Sodium Potassium Chloride Carbon Dioxide Anion Gap BUN Creatinine Est Cr Clr Drug Dosing Est GFR ( Amer) Est GFR (Non-Af Amer) BUN/Creatinine Ratio Glucose POC Glucose POC Glucose (other) 101 H 100 H 85 Calcium Phosphorus Magnesium Total Bilirubin Direct Bilirubin AST ALT Alkaline Phosphatase Total Protein Albumin Lipase Random Vancomycin 04/26/20 04/26/20 04/26/20 03:20 04:50 04:50 WBC 8.32 RBC 3.37 L Hgb 9.6 L Hct 30.5 L MCV 90.5 MCH 28.5 MCHC 31.5 L RDW Std Deviation 50.0 H RDW Coeff of Emiliano 15.0 H Plt Count 101 L MPV 9.8 Immature Gran % (Auto) 0.5 Neut % (Auto) 87.8 Lymph % (Auto) 5.5 [place] % (Auto) 6.0 Eos % (Auto) 0.1 Baso % (Auto) 0.1 Neut # (Auto) 7.30 H Lymph # (Auto) 0.46 L [place] # (Auto) 0.50 Eos # (Auto) 0.01 Baso # (Auto) 0.01 Immature Gran # (Auto) 0.04 H PT INR APTT PTT Ratio Sodium Potassium Chloride Carbon Dioxide Anion Gap BUN Creatinine Est Cr Clr Drug Dosing Est GFR ( Amer) Est GFR (Non-Af Amer) BUN/Creatinine Ratio Glucose POC Glucose POC Glucose (other) 95 Calcium Phosphorus Magnesium Total Bilirubin Direct Bilirubin AST ALT Alkaline Phosphatase Total Protein Albumin Lipase Random Vancomycin 19.9 04/26/20 04/26/20 04/26/20 04:50 04:50 08:41 WBC RBC Hgb Hct MCV MCH MCHC RDW Std Deviation RDW Coeff of Emiliano Plt Count MPV Immature Gran % (Auto) Neut % (Auto) Lymph % (Auto) [place] % (Auto) Eos % (Auto) Baso % (Auto) Neut # (Auto) Lymph # (Auto) [place] # (Auto) Eos # (Auto) Baso # (Auto) Immature Gran # (Auto) PT 12.6 H INR 1.2 H APTT 36.2 H PTT Ratio 1.3 Sodium 130 L Potassium 4.2 Chloride 94 L Carbon Dioxide 25 Anion Gap 11.0 BUN 65 H Creatinine 6.52 H* D Est Cr Clr Drug Dosing 15.9 Est GFR ( Amer) 10.4 Est GFR (Non-Af Amer) 8.9 BUN/Creatinine Ratio 10.2 Glucose 102 H POC Glucose 114 H POC Glucose (other) Calcium 8.3 L Phosphorus 4.1 D Magnesium 2.2 Total Bilirubin 0.6 Direct Bilirubin 0.1 AST 6 L ALT 16 Alkaline Phosphatase 56 Total Protein 6.0 L Albumin 2.6 L Lipase 48 L Random Vancomycin 04/26/20 04/26/20 04/26/20 12:41 15:27 20:16 WBC RBC Hgb Hct MCV MCH MCHC RDW Std Deviation RDW Coeff of Emiliano Plt Count MPV Immature Gran % (Auto) Neut % (Auto) Lymph % (Auto) [place] % (Auto) Eos % (Auto) Baso % (Auto) Neut # (Auto) Lymph # (Auto) [place] # (Auto) Eos # (Auto) Baso # (Auto) Immature Gran # (Auto) PT INR APTT PTT Ratio Sodium Potassium Chloride Carbon Dioxide Anion Gap BUN Creatinine Est Cr Clr Drug Dosing Est GFR ( Amer) Est GFR (Non-Af Amer) BUN/Creatinine Ratio Glucose POC Glucose 117 H 101 H 171 H POC Glucose (other) Calcium Phosphorus Magnesium Total Bilirubin Direct Bilirubin AST ALT Alkaline Phosphatase Total Protein Albumin Lipase Random Vancomycin PG Care Time/CCT Total # of Minutes Spent Total Time Spent with Patient: Total time spent is greater than 50% in coordination of care (as documented) at patient's floor/unit and/or counseling patient: Coding Level of Care Code 15144 Subseq Hosp Care Lvl 1 Diagnoses Pneumonia due to COVID-19 virus U07.1; J12.89 Sepsis A41.9; R65.20; J96.01 Sepsis type: sepsis due to unspecified organism Sepsis acute organ dysfunction status: with acute organ dysfunction Severe sepsis acute organ dysfunction type: acute respiratory failure Acute respiratory failure type: with hypoxia Severe sepsis shock status: without septic shock Collapse of right lung J98.11 ESRD (end stage renal disease) on dialysis N18.6; Z99.2 Multiple sclerosis G35 Acute hypoxemic respiratory failure J96.01 History of DVT (deep vein thrombosis) Z86.718 Hypertension I10 Hypertension type: essential hypertension Thrombocytopenia D69.6 Type 2 diabetes mellitus E11.69 Diabetes mellitus manager intermediate insulin use: without manager intermediate use Diabetes mellitus complication status: with other specified complication Asthma J45.901 Asthma severity: unspecified severity Asthma persistence: unspecified Asthma complication type: with acute exacerbation Depression F32.9 Depression Type: unspecified Hyponatremia E87.1 DVT prophylaxis Z29.9 (1) Sepsis Sepsis type: sepsis due to unspecified organism Sepsis acute organ dysfunction status: with acute organ dysfunction Severe sepsis acute organ dysfunction type: acute respiratory failure Acute respiratory failure type: with hypoxia Severe sepsis shock status: without septic shock Qualified Code(s): A41.9 - Sepsis, unspecified organism; R65.20 - Severe sepsis without septic shock; J96.01 - Acute respiratory failure with hypoxia (2) Hypertension Hypertension type: essential hypertension Qualified Code(s): I10 - Essential (primary) hypertension (3) Type 2 diabetes mellitus Diabetes mellitus manager intermediate insulin use: without long-term use Diabetes mellitus complication status: with other specified complication Qualified Code(s): E11.69 - Type 2 diabetes mellitus with other specified complication (4) Asthma Asthma severity: unspecified severity Asthma persistence: unspecified Asthma complication type: with acute exacerbation Qualified Code(s): J45.901 - Unspecified asthma with (acute) exacerbation (5) Depression Depression Type: unspecified Qualified Code(s): F32.9 - Major depressive disorder, single episode, unspecified
[2020-04-27] MEDS: INSULIN ASPART 100 UNITS/ML 3 ML PEN SC SCH ×6 (00:50→21:42)
[2020-04-27 04:37] LABS: Hematocrit (blood only) 28.8 % (42-52); Hemoglobin 8.6 g/dL (14.0-18.0); Mean Corpuscular Hemoglobin 27.6 pg (25-34); Mean Corpuscular Hgb Conc 29.9 g/dL (32-36); Mean Corpuscular Volume 92.3 fL (80-100); RDW Coefficient of Variation 15.1 % (11.5-14.5); Red Blood Count 3.12 M/uL (4.7-6.1); White Blood Count 5.14 K/uL (4.8-10.8)
[2020-04-27 04:45] LABS: INR 1.5 (0.9-1.1); Partial Thromboplastin Ratio 1.3; Partial Thromboplastin Time 35.3 Seconds (21.0-31.0); Prothrombin Time 15.3 Seconds (9.0-12.0)
[2020-04-27 05:03] LABS: Eosinophils # (auto) 0.03 K/uL (0-0.5); Eosinophils % (auto) 0.6 %; Immature Granulocytes # (auto) 0.03 K/uL (0.00-0.02); Immature Granulocytes % (auto) 0.6 %; Lymphocytes # (auto) 0.68 K/uL (1.2-3.4); Lymphocytes % (auto) 13.2 %; Monocytes # (auto) 0.61 K/uL (0.11-0.59); Monocytes % (auto) 11.9 %; Neutrophils # (auto) 3.79 K/uL (1.4-6.5); Neutrophils % (auto) 73.7 %; Platelet Count 87 K/uL (130-400); Platelet Estimate Decreased (Normal)
[2020-04-27 05:10] LABS: Albumin Level 2.4 gm/dl (3.4-5.0); BUN Creatinine Ratio 8.4 (10-20); Bilirubin Direct 0.1 mg/dl (0-0.2); Bilirubin,Total 0.5 mg/dl (0.2-1); Creatinine Clr Calc Pharmacy 24.1 ml/min; Est GFR (African American) 17.4; Phosphorus 3.2 mg/dl (2.5-4.9); Potassium 3.6 mmol/L (3.5-5.1); Total Protein 5.4 gm/dl (6.4-8.2)
[2020-04-27] MEDS: CALCIUM ACETATE 667 MG CAP/TAB PO SCH ×3 (08:46→16:33)
[2020-04-27] MEDS: GABAPENTIN 100 MG CAP PO SCH ×3 (08:46→21:24)
[2020-04-27] MEDS: rOPINIRole HCL 0.25 MG TABLET PO SCH ×2 (08:46→16:33)
[2020-04-27] MEDS: DEXAMETHASONE SOD PHOSPHATE 4 MG in SYRINGE 0 ML IV SCH (08:47)
[2020-04-27] MEDS: amLODIPine BESYLATE 5 MG TAB PO SCH (08:48)
[2020-04-27] MEDS: TAMSULOSIN HCL 0.4 MG CAP PO SCH (08:48)
[2020-04-27] MEDS: APIXABAN 5 MG TABLET PO SCH ×2 (08:48→21:23)
[2020-04-27] MEDS: guaiFENesin 600 MG TABCR PO SCH ×2 (08:49→21:22)
[2020-04-27] MEDS: ARIPiprazole 15 MG TAB PO SCH (08:49)
[2020-04-27] MEDS ORDERED: FAMOTIDINE 20 MG TAB PO SCH (09:00)
--- NOTE | 2020-04-27 09:58 | XRay Report ---
SINGLE VIEW CHEST CLINICAL HISTORY: Extubation. FINDINGS: An AP, portable, upright chest radiograph is compared to chest x-ray dated 04/26/2020 and c orrelated with chest CT performed 04/25/2020. The examination is degraded by portable technique and p atient rotation. Endotracheal and enteric tubes have been removed. A right subclavian central venous catheter is unchanged in position. The cardiomediastinal silhouette is unremarkable. There is persist ent elevation of the right hemidiaphragm with mild bibasilar consolidation. Small pleural effusions a re noted. No pneumothorax is seen. The bony thorax is grossly intact. Cholecystectomy clips are seen in the right upper quadrant. IMPRESSION: 1. The endotracheal and enteric tubes have been removed. 2. Right basilar consolidation and small pleural effusions persist. ACT 112: Negative or not required by law. Electronically signed by: James Lucero M.D. 04/27/2020 9:57 AM
--- NOTE | 2020-04-27 11:28 | Critical Care Progress Note ---
Date of Service April 27, 2020 Assessment & Plan (1) Admitted to intensive care unit: -- Acute Hypoxic respiratory failure Right-sided multilobar pneumonia along with mucous plugging on top of COVID-19 Patient was successfully extubated on 04/26/2020 Patient even had mucus plugging removal as well as bronchoscopy done on this admission when he was intubated. Continue with antibiotics. Will DC antifungal. Follow-up cultures. For COVID-19 patient is not a candidate for remdesivir given end-stage renal disease Patient has been Covid 19+ since 04/12/2020 Complete total 10 days of dexamethasone. No indication for convalescent plasma right now Incentive spirometry, flutter valve and Mucinex to help with the clearance of phlegm. --History of MS On Teriflunamide as outpatient Currently on hold There was thought process the patient might have underlying muscular involvement as well. Neurology does not think so. --Thrombocytopenia Etiology is unclear. No clear signs of bleeding Would monitor Would stop anticoagulation the platelets are less than 50 --Diabetes type 2 Patient states he is resistant to insulin And blood sugar has been fairly controlled Continue with ICU hyperglycemia protocol --Hypertension On amlodipine at home Needs better control. --End-stage renal disease On hemodialysis Nephrology following --History of DVT On apixaban at home --Anemia Monitor H&H Transfuse if hemoglobin less than 7 --Prophylaxis VTE: Apixaban GI: Pepcid Lines: Right subclavian, right radial A-line Diet: Cardiorenal Plan: Can DC high flow. Keep O2 saturation around 92%. If needed can give nasal cannula. I do think patient will benefit from BiPAP 12/6 nightly if he is able to tolerate it. Incentive spirometry and flutter valve along with Mucinex DC caspofungin. Continue with Unasyn for total of 14 days Patient systolic blood pressure in the 170s. I will add lisinopril 20 mg. Patient is hemodynamically stable to be downgraded to medical floor. Please note the above document was generated using voice recognition software. It may contain grammatical, syntax or spelling errors. (2) Pneumonia: (3) Sepsis: (4) COVID-19: (5) Acute hypoxemic respiratory failure: (6) ESRD (end stage renal disease) on dialysis: Admission and Anticipated Discharge Date Admission Date: April 25, 2020 Subjective Patient seen and examined at bedside. No acute distress, no adverse events overnight. Patient was extubated 04/26/2020. At the time of examination patient was on high flow 30% 30 L saturating 100%. No respiratory distress. Patient is answering all the questions appropriately. Denies any chest pain. Does complain of some chest congestion. Denies any headache, no nausea or vomiting. Asking for food. Review of Systems Review of Systems: All systems reviewed & are unremarkable except as noted in Subjective Physical Exam Physical Exam: Constitutional: No acute distress HEENT: EOMI, PERRLA Respiratory system: Decreased air entry on the right side, positive crackles right lower lobe, no wheeze, no rhonchi CVS: S1-S2 positive, no murmurs or gallops, bradycardia Abdomen: Soft, nontender, nondistended, positive bowel sounds x4 Extremities: +2 pulses bilaterally radialis/ dorsalis pedis, no cyanosis, no edema Neuro: Awake alert oriented x3 Psych: Normal mood and affect G/U: No Rosario Skin: no rashes, warm and dry Lymphatic: no cervical or axillary lymphadenopathy Results & Data Results & Data ([facility]) Vital Signs (Past 12 Hours) Vital Signs Temp Pulse Pulse Resp BP Pulse Ox Pulse Ox 04/27/20 07:54 47 L 15 100 04/27/20 06:20 48 L 15 133/60 99 04/27/20 06:00 47 L 14 100 04/27/20 05:40 47 L 14 100 04/27/20 05:20 46 L 14 131/58 L 100 04/27/20 05:00 47 L 15 100 04/27/20 04:21 54 L 12 158/72 H 100 04/27/20 04:00 37.5 C 47 L 15 135/50 L 100 04/27/20 03:35 48 L 17 100 04/27/20 03:20 50 L 16 135/59 L 100 04/27/20 03:00 52 L 17 99 04/27/20 02:20 54 L 17 153/63 H 100 04/27/20 02:00 55 L 17 100 95 04/27/20 01:20 59 L 20 151/65 H 98 04/27/20 01:00 56 L 18 99 04/27/20 00:20 62 12 145/69 H 99 04/27/20 00:00 58 L 17 143/54 H 100 04/26/20 23:46 61 12 100 04/27/20 04:15 04/27/20 04:15 Coding Level of Care Code 98484 Subseq Hosp Care Lvl 3 Diagnoses Admitted to intensive care unit Z78.9 Pneumonia J18.9 Sepsis A41.9; R65.20; J96.01 Acute respiratory failure type: with hypoxia Sepsis acute organ dysfunction status: with acute organ dysfunction Sepsis type: sepsis due to unspecified organism Severe sepsis acute organ dysfunction type: acute respiratory failure Severe sepsis shock status: without septic shock COVID-19 U07.1 Acute hypoxemic respiratory failure J96.01 ESRD (end stage renal disease) on dialysis N18.6; Z99.2 (1) Sepsis Acute respiratory failure type: with hypoxia Sepsis acute organ dysfunction status: with acute organ dysfunction Sepsis type: sepsis due to unspecified organism Severe sepsis acute organ dysfunction type: acute respiratory failure Severe sepsis shock status: without septic shock Qualified Code(s): A41.9 - Sepsis, unspecified organism; R65.20 - Severe sepsis without septic shock; J96.01 - Acute respiratory failure with hypoxia
[2020-04-27] MEDS: AMPICILLIN/SULBACTAM SOD 3,000 MG in 0.9 % SODIUM CHLORIDE 100 ML IV SCH (11:51)
[2020-04-27] MEDS ORDERED: lisinopril 20 MG TAB PO STA (11:52)
--- NOTE | 2020-04-27 12:21 | Hospitalist Progress Note ---
Date of Service April 27, 2020 Assessment & Plan (1) Acute hypoxemic respiratory failure: RESOLVED. 2nd to right lung collapse, right sided pneumonia, COVID-19. Right-sided pneumonia - likely bacterial, perhaps aspiration given the concern for mucous plugging leading to right-sided collapse. Either way is is markedly improved - was vented, then extubated to HFNC, now he is in RA. Intubated 04/25. Extubated 04/26 to HFNC. (2) Pneumonia due to COVID-19 virus: Remains on Decadron but this is being weaned at this time. Previously received plasma during first admission earlier this month. Was never a remdesivir candidate due to ESRD status. Initial diagnosis made at [facility] about April 02. Cont airborne precautions and supportive care. Appreciate crop research scientist assistance. Suspect that he has little to no symptoms from actuall COVID-19 at this time. (3) Aspiration pneumonia: right basilar pneumonia suspected to be aspiration. remains on unasyn. Dr Manning recommending 14 days in total of unasyn/augmentin. today is day #3. (4) Collapse of right lung: Resolved clinically and radiographically. Did not need bronch to improve this issue. s/p intubation/mech ventilation and now successfully extubated. Stable in RA. Imaging does show ongoing right basilar pneumonia - continue Unasyn. needs aggressive pulmonary toilet. likely large mucous plug caused such; cannot rule out an endobronchial lesion. again not a good candidate at this time for invasive bronch. (5) Sepsis: 2nd to right-sided pneumonia in the face of recovering COVID-19 infection. Hemodynamically stable at this time. (6) ESRD (end stage renal disease) on dialysis: Dialysis on Wednesday, Wednesday, Wednesday Appreciate nephrology assistance cont phosphate binders (7) Multiple sclerosis: Holding teriflunomide. Seen by [facility] Neurology - MS felt NOT contributing to current respiratory state. (8) History of DVT (deep vein thrombosis): eliquis 5mg BID (9) Hypertension: cont amlodipine BPs high - perhaps steroid effect - may need additional agent(s) (10) Thrombocytopenia: appears chronic follow w/ serial labs ITP?? check b12/folate to be complete (11) Type 2 diabetes mellitus: pharmacy glycemic team is managing; appreciate their assistance (12) Asthma: questionable history will need f/u with pulmonary for this on the outpatient side for PFTs, etc cont albuterol prn (13) Depression: cont usual meds (14) Hyponatremia: 2nd to ESRD, "pseudo"hypontremia from high glucose, etc Na 135 today (15) DVT prophylaxis: blanca appreciate palliative care assistance PT, OT evals back to Heart side next 48 hours if he remains stable?? Admission and Anticipated Discharge Date Admission Date: April 25, 2020 Subjective patient was transferred from the ICU to PCU today. he has been weaned off from HFNC to room air. during my assessment patient stated that he "felt great." appetite had returned to normal. was asking for diet coke during my assessment. reports mild cough, no sputum. no dyspea at rest. no abd pain, nausea, emesis. overall feels really good today. Review of Systems Constitutional: no fever, no chills and no anorexia Respiratory: + cough and + wheezing; no dyspnea and no hemoptysis Cardiovascular: no chest pain Gastrointestinal: no abdominal pain, no nausea and no vomiting Physical Exam Constitutional: + obese; no acute distress and no altered mental status ENMT: external ear and nose normal, oropharynx normal Mouth: oral mucous membranes not dry Respiratory: no respiratory distress Auscultation: + diminished lung sounds (Right base ), + crackles (RLL, RML; minimal LLL), + rhonchi (Focal, right base) and + wheezes (Focal, right base) Cardiovascular: Rate/Rhythm: regular rate and regular rhythm Heart Sounds: normal S1 and normal S2; no murmur Vessels: posterior tibial pulses present and dorsalis pedis pulses present; no JVD Extremities: no edema Gastrointestinal (Abdomen): normal bowel sounds, soft, nontender, no hepatosplenomegaly Skin: right chest CVC with old blood at insertion site but otherwise wnl Psychiatric: Orientation: alert and oriented x 3 Results & Data Results & Data ([facility]) Vital Signs (Past 12 Hours) Vital Signs Temp Pulse Pulse Resp BP Pulse Ox Pulse Ox 04/27/20 11:34 54 L 16 99 04/27/20 11:20 59 L 12 174/80 H 98 04/27/20 10:21 58 L 12 164/73 H 98 04/27/20 09:21 55 L 13 186/76 H 98 04/27/20 08:20 43 L 14 143/62 H 100 04/27/20 07:54 47 L 15 100 04/27/20 07:20 45 L 16 133/59 L 100 04/27/20 06:20 48 L 15 133/60 99 04/27/20 06:00 47 L 14 100 04/27/20 05:40 47 L 14 100 04/27/20 05:20 46 L 14 131/58 L 100 04/27/20 05:00 47 L 15 100 04/27/20 04:21 54 L 12 158/72 H 100 04/27/20 04:00 37.5 C 47 L 15 135/50 L 100 04/27/20 03:35 48 L 17 100 04/27/20 03:20 50 L 16 135/59 L 100 04/27/20 03:00 52 L 17 99 04/27/20 02:20 54 L 17 153/63 H 100 04/27/20 02:00 55 L 17 100 95 04/27/20 01:20 59 L 20 151/65 H 98 04/27/20 01:00 56 L 18 99 Laboratory Results Laboratory Results - last 24 hr 04/26/20 04/26/20 04/26/20 12:41 15:27 20:16 WBC RBC Hgb Hct MCV MCH MCHC RDW Std Deviation RDW Coeff of Emiliano Plt Count MPV Immature Gran % (Auto) Neut % (Auto) Lymph % (Auto) [place] % (Auto) Eos % (Auto) Baso % (Auto) Neut # (Auto) Lymph # (Auto) [place] # (Auto) Eos # (Auto) Baso # (Auto) Immature Gran # (Auto) Platelet Estimate PT INR APTT PTT Ratio Sodium Potassium Chloride Carbon Dioxide Anion Gap BUN Creatinine Est Cr Clr Drug Dosing Est GFR ( Amer) Est GFR (Non-Af Amer) BUN/Creatinine Ratio Glucose POC Glucose 117 H 101 H 171 H Calcium Phosphorus Magnesium Total Bilirubin Direct Bilirubin AST ALT Alkaline Phosphatase Total Protein Albumin Lipase 04/26/20 04/27/20 04/27/20 23:09 04:15 04:15 WBC 5.14 RBC 3.12 L Hgb 8.6 L Hct 28.8 L MCV 92.3 MCH 27.6 MCHC 29.9 L RDW Std Deviation 51.0 H RDW Coeff of Emiliano 15.1 H Plt Count 87 L MPV 10.0 Immature Gran % (Auto) 0.6 Neut % (Auto) 73.7 Lymph % (Auto) 13.2 [place] % (Auto) 11.9 Eos % (Auto) 0.6 Baso % (Auto) 0.0 Neut # (Auto) 3.79 Lymph # (Auto) 0.68 L [place] # (Auto) 0.61 H Eos # (Auto) 0.03 Baso # (Auto) 0.00 Immature Gran # (Auto) 0.03 H Platelet Estimate Decreased L PT 15.3 H INR 1.5 H APTT 35.3 H PTT Ratio 1.3 Sodium Potassium Chloride Carbon Dioxide Anion Gap BUN Creatinine Est Cr Clr Drug Dosing Est GFR ( Amer) Est GFR (Non-Af Amer) BUN/Creatinine Ratio Glucose POC Glucose 215 H Calcium Phosphorus Magnesium Total Bilirubin Direct Bilirubin AST ALT Alkaline Phosphatase Total Protein Albumin Lipase 04/27/20 04/27/20 04/27/20 04:15 09:00 12:02 WBC RBC Hgb Hct MCV MCH MCHC RDW Std Deviation RDW Coeff of Emiliano Plt Count MPV Immature Gran % (Auto) Neut % (Auto) Lymph % (Auto) [place] % (Auto) Eos % (Auto) Baso % (Auto) Neut # (Auto) Lymph # (Auto) [place] # (Auto) Eos # (Auto) Baso # (Auto) Immature Gran # (Auto) Platelet Estimate PT INR APTT PTT Ratio Sodium 135 L Potassium 3.6 Chloride 98 Carbon Dioxide 32 Anion Gap 5.0 BUN 36 H Creatinine 4.24 H D Est Cr Clr Drug Dosing 24.1 Est GFR ( Amer) 17.4 Est GFR (Non-Af Amer) 15.0 BUN/Creatinine Ratio 8.4 L Glucose 124 H POC Glucose 99 160 H Calcium 8.0 L Phosphorus 3.2 Magnesium 2.0 Total Bilirubin 0.5 Direct Bilirubin 0.1 AST 7 L ALT 15 Alkaline Phosphatase 54 Total Protein 5.4 L Albumin 2.4 L Lipase 200 sputum cx negative PG Care Time/CCT Total # of Minutes Spent Total Time Spent with Patient: Total time spent is greater than 50% in coordination of care (as documented) at patient's floor/unit and/or counseling patient: Coding Level of Care Code 19884 Subseq Hosp Care Lvl 3 Diagnoses Acute hypoxemic respiratory failure J96.01 Pneumonia due to COVID-19 virus U07.1; J12.89 Aspiration pneumonia J69.0 Aspiration pneumonia type: unspecified Laterality: right Lung location: unspecified part of lung Collapse of right lung J98.11 Sepsis A41.9; R65.20; J96.01 Acute respiratory failure type: with hypoxia Sepsis acute organ dysfunction status: with acute organ dysfunction Sepsis type: sepsis due to unspecified organism Severe sepsis acute organ dysfunction type: acute respiratory failure Severe sepsis shock status: without septic shock ESRD (end stage renal disease) on dialysis N18.6; Z99.2 Multiple sclerosis G35 History of DVT (deep vein thrombosis) Z86.718 Hypertension I10 Hypertension type: essential hypertension Thrombocytopenia D69.6 Type 2 diabetes mellitus E11.69 Diabetes mellitus complication status: with other specified complication Diabetes mellitus mcfp insulin use: without director long term care use Asthma J45.901 Asthma complication type: with acute exacerbation Asthma persistence: unspecified Asthma severity: unspecified severity Depression F32.9 Depression Type: unspecified Hyponatremia E87.1 DVT prophylaxis Z29.9 (1) Type 2 diabetes mellitus Diabetes mellitus complication status: with other specified complication Diabetes mellitus mcfp insulin use: without mcfp use Qualified Code(s): E11.69 - Type 2 diabetes mellitus with other specified complication (2) Depression Depression Type: unspecified Qualified Code(s): F32.9 - Major depressive disorder, single episode, unspecified (3) Sepsis Acute respiratory failure type: with hypoxia Sepsis acute organ dysfunction status: with acute organ dysfunction Sepsis type: sepsis due to unspecified organism Severe sepsis acute organ dysfunction type: acute respiratory failure Severe sepsis shock status: without septic shock Qualified Code(s): A41.9 - Sepsis, unspecified organism; R65.20 - Severe sepsis without septic shock; J96.01 - Acute respiratory failure with hypoxia (4) Hypertension Hypertension type: essential hypertension Qualified Code(s): I10 - Essential (primary) hypertension (5) Asthma Asthma complication type: with acute exacerbation Asthma persistence: unspecified Asthma severity: unspecified severity Qualified Code(s): J45.901 - Unspecified asthma with (acute) exacerbation (6) Aspiration pneumonia Aspiration pneumonia type: unspecified Laterality: right Lung location: unspecified part of lung Qualified Code(s): J69.0 - Pneumonitis due to inhalation of food and vomit
--- NOTE | 2020-04-27 14:47 | Pharmacy Report ---
Glycemic Control Consultation - Date of Service April 27, 2020 - Scope Scope: Glycemic Pharmacist consulted for glycemic control and to write orders per [facility] inpatient glycemic control protocol. - Objective Weight: 99.7 kg Accuchecks BSG (last 24hrs): 04/26/20 04/26/20 04/26/20 15:27 20:16 23:09 Glucose POC Glucose 101 H 171 H 215 H 04/27/20 04/27/20 04/27/20 04:15 09:00 12:02 Glucose 124 H POC Glucose 99 160 H Laboratory Data (last 24hrs): 04/27/20 04:15 Potassium 3.6 Carbon Dioxide 32 Anion Gap 5.0 Creatinine 4.24 H D Est Cr Clr Drug Dosing 24.1 - Recent Pertinent Medications Outpatient Anti-diabetic Regimen: * NONE * A1c = 5.3 % on 04/16/20 but not reliable in setting of Hemodialysis The patient is currently receiving: * Basal insulin: none * Correctional Insulin: Novolog Correction per scale ACHS Goal Range: Low 110 mg/dL - High 140 mg/dL Correction Factor: 20 mg/dL/unit * Prandial insulin: Per carb ratio of 1 unit per 8 grams CHO consumed * Oral Agents: none Risk Factors for Insulin Resistance: * Steroids: Dexamethasone 4 mg IV q24h * Infection: on Unasyn and Caspofungin * IVF: none * Diet: Renal * Mechanical Ventilation: extubated yesterday. - Assessment & Plan Assessment & Plan: ASSESSMENT: * 54 y/o M admitted for Covid Pneumonia. Patient was intubated but successfully extubated yesterday. Insulin drip was discontinued early yesterday morning and he was moved out of ICU today. * He has been receiving Dexamethasone 4 mg IV q24h. Expected patient to have steroid induced hyperglycemia but BSGs have only been slightly elevated above goal range. Basal insulin therefore has not been ordered for him. * Patient has been refusing Novolog coverage most of the time. In past 24 hrs, he has only received 4 units of insulin for BSG of 215 mg/dl. * Will continue with every 4 hour checks in case of hyperglycemia due to Decadron and patient's refusal of bolus insulin. PLAN FOR INPATIENT GLYCEMIC CONTROL: * Basal insulin: none * Bolus insulin: continue * NovoLog per scale Q4h * Goal Range: Low 110 mg/dL - High 140 mg/dL * Correction Factor: 20 mg/dL/unit * Nutritional / Prandial insulin per carb ratio of 1 unit per 8 grams CHO consumed * Please note that the plan above was derived based on current level of insulin resistance and hospital stress. These recommendations are appropriate for inpatient admission only. Plan of care upon discharge will need to be reassessed to avoid potential outpatient hypo/hyperglycemia. Thank you.
[2020-04-27] MEDS: ALBUTEROL HFA 8 GM INHALER INH PRN (17:56)
[2020-04-27] MEDS: traZODone HCL 100 MG TAB PO SCH (21:22)
[2020-04-27] MEDS: FLUoxetine HCL 20 MG CAP PO SCH (21:24)
[2020-04-28] MEDS ORDERED: Nursing to Pharmacy Communication SCH (00:30)
[2020-04-28] MEDS: AMPICILLIN/SULBACTAM SOD 3,000 MG in 0.9 % SODIUM CHLORIDE 100 ML IV SCH ×2 (00:58→12:02)
[2020-04-28] MEDS: INSULIN ASPART 100 UNITS/ML 3 ML PEN SC SCH ×3 (00:59→09:30)
[2020-04-28 06:36] LABS: Hematocrit (blood only) 29.4 % (42-52); Mean Corpuscular Hemoglobin 28.1 pg (25-34); Mean Corpuscular Hgb Conc 30.6 g/dL (32-36); Mean Corpuscular Volume 91.9 fL (80-100); RDW Coefficient of Variation 14.5 % (11.5-14.5); White Blood Count 4.66 K/uL (4.8-10.8)
[2020-04-28 06:37] LABS: Mean Platelet Volume 9.8 fL (7.4-10.4); Platelet Count 82 K/uL (130-400)
--- NOTE | 2020-04-28 08:13 | Hospitalist Progress Note ---
Date of Service April 28, 2020 Assessment & Plan (1) Acute hypoxemic respiratory failure: RESOLVED. 2nd to right lung collapse, right sided pneumonia, COVID-19. Right-sided pneumonia - likely bacterial, aspiration pnumonia given the concern for mucous plugging leading to right-sided collapse. intubated and was vented, then extubated to NC, now he is in RA. Intubated 04/25. Extubated 04/26 now on room air 04/28/20 (2) Pneumonia due to COVID-19 virus: Remains on Decadron but this is being weaned at this time. Previously received plasma during first admission earlier this month. Was never a remdesivir candidate due to ESRD status. Initial diagnosis made at [facility] about April 02. Cont airborne precautions and supportive care. Appreciate loader technician assistance. Suspect that he has little to no symptoms from actuall COVID-19 at this time. (3) Aspiration pneumonia: right basilar pneumonia suspected to be aspiration. remains on unasyn. Dr Manning recommending 14 days in total of unasyn/augmentin. last dose to be 05/08/20 (4) Collapse of right lung: Resolved clinically and radiographically. Did not need bronch to improve this issue. s/p intubation/mech ventilation and now successfully extubated. Stable in RA. Imaging does show ongoing right basilar pneumonia - continue Unasyn. needs aggressive pulmonary toilet. likely large mucous plug caused such; cannot rule out an endobronchial lesion. again not a good candidate at this time for invasive bronch. (5) Sepsis: 2nd to right-sided pneumonia in the face of recovering COVID-19 infection. Hemodynamically stable at this time. (6) ESRD (end stage renal disease) on dialysis: Dialysis on Wednesday, Wednesday, Wednesday Appreciate nephrology assistance cont phosphate binders (7) Multiple sclerosis: Holding teriflunomide. Seen by [facility] Neurology - MS felt NOT contributing to current respiratory state. (8) History of DVT (deep vein thrombosis): eliquis 5mg BID (9) Hypertension: cont amlodipine BPs high - perhaps steroid effect - may need additional agent(s) (10) Thrombocytopenia: appears chronic (11) Type 2 diabetes mellitus: pharmacy glycemic team is managing; appreciate their assistance (12) Asthma: questionable history will need f/u with pulmonary for this on the outpatient side for PFTs, etc cont albuterol prn (13) Depression: cont usual meds (14) Hyponatremia: 2nd to ESRD, "pseudo"hypontremia from high glucose, etc Na 135 today (15) DVT prophylaxis: blanca appreciate palliative care assistance PT, OT miinsterio Admission and Anticipated Discharge Date Admission Date: April 25, 2020 Subjective pt is now refusing insulin but will allow oral medication as was on amaryl previously. Was mortally ill this stay requiring icu ventilation Review of Systems Review of Systems: Mild distress and fatigue no headache, blurry or double vision no speech or swallowing issues no chest pain, pressure or palpitations Mild shortness of breath, nonproductive cough no wheezes no abdominal pain, nausea or vomiting, diarrhea or constipation no dysuria, hematuria or frequency no focal joint pain no back pain, CVA tenderness or radicular pain no bruising, bleeding or rashes no focal signs of weakness or numbness or altered sensation no complaints of anxiety or depression. Physical Exam Physical Exam: The patient appeared chronically ill fatigued and weakened Vital signs as documented. Head exam is normocephalic atraumatic no scleral icterus Neck is without JVD, thyromegaly, or carotid bruits. Lungs are diminished at the bases right greater than left Cardiac exam, Rhythm is regular.. No murmurs, rubs or gallops. Abdominal exam reveals normal bowel sounds, soft non tender, no masses Extremities are mildly edematous and both pedal pulses are present Neurologic exam is alert and oriented, globally weak difficulty sitting up in bed Skin is without rashes Psychologically is without concerns for anxiety or depression. Results & Data Results & Data ([facility]) Vital Signs (Past 12 Hours) Vital Signs Temp Pulse Pulse Resp BP Pulse Ox Pulse Ox 04/28/20 07:59 97.5 F L 53 L 52 L 18 159/94 H 93 04/28/20 05:43 97.2 F L 51 L 18 156/76 H 93 04/28/20 00:47 98.4 F 53 L 18 146/70 H 95 04/28/20 00:00 53 L 04/27/20 22:00 57 L 93 PG Care Time/CCT Total # of Minutes Spent Total Time Spent with Patient: Total time spent is greater than 50% in coordination of care (as documented) at patient's floor/unit and/or counseling patient: Coding Level of Care Code 87425 Subseq Hosp Care [facility] 3 Diagnoses Acute hypoxemic respiratory failure J96.01 Pneumonia due to COVID-19 virus U07.1; J12.89 Aspiration pneumonia J69.0 Aspiration pneumonia type: unspecified Laterality: right Lung location: unspecified part of lung Collapse of right lung J98.11 Sepsis A41.9; R65.20; J96.01 Acute respiratory failure type: with hypoxia Sepsis acute organ dysfunction status: with acute organ dysfunction Sepsis type: sepsis due to unspecified organism Severe sepsis acute organ dysfunction type: acute respiratory failure Severe sepsis shock status: without septic shock ESRD (end stage renal disease) on dialysis N18.6; Z99.2 Multiple sclerosis G35 History of DVT (deep vein thrombosis) Z86.718 Hypertension I10 Hypertension type: essential hypertension Thrombocytopenia D69.6 Type 2 diabetes mellitus E11.69 Diabetes mellitus complication status: with other specified complication Diabetes mellitus fdc insulin use: without fdc use Asthma J45.901 Asthma complication type: with acute exacerbation Asthma persistence: unspecified Asthma severity: unspecified severity Depression F32.9 Depression Type: unspecified Hyponatremia E87.1 DVT prophylaxis Z29.9 (1) Type 2 diabetes mellitus Diabetes mellitus complication status: with other specified complication Diabetes mellitus fdc insulin use: without lobsterman use Qualified Code(s): E11.69 - Type 2 diabetes mellitus with other specified complication (2) Depression Depression Type: unspecified Qualified Code(s): F32.9 - Major depressive disorder, single episode, unspecified (3) Aspiration pneumonia Aspiration pneumonia type: unspecified Laterality: right Lung location: unspecified part of lung Qualified Code(s): J69.0 - Pneumonitis due to inhalation of food and vomit (4) Sepsis Acute respiratory failure type: with hypoxia Sepsis acute organ dysfunction status: with acute organ dysfunction Sepsis type: sepsis due to unspecified organism Severe sepsis acute organ dysfunction type: acute respiratory failure Severe sepsis shock status: without septic shock Qualified Code(s): A41.9 - Sepsis, unspecified organism; R65.20 - Severe sepsis without septic shock; J96.01 - Acute respiratory failure with hypoxia (5) Hypertension Hypertension type: essential hypertension Qualified Code(s): I10 - Essential (primary) hypertension (6) Asthma Asthma complication type: with acute exacerbation Asthma persistence: unspecified Asthma severity: unspecified severity Qualified Code(s): J45.901 - Unspecified asthma with (acute) exacerbation
[2020-04-28] MEDS: rOPINIRole HCL 0.25 MG TABLET PO SCH ×2 (08:38→16:18)
[2020-04-28] MEDS: FAMOTIDINE 20 MG TAB PO SCH (08:39)
[2020-04-28] MEDS: guaiFENesin 600 MG TABCR PO SCH ×2 (08:39→19:54)
[2020-04-28] MEDS: APIXABAN 5 MG TABLET PO SCH ×2 (08:39→19:55)
[2020-04-28] MEDS: lisinopril 20 MG TAB PO SCH (08:39)
[2020-04-28] MEDS: amLODIPine BESYLATE 5 MG TAB PO SCH (08:39)
[2020-04-28] MEDS: GABAPENTIN 100 MG CAP PO SCH ×3 (08:39→19:54)
[2020-04-28] MEDS: TAMSULOSIN HCL 0.4 MG CAP PO SCH (08:40)
[2020-04-28] MEDS: ARIPiprazole 15 MG TAB PO SCH (08:40)
[2020-04-28] MEDS: CALCIUM ACETATE 667 MG CAP/TAB PO SCH ×3 (08:43→17:55)
[2020-04-28] MEDS: DEXAMETHASONE SOD PHOSPHATE 4 MG in SYRINGE 0 ML IV SCH (08:54)
--- NOTE | 2020-04-28 10:37 | Nephrology Progress Note ---
Date of Service April 28, 2020 Assessment & Plan (1) ESRD (end stage renal disease) on dialysis: on MWF HD; patient tolerated dialysis well on Wednesday with net UF of 3 L; fairly aggressive heparin dosing on tx, since C19 pts often have clotting issues; -Next HD tomorrow for 3-1/2 hours and target UF of 3 L (2) Collapse of right lung: Due to mucous plugging status post removal. Respiratory status improving. We will optimize volume status with dialysis (3) COVID-19: per critical care and primary service ; not a remdesivir candidate; already had convalescent plasma (4) Multiple sclerosis: neuro following; palliative care eval noted > pt wishes to continue aggressive/ full code care -stopped teriflunomide given that he is getting steroids and per neuro recs >> plan to reconsider disease modifying tx post d/c and once acute respiratory failure resolved; needs OP MRI brain, C spine, and outside records Admission and Anticipated Discharge Date Admission Date: April 25, 2020 Subjective Patient feels better today. He was transferred out of the ICU. He is eating and drinking. No shortness of breath. Review of Systems Review of Systems: All systems reviewed & are unremarkable except as noted in HPI & below Physical Exam Physical Exam: General exam: Appears comfortable, no acute distress HEENT: Pupils are equal and reactive to light Neck: No JVD, neck is supple trachea is midline Respiratory system: Clear breath sounds bilaterally. Gastrointestinal: Abdomen is soft, non distended, non tender, bowel sounds are present CVS: Regular rate and rhythm. No murmurs, rubs or gallops Musculoskeletal: No joint or muscle tenderness Extremities: Non tender, no edema, peripheral pulses are present Neuro: Oriented, no tremors, no focal neurological deficits Skin: No rashes Access: Left arm AV fistula. Results & Data ([facility]) Vital Signs (Past 12 Hours) Vital Signs Temp Pulse Pulse Resp BP Pulse Ox 04/28/20 07:59 36.4 C L 53 L 52 L 18 159/94 H 93 04/28/20 05:43 36.2 C L 51 L 18 156/76 H 93 04/28/20 00:47 36.9 C 53 L 18 146/70 H 95 04/28/20 00:00 53 L Laboratory Results 04/27/20 04:15 04/28/20 05:35 WBC 4.66 L RBC 3.20 L MCV 91.9 MCH 28.1 MCHC 30.6 L RDW Std Deviation 49.0 H RDW Coeff of Emiliano 14.5 Plt Count 82 L MPV 9.8
[2020-04-28] MEDS: ALBUTEROL HFA 8 GM INHALER INH PRN (10:58)
--- NOTE | 2020-04-28 12:02 | Pharmacy Report ---
Pharmacy Glycemic Sign Off Nt - Date of Service April 28, 2020 - Assessment & Plan ASSESSMENT: * Pharmacy was consulted by ICU intensevist on 04/26/20 for glycemic control and to write orders per [facility] inpatient glycemic control protocol. * Patient was weaned off the insulin drip on 04/26/20 and started on Novolog q4h bolus regimen using moderate stress protocol. * Patient has so far received 4 units of Novolog around midnight on 04/26/20; he has been refusing all insulin since then. * Blood sugars have been either at goal or slightly elevated with only one BSG above 200 in the past 24 hrs and patient refused this to be corrected with Novolog. Fasting BSG = 164 this AM. * Dr. Macias is aware and he ordered oral Glimepiride QAM for patient. He said okay to d/c insulin. * Do not anticipate further changes in patient status that would quickly deteriorate glycemic control. PLAN FOR INPATIENT GLYCEMIC CONTROL: No changes needed to current regimen. * Pharmacy is signing off of glycemic consult and will no longer be making adjustments to inpatient regimen. Please feel free to re-consult if needed. Thank you.
[2020-04-28] MEDS: GLIMEPIRIDE 2 MG TAB PO SCH (12:06)
[2020-04-28 14:27] LABS: Folate (Folic Acid) 2.39 ng/ml (>5.38)
[2020-04-28] MEDS: traZODone HCL 100 MG TAB PO SCH (19:54)
[2020-04-28] MEDS: FLUoxetine HCL 20 MG CAP PO SCH (19:54)
[2020-04-29] MEDS ORDERED: HEPARIN SOD (PORCINE) 1000 UNIT/ML 10 ML VIAL IV ONE (07:00)
[2020-04-29] MEDS ORDERED: SODIUM CHLORIDE 0.9% 1000ML 1,000 ML IV PRN (07:00)
[2020-04-29] MEDS ORDERED: EPOETIN ALFA 10,000 UNITS/ML VIAL IV ONE (07:00)
[2020-04-29] MEDS: guaiFENesin 600 MG TABCR PO SCH ×2 (08:11→20:58)
[2020-04-29] MEDS: DEXAMETHASONE SOD PHOSPHATE 2 MG in SYRINGE 0 ML IV SCH (08:11)
[2020-04-29] MEDS: APIXABAN 5 MG TABLET PO SCH ×2 (08:11→20:58)
[2020-04-29] MEDS: GLIMEPIRIDE 2 MG TAB PO SCH (08:12)
[2020-04-29] MEDS: GABAPENTIN 100 MG CAP PO SCH ×3 (08:12→20:58)
[2020-04-29] MEDS: rOPINIRole HCL 0.25 MG TABLET PO SCH ×2 (08:12→17:33)
[2020-04-29] MEDS: ARIPiprazole 15 MG TAB PO SCH (08:12)
[2020-04-29] MEDS: TAMSULOSIN HCL 0.4 MG CAP PO SCH (08:13)
[2020-04-29] MEDS: CALCIUM ACETATE 667 MG CAP/TAB PO SCH ×3 (08:13→17:33)
--- NOTE | 2020-04-29 08:17 | Hospitalist Progress Note ---
Date of Service April 29, 2020 Assessment & Plan (1) Acute hypoxemic respiratory failure: RESOLVED. 2nd to right lung collapse, right sided pneumonia, COVID-19. Right-sided pneumonia - likely bacterial, aspiration pnumonia given the concern for mucous plugging leading to right-sided collapse. intubated and was vented, then extubated to HFNC, now he is in RA. Intubated 04/25. Extubated 04/26 now on room air 04/28/20 (2) Pneumonia due to COVID-19 virus: Remains on Decadron but this is being weaned at this time. Previously received plasma during first admission earlier this month. Was never a remdesivir candidate due to ESRD status. Initial diagnosis made at [facility] about April 02. Cont airborne precautions and supportive care. Appreciate pulmonary assistance. (3) Aspiration pneumonia: right basilar pneumonia suspected to be aspiration. remains on unasyn. Dr Manning recommending 14 days in total of unasyn/augmentin. last dose to be 05/08/20 (4) Collapse of right lung: Resolved clinically and radiographically. Did not need bronch to improve this issue. s/p intubation/mech ventilation and now successfully extubated. Stable in RA. - continues on Unasyn. Pulmonary recommends dosing to 1111. Patient is slightly more short of breath with a truncated dialysis session on 04/29 we will check a portable chest x-ray Continues with aggressive pulmonary toilet. likely large mucous plug caused such; cannot rule out an endobronchial lesion. again not a good candidate at this time for invasive bronch. His pulmonary status remains alexandro. This may be associated with a slightly shortened dislysis session 04/29/20 (5) Sepsis: 2nd to right-sided pneumonia in the face of recovering COVID-19 infection. Hemodynamically stable at this time. (6) ESRD (end stage renal disease) on dialysis: Dialysis on Wednesday, Wednesday, Wednesday Appreciate nephrology assistance cont phosphate binders (7) Multiple sclerosis: Holding teriflunomide. Seen by [facility] Neurology - MS felt NOT contributing to current respiratory state. (8) History of DVT (deep vein thrombosis): eliquis 5mg BID (9) Hypertension: cont amlodipine BPs high - perhaps steroid effect - may need additional agent(s) (10) Thrombocytopenia: appears chronic (11) Type 2 diabetes mellitus: pharmacy glycemic team is managing; appreciate their assistance (12) Asthma: questionable history will need f/u with pulmonary for this on the outpatient side for PFTs, etc and to guage resolution of pulmonary process cont albuterol prn (13) Depression: cont usual meds (14) Hyponatremia: 2nd to ESRD, "pseudo"hypontremia from high glucose, etc (15) DVT prophylaxis: blanca appreciate palliative care assistance PT, OT ministerio I discussion with Mr. Santos today regarding his decision makers with in his friends and family. Mr. Santos is estranged from his for the last 4+ years and he wishes her to have access to his information but not be medical decision- maker if he becomes incapacitated. The patient requested his friend Yovani and his Sister Brina be codecision-makers. We will try to engage service excellence to see if we can have a legal document crafted that Mr. Zaldivar signed out he is awake alert and seemingly of sound decision-making status. Admission and Anticipated Discharge Date Admission Date: April 25, 2020 Review of Systems Review of Systems: Mild distress and fatigue no headache, blurry or double vision no speech or swallowing issues no chest pain, pressure or palpitations Mild shortness of breath, nonproductive cough no wheezes no abdominal pain, nausea or vomiting, diarrhea or constipation no dysuria, hematuria or frequency no focal joint pain no back pain, CVA tenderness or radicular pain no bruising, bleeding or rashes no focal signs of weakness or numbness or altered sensation no complaints of anxiety or depression. Physical Exam Physical Exam: The patient appeared chronically ill fatigued and weakened Vital signs as documented. Head exam is normocephalic atraumatic no scleral icterus Neck is without JVD, thyromegaly, or carotid bruits. Lungs are diminished at the bases right greater than left, patient is using accessory muscles for respirations and also some belly breathing Cardiac exam, Rhythm is regular.. No murmurs, rubs or gallops. Abdominal exam reveals normal bowel sounds, soft non tender, no masses Extremities are mildly edematous and both pedal pulses are present Neurologic exam is alert and oriented, globally weak difficulty sitting up in bed Skin is without rashes Psychologically is without concerns for anxiety or depression. Results & Data Results & Data ([facility]) Vital Signs (Past 12 Hours) Vital Signs Temp Pulse Pulse Resp BP Pulse Ox Pulse Ox 04/29/20 07:49 97.3 F L 55 L 18 173/77 H 91 04/29/20 03:25 97.7 F 54 L 18 160/72 H 93 04/29/20 00:00 47 L 04/28/20 23:56 97.9 F 49 L 14 159/95 H 92 04/28/20 22:00 93 PG Care Time/CCT Total # of Minutes Spent Total Time Spent with Patient: Total time spent is greater than 50% in coordination of care (as documented) at patient's floor/unit and/or counseling patient: Coding Level of Care Code 07758 Subseq Hosp Care Lvl 3 Diagnoses Acute hypoxemic respiratory failure J96.01 Pneumonia due to COVID-19 virus U07.1; J12.89 Aspiration pneumonia J69.0 Aspiration pneumonia type: unspecified Laterality: right Lung location: unspecified part of lung Collapse of right lung J98.11 Sepsis A41.9; R65.20; J96.01 Acute respiratory failure type: with hypoxia Sepsis acute organ dysfunction status: with acute organ dysfunction Sepsis type: sepsis due to unspecified organism Severe sepsis acute organ dysfunction type: acute respiratory failure Severe sepsis shock status: without septic shock ESRD (end stage renal disease) on dialysis N18.6; Z99.2 Multiple sclerosis G35 History of DVT (deep vein thrombosis) Z86.718 Hypertension I10 Hypertension type: essential hypertension Thrombocytopenia D69.6 Type 2 diabetes mellitus E11.69 Diabetes mellitus complication status: with other specified complication Diabetes mellitus intermediate insulin use: without intermediate use Asthma J45.901 Asthma complication type: with acute exacerbation Asthma persistence: unspecified Asthma severity: unspecified severity Depression F32.9 Depression Type: unspecified Hyponatremia E87.1 DVT prophylaxis Z29.9 (1) Type 2 diabetes mellitus Diabetes mellitus complication status: with other specified complication Diabetes mellitus intermediate insulin use: without intermediate use Qualified Code(s): E11.69 - Type 2 diabetes mellitus with other specified complication (2) Depression Depression Type: unspecified Qualified Code(s): F32.9 - Major depressive disorder, single episode, unspecified (3) Aspiration pneumonia Aspiration pneumonia type: unspecified Laterality: right Lung location: unspecified part of lung Qualified Code(s): J69.0 - Pneumonitis due to inhalat ion of food and vomit (4) Sepsis Acute respiratory failure type: with hypoxia Sepsis acute organ dysfunction status: with acute organ dysfunction Sepsis type: sepsis due to unspecified organism Severe sepsis acute organ dysfunction type: acute respiratory failure Severe sepsis shock status: without septic shock Qualified Code(s): A41.9 - Sepsis, unspecified organism; R65.20 - Severe sepsis without septic shock; J96.01 - Acute respiratory failure with hypoxia (5) Hypertension Hypertension type: essential hypertension Qualified Code(s): I10 - Essential (primary) hypertension (6) Asthma Asthma complication type: with acute exacerbation Asthma persistence: unspecified Asthma severity: unspecified severity Qualified Code(s): J45.901 - Unspecified asthma with (acute) exacerbation
[2020-04-29] MEDS: HEPARIN SOD (PORCINE) 1000 UNIT/ML 10 ML VIAL IV SCH ×2 (10:52→10:53)
--- NOTE | 2020-04-29 10:56 | Progress Notes ---
DATE: 04/29/2020 NEPHROLOGY DIALYSIS NOTE SUBJECTIVE: The patient was seen during dialysis. Denies any complaints. AV fistula is working good. Blood pressure is slightly high. He is not in any severe respiratory distress. OBJECTIVE: VITAL SIGNS: Blood pressure 173/77, pulse rate 55, 91% on room air. HEENT: Mucous membranes moist. NECK: Supple. No jugular venous distention. CHEST: Bilateral decreased breath sounds, occasional crackles. CARDIOVASCULAR: S1, S2 regular. ABDOMEN: Soft, nontender. EXTREMITIES: Show no edema. Skin changes of chronic venous stasis in the past noted. Renal panel has not been done for many days. Hemoglobin 9.0 yesterday. ASSESSMENT AND PLAN: A 54-year-old male with end-stage renal disease , on chronic hemodialysis [id number], admitted with COVID-19 infection and related complications. We will do dialysis for 3 hours and we will try to remove 2.5-3 kilo of fluid off. We will also do a BMP tomorrow.
[2020-04-29] MEDS: lisinopril 20 MG TAB PO SCH (13:17)
[2020-04-29] MEDS: AMPICILLIN/SULBACTAM SOD 3,000 MG in 0.9 % SODIUM CHLORIDE 100 ML IV SCH ×2 (13:17)
[2020-04-29] MEDS: amLODIPine BESYLATE 5 MG TAB PO SCH (13:17)
[2020-04-29] MEDS: ALBUTEROL HFA 8 GM INHALER INH PRN (17:13)
--- NOTE | 2020-04-29 17:36 | XRay Report ---
XR chest 1V portable CLINICAL HISTORY: increased shortness of breath COMPARISON STUDY: Chest CT April 25, 2020. Chest radiograph April 27, 2020. FINDINGS: Right subclavian central line is unchanged in position. There is no pneumothorax. There is no evidence for pulmonary edema. Elevation of the right hemidiaphragm is again noted. A small right p leural effusion is unchanged with right basilar opacity and volume loss. Cardiomediastinal silhouette is stable. IMPRESSION: No change in appearance of the chest. Small right pleural effusion with right basilar op acity and volume loss. This opacity may reflect atelectasis or consolidation. ACT 112: Negative or not required by law. Electronically signed by: Chris Phoeinx M.D. 04/29/2020 5:35 PM
--- NOTE | 2020-04-29 17:56 | Palliative Care Progress Note ---
Date of Service April 29, 2020 Assessment & Plan (1) Palliative care encounter: Patient in a COVID-19 room. I can see him from the window in the hallway. He was in no apparent distress from the window. I spoke with him on the phone regarding decision making. I talked with Justice from [facility] who indicated she would be unable to complete POA paperwork in the room, but it does not require notarizing, just two witnesses. Dr. Macias and his nurse Taiwo Caceres did meet with the patient at the same time and the patient indicated and confirmed he would want his sister Brina and his friend, Yovani to share medical decision making. He confirmed that his legal was able to have medical information about him, but was not to be involved with decision making. In the [facility], no official notarized paperwork needed for decision making. Would be helpful to have paperwork completed upon his return to [facility] when medically stable. Confirmed that if he would need to be re- intubated, he is in agreement with this or any other interventions necessary at this point. Patient to remain a full code at this time. At this time, palliative care will sign off on this patient. Please contact us should this gentleman require additional assistance. (2) COVID-19: (3) Acute hypoxemic respiratory failure: (4) Multiple sclerosis: (5) ESRD (end stage renal disease) on dialysis: Admission and Anticipated Discharge Date Admission Date: April 25, 2020 Subjective Pt in a COVID bed. Pt sitting upright in his bed in no apparent distress. Per discussion with the hospitalist, he was tachypnic this evening Review of Systems Review of Systems: deferred as patient in covid room Physical Exam Physical Exam: Physical Examination deferred due to covid-19 restriction. Discussed with the marine reporter Evaluated patients from the window. Results & Data ([facility]) Vital Signs (Past 12 Hours) Vital Signs Temp Pulse Pulse Pulse Pulse Resp BP 04/29/20 17:19 63 22 04/29/20 16:00 62 04/29/20 15:58 36.8 C 62 18 04/29/20 13:15 36.8 C 59 L 04/29/20 13:00 61 154/76 H 04/29/20 12:40 61 153/80 H 04/29/20 12:35 36.7 C 63 18 04/29/20 12:20 61 137/70 04/29/20 12:00 61 137/76 04/29/20 11:40 58 L 148/97 H 04/29/20 11:20 59 L 123/77 04/29/20 11:00 60 158/61 H 04/29/20 10:40 58 L 132/78 04/29/20 10:20 57 L 137/72 04/29/20 10:03 36.7 C 59 L 04/29/20 08:00 47 L 04/29/20 07:49 36.3 C L 55 L 18 BP Pulse Ox 04/29/20 17:19 96 04/29/20 16:00 04/29/20 15:58 176/69 H 95 04/29/20 13:15 158/67 H 04/29/20 13:00 04/29/20 12:40 04/29/20 12:35 176/77 H 92 04/29/20 12:20 04/29/20 12:00 04/29/20 11:40 04/29/20 11:20 04/29/20 11:00 04/29/20 10:40 04/29/20 10:20 04/29/20 10:03 04/29/20 08:00 04/29/20 07:49 173/77 H 91 PG Care Time/CCT Total # of Minutes Spent Total Time Spent with Patient: Total time spent is greater than 50% in coordination of care (as documented) at patient's floor/unit and/or counseling patient: Coding Level of Care Code 49379 Subseq Hosp Care Lvl 2 Diagnoses Palliative care encounter Z51.5 COVID-19 U07.1 Acute hypoxemic respiratory failure J96.01 Multiple sclerosis G35 ESRD (end stage renal disease) on dialysis N18.6; Z99.2 Time Spent (min) 25 Time Spent Midlevel Total time spent 25 minutes with > 50% of that time spent assessing the patient, discussing goals of care and decision making paperwork. All while collaborating with the IDT.
[2020-04-29 18:01] LABS: Fungitell (1-3)-B-D-Glucan 97 pg/mL
[2020-04-29] MEDS: LOPERAMIDE HCL 2 MG CAP PO PRN (20:55)
[2020-04-29] MEDS: FLUoxetine HCL 20 MG CAP PO SCH (20:58)
[2020-04-29] MEDS: traZODone HCL 100 MG TAB PO SCH (20:58)
[2020-04-30] MEDS: AMPICILLIN/SULBACTAM SOD 3,000 MG in 0.9 % SODIUM CHLORIDE 100 ML IV SCH ×2 (00:33→11:25)
[2020-04-30] MEDS: CARBOHYDRATES FOR HYPOGLYCEMIA PO PRN ×2 (06:17→16:48)
[2020-04-30 07:17] LABS: Creatinine Clr Calc Pharmacy 20.4 ml/min; Est GFR (African American) 14.1; Est GFR (Non-African American) 12.2; Potassium 3.7 mmol/L (3.5-5.1)
[2020-04-30 07:18] LABS: BUN Creatinine Ratio 9.6 (10-20); Calcium 8.3 mg/dl (8.5-10.1)
[2020-04-30] MEDS: CALCIUM ACETATE 667 MG CAP/TAB PO SCH ×3 (07:59→17:02)
[2020-04-30] MEDS: ARIPiprazole 15 MG TAB PO SCH (08:00)
[2020-04-30] MEDS: rOPINIRole HCL 0.25 MG TABLET PO SCH ×2 (08:00→17:01)
[2020-04-30] MEDS: lisinopril 20 MG TAB PO SCH (08:00)
[2020-04-30] MEDS: FAMOTIDINE 20 MG TAB PO SCH (08:01)
[2020-04-30] MEDS: GABAPENTIN 100 MG CAP PO SCH ×3 (08:01→20:09)
[2020-04-30] MEDS: TAMSULOSIN HCL 0.4 MG CAP PO SCH (08:01)
[2020-04-30] MEDS: APIXABAN 5 MG TABLET PO SCH ×2 (08:02→20:10)
[2020-04-30] MEDS: amLODIPine BESYLATE 5 MG TAB PO SCH (08:03)
[2020-04-30] MEDS: guaiFENesin 600 MG TABCR PO SCH ×2 (08:03→20:10)
[2020-04-30] MEDS: DEXAMETHASONE SOD PHOSPHATE 2 MG in SYRINGE 0 ML IV SCH (09:03)
[2020-04-30] MEDS: LOPERAMIDE HCL 2 MG CAP PO PRN ×2 (13:28→20:08)
--- NOTE | 2020-04-30 16:19 | Hospitalist Progress Note ---
Date of Service April 30, 2020 Assessment & Plan (1) Acute hypoxemic respiratory failure: RESOLVED. 2nd to right lung collapse, right sided pneumonia, COVID-19. Right-sided pneumonia - persistent small right lower lobe changes intubated and was vented, then extubated to [facility], now he is in RA. Intubated 04/25. Extubated 04/26 now on room air as of 04/28/20 (2) Pneumonia due to COVID-19 virus: Remains on Decadron . Previously received plasma during first admission earlier this month. Was never a remdesivir candidate due to ESRD status. Initial diagnosis made at [facility] about April 02. Cont airborne precautions and supportive care. Appreciate pulmonary assistance. (3) Aspiration pneumonia: right basilar pneumonia suspected to be aspiration. remains on unasyn. Dr Manning recommending 14 days in total of unasyn/augmentin. last dose to be 05/08/20 (4) Collapse of right lung: Resolved clinically and radiographically. Did not need bronch to improve this issue. [facility] and now successfully extubated. Stable on RA. - continues on Unasyn. Pulmonary recommends dosing to 1111. Patient is slightly more short of breath with a truncated dialysis session on 04/29 we will check a portable chest x-ray Continues with aggressive pulmonary toilet. improved 04/30 (5) Sepsis: 2nd to right-sided pneumonia in the face of recovering COVID-19 infection. Hemodynamically stable at this time. (6) ESRD (end stage renal disease) on dialysis: Dialysis on Wednesday, Wednesday, Wednesday Appreciate nephrology assistance cont phosphate binders (7) Multiple sclerosis: Holding teriflunomide. Seen by [facility] - MS felt NOT contributing to current respiratory state. (8) History of DVT (deep vein thrombosis): eliquis 5mg BID (9) Hypertension: cont amlodipine BPs high - perhaps steroid effect - may need additional agent(s) (10) Thrombocytopenia: appears chronic (11) Type 2 diabetes mellitus: pharmacy glycemic team is managing; appreciate their assistance (12) Asthma: questionable history will need f/u with pulmonary for this on the outpatient side for PFTs, etc and to guage resolution of pulmonary process cont albuterol prn (13) Depression: cont usual meds (14) Hyponatremia: 2nd to ESRD, "pseudo"hypontremia from high glucose, etc (15) DVT prophylaxis: marcianovigneshsallie appreciate palliative care assistance PT, VINAYAK mandel I discussion with Mr. Santos 04/29/20 regarding his decision makers with in his friends and family. Mr. Santos is estranged from his for the last 4+ years and he wishes her to have access to his information but not be medical decision- maker if he becomes incapacitated. The patient requested his friend Yovani and his Sister Brina be codecision-makers. We will try to engage service excellence to see if we can have a legal document crafted that Mr. Zaldivar signed out he is awake alert and seemingly of sound decision-making status. Admission and Anticipated Discharge Date Admission Date: April 25, 2020 Subjective this pt looks much improved today and he also states he feels better, I personally reviewed CXR last pm and it did show clearing of his lungs. Review of Systems Review of Systems: Mild distress and fatigue no headache, blurry or double vision no speech or swallowing issues no chest pain, pressure or palpitations Mild shortness of breath, improved from yesterday. nonproductive cough no wheezes no abdominal pain, nausea or vomiting, diarrhea or constipation no dysuria, hematuria or frequency no focal joint pain no back pain, CVA tenderness or radicular pain no bruising, bleeding or rashes no focal signs of weakness or numbness or altered sensation no complaints of anxiety or depression. Physical Exam Physical Exam: The patient appeared chronically ill fatigued and weakened Vital signs as documented. Head exam is normocephalic atraumatic no scleral icterus Neck is without JVD, thyromegaly, or carotid bruits. Lungs are diminished at the bases right greater than left, patient is using accessory muscles for respirations and also some belly breathing Cardiac exam, Rhythm is regular.. No murmurs, rubs or gallops. Abdominal exam reveals normal bowel sounds, soft non tender, no masses Extremities are mildly edematous and both pedal pulses are present Neurologic exam is alert and oriented, globally weak difficulty sitting up in bed Skin is without rashes Psychologically is without concerns for anxiety or depression. Results & Data Results & Data ([facility]) Vital Signs (Past 12 Hours) Vital Signs Temp Pulse Pulse Resp BP Pulse Ox 04/30/20 15:34 98.2 F 60 18 158/72 H 96 11/03/20 12:04 98.6 F 59 L 18 160/82 H 94 04/30/20 08:04 55 L 16 161/94 H 100 04/30/20 04:45 97.9 F 56 L 17 165/73 H 92 PG Care Time/CCT Total # of Minutes Spent Total Time Spent with Patient: Total time spent is greater than 50% in coordination of care (as documented) at patient's floor/unit and/or counseling patient: Coding Level of Care Code 65904 Subseq Hosp Care Lvl 2 Diagnoses Acute hypoxemic respiratory failure J96.01 Pneumonia due to COVID-19 virus U07.1; J12.89 Aspiration pneumonia J69.0 Aspiration pneumonia type: unspecified Laterality: right Lung location: unspecified part of lung Collapse of right lung J98.11 Sepsis A41.9; R65.20; J96.01 Acute respiratory failure type: with hypoxia Sepsis acute organ dysfunction status: with acute organ dysfunction Sepsis type: sepsis due to unspecified organism Severe sepsis acute organ dysfunction type: acute respiratory failure Severe sepsis shock status: without septic shock ESRD (end stage renal disease) on dialysis N18.6; Z99.2 Multiple sclerosis G35 History of DVT (deep vein thrombosis) Z86.718 Hypertension I10 Hypertension type: essential hypertension Thrombocytopenia D69.6 Type 2 diabetes mellitus E11.69 Diabetes mellitus intermodal customer service insulin use: without intermodal customer service use Diabetes mellitus complication status: with other specified complication Asthma J45.901 Asthma severity: unspecified severity Asthma persistence: unspecified Asthma complication type: with acute exacerbation Depression F32.9 Depression Type: unspecified Hyponatremia E87.1 DVT prophylaxis Z29.9 (1) Aspiration pneumonia Aspiration pneumonia type: unspecified Laterality: right Lung location: unspecified part of lung Qualified Code(s): J69.0 - Pneumonitis due to inhalation of food and vomit (2) Sepsis Acute respiratory failure type: with hypoxia Sepsis acute organ dysfunction status: with acute organ dysfunction Sepsis type: sepsis due to unspecified organism Severe sepsis acute organ dysfunction type: acute respiratory failure Severe sepsis shock status: without septic shock Qualified Code(s): A41.9 - Sepsis, unspecified organism; R65.20 - Severe sepsis without septic shock; J96.01 - Acute respiratory failure with hypoxia (3) Hypertension Hypertension type: essential hypertension Qualified Code(s): I10 - Essential (primary) hypertension (4) Type 2 diabetes mellitus Diabetes mellitus senior living insulin use: without senior living use Diabetes mellitus complication status: with other specified complication Qualified Code(s): E11.69 - Type 2 diabetes mellitus with other specified complication (5) Asthma Asthma severity: unspecified severity Asthma persistence: unspecified Asthma complication type: with acute exacerbation Qualified Code(s): J45.901 - Unspecified asthma with (acute) exacerbation (6) Depression Depression Type: unspecified Qualified Code(s): F32.9 - Major depressive disorder, single episode, unspecified
[2020-04-30] MEDS ORDERED: GLUCAGON FOR INJ 1 MG VIAL SQ PRN (17:22)
[2020-04-30] MEDS: traZODone HCL 100 MG TAB PO SCH (20:10)
[2020-04-30] MEDS: FLUoxetine HCL 20 MG CAP PO SCH (20:10)
[2020-05-01] MEDS: AMPICILLIN/SULBACTAM SOD 3,000 MG in 0.9 % SODIUM CHLORIDE 100 ML IV SCH ×2 (05:26→17:06)
[2020-05-01 06:26] LABS: BUN Creatinine Ratio 11.3 (10-20); Calcium 7.8 mg/dl (8.5-10.1); Creatinine Clr Calc Pharmacy 17.8 ml/min; Est GFR (African American) 11.9; Est GFR (Non-African American) 10.3; Potassium 4.8 mmol/L (3.5-5.1)
[2020-05-01] MEDS ORDERED: EPOETIN ALFA 10,000 UNITS in SYRINGE 0 ML IV SCH (08:45)
[2020-05-01] MEDS ORDERED: EPOETIN ALFA 10,000 UNITS/ML VIAL IV ONE (09:00)
[2020-05-01] MEDS: guaiFENesin 600 MG TABCR PO SCH ×2 (09:18→22:43)
[2020-05-01] MEDS: TAMSULOSIN HCL 0.4 MG CAP PO SCH (09:18)
[2020-05-01] MEDS: lisinopril 20 MG TAB PO SCH (09:18)
[2020-05-01] MEDS: rOPINIRole HCL 0.25 MG TABLET PO SCH ×2 (09:18→17:09)
[2020-05-01] MEDS: GABAPENTIN 100 MG CAP PO SCH ×3 (09:18→22:43)
[2020-05-01] MEDS: APIXABAN 5 MG TABLET PO SCH ×2 (09:19→22:44)
[2020-05-01] MEDS: CALCIUM ACETATE 667 MG CAP/TAB PO SCH ×3 (09:19→17:09)
[2020-05-01] MEDS: DEXAMETHASONE SOD PHOSPHATE 2 MG in SYRINGE 0 ML IV SCH (09:19)
[2020-05-01] MEDS: ARIPiprazole 15 MG TAB PO SCH (09:19)
[2020-05-01] MEDS: amLODIPine BESYLATE 5 MG TAB PO SCH (09:19)
[2020-05-01 09:37] LABS: Hepatitis B Surface Antigen Neg (Neg)
[2020-05-01 09:46] LABS: Hepatitis B Surface Ab Quant 10.47 mIU/mL (>or=10mIU/mL Immune); Hepatitis B Surface Antibody Immune
[2020-05-01] MEDS ORDERED: MoRPHine SULFATE 2 MG/ML CARP IV PRN (13:58)
[2020-05-01] MEDS: LOPERAMIDE HCL 2 MG CAP PO PRN (14:18)
--- NOTE | 2020-05-01 16:36 | Hospitalist Progress Note ---
Date of Service May 01, 2020 Assessment & Plan (1) Acute hypoxemic respiratory failure: RESOLVED. 2nd to right lung collapse, right sided pneumonia, COVID-19. Right-sided pneumonia - persistent small right lower lobe changes intubated and was vented, then extubated to [facility], now he is in RA. Intubated 04/25. Extubated 04/26 now on room air as of 04/28/20, continues to be stable or improved (2) Pneumonia due to COVID-19 virus: completed decadron Previously received plasma during first admission earlier this month. Was never a remdesivir candidate due to ESRD status. Initial diagnosis made at [facility] about April 02. Cont airborne precautions and supportive care. Appreciate pulmonary assistance. (3) Aspiration pneumonia: right basilar pneumonia suspected to be aspiration. remains on unasyn. Dr Manning recommending 14 days in total of unasyn/augmentin. last dose to be 05/08/20 (4) Collapse of right lung: Resolved clinically and radiographically. Did not need bronch to improve this issue. s/p intubation/mech ventilation and now successfully extubated. Stable on RA. - continues on Unasyn. Pulmonary recommends dosing to 05/08. improved 04/30 (5) Sepsis: 2nd to right-sided pneumonia in the face of recovering COVID-19 infection. Hemodynamically stable at this time. (6) ESRD (end stage renal disease) on dialysis: Dialysis on Wednesday, Wednesday, Wednesday Appreciate nephrology assistance cont phosphate binders (7) Multiple sclerosis: Holding teriflunomide. Seen by [facility] - MS felt NOT contributing to current respiratory state. (8) History of DVT (deep vein thrombosis): eliquis 5mg BID (9) Hypertension: cont amlodipine BPs high - perhaps steroid effect - may need additional agent(s) (10) Thrombocytopenia: appears chronic (11) Type 2 diabetes mellitus: pharmacy glycemic team is managing; appreciate their assistance (12) Asthma: questionable history will need f/u with pulmonary for this on the outpatient side for PFTs, etc and to guage resolution of pulmonary process cont albuterol prn (13) Depression: cont usual meds (14) Hyponatremia: 2nd to ESRD, "pseudo"hypontremia from high glucose, etc (15) DVT prophylaxis: eliqusallie appreciate palliative care assistance PT, OT evals I discussion with Mr. Santos 04/29/20 regarding his decision makers with in his friends and family. Mr. Santos is estranged from his for the last 4+ years and he wishes her to have access to his information but not be medical decision- maker if he becomes incapacitated. The patient requested his friend Yovani and his Sister Brina be codecision-makers. We will try to engage service excellence to see if we can have a legal document crafted that Mr. Zaldivar signed out he is awake alert and seemingly of sound decision-making status. Admission and Anticipated Discharge Date Admission Date: April 25, 2020 Subjective So the patient just after dialysis. He had 2.5 L removed. He says he is a minor headache and is feeling mildly nauseous. Nurse brings up concerns that he does not want return to the alf. He says his headache is bifrontal is not positional he is no changes in his vision with it he is not frequently prone to headaches he has no neck pain discomfort or stiffness.. His nausea is not bothered by eating or position he has no associate abdominal pain with it Review of Systems Review of Systems: Mild distress and fatigue mild bifrontal headache, no blurry or double vision no speech or swallowing issues no chest pain, pressure or palpitations Mild shortness of breath, improved from yesterday. nonproductive cough no wheezes no abdominal pain, mild nausea no vomiting, no diarrhea or constipation no dysuria, hematuria or frequency no focal joint pain no back pain, CVA tenderness or radicular pain no bruising, bleeding or rashes no focal signs of weakness or numbness or altered sensation no complaints of anxiety or depression. Physical Exam Physical Exam: The patient appeared chronically ill fatigued and weakened Vital signs as documented. Head exam is normocephalic atraumatic no scleral icterus Neck is without JVD, thyromegaly, or carotid bruits.he has no meningeal signs Lungs are diminished at the bases, overall much improved Cardiac exam, Rhythm is regular.. No murmurs, rubs or gallops. Abdominal exam reveals normal bowel sounds, soft non tender, no masses, no worsening of nausea with exam Extremities are mildly edematous and both pedal pulses are present Neurologic exam is alert and oriented, globally weak difficulty sitting up in bed Skin is without rashes Psychologically is without concerns for anxiety or depression. Results & Data Results & Data ([facility]) Vital Signs (Past 12 Hours) Vital Signs Temp Pulse Pulse Pulse Resp BP BP 05/01/20 16:11 98.6 F 67 18 170/97 H 05/01/20 13:45 97.5 F L 70 167/84 H 05/01/20 13:00 65 158/74 H 05/01/20 12:40 76 126/80 05/01/20 12:20 65 141/68 H 05/01/20 12:00 61 146/82 H 05/01/20 11:40 58 L 142/74 H 05/01/20 11:20 57 L 126/66 05/01/20 11:00 56 L 129/67 05/01/20 10:40 55 L 132/67 05/01/20 10:26 55 L 143/81 H 05/01/20 10:05 97.5 F L 55 L 05/01/20 08:18 97.5 F L 55 L 20 151/70 H 05/01/20 08:00 52 L 05/01/20 04:55 97.9 F 53 L 18 170/81 H Pulse Ox 05/01/20 16:11 96 05/01/20 13:45 05/01/20 13:00 05/01/20 12:40 05/01/20 12:20 05/01/20 12:00 05/01/20 11:40 05/01/20 11:20 05/01/20 11:00 05/01/20 10:40 05/01/20 10:26 05/01/20 10:05 05/01/20 08:18 96 05/01/20 08:00 05/01/20 04:55 95 PG Care Time/CCT Total # of Minutes Spent Total Time Spent with Patient: Total time spent is greater than 50% in coordination of care (as documented) at patient's floor/unit and/or counseling patient: Coding Level of Care Code 14755 Subseq Hosp Care Lvl 3 Diagnoses Acute hypoxemic respiratory failure J96.01 Pneumonia due to COVID-19 virus U07.1; J12.89 Aspiration pneumonia J69.0 Aspiration pneumonia type: unspecified Laterality: right Lung location: unspecified part of lung Collapse of right lung J98.11 Sepsis A41.9; R65.20; J96.01 Acute respiratory failure type: with hypoxia Sepsis acute organ dysfunction status: with acute organ dysfunction Sepsis type: sepsis due to unspecified organism Severe sepsis acute organ dysfunction type: acute respiratory failure Severe sepsis shock status: without septic shock ESRD (end stage renal disease) on dialysis N18.6; Z99.2 Multiple sclerosis G35 History of DVT (deep vein thrombosis) Z86.718 Hypertension I10 Hypertension type: essential hypertension Thrombocytopenia D69.6 Type 2 diabetes mellitus E11.69 Diabetes mellitus complication status: with other specified complication Diabetes mellitus medical terminologist insulin use: without medical terminologist use Asthma J45.901 Asthma complication type: with acute exacerbation Asthma persistence: unspecified Asthma severity: unspecified severity Depression F32.9 Depression Type: unspecified Hyponatremia E87.1 DVT prophylaxis Z29.9 (1) Type 2 diabetes mellitus Diabetes mellitus complication status: with other specified complication Diabetes mellitus medical terminologist insulin use: without fci use Qualified Code(s): E11.69 - Type 2 diabetes mellitus with other specified complication (2) Depression Depression Type: unspecified Qualified Code(s): F32.9 - Major depressive disorder, single episode, unspecified (3) Aspiration pneumonia Aspiration pneumonia type: unspecified Laterality: right Lung location: unspecified part of lung Qualified Code(s): J69.0 - Pneumonitis due to inhalation of food and vomit (4) Sepsis Acute respiratory failure type: with hypoxia Sepsis acute organ dysfunction status: with acute organ dysfunction Sepsis type: sepsis due to unspecified organism Severe sepsis acute organ dysfunction type: acute respiratory failure Severe sepsis shock status: without septic shock Qualified Code(s): A41.9 - Sepsis, unspecified organism; R65.20 - Severe sepsis without septic shock; J96.01 - Acute respiratory failure with hypoxia (5) Hypertension Hypertension type: essential hypertension Qualified Code(s): I10 - Essential (primary) hypertension (6) Asthma Asthma complication type: with acute exacerbation Asthma persistence: unspecified Asthma severity: unspecified severity Qualified Code(s): J45.901 - Unspecified asthma with (acute) exacerbation
[2020-05-01] MEDS: traZODone HCL 100 MG TAB PO SCH (22:43)
[2020-05-01] MEDS: FLUoxetine HCL 20 MG CAP PO SCH (22:44)
[2020-05-02] MEDS: ALBUTEROL HFA 8 GM INHALER INH PRN (02:37)
[2020-05-02] MEDS: AMPICILLIN/SULBACTAM SOD 3,000 MG in 0.9 % SODIUM CHLORIDE 100 ML IV SCH ×2 (05:16→18:05)
[2020-05-02 06:25] LABS: Hematocrit (blood only) 30.9 % (42-52); Hemoglobin 9.3 g/dL (14.0-18.0); Mean Corpuscular Hemoglobin 27.7 pg (25-34); Mean Corpuscular Hgb Conc 30.1 g/dL (32-36); RDW Coefficient of Variation 14.9 % (11.5-14.5); RDW Standard Deviation 49.8 fL (36.4-46.3); Red Blood Count 3.36 M/uL (4.7-6.1); White Blood Count 8.77 K/uL (4.8-10.8)
[2020-05-02 06:29] LABS: Mean Platelet Volume 9.3 fL (7.4-10.4); Platelet Count 99 K/uL (130-400)
[2020-05-02 06:47] LABS: Basophils # (auto) 0.01 K/uL (0-0.2); Basophils % (auto) 0.1 %; Eosinophils # (auto) 0.18 K/uL (0-0.5); Eosinophils % (auto) 2.1 %; Immature Granulocytes # (auto) 0.21 K/uL (0.00-0.02); Immature Granulocytes % (auto) 2.4 %; Lymphocytes # (auto) 1.48 K/uL (1.2-3.4); Lymphocytes % (auto) 16.9 %; Monocytes # (auto) 0.58 K/uL (0.11-0.59); Monocytes % (auto) 6.6 %; Neutrophils # (auto) 6.31 K/uL (1.4-6.5); Neutrophils % (auto) 71.9 %
[2020-05-02 07:24] LABS: BUN Creatinine Ratio 8.8 (10-20); Calcium 8.2 mg/dl (8.5-10.1); Creatinine Clr Calc Pharmacy 21.8 ml/min; Est GFR (African American) 15.2; Est GFR (Non-African American) 13.1; Potassium 4.4 mmol/L (3.5-5.1)
[2020-05-02] MEDS: FAMOTIDINE 20 MG TAB PO SCH (08:24)
[2020-05-02] MEDS: APIXABAN 5 MG TABLET PO SCH (08:24)
[2020-05-02] MEDS: amLODIPine BESYLATE 5 MG TAB PO SCH (08:24)
[2020-05-02] MEDS: lisinopril 20 MG TAB PO SCH (08:24)
[2020-05-02] MEDS: rOPINIRole HCL 0.25 MG TABLET PO SCH ×2 (08:24→15:13)
[2020-05-02] MEDS: ARIPiprazole 15 MG TAB PO SCH (08:24)
[2020-05-02] MEDS: TAMSULOSIN HCL 0.4 MG CAP PO SCH (08:24)
[2020-05-02] MEDS: guaiFENesin 600 MG TABCR PO SCH (08:24)
[2020-05-02] MEDS: GABAPENTIN 100 MG CAP PO SCH ×2 (08:24→15:12)
[2020-05-02] MEDS: CALCIUM ACETATE 667 MG CAP/TAB PO SCH ×3 (08:24→18:04)
--- NOTE | 2020-05-02 13:22 | Discharge Summary ---
Date of Service May 02, 2020 Admission HPI Per Admitting Provider The patient is a 54-year-old male with a past medical history including COVID-19 pneumonia, hyperlipidemia, hypertension, history of DVT, thrombocytopenia, diabetes mellitus type 2, depression, asthma, ESRD on dialysis and multiple sclerosis. He was most recently admitted for Covid from 04/12-04/16/2020, and reports he been feeling better until today. While in the emergency department, the patient continued to decompensate, he was found to have white out of his right lung, and was intubated while in the ED and then admitted to the ICU. Principal Diagnosis Acute respiratory failure covid -19 aspiration pneumonia esrd on dialysis Discharge Exam The patient appeared chronically ill Vital signs as documented. Lungs are coarse bibasilarly Cardiac exam, Rhythm is regular.. No murmurs, rubs or gallops. Abdominal exam reveals normal bowel sounds, soft non tender, no masses Extremities are nonedematous and both pedal pulses are normal. Neurologic exam is alert and oriented, no focal loss of strength or sensation Skin is without bruises or rashes Psychologically is without concerns for anxiety or depression. Discharge Data Allergies Allergy/AdvReac Type Severity Reaction Status Date / Time No Known Allergies Allergy Verified 04/24/20 23:33 Consultations 04/24/20 23:23 ED Decision to Admit Stat 04/25/20 02:30 Consult Case Management - Discharge Planning Routine Consult Rafter Cutting Machine Operator Routine 04/25/20 07:49 Consult Nephrology Routine 04/25/20 10:56 Consult Palliative Care Routine 04/25/20 10:57 Consult Neurology Routine Ordered Studies 04/24/20 23:16 CT chest wo con Urgent 04/25/20 10:02 US point of care ultrasound Routine Hospital Course (1) Acute hypoxemic respiratory failure: RESOLVED. 2nd to right lung collapse, right sided pneumonia, COVID-19. Right-sided pneumonia - persistent small right lower lobe changes intubated and was vented, then extubated to [facility], now he is in RA. Intubated 04/25. Extubated 04/26 now on room air as of 04/28/20, continues to be stable or improved (2) Pneumonia due to COVID-19 virus: completed decadron Previously received plasma during first admission earlier this month. Was never a remdesivir candidate due to ESRD status. Initial diagnosis made at [facility] about April 02. Cont airborne precautions and supportive care. Appreciate pulmonary assistance. (3) Aspiration pneumonia: right basilar pneumonia suspected to be aspiration. remains on unasyn. Dr Manning recommending 14 days in total of unasyn/augmentin. last dose to be 05/08/20 (4) Collapse of right lung: Resolved clinically and radiographically. Did not need bronch to improve this issue. s/p intubation/mech ventilation and now successfully extubated. Stable on RA. - continues on Unasyn. Pulmonary recommends antibiotic dosing to 05/08/20 will complete course with po augmentin. (5) Sepsis: 2nd to right-sided pneumonia in the face of recovering COVID-19 infection. resolved (6) ESRD (end stage renal disease) on dialysis: Dialysis on Wednesday, Wednesday, Wednesday Appreciate nephrology assistance cont phosphate binders (7) Multiple sclerosis: Holding teriflunomide. Seen by [facility] - MS felt NOT contributing to current respiratory state. restart after antibiotics (8) History of DVT (deep vein thrombosis): eliquis 5mg BID (9) Hypertension: cont amlodipine BPs high - perhaps steroid effect - may need additional agent(s) (10) Thrombocytopenia: appears chronic (11) Type 2 diabetes mellitus: pharmacy glycemic team is managing; appreciate their assistance (12) Asthma: questionable history will need f/u with pulmonary for this on the outpatient side for PFTs, etc and to guage resolution of pulmonary process cont albuterol prn (13) Depression: cont usual meds (14) Hyponatremia: 2nd to ESRD, "pseudo"hypontremia from high glucose, etc (15) DVT prophylaxis: eliquis appreciate palliative care assistance PT, OT ministerio I discussion with Mr. Santos 04/29/20 regarding his decision makers with in his friends and family. Mr. Santos is estranged from his for the last 4+ years and he wishes her to have access to his information but not be medical decision- maker if he becomes incapacitated. The patient requested his friend Yovani and his Sister Brina be codecision-makers. We will try to engage service excellence to see if we can have a legal document crafted that Mr. Zaldivar signed out he is awake alert and seemingly of sound decision-making status. Total Time Total Time Spent Total Time Spent (In Minutes): It required greater than 30 minutes to prepare this patient for discharge Discharge Plan Discharge Items Patient Disposition: Transfer Nursing Home Fac Reason For Visit: COVID-19 PNEUMONIA,ACUTE RESP FAILURE WITH HYPOXIA Discharge Diagnosis: covid 19 respiratory failure requiring mechanical ventilation secondary bacterial pneumonia Condition on Discharge: Critical Activity: Per Instructions section Activity Comment: will need PT/OT Non-emergency contact: Primary Care Provider Call non-emergency contact if: you have any medication questions Follow-up/Referrals: Dionna Mayfield [Primary Care Provider] - Diet: Carb Consistent or DM2 Addtl Attending Provider Instructions: complete antibiotics to finish 05/08/20 please start and continue physical and occupational therapy may resume typical multiple sclerosis treatment, teriflunomide once antibiotics are complete Pending Studies at Discharge: No Stand-Alone Forms: My [facility] Skilled Items Patient informed of condition?: Yes DNR: No Discharge Level of Care: Skilled Communicable Disease: Yes Discharge Prognosis: Stable Lines: None Urinary Catheter: No Medications and DC Order Prescriptions: New lisinopril 20 mg Tablet 20 mg PO QAM Qty: 30 RF: 0 amoxicillin-pot clavulanate [Augmentin] 875-125 mg tablet 1 tab PO BID Qty: 12 RF: 0 Continued amlodipine [Norvasc] 5 mg Tablet 10 mg PO QAM 30 Days Qty: 60 RF: 0 tamsulosin 0.4 mg Capsule 0.4 mg PO QAM 30 Days Qty: 30 RF: 0 trazodone 100 mg Tablet 100 mg PO HS 30 Days Qty: 30 RF: 0 ropinirole 0.25 mg Tablet 0.5 mg PO BID 30 Days Qty: 120 RF: 0 pantoprazole 40 mg Tablet,Delayed Release (Dr/Ec) 40 mg PO BID 30 Days Qty: 60 RF: 0 gabapentin 100 mg Capsule 100 mg PO TID 30 Days Qty: 90 RF: 0 fluoxetine 20 mg Capsule 60 mg PO HS 30 Days Qty: 90 RF: 0 aripiprazole [Abilify] 15 mg Tablet 15 mg PO QAM 30 Days Qty: 30 RF: 0 calcium acetate(phosphat bind) 667 mg Capsule 2,668 mg PO TIDM 30 Days Qty: 120 RF: 0 Eliquis 5 mg Tablet 5 mg PO BID 30 Days Qty: 60 RF: 0 Mucinex DM 30-600 mg Tablet Extended Release 12 Hr 1 tab PO Q12H PRN (Reason: COUGH/CONGESTION) RF: 0 teriflunomide 14 mg Tablet 14 mg PO QAM RF: 0 famotidine 20 mg tablet 20 mg PO Q OTHER DAY RF: 0 albuterol sulfate [Ventolin HFA] 90 mcg/actuation HFA aerosol inhaler 1 puff inhalation Q4H PRN (Reason: shortness of breath or wheezing) RF: 0 Discontinued erythromycin [Diaz-Tab] 250 mg Tablet,Delayed Release (Dr/Ec) 250 mg PO TID 30 Days Qty: 90 RF: 0 Discharge Orders: Discharge Order (Routine); Ordered 05/02/20 Ordered By: Roel Macias Admission Data Admit Date/Time: 04/25/20 00:21 Attending Provider: Roel Macias Admit Provider: Claude Moe Primary Care Provider: Dionna Mayfield Other Providers: Claude Moe ; Bo Melton Japheth E. ; Payal Dixon ; Christiano Manley Coding Level of Care Code D/C Day Management >30 mins Diagnoses Acute hypoxemic respiratory failure J96.01 Pneumonia due to COVID-19 virus U07.1; J12.89 Aspiration pneumonia J69.0 Aspiration pneumonia type: unspecified Laterality: right Lung location: unspecified part of lung Collapse of right lung J98.11 Sepsis A41.9; R65.20; J96.01 Acute respiratory failure type: with hypoxia Sepsis acute organ dysfunction status: with acute organ dysfunction Sepsis type: sepsis due to unspecified organism Severe sepsis acute organ dysfunction type: acute respiratory failure Severe sepsis shock status: without septic shock ESRD (end stage renal disease) on dialysis N18.6; Z99.2 Multiple sclerosis G35 History of DVT (deep vein thrombosis) Z86.718 Hypertension I10 Hypertension type: essential hypertension Thrombocytopenia D69.6 Type 2 diabetes mellitus E11.69 Diabetes mellitus buttermaker insulin use: without buttermaker use Diabetes mellitus complication status: with other specified complication Asthma J45.901 Asthma severity: unspecified severity Asthma persistence: unspecified Asthma complication type: with acute exacerbation Depression F32.9 Depression Type: unspecified Hyponatremia E87.1 DVT prophylaxis Z29.9
== END 2020-05-02 20:04 | DRG 208 ==
LOC: ED 21:55 → SUATTDRO 04-25 00:21 → 1E 04-25 00:21 → 2S 04-27 13:47

== ENCOUNTER 2020-05-07 15:23 | Inpatient (IN) ==
[2020-05-07] MEDS ORDERED: ACETAMINOPHEN 1,000 MG/100 ML VIAL IV STA (15:58)
[2020-05-07 16:31] LABS: Basophils # (auto) 0.01 K/uL (0-0.2); Basophils % (auto) 0.1 %; Eosinophils # (auto) 0.16 K/uL (0-0.5); Hemoglobin 8.6 g/dL (14.0-18.0); Immature Granulocytes # (auto) 0.05 K/uL (0.00-0.02); Immature Granulocytes % (auto) 0.6 %; Lymphocytes # (auto) 1.16 K/uL (1.2-3.4); Lymphocytes % (auto) 14.6 %; Mean Corpuscular Hemoglobin 28.3 pg (25-34); Mean Corpuscular Hgb Conc 30.7 g/dL (32-36); Mean Corpuscular Volume 92.1 fL (80-100); Mean Platelet Volume 8.6 fL (7.4-10.4); Monocytes # (auto) 0.54 K/uL (0.11-0.59); Monocytes % (auto) 6.8 %; Neutrophils % (auto) 75.9 %; Platelet Count 133 K/uL (130-400); RDW Coefficient of Variation 14.8 % (11.5-14.5); RDW Standard Deviation 50.6 fL (36.4-46.3); Red Blood Count 3.04 M/uL (4.7-6.1); White Blood Count 7.92 K/uL (4.8-10.8)
[2020-05-07 16:45] LABS: INR 1.3 (0.9-1.1); Partial Thromboplastin Ratio 1.5; Partial Thromboplastin Time 41.1 Seconds (21.0-31.0); Prothrombin Time 13.4 Seconds (9.0-12.0)
--- NOTE | 2020-05-07 16:59 | XRay Report ---
SINGLE VIEW CHEST CLINICAL HISTORY: Cough and dyspnea. Fever. FINDINGS: 2 AP, portable, upright chest radiographs are compared to study dated 04/29/2020. Correlatio n is made with chest CT dated 04/25/2020. The examination is degraded by portable technique and patie nt rotation. The examination is degraded by portable technique and patient rotation. A right subclav maribell central venous catheter has been removed. The cardiomediastinal silhouette is obscured. There is near complete opacification of the right hemithorax, likely representing a large pleural effusion wit h consolidation/atelectasis of the right lung. The left lung appears clear. No pneumothorax is seen. The bony thorax is grossly intact. Cholecystectomy clips are noted in the right upper quadrant. IMPRESSION: 1. There is complete opacification of the right hemithorax, likely representing a large pleural effus ion with consolidation/atelectasis of the right lung. This has significantly increased from 04/29/2020 . 2. The left lung appears clear. 3. A right subclavian central venous catheter has been removed from previous. ACT 112: Negative or not required by law. Electronically signed by: James Lucero M.D. 05/07/2020 4:57 PM
[2020-05-07 17:03] LABS: Alanine Aminotransferase 17 U/L (12-78); Albumin Globulin Ratio 0.6 (0.9-2); Albumin Level 2.4 gm/dl (3.4-5.0); Alkaline Phosphatase 60 U/L (45-117); Aspartate Aminotransferase 12 U/L (15-37); BUN Creatinine Ratio 5.4 (10-20); Bilirubin,Total 0.4 mg/dl (0.2-1); Blood Urea Nitrogen 32 mg/dl (7-18); Calcium 8.6 mg/dl (8.5-10.1); Carbon Dioxide 28 mmol/L (21-32); Chloride 92 mmol/L (98-107); Creatinine Clr Calc Pharmacy 18.5 ml/min; Est GFR (African American) 11.7; Est GFR (Non-African American) 10.1; Globulin 3.7 gm/dl (2.5-4.0); Glucose 174 mg/dl (70-99); Potassium 3.9 mmol/L (3.5-5.1); Sodium 127 mmol/L (136-145); Total Protein 6.1 gm/dl (6.4-8.2); Troponin I < 0.015 ng/ml (0-0.045)
[2020-05-07] MEDS ORDERED: CEFEPIME 2,000 MG/20 ML VIAL IV STA (17:04)
[2020-05-07] MEDS ORDERED: VANCOMYCIN HCL 2,250 MG in SODIUM CHLORIDE 0.9% 500 ML IV ONE (17:04)
[2020-05-07] MEDS ORDERED: VANCOMYCIN CONSULT ACTIVE PRN (17:04)
--- NOTE | 2020-05-07 17:06 | Emergency Department Note ---
ED Visit Note Patient was seen by our PA/SPRING SALVAGE WORKER. I was involved in the patient's care and did evaluate the patient myself. I was involved in the care throughout the ER stay. The patient presents today with increasing shortness of breath. Patient has a white out of his right hemithorax. He had the same presentation a few weeks ago. The last time he was admitted to our hospital, a bronchoscopy was able to increase the aeration to his right lung. The patient is currently saturating adequately on nasal cannula O2. Hospitalization is again warranted. .
--- NOTE | 2020-05-07 17:23 | Emergency Department Note ---
History of Present Illness General Chief complaint: Shortness of Breath/Dyspnea Stated complaint: SOB, Time Seen by Provider: 05/07/20 15:45 Source: patient and EMS Mode of arrival: EMS Limitations: no limitations History of Present Illness Maximum Pain Intensity: 0 This patient is a 54-year-old male with past medical history of MS and ESRD on dialysis who presents to the emergency department for evaluation of cough and shortness of breath. Patient reports that he woke up this morning feeling more short of breath than usual. He has had a cough. Patient does arrive febrile, but was not aware that he had a fever. Patient tested positive for COVID-19 1 month ago. He was hospitalized here due to subsequent respiratory failure and pneumonia and was intubated for several days. He was discharged just over 1 week ago. Patient was discharged home on Augmentin. He does report some generalized malaise/body aches. Patient is on 4 L/min of oxygen at all times. Home Medications Home Medications Medication Instructions Recorded Confirmed Type Eliquis 5 mg PO BID 30 Days #60 tab 04/09/20 05/07/20 Rx amlodipine [Norvasc] 10 mg PO QAM 30 Days #60 tab 04/09/20 05/07/20 Rx aripiprazole [Abilify] 15 mg PO QAM 30 Days #30 tab 04/09/20 05/07/20 Rx calcium acetate(phosphat bind) 2,668 mg PO TIDM 30 Days #120 cap 04/09/20 05/07/20 Rx fluoxetine 60 mg PO HS 30 Days #90 cap 04/09/20 05/07/20 Rx gabapentin 100 mg PO TID 30 Days #90 cap 04/09/20 05/07/20 Rx pantoprazole 40 mg PO BID 30 Days #60 tab 04/09/20 05/07/20 Rx ropinirole 0.5 mg PO BID 30 Days #120 tab 04/09/20 05/07/20 Rx tamsulosin 0.4 mg PO QAM 30 Days #30 cap 04/09/20 05/07/20 Rx trazodone 100 mg PO HS 30 Days #30 tab 04/09/20 05/07/20 Rx Mucinex DM 1 tab PO Q12H PRN 04/24/20 05/07/20 History albuterol sulfate [Ventolin HFA] 1 puff INHALATION Q4H PRN 04/24/20 05/07/20 History famotidine 20 mg PO Q OTHER DAY 04/24/20 05/07/20 History teriflunomide 14 mg PO QAM 04/24/20 05/07/20 History lisinopril 20 mg PO QAM #30 tab 05/02/20 05/07/20 Rx Allergies Allergy/AdvReac Type Severity Reaction Status Date / Time No Known Allergies Allergy Verified 05/07/20 17:21 Past Med/Surg History Medical History A-V fistula left forearm Abnormal posture Acute respiratory failure with hypoxia Anemia Depression DVT (deep venous thrombosis) ESRD (end stage renal disease) on dialysis Generalized muscle weakness GERD (gastroesophageal reflux disease) Hyperlipidemia Hypertension Multiple sclerosis Osteoarthritis Paradoxical insomnia Pneumonia due to COVID-19 virus Thrombocytopenia Type 2 diabetes mellitus Surgical History S/P arteriovenous (AV) fistula creation Family History Father , in his late 40s Myocardial infarction Social History Smoking Status: Former smoker Tobacco Type: Cigarettes Age Started Using Tobacco: 18; packs per day: 0.5; Second Hand Exposure: No; Hx Alcohol Use: No Hx Substance Use: No Preferred Language: Trinidadian Communication Ability: Effective Supervisor Transcribing Operators Required: No Beliefs That Will Affect Care: None marital status: Unknown Current Living Situation: Correction current occupational status: disabled 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 Children do You have: 4 Feels Safe at Home: Yes Assistive Devices: Oxygen - Continuous Review of Systems A total of 10 systems reviewed and were otherwise negative Physical Exam Vital Signs Vital Signs - 24 hr 05/07/20 15:30 05/07/20 15:32 05/07/20 15:38 Temperature 38.0 C H Temperature Source Oral Pulse Rate 75 72 71 Pulse Rate from SpO2 Sensor 71 70 Pulse Rhythm Regular Pulse Strength Normal Respiratory Rate 17 24 17 Respiratory Effort / Characteristics Non-Labored Spontaneous Respiratory Depth Normal Respiratory Pattern Regular Blood Pressure 141/74 H 141/74 H Blood Pressure Mean 107 96 Blood Pressure Position Lying Pulse Oximetry 98 98 99 Oxygen Delivery Method Nasal Cannula Nasal Cannula Nasal Cannula Oxygen Flow Rate 5 5 5 Sepsis Recent Fever Within 48 Hours No Sepsis New/Unexplained Change in Mental Status N/A Sepsis Action Taken by Nursing No Action Required 05/07/20 15:41 05/07/20 16:00 05/07/20 16:30 Temperature Temperature Source Pulse Rate 69 65 Pulse Rate from SpO2 Sensor 69 65 Pulse Rhythm Pulse Strength Respiratory Rate 24 22 Respiratory Effort / Characteristics Non-Labored Spontaneous Respiratory Depth Normal Respiratory Pattern Regular Blood Pressure 138/72 131/66 Blood Pressure Mean 99 83 Blood Pressure Position Pulse Oximetry 96 97 Oxygen Delivery Method Nasal Cannula Nasal Cannula Nasal Cannula Oxygen Flow Rate 5 5 4 Sepsis Recent Fever Within 48 Hours Sepsis New/Unexplained Change in Mental Status Sepsis Action Taken by Nursing 05/07/20 17:00 05/07/20 17:30 05/07/20 17:31 Temperature Temperature Source Pulse Rate 60 58 L 58 L Pulse Rate from SpO2 Sensor 61 58 L 58 L Pulse Rhythm Pulse Strength Respiratory Rate 20 20 19 Respiratory Effort / Characteristics Respiratory Depth Respiratory Pattern Blood Pressure 139/65 121/60 Blood Pressure Mean 90 80 Blood Pressure Position Pulse Oximetry 96 97 96 Oxygen Delivery Method Nasal Cannula Nasal Cannula Nasal Cannula Oxygen Flow Rate 5 5 5 Sepsis Recent Fever Within 48 Hours Sepsis New/Unexplained Change in Mental Status Sepsis Action Taken by Nursing 05/07/20 17:32 05/07/20 18:00 05/07/20 18:30 Temperature 37.0 C Temperature Source Oral Pulse Rate 58 L 55 L 53 L Pulse Rate from SpO2 Sensor 58 L 56 L 53 L Pulse Rhythm Pulse Strength Respiratory Rate 19 19 18 Respiratory Effort / Characteristics Respiratory Depth Respiratory Pattern Blood Pressure 105/56 L 107/54 L Blood Pressure Mean 68 66 Blood Pressure Position Pulse Oximetry 97 97 97 Oxygen Delivery Method Nasal Cannula Nasal Cannula Nasal Cannula Oxygen Flow Rate 5 5 5 Sepsis Recent Fever Within 48 Hours Sepsis New/Unexplained Change in Mental Status Sepsis Action Taken by Nursing 05/07/20 19:00 05/07/20 19:31 05/07/20 19:44 Temperature Temperature Source Pulse Rate 51 L 61 62 Pulse Rate from SpO2 Sensor 52 L 60 62 Pulse Rhythm Pulse Strength Respiratory Rate 18 21 21 Respiratory Effort / Characteristics Respiratory Depth Respiratory Pattern Blood Pressure 102/56 L 124/70 124/70 Blood Pressure Mean 75 89 89 Blood Pressure Position Pulse Oximetry 98 96 95 Oxygen Delivery Method Oxygen Flow Rate Sepsis Recent Fever Within 48 Hours Sepsis New/Unexplained Change in Mental Status Sepsis Action Taken by Nursing 05/07/20 20:00 Temperature Temperature Source Pulse Rate 65 Pulse Rate from SpO2 Sensor 66 Pulse Rhythm Pulse Strength Respiratory Rate 18 Respiratory Effort / Characteristics Respiratory Depth Respiratory Pattern Blood Pressure Blood Pressure Mean Blood Pressure Position Pulse Oximetry 97 Oxygen Delivery Method Oxygen Flow Rate Sepsis Recent Fever Within 48 Hours Sepsis New/Unexplained Change in Mental Status Sepsis Action Taken by Nursing VITALS: Vitals are noted on the nurse's note and reviewed by myself. GENERAL: This is a 54-year-old male, chronically unwell appearing, tachypneic. SKIN: The skin was without rashes. EARS: External auditory canals clear, tympanic membranes pearly cabrera without erythema or effusion bilaterally. EYES: Pupils equal round and reactive to light and accommodation. MOUTH: Mucous membranes somewhat dry. NECK: Supple without nuchal rigidity. No lymphadenopathy. HEART: Regular rate and rhythm without murmurs gallops or rubs. LUNGS: Decreased lung sounds throughout the right side, crackles at the base. Increased work of breathing noted. ABDOMEN: Positive bowel sounds x 4. Soft, nontender. NEURO: Patient was alert and oriented to person place and time. Course Consultations Consultation #1: Dr. Gonzales - [facility] [place] Consultation #2: Dr. Melton - pulmonology Administered Medications Discontinued Medications Acetaminophen (Ofirmev) 1,000 mg in 100 mls @ 400 mls/hr IV NOW STA Stop: 05/07/20 16:12 Last Infusion: 05/07/20 16:30 Dose: 0 mls/hr Documented by: [id number] Admin: 05/07/20 16:15 Dose: 400 mls/hr Documented by: [id number] Cefepime HCl (Maxipime) 2,000 mg in 20 mls @ 5 mls/min IV NOW STA Stop: 05/07/20 17:07 Last Admin: 05/07/20 17:45 Dose: 5 mls/min Documented by: [id number] Vancomycin HCl 2,250 mg/ (Sodium Chloride) 545 mls @ 200 mls/hr IV NOW ONE Stop: 05/07/20 19:47 Last Admin: 05/07/20 17:46 Dose: 200 mls/hr Documented by: [id number] Medical Decision Making Differential Diagnosis Reactive airway disease, pneumonia, pneumothorax, COPD, CHF, infections, cardiac ischemia, pulmonary embolism, musculoskeletal, gastrointestinal, as well as other pathologies. Home Medications Current Medication List: was personally reviewed by me Laboratory Data Attestation: I reviewed the patient's lab results. Result diagrams: 05/07/20 16:15 05/07/20 16:15 Lab Results 05/07/20 05/07/20 05/07/20 Range/Units 16:15 16:15 16:15 WBC 7.92 (4.8-10.8) K/uL RBC 3.04 L (4.7-6.1) M/uL Hgb 8.6 L (14.0-18.0) g/dL Hct 28.0 L (42-52) % MCV 92.1 (80-100) fL MCH 28.3 (25-34) pg MCHC 30.7 L (32-36) g/dL RDW Std Deviation 50.6 H (36.4-46.3) fL RDW Coeff of Emiliano 14.8 H (11.5-14.5) % Plt Count 133 (130-400) K/uL MPV 8.6 (7.4-10.4) fL Immature Gran % (Auto) 0.6 % Neut % (Auto) 75.9 % Lymph % (Auto) 14.6 % [place] % (Auto) 6.8 % Eos % (Auto) 2.0 % Baso % (Auto) 0.1 % Neut # (Auto) 6.00 (1.4-6.5) K/uL Lymph # (Auto) 1.16 L (1.2-3.4) K/uL [place] # (Auto) 0.54 (0.11-0.59) K/uL Eos # (Auto) 0.16 (0-0.5) K/uL Baso # (Auto) 0.01 (0-0.2) K/uL Immature Gran # (Auto) 0.05 H (0.00-0.02) K/uL PT 13.4 H (9.0-12.0) Seconds INR 1.3 H (0.9-1.1) APTT 41.1 H (21.0-31.0) Seconds PTT Ratio 1.5 Sodium (136-145) mmol/L Potassium (3.5-5.1) mmol/L Chloride (98-107) mmol/L Carbon Dioxide (21-32) mmol/L Anion Gap (3-11) BUN (7-18) mg/dl Creatinine (0.6-1.4) mg/dl Est Cr Clr Drug Dosing ml/min Est GFR ( Amer) Est GFR (Non-Af Amer) BUN/Creatinine Ratio (10-20) Glucose (70-99) mg/dl Lactate 0.9 (0.4-2.0) mmol/L Calcium (8.5-10.1) mg/dl Total Bilirubin (0.2-1) mg/dl AST (15-37) U/L ALT (12-78) U/L Alkaline Phosphatase (45-117) U/L Troponin I (0-0.045) ng/ml Total Protein (6.4-8.2) gm/dl Albumin (3.4-5.0) gm/dl Globulin (2.5-4.0) gm/dl Albumin/Globulin Ratio (0.9-2) Procalcitonin (0-0.5) ng/ml COVID-19 Eval Order COVID-19 PCR (Negative) 05/07/20 05/07/20 05/07/20 Range/Units 16:15 16:15 16:20 WBC (4.8-10.8) K/uL RBC (4.7-6.1) M/uL Hgb (14.0-18.0) g/dL Hct (42-52) % MCV (80-100) fL MCH (25-34) pg MCHC (32-36) g/dL RDW Std Deviation (36.4-46.3) fL RDW Coeff of Emiliano (11.5-14.5) % Plt Count (130-400) K/uL MPV (7.4-10.4) fL Immature Gran % (Auto) % Neut % (Auto) % Lymph % (Auto) % [place] % (Auto) % Eos % (Auto) % Baso % (Auto) % Neut # (Auto) (1.4-6.5) K/uL Lymph # (Auto) (1.2-3.4) K/uL [place] # (Auto) (0.11-0.59) K/uL Eos # (Auto) (0-0.5) K/uL Baso # (Auto) (0-0.2) K/uL Immature Gran # (Auto) (0.00-0.02) K/uL PT (9.0-12.0) Seconds INR (0.9-1.1) APTT (21.0-31.0) Seconds PTT Ratio Sodium 127 L (136-145) mmol/L Potassium 3.9 (3.5-5.1) mmol/L Chloride 92 L (98-107) mmol/L Carbon Dioxide 28 (21-32) mmol/L Anion Gap 7.0 (3-11) BUN 32 H (7-18) mg/dl Creatinine 5.91 H* (0.6-1.4) mg/dl Est Cr Clr Drug Dosing 18.5 ml/min Est GFR ( Amer) 11.7 Est GFR (Non-Af Amer) 10.1 BUN/Creatinine Ratio 5.4 L (10-20) Glucose 174 H (70-99) mg/dl Lactate (0.4-2.0) mmol/L Calcium 8.6 (8.5-10.1) mg/dl Total Bilirubin 0.4 (0.2-1) mg/dl AST 12 L (15-37) U/L ALT 17 (12-78) U/L Alkaline Phosphatase 60 (45-117) U/L Troponin I < 0.015 (0-0.045) ng/ml Total Protein 6.1 L (6.4-8.2) gm/dl Albumin 2.4 L (3.4-5.0) gm/dl Globulin 3.7 (2.5-4.0) gm/dl Albumin/Globulin Ratio 0.6 L (0.9-2) Procalcitonin 3.85 H (0-0.5) ng/ml COVID-19 Eval Order Covid19 Done at [facility] COVID-19 PCR (Negative) 05/07/20 Range/Units 16:20 WBC (4.8-10.8) K/uL RBC (4.7-6.1) M/uL Hgb (14.0-18.0) g/dL Hct (42-52) % MCV (80-100) fL MCH (25-34) pg MCHC (32-36) g/dL RDW Std Deviation (36.4-46.3) fL RDW Coeff of Emiliano (11.5-14.5) % Plt Count (130-400) K/uL MPV (7.4-10.4) fL Immature Gran % (Auto) % Neut % (Auto) % Lymph % (Auto) % [place] % (Auto) % Eos % (Auto) % Baso % (Auto) % Neut # (Auto) (1.4-6.5) K/uL Lymph # (Auto) (1.2-3.4) K/uL [place] # (Auto) (0.11-0.59) K/uL Eos # (Auto) (0-0.5) K/uL Baso # (Auto) (0-0.2) K/uL Immature Gran # (Auto) (0.00-0.02) K/uL PT (9.0-12.0) Seconds INR (0.9-1.1) APTT (21.0-31.0) Seconds PTT Ratio Sodium (136-145) mmol/L Potassium (3.5-5.1) mmol/L Chloride (98-107) mmol/L Carbon Dioxide (21-32) mmol/L Anion Gap (3-11) BUN (7-18) mg/dl Creatinine (0.6-1.4) mg/dl Est Cr Clr Drug Dosing ml/min Est GFR ( Amer) Est GFR (Non-Af Amer) BUN/Creatinine Ratio (10-20) Glucose (70-99) mg/dl Lactate (0.4-2.0) mmol/L Calcium (8.5-10.1) mg/dl Total Bilirubin (0.2-1) mg/dl AST (15-37) U/L ALT (12-78) U/L Alkaline Phosphatase (45-117) U/L Troponin I (0-0.045) ng/ml Total Protein (6.4-8.2) gm/dl Albumin (3.4-5.0) gm/dl Globulin (2.5-4.0) gm/dl Albumin/Globulin Ratio (0.9-2) Procalcitonin (0-0.5) ng/ml COVID-19 Eval Order COVID-19 PCR POSITIVE A* (Negative) Imaging Data Attestation: I personally reviewed and interpreted this imaging study as follows: Radiologist's Impression: SINGLE VIEW CHEST CLINICAL HISTORY: Cough and dyspnea. Fever. FINDINGS: 2 AP, portable, upright chest radiographs are compared to study dated 04/29/2020. Correlation is made with chest CT dated 04/25/2020. The examination is degraded by portable technique and patient rotation. The examination is de graded by portable technique and patient rotation. A right subclavian central venous catheter has been removed. The cardiomediastinal silhouette is obscured. There is near complete opacification of the right hemithorax, likely representing a large pleural effusion with consolidation/atelectasis of the right lung. The left lung appears clear. No pneumothorax is seen. The bony thorax is grossly intact. Cholecystectomy clips are noted in the right upper quadrant. IMPRESSION: 1. There is complete opacification of the right hemithorax, likely representing a large pleural effusion with consolidation/atelectasis of the right lung. This has significantly increased from 04/29/2020. 2. The left lung appears clear. 3. A right subclavian central venous catheter has been removed from previous. ECG Data Attestation: I personally reviewed and interpreted this ECG as follows: Indication: + SOB/dyspnea Rate (beats per minute): 72 Rhythm: + normal sinus ECG Intervals/blocks: + Normal QRS ECG ST segments: + Normal ST segments ECG Findings: + Other (baseline artifact) Change: no significant change MDM Narrative The patient is a 54-year-old male with past medical history of MS and ESRD on dialysis who presents today for evaluation of shortness of breath and cough which began today. Patient had a recent hospitalization for pneumonia and respiratory failure and was discharged about 1 week ago. He was intubated for a few days during that admission and underwent bronchoscopy. Patient was sent home on Augmentin which he is still on at this time. Patient arrives here febrile, tachypneic but stable on 5 L/min nasal cannula. A chest x-ray here shows complete opacification of the right lung, likely due to pleural effusion and consolidation. This appears similar to a chest x-ray from his prior admission. Labs with no leukocytosis, stable anemia and elevated creatinine/electrolyte abnormalities consistent with dialysis. Lactate was not elevated, troponin negative. Blood cultures were drawn. A COVID-19 test was repeated as patient has not yet had a negative test and was again positive. Patient was started on cefepime and vancomycin and will be admitted to the [facility]ist service for further care. Continuous laboratory monitor: Order was placed for continuous laboratory monitor. Patient was placed on the laboratory monitor. Patient was noted to be in normal sinus rhythm at an initial rate of 72 bpm. The patient was independently evaluated by Dr. Bah, who agreed with my asses sment and treatment plan. Impression & Plan Pneumonia involving right lung, Shortness of breath Discharge Plan Visit Data Chief Complaint: Shortness of Breath/Dyspnea Stated Complaint: SOB, ED Provider: James Bah ED Midlevel Provider: Court Roper Discharge Problem: Pneumonia involving right lung, Shortness of breath Forms Stand Alone Forms: My [facility] Prescriptions Prescriptions: No Action amlodipine [Norvasc] 5 mg Tablet 10 mg PO QAM 30 Days Qty: 60 RF: 0 tamsulosin 0.4 mg Capsule 0.4 mg PO QAM 30 Days Qty: 30 RF: 0 trazodone 100 mg Tablet 100 mg PO HS 30 Days Qty: 30 RF: 0 ropinirole 0.25 mg Tablet 0.5 mg PO BID 30 Days Qty: 120 RF: 0 pantoprazole 40 mg Tablet,Delayed Release (Dr/Ec) 40 mg PO BID 30 Days Qty: 60 RF: 0 gabapentin 100 mg Capsule 100 mg PO TID 30 Days Qty: 90 RF: 0 fluoxetine 20 mg Capsule 60 mg PO HS 30 Days Qty: 90 RF: 0 aripiprazole [Abilify] 15 mg Tablet 15 mg PO QAM 30 Days Qty: 30 RF: 0 calcium acetate(phosphat bind) 667 mg Capsule 2,668 mg PO TIDM 30 Days Qty: 120 RF: 0 Eliquis 5 mg Tablet 5 mg PO BID 30 Days Qty: 60 RF: 0 Mucinex DM 30-600 mg Tablet Extended Release 12 Hr 1 tab PO Q12H PRN (Reason: COUGH/CONGESTION) RF: 0 teriflunomide 14 mg Tablet 14 mg PO QAM RF: 0 famotidine 20 mg tablet 20 mg PO Q OTHER DAY RF: 0 albuterol sulfate [Ventolin HFA] 90 mcg/actuation HFA aerosol inhaler 1 puff inhalation Q4H PRN (Reason: shortness of breath or wheezing) RF: 0 lisinopril 20 mg Tablet 20 mg PO QAM Qty: 30 RF: 0 Discharge Problem: Pneumonia involving right lung Qualifiers: Pneumonia type: due to unspecified organism Lung location: unspecified part of lung Qualified Code(s): J18.9 - Pneumonia, unspecified organism
[2020-05-07] MEDS ORDERED: metroNIDAZOLE 500 MG/100 ML BAG IV STA (18:48)
--- NOTE | 2020-05-07 19:29 | Critical Care Consultation ---
Date of Consultation May 07, 2020 Supervising Physician Co-Signing Physician Notes I evaluated the patient in the emergency department, I had an extensive discussion with the patient. I previously saw the patient on his last admission, he continues to be positive for Covid from a nasal swab, I suspect that while there are indications pay patients may be positive but not shedding given his chronic conditions he very well could be continuing to shed virus. It also appears that he has recurrent mucoid impactions and has end-stage MS in the setting of chronic kidney disease. I think it would be safest that if the patient has another episode of acute hypoxic respiratory failure with mucoid impactions that he is not able to clear he should undergo tracheostomy. I feel that would be safer for airway clearance, especially if mucoid impaction becomes lodged in the upper airways this will lead to . He has confirmed again that he wants to continue with aggressive therapies including intubation and mechanical ventilation. Accordingly I feel it in the patient's best interest to hold off on intubation for as long as feasibly possible unless the patient has such mucoid impaction and unable to clear from failure to thrive/neuromuscular disease/profound weakness that the tracheostomy is further indicated. History of Present Illness Allergies Allergy/AdvReac Type Severity Reaction Status Date / Time No Known Allergies Allergy Verified 05/07/20 17:21 Home Medications Home Medications Medication Instructions Recorded Confirmed Type Eliquis 5 mg PO BID 30 Days #60 tab 04/09/20 05/07/20 Rx amlodipine [Norvasc] 10 mg PO QAM 30 Days #60 tab 04/09/20 05/07/20 Rx aripiprazole [Abilify] 15 mg PO QAM 30 Days #30 tab 04/09/20 05/07/20 Rx calcium acetate(phosphat bind) 2,668 mg PO TIDM 30 Days #120 cap 04/09/20 05/07/20 Rx fluoxetine 60 mg PO HS 30 Days #90 cap 04/09/20 05/07/20 Rx gabapentin 100 mg PO TID 30 Days #90 cap 04/09/20 05/07/20 Rx pantoprazole 40 mg PO BID 30 Days #60 tab 04/09/20 05/07/20 Rx ropinirole 0.5 mg PO BID 30 Days #120 tab 04/09/20 05/07/20 Rx tamsulosin 0.4 mg PO QAM 30 Days #30 cap 04/09/20 05/07/20 Rx trazodone 100 mg PO HS 30 Days #30 tab 04/09/20 05/07/20 Rx Mucinex DM 1 tab PO Q12H PRN 04/24/20 05/07/20 History albuterol sulfate [Ventolin HFA] 1 puff INHALATION Q4H PRN 04/24/20 05/07/20 History famotidine 20 mg PO Q OTHER DAY 04/24/20 05/07/20 History teriflunomide 14 mg PO QAM 04/24/20 05/07/20 History lisinopril 20 mg PO QAM #30 tab 05/02/20 05/07/20 Rx Patient History Medical History A-V fistula left forearm Abnormal posture Acute respiratory failure with hypoxia Anemia Depression DVT (deep venous thrombosis) ESRD (end stage renal disease) on dialysis Generalized muscle weakness GERD (gastroesophageal reflux disease) Hyperlipidemia Hypertension Multiple sclerosis Osteoarthritis Paradoxical insomnia Pneumonia due to COVID-19 virus Thrombocytopenia Type 2 diabetes mellitus Surgical History S/P arteriovenous (AV) fistula creation Family History Father , in his late 40s Myocardial infarction Social History Smoking Status: Former smoker Tobacco Type: Cigarettes Age Started Using Tobacco: 18; packs per day: 0.5; Second Hand Exposure: No; Hx Alcohol Use: No Hx Substance Use: No Preferred Language: Dutch Communication Ability: Effective Blacktop Spreader Required: No Beliefs That Will Affect Care: None marital status: Unknown Current Living Situation: [facility] current occupational status: disabled 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 Children do You have: 4 Feels Safe at Home: Yes Assistive Devices: Oxygen - Continuous Results & Data Results & Data ([facility]) Vital Signs (Past 12 Hours) Vital Signs Temp Pulse Resp BP Pulse Ox 05/07/20 19:00 51 L 18 102/56 L 98 05/07/20 18:30 37.0 C 53 L 18 107/54 L 97 05/07/20 18:00 55 L 19 105/56 L 97 05/07/20 17:32 58 L 19 97 05/07/20 17:31 58 L 19 121/60 96 05/07/20 17:30 58 L 20 97 05/07/20 17:00 60 20 139/65 96 05/07/20 16:30 65 22 131/66 97 05/07/20 16:00 69 24 138/72 96 05/07/20 15:38 71 17 99 05/07/20 15:32 38.0 C H 72 24 141/74 H 98 05/07/20 15:30 75 17 141/74 H 98 Coding Level of Care Code None
--- NOTE | 2020-05-07 19:33 | Emergency Department Note ---
ED Visit Note Of note, the automation test developer spoke with the patient about his current situation and his repeat visits and recurrent respiratory issues. Patient did consent to eventual tracheostomy if his respiratory status worsened and intubation was required. . : Pneumonia involving right lung Qualifiers: Pneumonia type: due to unspecified organism Lung location: unspecified part of lung Qualified Code(s): J18.9 - Pneumonia, unspecified organism
--- NOTE | 2020-05-07 21:06 | History & Physical Report ---
Date of Service May 07, 2020 Assessment & Plan (1) Acute and chronic respiratory failure with hypoxia: Suspected due to right lung collapse from mucoid impaction similar to previous hospitalization requiring intubation. Given sudden onset would suspect the the same rather than sudden pleural effusion but could consider CT if no improvement overnight with incentive spirometry, flutter valve and vibration vest. Certainly appears to be doing better with O2 requirement than prior hospit alization when he was failing BiPAP in the ER and subsequently was intubated. On 4L O2 at baseline, current requirement 5L. No current wheezing to suggest asthma/COPD component and will defer steroids at this time. Repeat CXR in AM Consult pulmonology (2) Aspiration pneumonia: Cefepime + metronidazole IV MRSA nasal swab, will discontinue vancomycin if negative NPO pending speech eval (3) COVID-19: Persistently positive. Doubt represents new infection. Treated with IV dexamethasone and convalescent plasma previously on hospitalization 04/04 (initial diagnosis 04/02). Currently near baseline O2. (4) Mucoid impaction of bronchi: Incentive spirometry, flutter valve, vibration vest. Consult pulmonology for consideration of bronchoscopy to assess for endobronchial lesion causing obstruction. (5) ESRD (end stage renal disease) on dialysis: Consult nephrology for help with management. Usual dialysis days MWF. (6) Multiple sclerosis: Continue teriflunomide 14mg PO daily (7) Type 2 diabetes mellitus: HbA1C 5.3 on prior labs although in setting of ESRD on dialysis this is unlikely to be insurance account representative but on no outpatient medication for this. Will place on BSG ACHS/Q6H with correction coverage insulin only pending further measurements. (8) Hypertension: Mostly managed with dialysis. Given current BP on non-dialysis day however will place amlodipine on hold. Continue lisinopril 20mg PO daily. (9) Anemia: Close to baseline. Suspect secondary to ESRD. Managed per nephrology. (10) Depression: Continue fluoxetine 60mg PO daily (11) DVT prophylaxis: Continue Eliquis 5mg PO BID (presumably on this for prior DVT). Admission and Anticipated Discharge Date Admission Date: 04/06/2020 History of Present Illness Chief Complaint: Shortness of breath , hypoxia Primary Care Provider: Dionna Mayfield Ruel Santos is a 54 year old male with recent history of COVID-19 requiring intubation, ESRD on dialysis and multiple sclerosis who presents to the ER with acute shortness of breath after waking up this morning. He reports this is similar to his last hospitalization in March with acute hypoxic respiratory failure due to mucoid impaction requiring intubation in setting of recent diagnosis and treatment for COVID-19. He was discharged back to [facility] on that occasion just 5 days previously. No bronchoscopy was performed on that occasion. He was cleared by speech and language therapy for a regular diet. No paperwork was sent from [facility] other than from EMS. He denies any fevers or chills although has a fever here on arrival to the ER. Per prior records he was weaned down to 2L O2 at the end of his hospitalization here although the patient reports being on 4L O2 at all times and currently requiring 5L. He reports being on dialysis three times a week, Wednesday, Wednesday and Wednesday. Notes no problems with dialysis on Wednesday. In the ER his CXR was concerning for complete white out of his right lung. ER provider discussed with pulmonology and recommended no bronchoscopy to be performed at this stage. Allergies Allergy/AdvReac Type Severity Reaction Status Date / Time No Known Allergies Allergy Verified 05/07/20 17:21 Home Medications Home Medications Medication Instructions Recorded Confirmed Type Eliquis 5 mg PO BID 30 Days #60 tab 04/09/20 05/07/20 Rx amlodipine [Norvasc] 10 mg PO QAM 30 Days #60 tab 04/09/20 05/07/20 Rx aripiprazole [Abilify] 15 mg PO QAM 30 Days #30 tab 04/09/20 05/07/20 Rx calcium acetate(phosphat bind) 2,668 mg PO TIDM 30 Days #120 cap 04/09/20 05/07/20 Rx fluoxetine 60 mg PO HS 30 Days #90 cap 04/09/20 05/07/20 Rx gabapentin 100 mg PO TID 30 Days #90 cap 04/09/20 05/07/20 Rx pantoprazole 40 mg PO BID 30 Days #60 tab 04/09/20 05/07/20 Rx ropinirole 0.5 mg PO BID 30 Days #120 tab 04/09/20 05/07/20 Rx tamsulosin 0.4 mg PO QAM 30 Days #30 cap 04/09/20 05/07/20 Rx trazodone 100 mg PO HS 30 Days #30 tab 04/09/20 05/07/20 Rx Mucinex DM 1 tab PO Q12H PRN 04/24/20 05/07/20 History albuterol sulfate [Ventolin HFA] 1 puff INHALATION Q4H PRN 04/24/20 05/07/20 History famotidine 20 mg PO Q OTHER DAY 04/24/20 05/07/20 History teriflunomide 14 mg PO QAM 04/24/20 05/07/20 History lisinopril 20 mg PO QAM #30 tab 05/02/20 05/07/20 Rx Past Med/Surg History Medical History A-V fistula left forearm Abnormal posture Acute respiratory failure with hypoxia Anemia Depression DVT (deep venous thrombosis) ESRD (end stage renal disease) on dialysis Generalized muscle weakness GERD (gastroesophageal reflux disease) Hyperlipidemia Hypertension Multiple sclerosis Osteoarthritis Paradoxical insomnia Pneumonia due to COVID-19 virus Thrombocytopenia Type 2 diabetes mellitus Surgical History S/P arteriovenous (AV) fistula creation Family History Father , in his late 40s Myocardial infarction Social History Smoking Status: Never smoker Tobacco Type: Cigarettes Age Started Using Tobacco: 18; packs per day: 0.5; Second Hand Exposure: No; Hx Alcohol Use: No Hx Substance Use: No Preferred Language: Omani Communication Ability: Effective Barrel Lapper Required: No Beliefs That Will Affect Care: None marital status: Unknown Current Living Situation: Custodial current occupational status: disabled 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 Children do You have: 4 Other Information That Helps Us Care for You: No Feels Safe at Home: Yes Safety Concerns: Feels Safe At This Time Assistive Devices: Wheelchair Review of Systems Review of Systems: All systems reviewed & are unremarkable except as noted in HPI & below Physical Exam Constitutional: well developed, + acute distress (respiratory), + ill appearing and + lethargic Eyes: + anicteric sclerae; normal pupil size Respiratory: + labored breathing, + retractions, + uses accessory muscles and + cough; + not able to speak in complete sentence Auscultation: + breath sounds absent (right sided (only central airways auscultated)); no crackles, no rhonchi and no wheezes Cardiovascular: Rate/Rhythm: regular rate and regular rhythm Heart Sounds: no murmur Extremities: normal capillary refill and + pedal edema Gastrointestinal (Abdomen): normal bowel sounds, soft, nontender, no hepatosplenomegaly Skin: no rashes, warm and dry Neurologic: awake; + does not move all extremities (unable to move left leg chronically, bed-bound) and not confused Psychiatric: Orientation: alert and oriented x 3 Results & Data Results & Data ([facility]) Vital Signs (Past 12 Hours) Vital Signs Temp Pulse Resp BP Pulse Ox 05/07/20 20:31 66 22 127/60 97 05/07/20 20:00 65 18 97 05/07/20 19:44 62 21 124/70 95 05/07/20 19:31 61 21 124/70 96 05/07/20 19:00 51 L 18 102/56 L 98 05/07/20 18:30 37.0 C 53 L 18 107/54 L 97 05/07/20 18:00 55 L 19 105/56 L 97 05/07/20 17:32 58 L 19 97 05/07/20 17:31 58 L 19 121/60 96 05/07/20 17:30 58 L 20 97 05/07/20 17:00 60 20 139/65 96 05/07/20 16:30 65 22 131/66 97 05/07/20 16:00 69 24 138/72 96 05/07/20 15:38 71 17 99 05/07/20 15:32 38.0 C H 72 24 141/74 H 98 05/07/20 15:30 75 17 141/74 H 98 Diagnostic Findings SINGLE VIEW CHEST IMPRESSION: 1. There is complete opacification of the right hemithorax, likely representing a large pleural effusion with consolidation/atelectasis of the right lung. This has significantly increased from 04/29/2020. 2. The left lung appears clear. 3. A right subclavian central venous catheter has been removed from previous. ECG Indication: SOB/dyspnea Rate (beats per minute): 72 Findings: no acute ischemic change Comparison ECG Date: from (April 25, 2020) Change: no significant change Code Status & VTE Plan Code Status Full as discussed with patient. Multiple prior conversations with palliative care noted on prior admission. VTE Prophylaxis Plan VTE Prophylaxis will be ordered: Yes PG Care Time/CCT Total # of Minutes Spent Total Time Spent with Patient: Total time spent is greater than 50% in coordination of care (as documented) at patient's floor/unit and/or counseling patient: Coding Level of Care Code 80589 Initial Inpt Care Lvl 3 Diagnoses Acute and chronic respiratory failure with hypoxia J96.21 Aspiration pneumonia J69.0 Aspiration pneumonia type: unspecified Laterality: right Lung location: unspecified part of lung COVID-19 U07.1 Mucoid impaction of bronchi J98.09 ESRD (end stage renal disease) on dialysis N18.6; Z99.2 Multiple sclerosis G35 Type 2 diabetes mellitus E11.69 Diabetes mellitus complication status: with other specified complication Diabetes mellitus terminal carman insulin use: without assisted use Hypertension I10 Hypertension type: essential hypertension Anemia D64.9 Depression F32.9 Depression Type: unspecified DVT prophylaxis Z29.9 (1) Type 2 diabetes mellitus Diabetes mellitus complication status: with other specified complication Diabetes mellitus assisted insulin use: without terminal carman 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
[2020-05-07] MEDS ORDERED: ALBUTEROL HFA 8 GM INHALER INH PRN (23:07)
[2020-05-07] MEDS ORDERED: CEFEPIME CONSULT ACTIVE PRN (23:07)
--- NOTE | 2020-05-07 23:41 | Communication Note ---
Date of Service: May 07, 2020 I evaluated the patient in the emergency department, I had an extensive discussion with the patient. I previously saw the patient on his last admission , he continues to be positive for Covid from a nasal swab, I suspect that while there are indications pay patients may be positive but not shedding given his chronic conditions he very well could be continuing to shed virus. It also appears that he has recurrent mucoid impactions and has end-stage MS in the setting of chronic kidney disease. I think it would be safest that if the patient has another episode of acute hypoxic respiratory failure with mucoid impactions that he is not able to clear he should undergo tracheostomy. I feel that would be safer for airway clearance, especially if mucoid impaction becomes lodged in the upper airways this will lead to . He has confirmed again that he wants to continue with aggressive therapies including intubation and mechanical ventilation. Accordingly I feel it in the patient's best interest to hold off on intubation for as long as feasibly possible unless the patient has such mucoid impaction and unable to clear from failure to thrive/neuromuscular disease/profound weakness that the tracheostomy is further indicated. Coding Level of Care Code None
[2020-05-08] MEDS: rOPINIRole HCL 0.25 MG TABLET PO SCH ×3 (00:48→22:46)
[2020-05-08] MEDS: APIXABAN 5 MG TABLET PO SCH ×3 (00:48→19:43)
[2020-05-08] MEDS: GABAPENTIN 100 MG CAP PO SCH ×4 (00:48→22:48)
[2020-05-08] MEDS: FLUoxetine HCL 20 MG CAP PO SCH ×2 (00:48→22:48)
[2020-05-08] MEDS: traZODone HCL 100 MG TAB PO SCH ×2 (00:48→22:49)
[2020-05-08] MEDS: PANTOprazole 40 MG TAB PO SCH ×3 (00:48→22:46)
[2020-05-08] MEDS: guaiFENesin 600 MG TABCR PO SCH ×3 (00:48→22:46)
[2020-05-08] MEDS ORDERED: GLUCOSE 10 TABS/TUBE PO PRN (06:02)
[2020-05-08] MEDS ORDERED: DEXTROSE 50% 50 ML SYRINGE IV PRN (06:02)
[2020-05-08] MEDS ORDERED: GLUCOSE 40% GEL 15 GM TUBE PO PRN (06:02)
[2020-05-08] MEDS ORDERED: CARBOHYDRATES FOR HYPOGLYCEMIA PO PRN (06:02)
[2020-05-08] MEDS ORDERED: GLUCAGON FOR INJ 1 MG VIAL SQ PRN (06:02)
[2020-05-08] MEDS: metroNIDAZOLE 500 MG/100 ML BAG IV SCH ×3 (06:11→22:54)
[2020-05-08 06:44] LABS: Basophils # (auto) 0.01 K/uL (0-0.2); Basophils % (auto) 0.2 %; Eosinophils # (auto) 0.13 K/uL (0-0.5); Eosinophils % (auto) 2.1 %; Hematocrit (blood only) 26.4 % (42-52); Hemoglobin 8.1 g/dL (14.0-18.0); Immature Granulocytes # (auto) 0.04 K/uL (0.00-0.02); Immature Granulocytes % (auto) 0.7 %; Lymphocytes # (auto) 0.42 K/uL (1.2-3.4); Lymphocytes % (auto) 6.9 %; Mean Corpuscular Hgb Conc 30.7 g/dL (32-36); Mean Corpuscular Volume 91.3 fL (80-100); Mean Platelet Volume 9.1 fL (7.4-10.4); Monocytes # (auto) 0.68 K/uL (0.11-0.59); Monocytes % (auto) 11.2 %; Neutrophils # (auto) 4.78 K/uL (1.4-6.5); Neutrophils % (auto) 78.9 %; Platelet Count 118 K/uL (130-400); RDW Coefficient of Variation 14.7 % (11.5-14.5); RDW Standard Deviation 50.1 fL (36.4-46.3); Red Blood Count 2.89 M/uL (4.7-6.1); White Blood Count 6.06 K/uL (4.8-10.8)
[2020-05-08 07:10] LABS: Albumin Globulin Ratio 0.6 (0.9-2); Albumin Level 2.1 gm/dl (3.4-5.0); BUN Creatinine Ratio 5.8 (10-20); Bilirubin,Total 0.5 mg/dl (0.2-1); Calcium 8.5 mg/dl (8.5-10.1); Creatinine Clr Calc Pharmacy 16.8 ml/min; Est GFR (African American) 10.6; Est GFR (Non-African American) 9.1; Globulin 3.4 gm/dl (2.5-4.0); Total Protein 5.5 gm/dl (6.4-8.2)
[2020-05-08] MEDS ORDERED: SODIUM CHLORIDE 0.9% 1000ML 1,000 ML IV PRN (07:20)
[2020-05-08] MEDS ORDERED: HEPARIN SOD (PORCINE) 1000 UNIT/ML 10 ML VIAL IV ONE (07:20)
[2020-05-08] MEDS ORDERED: EPOETIN ALFA 20,000 UNITS/ML VIAL IV ONE (07:20)
--- NOTE | 2020-05-08 08:33 | History & Physical Bridge Note ---
Date of Service May 08, 2020 History & Physical Bridge Note I have examined the patient, reviewed the History & Physical and in the interval since the performance of the History & Physical I have noted the following changes of clinical significance: no changes noted
[2020-05-08] MEDS ORDERED: fentaNYL citrate 100 MCG/2 ML VIAL ONE (08:52)
[2020-05-08] MEDS ORDERED: SODIUM CHLOR 7% 4 ML NEB NEB ONE (09:00)
[2020-05-08] MEDS ORDERED: LIDOCAINE 4% INH SOLN 4 ML BTL INH ONE (09:31)
[2020-05-08] MEDS ORDERED: LIDOCAINE HCL VISCOUS SOLN 2% 15 ML UDC MT ONE (09:33)
--- NOTE | 2020-05-08 09:33 | Pulmonary Consultation ---
Date of Consultation May 08, 2020 Assessment & Plan (1) Acute and chronic respiratory failure with hypoxia: Patient has had multiple respiratory failure events over the last month. He actually required intubation during his last hospitalization. It seems that he is noncompliant with noninvasive ventilation. I urged the need to be very compliant with noncompliant ventilation to avoid worsening respiratory failure and the need for mechanical ventilation. I do not think that we are at the point requiring a tracheostomy, but he does not of question should he require reintubation in the future. He does have severe neuromuscular weakness and a very impaired cough. I am ordering for CoughAssist to be used twice a day at a pressure of -35 cm H2O and +35 cm H2O. I relayed this to the bedside nurse and the respiratory therapist. We will also start him on 3 times a day vest therapy to maintain airway clearance. I am going to start him on twice daily duo nebs and subsequent hypertonic saline to also maintain airway clearance and patency. He is right lower lobe is very edematous and I suspect there is a degree of chronic aspiration. Certainly COVID-19 has likely deconditioned him as well. Physical therapy and occupational therapy would be beneficial. Notably, he does appear to have a left upper lobe sessile lesion at the takeoff which I did not biopsy due to his recent anticoagulation status, hypoxemic respiratory failure and his mild thrombocytopenia. This may require further follow-up. His procalcitonin is elevated, but this is likely related to his ESRD. I think is not unreasonable to continue antibiotics for 5 days given the degree of secretions noted in the airway. I did send for cultures. His care was discussed with the patient's hospitalist. (2) Aspiration pneumonia: Aspiration pneumonia type: unspecified Laterality: right Lung location: unspecified part of lung Qualified Code(s): J69.0 - Pneumonitis due to inhalation of food and vomit (3) ESRD (end stage renal disease) on dialysis: (4) Multiple sclerosis: (5) Neuromuscular respiratory weakness: History of Present Illness Reason for Consultation: Acute hypoxemic respiratory failure with right lung collapse Requesting Physician: Hospitalist service Attending Physician: Werner Sevilla DO History of Present Illness 54-year-old male with a past medical history of multiple sclerosis, depression, obesity, ESRD and Covid pneumonia who presented to the hospital from his nursing facility due to worsening shortness of breath and cough. Notably, the patient was recently in the hospital at the end of March for similar issues which included Covid pneumonia and right-sided lung collapse. He actually required endotracheal intubation and mechanical ventilation at that point. He did undergo bronchoscopy. There was apparently critical care consultation yesterday evening with regards to the question of a tracheostomy. The patient indicated to me that he has a BiPAP, but he has not been using it. He notes that he is basically immobile in his bed and that he does get around with the help of a powered wheelchair. He denies any significant nausea or vomiting. No chest pain currently. He does feel very short of breath. He is requiring 3 to 4 L of oxygen via nasal cannula. The patient's instrumental teacher was also in the room and we had a discussion with regards to tracheostomy in the future. The patient indicated that he is unsure whether he would want a tracheostomy in the future. I did indicate that we are not at that point throughout and tracheostomy would only be after a repeat intubation if we were to get to that point. Chest x-ray from yesterday demonstrated complete opacification of the right hemithorax. He has evidence of anemia of chronic disease with a hemoglobin of 8.1. White count of 6000. Hyponatremia present with a sodium of 129. Creatinine 6.41. He is in end-stage renal disease patient. Albumin of 2.1. COVID-19 testing negative. This is his third positive COVID-19 test since April 24. Allergies Allergy/AdvReac Type Severity Reaction Status Date / Time No Known Allergies Allergy Verified 05/07/20 17:21 Home Medications Home Medications Medication Instructions Recorded Confirmed Type Eliquis 5 mg PO BID 30 Days #60 tab 04/09/20 05/07/20 Rx amlodipine [Norvasc] 10 mg PO QAM 30 Days #60 tab 04/09/20 05/07/20 Rx aripiprazole [Abilify] 15 mg PO QAM 30 Days #30 tab 04/09/20 05/07/20 Rx calcium acetate(phosphat bind) 2,668 mg PO TIDM 30 Days #120 cap 04/09/20 05/07/20 Rx fluoxetine 60 mg PO HS 30 Days #90 cap 04/09/20 05/07/20 Rx gabapentin 100 mg PO TID 30 Days #90 cap 04/09/20 05/07/20 Rx pantoprazole 40 mg PO BID 30 Days #60 tab 04/09/20 05/07/20 Rx ropinirole 0.5 mg PO BID 30 Days #120 tab 04/09/20 05/07/20 Rx tamsulosin 0.4 mg PO QAM 30 Days #30 cap 04/09/20 05/07/20 Rx trazodone 100 mg PO HS 30 Days #30 tab 04/09/20 05/07/20 Rx Mucinex DM 1 tab PO Q12H PRN 04/24/20 05/07/20 History albuterol sulfate [Ventolin HFA] 1 puff INHALATION Q4H PRN 04/24/20 05/07/20 History famotidine 20 mg PO Q OTHER DAY 04/24/20 05/07/20 History teriflunomide 14 mg PO QAM 04/24/20 05/07/20 History lisinopril 20 mg PO QAM #30 tab 05/02/20 05/07/20 Rx Patient History Medical History A-V fistula left forearm Abnormal posture Acute respiratory failure with hypoxia Anemia Depression DVT (deep venous thrombosis) ESRD (end stage renal disease) on dialysis Generalized muscle weakness GERD (gastroesophageal reflux disease) Hyperlipidemia Hypertension Multiple sclerosis Osteoarthritis Paradoxical insomnia Pneumonia due to COVID-19 virus Thrombocytopenia Type 2 diabetes mellitus Surgical History S/P arteriovenous (AV) fistula creation Family History Father , in his late 40s Myocardial infarction Social History Smoking Status: Never smoker Tobacco Type: Cigarettes Age Started Using Tobacco: 18; packs per day: 0.5; Second Hand Exposure: No; Hx Alcohol Use: No Hx Substance Use: No Preferred Language: Romansh Communication Ability: Effective Mortgage Loan Computation Clerk Required: No Beliefs That Will Affect Care: None marital status: Unknown Current Living Situation: Correction current occupational status: disabled 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 Mildly tachypneic. Cardiovascular: RRR, no murmur, no edema Gastrointestinal (Abdomen): normal bowel sounds, soft, nontender, no hepatosplenomegaly Musculoskeletal: no cyanosis or clubbing, extremities motor strength 5/5 Skin: no rashes, warm and dry Neurologic: PERRL, EOMI, accommodation nl, no face palsy, no dysarthria Psychiatric: A+Ox3, euthymic affect Results & Data Results & Data ([facility]) Vital Signs (Past 12 Hours) Vital Signs Temp Pulse Pulse Resp BP Pulse Ox 05/08/20 04:44 52 L 16 124/63 100 05/07/20 23:16 97.9 F 84 89 24 161/76 H 94 I reviewed the vital signs, labs and imaging PG Care Time/CCT Total # of Minutes Spent Total Time Spent with Patient: Total time spent is greater than 50% in coordination of care (as documented) at patient's floor/unit and/or counseling patient: Coding Level of Care Code 86210 Inpt Consult Level 5 Diagnoses Acute and chronic respiratory failure with hypoxia J96.21 Aspiration pneumonia J69.0 Aspiration pneumonia type: unspecified Laterality: right Lung location: unspecified part of lung ESRD (end stage renal disease) on dialysis N18.6; Z99.2 Multiple sclerosis G35 Neuromuscular respiratory weakness J98.8
--- NOTE | 2020-05-08 09:41 | Post Anesthesia Assessment ---
Date of Service May 08, 2020 Post Sedation Assessment Vital Signs Temp Pulse Pulse Resp BP BP Pulse Ox 05/08/20 04:44 52 L 16 124/63 100 05/07/20 23:16 97.9 F 84 89 24 161/76 H 94 05/07/20 21:00 69 22 146/66 H 98 05/07/20 20:32 66 21 97 05/07/20 20:31 66 22 127/60 97 05/07/20 20:00 65 18 97 05/07/20 19:44 62 21 124/70 95 05/07/20 19:31 61 21 124/70 96 05/07/20 19:00 51 L 18 102/56 L 98 05/07/20 18:30 98.6 F 53 L 18 107/54 L 97 05/07/20 18:00 55 L 19 105/56 L 97 05/07/20 17:32 58 L 19 97 05/07/20 17:31 58 L 19 121/60 96 05/07/20 17:30 58 L 20 97 05/07/20 17:00 60 20 139/65 96 05/07/20 16:30 65 22 131/66 97 05/07/20 16:00 69 24 138/72 96 05/07/20 15:38 71 17 99 05/07/20 15:32 100.4 F H 72 24 141/74 H 98 05/07/20 15:30 75 17 141/74 H 98 Discharge Sedation Level of Care: Fast Track Phase II Post Sedation Plan On clinical assessment, the patient appears to have tolerated the sedation without complications. Patient is recovering as anticipated. Patient will continue to be monitored by nursing and may be discharged when sedation discharge criteria are met per below protocol. Upon Completions of procedure up to 15 minutes continue every 5 minute vital signs and the P.A.R. score; then discharge to a Phase I or Fast Track to Phase II per the following guidelines: * Discharge Patient to appropriate Phase II area if PAR is 8 or greater or return to pre- procedure baseline. The post - procedure orders will be as directed. * If PAR score is less than 8 or not return to pre-procedure baseline then patient will follow Phase I monitoring till PAR is reached for Phase II. The Phase I may be done in procedure room or may call to secure a Phase I area. * If naloxone or flumazenil are used for reversal, hold in Phase I for continued monitoring from when last reversal dose was given for a minimum of 60 minutes or longer pending the nurse and/or physician discretion of patient condition before discharge to Phase II. Please call the Sedation Physician to re-evaluate and complete post-note for discharge to Phase II area. Do NOT discharge from procedure sedation or Phase 1 until post- sedation evaluation note is complete by procedure /sedation MD Sedation Discharge Instructions to be given to the patient at discharge to home.
--- NOTE | 2020-05-08 09:41 | Pre Anesthesia Assessment ---
Date of Service May 08, 2020 Pre Sedation Assessment Vital Signs Temp Pulse Pulse Resp BP BP Pulse Ox 05/08/20 04:44 52 L 16 124/63 100 05/07/20 23:16 97.9 F 84 89 24 161/76 H 94 05/07/20 21:00 69 22 146/66 H 98 05/07/20 20:32 66 21 97 05/07/20 20:31 66 22 127/60 97 05/07/20 20:00 65 18 97 05/07/20 19:44 62 21 124/70 95 05/07/20 19:31 61 21 124/70 96 05/07/20 19:00 51 L 18 102/56 L 98 05/07/20 18:30 98.6 F 53 L 18 107/54 L 97 05/07/20 18:00 55 L 19 105/56 L 97 05/07/20 17:32 58 L 19 97 05/07/20 17:31 58 L 19 121/60 96 05/07/20 17:30 58 L 20 97 05/07/20 17:00 60 20 139/65 96 05/07/20 16:30 65 22 131/66 97 05/07/20 16:00 69 24 138/72 96 05/07/20 15:38 71 17 99 05/07/20 15:32 100.4 F H 72 24 141/74 H 98 05/07/20 15:30 75 17 141/74 H 98 Pre-Sedation Airway Assessment Smoking Status: Never smoker Hx Sleep Apnea: No Short, Thick Neck: No Thyromental Distance: > or= 3.5 Finger Breadths Oral Cavity: + WNL Mallampati Class: III ASA: ASA3 NPO Status Date of Last Intake of Fluids: 05/08/20 Time of Last Intake of Fluids: 00:00 Date of Last Intake of Solid Food: 05/08/20 Time of Last Intake of Solid Foods: 00:00 Notes The planned sedation has been discussed with the patient. Informed Consent was obtained. I have identified the patient, determined the appropriateness of sedation and have assessed the patient immediately prior to the procedure. All medicine(s) and interventions are by my order.
--- NOTE | 2020-05-08 09:45 | Procedure Note ---
Procedure Note Date of Service May 08, 2020 Note PREOPERATIVE DIAGNOSIS: Right lower lobe lung collapse POSTOPERATIVE DIAGNOSIS: Mucous plugging PROCEDURE PERFORMED: Flexible fiberoptic bronchoscopy with bronchial alveolar lavage COMPLICATIONS: None. INDICATION: Relieve right lung collapse PROCEDURE: After obtaining an informed consent, the patient was brought to the Bronchoscopy Suite. The patient had appropriate oxygen, blood pressure, heart rate, and respiratory rate monitoring applied and monitored continuously throughout the procedure. Supplemental oxygen via nasal cannula as per nursing records was applied to the nasopharynx with adequate saturations achieved. Top ical anesthesia with nebulized 1% lidocaine was achieved. Subsequent to this, the patient was premedicated with 2 mg of midazolam and 50 mcg of fentanyl. The oropharynx and larynx were well visualized and showed mild erythema. There was normal vocal cord motion without masses or lesions. Additional topical anesthesia with 1% lidocaine was applied to the trachea and radha. The trachea appeared normal with some mild degree of excessive dynamic airway collapse.The bronchoscope was then advanced through the radha, which was sharp. The scope was then advanced into the right main stem and each segment, subsegement in the right upper lobe, right middle lobe and right lower lobe was visualized. There was large amounts of thick mucoid secretions noted. There were no other findings including evidence of mass, anatomic distortion or hemorrhage. The bronchoscope was subsequently withdrawn and advanced into the left mainstem. Again, each segment and subsegment was well visualized. There was a sessile appearing polyp at the takeoff of the left upper lobe which did not have any evidence of bleeding. There was minimal amounts of thin secretions noted. The bronchoscope was then wedged in the vicinity of the right lower lobe and bronchoalveolar lavage samples were obtained. 60 ml of saline was instilled and 30 ml of fluid was aspirated back.The bronchoscope was withdrawn and the area was suctioned clear. The bronchoscope was then withdrawn to the mainstem. The area was suctioned clear. The bronchoscope was then withdrawn. The patient tolerated the procedure well without evidence of desaturation or complications. Bronchoalveolar lavage samples were sent for cell count, Gram stain and bacterial culture, AFB culture and smear, fungal culture and smear, and cytology Recommendations: We will require repeat bronchoscopy in the future to evaluate the left upper lobes sessile polyp-like lesion. Continue airway clearance therapy to prevent further mucus plugging on the right side. He is certainly at risk for aspiration. Follow cultures. Coding CPT Codes Pulmonary/Thoracic - Pulmonary and Thoracic: 16497 Dx bronchoscopy/BAL ([id number]) Sedation/Anesthesia - Sedation/Anesthesia: 89027 Mod Sedation by the same physician; Ea [id number] Minutes ([id number]) [facility] [place] Procedure Codes (Charges) Pulmonary/Thoracic Procedure 1: Pulmonary and Thoracic: 46648 Dx bronchoscopy/BAL Sedation/Anesthesia Procedure 1: Sedation/Anesthesia: 71549 Mod Sedation by the same physician; Ea [id number] Minutes Total Sedation Time (minutes): 20
[2020-05-08] MEDS: INSULIN ASPART 100 UNITS/ML 3 ML PEN SC SCH ×4 (10:00→23:02)
--- NOTE | 2020-05-08 10:05 | XRay Report ---
XR chest 1V portable CLINICAL HISTORY: Right lung collapse COMPARISON STUDY: 05/07/2020 FINDINGS: The heart is borderline enlarged. There is elevation of the right hemidiaphragmatic contour . There is improving aeration of right lung with right mid and lower lung zone airspace opacities. Th ere is no focal pulmonary consolidation on the left. No pneumothorax is visualized.[ IMPRESSION: 1. Right mid and lower lung zone airspace opacities 2. Elevation of the right hemidiaphragmatic contour 3. Interval improvement in the aeration of the right lung as compared with a study performed the . ACT 112: Negative or not required by law. Electronically signed by: Jericho Gómez M.D. 05/08/2020 10:03 AM
[2020-05-08] MEDS: TAMSULOSIN HCL 0.4 MG CAP PO SCH (10:06)
[2020-05-08] MEDS: CALCIUM ACETATE 667 MG CAP/TAB PO SCH ×3 (10:06→19:43)
[2020-05-08] MEDS: ARIPiprazole 15 MG TAB PO SCH (10:06)
[2020-05-08] MEDS: FAMOTIDINE 20 MG TAB PO SCH (10:07)
[2020-05-08] MEDS: lisinopril 20 MG TAB PO SCH (10:08)
[2020-05-08] MEDS ORDERED: MIDAZOLAM HCL 1 MG/ML 2ML VIAL IV ONE (10:36)
[2020-05-08] MEDS ORDERED: fentaNYL citrate 100 MCG/2 ML VIAL IV ONE (10:37)
[2020-05-08] MEDS: MIDAZOLAM HCL 1 MG/ML 2ML VIAL ONE ×2 (10:39→12:10)
[2020-05-08 10:55] LABS: Eosinophil Body Fluid Man 0 %; Fluid Mono/Macrophage 36 %; Lymphocyte Body Fluid Man 6 %; Neutrophil Body Fluid Man 58 %
[2020-05-08] MEDS: ALBUT/IPRATROP 3MG/0.5MG NEB 3 ML VIAL NEB SCH ×2 (11:29→20:03)
--- NOTE | 2020-05-08 15:02 | Nephrology Consultation ---
Date of Consultation May 08, 2020 Assessment & Plan (1) ESRD (end stage renal disease) on dialysis: to undergo dialysis today (about an hour into tx as I write this) > goal up to 4L UF keeping sbp > 100. low sodium reflects volume overload; other chemistries generally acceptable -evaluate in am for repeat tx > may not need it -started 1.5L FR to go with dialysis diet -phos and t stn ordered for am -gave epo 68802 units w/ tx today to help with anemia; follow up iron stores assay -recommend at least daily hgb Present on Admission?: Yes (2) Neuromuscular respiratory weakness: from MS and Covid/recurrent PNA >> complicates acute respiratory failure recovery -- appreciate pulm recs; d/c planning underway to ensure he has needed outpatient resp care to avoid readmission Present on Admission?: Yes (3) Acute and chronic respiratory failure with hypoxia: per pulmonary and critical care. -note L bronchial sessile polyp-like lesion reported at bronch >> will need f/u -pulm recs for chest toilet>>bipap use qhs; cough Assist bid; tid vest therapy; duonebs Present on Admission?: Yes (4) Multiple sclerosis: MS med stopped last admission; ensure f/u w/ [facility] neuro after d/c to re- establish care for this Present on Admission?: Yes History of Present Illness Reason for Consultation: esrd on dialysis Requesting Physician: Dr Novoa Attending Physician: Werner Sevilla, DO History of Present Illness 54 y/o M whom I'm asked to see for dialysis needs was admitted last evening for 4th time since 04/04 for acute respiratory failure. Initial admission was in setting of covid pneumonia. PMH includes bedbound/powerchair status d/t multiple sclerosis, ESRD on HD MWF, DM2, PAULINE supposed to be on bipap but not using b/c machine broke. At baseline prior to first admission this patient uses 2L 02 HS only; he was d/c from last 2 hospital admissions here on RA specif ically and had been on RA for several days prior to d/c. Each time after d/c despite aggressive dialysis, his 02 needs have progressively increased after hospital d/c. he arrived at hospital yesterday on 4>5LNC w/ worsening SOB and temp 100.4 ; noted to have recurrent white out/collapse of R lung (had similar last admissoin). Pt underwent bronch this AM to relieve RUL mucous plugging. He was also noted to have JUVENAL sessile polyp > not retrieved b/c he is anticoagulated; repeat bronch planned in future. with multiple respiratory failure admissions, several pulm toilet interventions suggested by pulm. I note that at his current OP [facility] facility I had requested chest PT and respiratory therapy prior to admission but facility not able/ equipped to provide this even as they provide otherwise excellent care. No recent missed HD. Apart from sob and weak cough, no n/v, no chest pain, no altered MS; no edema; no pain. Some concern pt may need trach; this has been discussed exten raffaele w/ pt today and yesterday. At last admission, neuro saw pt and stopped his MS medications pending further OP evaluation and follow up. He is relatively new to this area as of late summer (came from [place]) -- he is scheduled to [place] with [facility] [place] but has not had any care for MS now for several months. His ex and best friend Yovani are POAs. Pt seen on rounds this am at approx 0850. Allergies Allergy/AdvReac Type Severity Reaction Status Date / Time No Known Allergies Allergy Verified 05/07/20 17:21 Home Medications Home Medications Medication Instructions Recorded Confirmed Type Eliquis 5 mg PO BID 30 Days #60 tab 04/09/20 05/07/20 Rx amlodipine [Norvasc] 10 mg PO QAM 30 Days #60 tab 04/09/20 05/07/20 Rx aripiprazole [Abilify] 15 mg PO QAM 30 Days #30 tab 04/09/20 05/07/20 Rx calcium acetate(phosphat bind) 2,668 mg PO TIDM 30 Days #120 cap 04/09/20 05/07/20 Rx fluoxetine 60 mg PO HS 30 Days #90 cap 04/09/20 05/07/20 Rx gabapentin 100 mg PO TID 30 Days #90 cap 04/09/20 05/07/20 Rx pantoprazole 40 mg PO BID 30 Days #60 tab 04/09/20 05/07/20 Rx ropinirole 0.5 mg PO BID 30 Days #120 tab 04/09/20 05/07/20 Rx tamsulosin 0.4 mg PO QAM 30 Days #30 cap 10/13/20 11/10/20 Rx trazodone 100 mg PO HS 30 Days #30 tab 04/09/20 05/07/20 Rx Mucinex DM 1 tab PO Q12H PRN 04/24/20 05/07/20 History albuterol sulfate [Ventolin HFA] 1 puff INHALATION Q4H PRN 04/24/20 05/07/20 History famotidine 20 mg PO Q OTHER DAY 04/24/20 05/07/20 History teriflunomide 14 mg PO QAM 04/24/20 05/07/20 History lisinopril 20 mg PO QAM #30 tab 05/02/20 05/07/20 Rx Patient History Medical History (Updated 05/08/20 @ 09:37 by Bo Melton MD) A-V fistula left forearm Abnormal posture Acute respiratory failure with hypoxia Anemia Depression DVT (deep venous thrombosis) ESRD (end stage renal disease) on dialysis Generalized muscle weakness GERD (gastroesophageal reflux disease) Hyperlipidemia Hypertension Multiple sclerosis Multiple sclerosis Neuromuscular respiratory weakness Osteoarthritis Paradoxical insomnia Pneumonia due to COVID-19 virus Thrombocytopenia Type 2 diabetes mellitus Surgical History S/P arteriovenous (AV) fistula creation Family History Father , in his late 40s Myocardial infarction Social History Smoking Status: Never smoker Tobacco Type: Cigarettes Age Started Using Tobacco: 18; packs per day: 0.5; Second Hand Exposure: No; Hx Alcohol Use: No Hx Substance Use: No Preferred Language: Taiwanese Communication Ability: Effective Compensation Supervisor Required: No Beliefs That Will Affect Care: None marital status: Unknown Current Living Situation: Detention current occupational status: disabled 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 Children do You have: 4 Other Information That Helps Us Care for You: No Feels Safe at Home: Yes Safety Concerns: Feels Safe At This Time Assistive Devices: Oxygen - Continuous Review of Systems Review of Systems: All systems reviewed & are unremarkable except as noted in HPI & below Physical Exam Constitutional: well developed, well nourished, + acute distress (slightly in creased wob w/ very mild distress), cooperative and + overweight Eyes: EOM intact bilaterally ENMT: Ears: no external ear abnormality Nose: no external nose abnormality Mouth: + dry oral mucous membranes Neck: no nuchal rigidity Respiratory: + labored breathing, able to speak in complete sentences and + tachypneic; + abnormal respiratory effort, does not use accessory muscles and no cough Auscultation: + diminished lung sounds (monalisa R) Cardiovascular: Rate/Rhythm: regular rate and regular rhythm Extremities: + AV fistula (+ t/b); no edema Gastrointestinal (Abdomen): Inspection/Auscultation: normal bowel sounds Percussion/Palpation: abdomen soft; abdomen nontender Musculoskeletal: Extremities: + abnormal strength Skin: no rashes, warm and dry Neurologic: fluent speech, no tremor Psychiatric: A+Ox3, euthymic affect Results & Data ([facility]) Vital Signs (Past 12 Hours) Vital Signs Temp Pulse Pulse Resp BP BP Pulse Ox 05/08/20 12:00 36.8 C 70 20 116/56 L 95 05/08/20 11:30 69 20 99 05/08/20 11:00 82 94 05/08/20 10:47 82 139/56 L 96 05/08/20 10:30 86 96 05/08/20 10:17 85 162/67 H 96 05/08/20 10:00 88 95 05/08/20 09:45 84 24 174/67 H 94 05/08/20 09:43 89 174/67 H 96 05/08/20 09:40 92 H 24 185/61 H 94 05/08/20 09:38 92 H 185/61 H 93 05/08/20 09:35 92 H 24 175/72 H 95 05/08/20 09:33 92 H 175/72 H 93 05/08/20 09:30 86 22 169/74 H 96 05/08/20 09:28 86 169/74 H 96 05/08/20 09:25 86 24 173/73 H 95 05/08/20 09:23 84 173/73 H 97 05/08/20 09:20 84 24 179/67 H 179/67 H 95 05/08/20 09:18 87 180/75 H 90 05/08/20 09:15 82 24 183/102 H 183/103 H 91 05/08/20 09:13 83 183/94 H 87 L 05/08/20 09:10 82 22 134/76 134/76 92 05/08/20 09:08 70 142/75 H 96 05/08/20 09:05 73 22 162/81 H 162/81 H 95 05/08/20 09:03 72 152/95 H 96 05/08/20 09:00 72 24 152/95 H 94 05/08/20 08:08 51 L 05/08/20 08:00 36.8 C 70 26 H 148/72 H 97 05/08/20 04:44 52 L 16 124/63 100 Laboratory Results 05/08/20 05:27 05/08/20 05:27 Diagnostic Findings cxr 1. There is complete opacification of the right hemithorax, likely representing a large pleural effusion with consolidation/atelectasis of the right lung. This has significantly increased from 04/29/2020. 2. The left lung appears clear. 3. A right subclavian central venous catheter has been removed from previous.
--- NOTE | 2020-05-08 15:53 | Electrocardiogram Report ---
Test Reason : Blood Pressure : / mmHG Vent. Rate : 072 BPM Atrial Rate : 072 BPM P-R Int : 202 ms QRS Dur : 096 ms QT Int : 396 ms P-R-T Axes : 038 -20 033 degrees QTc Int : 433 ms Poor data quality, interpretation may be adversely affected Normal sinus rhythm Cannot rule out Anterior infarct , age undetermined Abnormal ECG When compared with ECG of 25-APR-2020 08:00, Minimal criteria for Anterior infarct are now Present T wave amplitude has decreased in Anterior leads Confirmed by Winston Garza ([id number]) on 05/08/2020 3:52:44 PM Referred By: ED Confirmed By:Winston Garza
--- NOTE | 2020-05-08 16:14 | Hospitalist Progress Note ---
Date of Service May 08, 2020 Assessment & Plan (1) Acute and chronic respiratory failure with hypoxia: right lung collapse from mucoid impaction similar to previous hospitalization requiring intubation. flutter valve and vibration vest bronchoscopy by Dr. Melton 05/08 with suctioning of mucoid impaction, breathing great afterwards stable on room air while awake, whenever he sleeps requires 2-3 L which is normal for him appreciate recommendations from Dr. Melton patient with neuromuscular weakness related to MS plus deconditioning from recent COVID pneumonia cough assist twice a day, vibratory vest TID, hypertonic saline nebulizers continue antibiotics x 5 days due to amount of secretions in airway patient knows he needs to be more compliant with BIPAP, says his machine is broken will ask CM to help with getting new machine if needed (2) Aspiration pneumonia: Cefepime + metronidazole IV WBC normal likely a degree of chronic aspiration based on bronchoscopy findings s/p suctioning of mucous plugging (3) COVID-19: Persistently positive. Doubt represents new infection. Treated with IV dexamethasone and convalescent plasma previously on hospitalization 04/04 (initial diagnosis 04/02). Currently near baseline O2. can move out of negative pressure room (4) Mucoid impaction of bronchi: s/p bronch with suctioning see above (5) ESRD (end stage renal disease) on dialysis: Consult nephrology for help with management. 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 Will place on BSG ACHS/Q6H with correction coverage insulin only pending further measurements. (8) Hypertension: Mostly managed with dialysis. Given current BP on non-dialysis day however will place amlodipine on hold. Continue lisinopril 20mg PO daily. (9) Anemia: Close to baseline. Suspect secondary to ESRD. Managed per nephrology. (10) Depression: Continue fluoxetine 60mg PO daily (11) DVT prophylaxis: Continue Eliquis 5mg PO BID (presumably on this for prior DVT). Admission and Anticipated Discharge Date Admission Date: May 07, 2020 Subjective patient had bronchoscopy this morning with Dr. Melton, he suctioned out mucous plug patient breathing great afterwards, 100% on 3L, while awake he was breathing room air without distress and saturations >90 discussed that he has been at [facility] for 3 months, went there due to wors ening MS, was supposed to get rehab but he does not get any therapy at this time discussed that he needs to use BIPAP, he said that the BIPAP stopped working he admitted that his care at [facility] is so poor due to understaffing with COVID he is eating well, no fever reviewed labs, reviewed chart discussed with Dr. Melton, he was not recommending tracheostomy at this time and patient not interested in tracheostomy Review of Systems Review of Systems: All systems reviewed & are unremarkable except as noted in Subjective Physical Exam Constitutional: WD/WN, vitals as above + obese; no acute distress Neck: trachea midline, no thyromegaly Respiratory: normal respiratory effort, lungs clear to auscultation Cardiovascular: RRR, no murmur, no edema Gastrointestinal (Abdomen): normal bowel sounds, soft, nontender, no hepatosplenomegaly Musculoskeletal: Head/Neck/Chest: normocephalic, head atraumatic and neck supple Extremities: extremities normal to inspection and + abnormal strength (generalized weakness, especially legs, in wheelchair at baseline) Skin: no rashes, warm and dry Neurologic: normal touch/pain/proprioception, CN's II-XI intact bilaterally, moves all extremities and awake Psychiatric: A+Ox3, euthymic affect Lymphatic: no cervical or axillary lymphadenopathy Results & Data Results & Data ([facility]) Vital Signs (Past 12 Hours) Vital Signs Temp Pulse Pulse Resp BP BP Pulse Ox 05/08/20 16:00 61 127/67 05/08/20 15:58 36.8 C 61 21 141/67 H 98 05/08/20 12:00 36.8 C 70 20 116/56 L 95 05/08/20 11:30 69 20 99 05/08/20 11:00 82 94 05/08/20 10:47 82 139/56 L 96 05/08/20 10:30 86 96 05/08/20 10:17 85 162/67 H 96 05/08/20 10:00 88 95 05/08/20 09:45 84 24 174/67 H 94 05/08/20 09:43 89 174/67 H 96 05/08/20 09:40 92 H 24 185/61 H 94 05/08/20 09:38 92 H 185/61 H 93 05/08/20 09:35 92 H 24 175/72 H 95 05/08/20 09:33 92 H 175/72 H 93 05/08/20 09:30 86 22 169/74 H 96 05/08/20 09:28 86 169/74 H 96 05/08/20 09:25 86 24 173/73 H 95 05/08/20 09:23 84 173/73 H 97 05/08/20 09:20 84 24 179/67 H 179/67 H 95 05/08/20 09:18 87 180/75 H 90 05/08/20 09:15 82 24 183/102 H 183/103 H 91 05/08/20 09:13 83 183/94 H 87 L 05/08/20 09:10 82 22 134/76 134/76 92 05/08/20 09:08 70 142/75 H 96 05/08/20 09:05 73 22 162/81 H 162/81 H 95 05/08/20 09:03 72 152/95 H 96 05/08/20 09:00 72 24 152/95 H 94 05/08/20 08:08 51 L 05/08/20 08:00 36.8 C 70 26 H 148/72 H 97 05/08/20 04:44 52 L 16 124/63 100 Laboratory Results Laboratory Results - last 24 hr 05/07/20 05/07/20 05/07/20 16:15 16:15 16:15 WBC 7.92 RBC 3.04 L Hgb 8.6 L Hct 28.0 L MCV 92.1 MCH 28.3 MCHC 30.7 L RDW Std Deviation 50.6 H RDW Coeff of Emiliano 14.8 H Plt Count 133 MPV 8.6 Immature Gran % (Auto) 0.6 Neut % (Auto) 75.9 Lymph % (Auto) 14.6 [place] % (Auto) 6.8 Eos % (Auto) 2.0 Baso % (Auto) 0.1 Neut # (Auto) 6.00 Lymph # (Auto) 1.16 L [place] # (Auto) 0.54 Eos # (Auto) 0.16 Baso # (Auto) 0.01 Immature Gran # (Auto) 0.05 H PT 13.4 H INR 1.3 H APTT 41.1 H PTT Ratio 1.5 Sodium Potassium Chloride Carbon Dioxide Anion Gap BUN Creatinine Est Cr Clr Drug Dosing Est GFR ( Amer) Est GFR (Non-Af Amer) BUN/Creatinine Ratio Glucose POC Glucose Lactate 0.9 Calcium Total Bilirubin AST ALT Alkaline Phosphatase Troponin I Total Protein Albumin Globulin Albumin/Globulin Ratio Procalcitonin Fluid Neutrophils % Fluid Lymphocytes % Fluid Eosinophils % Fl Monocyt/Macrophag % Nasal Screen MRSA (PCR) COVID-19 Eval Order COVID-19 PCR 05/07/20 05/07/20 05/07/20 16:15 16:15 16:20 WBC RBC Hgb Hct MCV MCH MCHC RDW Std Deviation RDW Coeff of Emiliano Plt Count MPV Immature Gran % (Auto) Neut % (Auto) Lymph % (Auto) [place] % (Auto) Eos % (Auto) Baso % (Auto) Neut # (Auto) Lymph # (Auto) [place] # (Auto) Eos # (Auto) Baso # (Auto) Immature Gran # (Auto) PT INR APTT PTT Ratio Sodium 127 L Potassium 3.9 Chloride 92 L Carbon Dioxide 28 Anion Gap 7.0 BUN 32 H Creatinine 5.91 H* Est Cr Clr Drug Dosing 18.5 Est GFR ( Amer) 11.7 Est GFR (Non-Af Amer) 10.1 BUN/Creatinine Ratio 5.4 L Glucose 174 H POC Glucose Lactate Calcium 8.6 Total Bilirubin 0.4 AST 12 L ALT 17 Alkaline Phosphatase 60 Troponin I < 0.015 Total Protein 6.1 L Albumin 2.4 L Globulin 3.7 Albumin/Globulin Ratio 0.6 L Procalcitonin 3.85 H Fluid Neutrophils % Fluid Lymphocytes % Fluid Eosinophils % Fl Monocyt/Macrophag % Nasal Screen MRSA (PCR) COVID-19 Eval Order Covid19 Done at [facility] COVID-19 PCR 05/07/20 05/07/20 05/08/20 16:20 19:39 05:27 WBC 6.06 RBC 2.89 L Hgb 8.1 L Hct 26.4 L MCV 91.3 MCH 28.0 MCHC 30.7 L RDW Std Deviation 50.1 H RDW Coeff of Emiliano 14.7 H Plt Count 118 L MPV 9.1 Immature Gran % (Auto) 0.7 Neut % (Auto) 78.9 Lymph % (Auto) 6.9 [place] % (Auto) 11.2 Eos % (Auto) 2.1 Baso % (Auto) 0.2 Neut # (Auto) 4.78 Lymph # (Auto) 0.42 L [place] # (Auto) 0.68 H Eos # (Auto) 0.13 Baso # (Auto) 0.01 Immature Gran # (Auto) 0.04 H PT INR APTT PTT Ratio Sodium Potassium Chloride Carbon Dioxide Anion Gap BUN Creatinine Est Cr Clr Drug Dosing Est GFR ( Amer) Est GFR (Non-Af Amer) BUN/Creatinine Ratio Glucose POC Glucose Lactate Calcium Total Bilirubin AST ALT Alkaline Phosphatase Troponin I Total Protein Albumin Globulin Albumin/Globulin Ratio Procalcitonin Fluid Neutrophils % Fluid Lymphocytes % Fluid Eosinophils % Fl Monocyt/Macrophag % Nasal Screen MRSA (PCR) Negative COVID-19 Eval Order COVID-19 PCR POSITIVE A* 05/08/20 05/08/20 05/08/20 05:27 07:34 09:15 WBC RBC Hgb Hct MCV MCH MCHC RDW Std Deviation RDW Coeff of Emiliano Plt Count MPV Immature Gran % (Auto) Neut % (Auto) Lymph % (Auto) [place] % (Auto) Eos % (Auto) Baso % (Auto) Neut # (Auto) Lymph # (Auto) [place] # (Auto) Eos # (Auto) Baso # (Auto) Immature Gran # (Auto) PT INR APTT PTT Ratio Sodium 129 L Potassium 4.0 Chloride 94 L Carbon Dioxide 27 Anion Gap 8.0 BUN 37 H Creatinine 6.41 H* D Est Cr Clr Drug Dosing 16.8 Est GFR ( Amer) 10.6 Est GFR (Non-Af Amer) 9.1 BUN/Creatinine Ratio 5.8 L Glucose 112 H POC Glucose 117 H Lactate Calcium 8.5 Total Bilirubin 0.5 AST 11 L ALT 13 Alkaline Phosphatase 53 Troponin I Total Protein 5.5 L Albumin 2.1 L Globulin 3.4 Albumin/Globulin Ratio 0.6 L Procalcitonin Fluid Neutrophils % 58 Fluid Lymphocytes % 6 Fluid Eosinophils % 0 Fl Monocyt/Macrophag % 36 Nasal Screen MRSA (PCR) COVID-19 Eval Order COVID-19 PCR 05/08/20 05/08/20 12:29 15:33 WBC RBC Hgb Hct MCV MCH MCHC RDW Std Deviation RDW Coeff of Emiliano Plt Count MPV Immature Gran % (Auto) Neut % (Auto) Lymph % (Auto) Alger % (Auto) Eos % (Auto) Baso % (Auto) Neut # (Auto) Lymph # (Auto) Alger # (Auto) Eos # (Auto) Baso # (Auto) Immature Gran # (Auto) PT INR APTT PTT Ratio Sodium Potassium Chloride Carbon Dioxide Anion Gap BUN Creatinine Est Cr Clr Drug Dosing Est GFR ( Amer) Est GFR (Non-Af Amer) BUN/Creatinine Ratio Glucose POC Glucose 246 H 135 H Lactate Calcium Total Bilirubin AST ALT Alkaline Phosphatase Troponin I Total Protein Albumin Globulin Albumin/Globulin Ratio Procalcitonin Fluid Neutrophils % Fluid Lymphocytes % Fluid Eosinophils % Fl Monocyt/Macrophag % Nasal Screen MRSA (PCR) COVID-19 Eval Order COVID-19 PCR Medications Administered Current Inpatient Medications Albuterol (Albuterol Hfa 8 Gm Inhaler) 2 puffs INH Q4H PRN PRN Reason: shortness of breath or wheezing Stop: 06/06/20 23:06 Albuterol (Albut/Ipratrop 3mg/0.5mg Neb 3 Ml Vial) 3 ml NEB BIDR [facility] Stop: 06/07/20 08:59 Last Admin: 05/08/20 11:29 Dose: 3 ml Documented by: Apixaban (Apixaban 5 Mg Tablet) 5 mg PO BID@0800,1600 [facility] Stop: 06/06/20 23:29 Last Admin: 05/08/20 10:05 Dose: Not Given Documented by: Aripiprazole (Aripiprazole 15 Mg Tab) 15 mg PO QAM [facility] Stop: 06/07/20 08:59 Last Admin: 05/08/20 10:06 Dose: Not Given Documented by: Calcium Acetate (Calcium Acetate 667 Mg Cap/Tab) 2,668 mg PO TIDM [facility] Stop: 06/07/20 07:59 Last Admin: 05/08/20 12:32 Dose: 2,668 mg Documented by: Dextrose (Dextrose 50% 50 Ml Syringe) 25 - 50 ml IV UD PRN; Protocol PRN Reason: Hypoglycemia Protocol Stop: 06/07/20 06:01 Famotidine (Famotidine 20 Mg Tab) 20 mg PO Q2D@0900 [facility] Stop: 06/07/20 08:59 Last Admin: 05/08/20 10:07 Dose: Not Given Documented by: Fluoxetine HCl (Fluoxetine Hcl 20 Mg Cap) 60 mg PO HS [facility] Stop: 06/06/20 23:06 Last Admin: 05/08/20 00:48 Dose: 60 mg Documented by: Gabapentin (Gabapentin 100 Mg Cap) 100 mg PO TID [facility] Stop: 06/06/20 23:06 Last Admin: 05/08/20 13:38 Dose: 100 mg Documented by: Glucagon (Glucagon For Inj 1 Mg Vial) 1 mg SQ UD PRN; Protocol PRN Reason: Hypoglycemia Protocol Stop: 06/07/20 06:01 Glucose (Glucose 10 Tabs/Tube) 4 - 8 tabs PO UD PRN; Protocol PRN Reason: Hypoglycemia Protocol Stop: 06/07/20 06:01 Glucose (Glucose 40% Gel 15 Gm Tube) 15 - 30 gm PO UD PRN; Protocol PRN Reason: Hypoglycemia Protocol Stop: 06/07/20 06:01 Guaifenesin (Guaifenesin 600 Mg Tabcr) 1,200 mg PO Q12 [facility] Stop: 06/06/20 23:06 Last Admin: 05/08/20 10:06 Dose: Not Given Documented by: Metronidazole (Flagyl) 500 mg in 100 mls @ 100 mls/hr IV Q8H [facility] Stop: 05/15/20 05:59 Last Infusion: 05/08/20 15:12 Dose: Infused Documented by: Cefepime HCl 1,000 mg/ Syringe 11.3 mls @ 5.5 mls/min IV Q24H [facility] Stop: 05/13/20 18:03 Insulin Aspart (Insulin Aspart 100 Units/Ml 3 Ml Pen) 0 units SC ACHS [facility] Stop: 06/07/20 07:29 Last Admin: 05/08/20 12:10 Dose: 3 units Documented by: Lisinopril (Lisinopril 20 Mg Tab) 20 mg PO QAM [facility] Stop: 06/07/20 08:59 Last Admin: 05/08/20 10:08 Dose: Not Given Documented by: Miscellaneous (Teriflunomide~Order Awaiting Action) 1 ea N/A QS [facility] Stop: 06/07/20 07:59 Last Admin: 05/08/20 15:11 Dose: Not Given Documented by: Miscellaneous (Carbohydrates For Hypoglycemia ) 15 - 30 gm PO UD PRN PRN Reason: Hypoglycemia Protocol Stop: 06/07/20 06:01 Miscellaneous Information (Cefepime Consult Active) 1 ea N/A UD PRN PRN Reason: Consult Stop: 06/06/20 23:06 Pantoprazole Sodium (Pantoprazole 40 Mg Tab) 40 mg PO BID [facility] Stop: 06/06/20 23:06 Last Admin: 05/08/20 10:07 Dose: Not Given Documented by: Ropinirole HCl (Ropinirole Hcl 0.25 Mg Tablet) 0.5 mg PO BID [facility] Stop: 06/06/20 23:06 Last Admin: 05/08/20 10:07 Dose: Not Given Documented by: Sodium Chloride (Sodium Chlor 7% 4 Ml Neb) 4 ml NEB BIDR [facility] Stop: 06/07/20 18:59 Tamsulosin HCl (Tamsulosin Hcl 0.4 Mg Cap) 0.4 mg PO QAM [facility] Stop: 06/07/20 08:59 Last Admin: 05/08/20 10:06 Dose: Not Given Documented by: Trazodone HCl (Trazodone Hcl 100 Mg Tab) 100 mg PO HS [facility] Stop: 06/06/20 23:06 Last Admin: 05/08/20 00:48 Dose: 100 mg Documented by: PG Care Time/CCT Total # of Minutes Spent Total Time Spent with Patient: Total time spent is greater than 50% in coordination of care (as documented) at patient's floor/unit and/or counseling patient: Coding Level of Care Code 14461 Subseq Hosp Care Lvl 3 Diagnoses Acute and chronic respiratory failure with hypoxia J96.21 Aspiration pneumonia J69.0 Aspiration pneumonia type: unspecified Laterality: right Lung location: unspecified part of lung COVID-19 U07.1 Mucoid impaction of bronchi J98.09 ESRD (end stage renal disease) on dialysis N18.6; Z99.2 Multiple sclerosis G35 Type 2 diabetes mellitus E11.69 Diabetes mellitus complication status: with other specified complication Diabetes mellitus custodial insulin use: without custodial use Hypertension I10 Hypertension type: essential hypertension Anemia D64.9 Depression F32.9 Depression Type: unspecified DVT prophylaxis Z29.9 (1) Type 2 diabetes mellitus Diabetes mellitus complication status: with other specified complication 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
[2020-05-08] MEDS ORDERED: CEFEPIME 2,000 MG in SYRINGE 0 ML IV SCH (18:00)
[2020-05-08] MEDS: CEFEPIME 1,000 MG in SYRINGE 0 ML IV SCH (19:42)
[2020-05-08] MEDS: SODIUM CHLOR 7% 4 ML NEB NEB SCH (20:08)
[2020-05-08] MEDS: HEPARIN SOD (PORCINE) 1000 UNIT/ML 10 ML VIAL IV SCH (22:49)
[2020-05-09] MEDS: metroNIDAZOLE 500 MG/100 ML BAG IV SCH ×3 (06:05→22:44)
[2020-05-09] MEDS: ALBUT/IPRATROP 3MG/0.5MG NEB 3 ML VIAL NEB SCH ×2 (07:35→19:58)
[2020-05-09] MEDS: SODIUM CHLOR 7% 4 ML NEB NEB SCH ×2 (07:35→19:58)
[2020-05-09] MEDS: ARIPiprazole 15 MG TAB PO SCH (08:49)
[2020-05-09] MEDS: APIXABAN 5 MG TABLET PO SCH ×2 (08:49→16:33)
[2020-05-09] MEDS: GABAPENTIN 100 MG CAP PO SCH ×3 (08:49→19:43)
[2020-05-09] MEDS: guaiFENesin 600 MG TABCR PO SCH ×2 (08:50→19:44)
[2020-05-09] MEDS: rOPINIRole HCL 0.25 MG TABLET PO SCH ×2 (08:50→19:44)
[2020-05-09] MEDS: TAMSULOSIN HCL 0.4 MG CAP PO SCH (08:51)
[2020-05-09] MEDS: CALCIUM ACETATE 667 MG CAP/TAB PO SCH ×3 (08:51→16:33)
[2020-05-09] MEDS: lisinopril 20 MG TAB PO SCH (08:51)
[2020-05-09] MEDS: PANTOprazole 40 MG TAB PO SCH ×2 (08:51→19:44)
[2020-05-09] MEDS: INSULIN ASPART 100 UNITS/ML 3 ML PEN SC SCH ×4 (09:19→20:04)
--- NOTE | 2020-05-09 09:58 | Pulmonology Progress Note ---
Date of Service May 09, 2020 Assessment & Plan (1) Acute and chronic respiratory failure with hypoxia: Patient is much improved today after his bronchoscopy yesterday. Significant mucoid impaction was noted throughout the right lower lobe. The secretions were suctioned out. 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 He does have underlying multiple sclerosis and neuromuscular weakness. Continue CoughAssist therapy, vest therapy 3 times a day, hypertonic saline with duo nebs. Aspiration precautions. Speech consult should be obtained as well. Continue antibiotics for possible aspiration pneumonia. So far cultures have been unremarkable. He does have a history of COVID-19 infection and apparently still positive. I am not certain that COVID-19 is playing a significant role at this point aside for significant deconditioning related to his recent hospitalizations. Pulmonary will continue to follow from the periphery. Please call with questions. Thank you. Procalcitonin is trending downwards. I am thinking that some of this is related to his ESRD and dialysis. I am not certain how reliable procalcitonin is in this patient. His care was discussed with the patient's hospitalist and bedside nurse. (2) Aspiration pneumonia: Aspiration pneumonia type: unspecified Laterality: right Lung location: unspecified part of lung Qualified Code(s): J69.0 - Pneumonitis due to inhalation of food and vomit (3) ESRD (end stage renal disease) on dialysis: (4) Multiple sclerosis: (5) Neuromuscular respiratory weakness: Admission and Anticipated Discharge Date Admission Date: May 07, 2020 Subjective Patient was observed through the window of the door as he does have COVID-19. In an effort to limit PPE use and limit exposure risk, I deferred physical exam and direct interview of the patient today. Please refer to the hospitalist interview, review of systems and physical. I did discuss this patient with the hospitalist and the bedside nurse. He is doing much better today and he is currently on 3 L of nasal cannula. He is doing CoughAssist twice a day and vest therapy 3 times a day. Hypertonic saline is being utilized twice daily along with nebulized albuterol/ipratropium. Review of Systems Review of Systems: Deferred Physical Exam Physical Exam: Deferred Results & Data Results & Data ([facility]) Vital Signs (Past 12 Hours) Vital Signs Temp Pulse Pulse Pulse Resp BP Pulse Ox 05/09/20 07:58 99.0 F 76 18 141/56 H 96 05/09/20 07:40 62 18 98 05/09/20 02:49 99.7 F H 60 16 108/53 L 98 05/09/20 01:30 58 L 22 05/09/20 01:00 59 L 26 H 05/09/20 00:30 62 19 05/09/20 00:00 64 31 H 05/08/20 23:30 67 21 05/08/20 23:00 71 21 05/08/20 22:30 76 16 05/08/20 22:23 72 18 100 05/08/20 22:00 83 17 I reviewed the vital signs, labs and imaging. PG Care Time/CCT Total # of Minutes Spent Total Time Spent with Patient: Total time spent is greater than 50% in coordination of care (as documented) at patient's floor/unit and/or counseling patient: Coding Level of Care Code 07578 Subseq Hosp Care Lvl 2 Diagnoses Acute and chronic respiratory failure with hypoxia J96.21 Aspiration pneumonia J69.0 Aspiration pneumonia type: unspecified Laterality: right Lung location: unspecified part of lung ESRD (end stage renal disease) on dialysis N18.6; Z99.2 Multiple sclerosis G35 Neuromuscular respiratory weakness J98.8 Time Spent (min) 18
[2020-05-09 10:43] LABS: Phosphorus 2.4 mg/dl (2.5-4.9)
--- NOTE | 2020-05-09 16:13 | Hospitalist Progress Note ---
Date of Service May 09, 2020 Assessment & Plan (1) Acute and chronic respiratory failure with hypoxia: right lung collapse from mucoid impaction similar to previous hospitalization requiring intubation. flutter valve and vibration vest bronchoscopy by Dr. Melton 05/08 with suctioning of mucoid impaction, breathing great afterwards stable on 2L today, no distress, coughing more with percussion therapy appreciate recommendations from Dr. Melton patient with neuromuscular weakness related to MS plus deconditioning from recent COVID pneumonia cough assist twice a day, vibratory vest TID, hypertonic saline nebulizers continue antibiotics x 5 days due to amount of secretions in airway patient knows he needs to be more compliant with BIPAP, says his machine is broken will ask CM to help with getting new machine if needed looking into alternative placement to [facility] as he won't get the care he needs (2) Aspiration pneumonia: Cefepime + metronidazole IV WBC normal, no fever likely a degree of chronic aspiration based on bronchoscopy findings s/p suctioning of mucous plugging (3) COVID-19: Persistently positive. Doubt represents new infection. Treated with IV dexamethasone and convalescent plasma previously on hospitalization 04/04 (initial diagnosis 04/02). Currently near baseline O2. can move out of negative pressure room (4) Mucoid impaction of bronchi: s/p bronch with suctioning see above (5) ESRD (end stage renal disease) on dialysis: Consult nephrology for help with management. Usual dialysis days MWF, plan for HD tomorrow (6) Multiple sclerosis: Continue teriflunomide 14mg PO daily progression of disease led him to be at [facility] three months ago he is not pleased with care, he gets no therapy, they are short staffed (7) Type 2 diabetes mellitus: HbA1C 5.3 on prior labs although in setting of ESRD on dialysis this is unlikely to be employment program representative but on no outpatient medication for this. Will place on BSG ACHS/Q6H with correction coverage insulin only pending further measurements. (8) Hypertension: Norvasc Continue lisinopril 20mg PO daily. (9) Anemia: Close to baseline. Suspect secondary to ESRD. Managed per nephrology. (10) Depression: Continue fluoxetine 60mg PO daily (11) DVT prophylaxis: Continue Eliquis 5mg PO BID (presumably on this for prior DVT). Admission and Anticipated Discharge Date Admission Date: May 07, 2020 Subjective patient says he feels more congested today he admits that he is getting up more sputum with the chest percussion therapy and hypertonic saline eating well, no dyspnea, oxygen levels stable discussed trying to go to [facility] due to complicated respiratory issues, he feels that [facility] cannot care for him and I would have to agree Review of Systems Review of Systems: All systems reviewed & are unremarkable except as noted in Subjective Respiratory: + cough, + chest congestion and + sputum production; no dyspnea Physical Exam Constitutional: WD/WN, vitals as above + obese; no acute distress Neck: trachea midline, no thyromegaly Respiratory: normal respiratory effort and + cough; no respiratory distress Auscultation: + rhonchi; no crackles, no rales and no wheezes Cardiovascular: RRR, no murmur, no edema Gastrointestinal (Abdomen): normal bowel sounds, soft, nontender, no hepatosplenomegaly Musculoskeletal: Head/Neck/Chest: normocephalic, head atraumatic and neck supple Extremities: extremities normal to inspection and + abnormal strength (generalized weakness, especially legs, in wheelchair at baseline) Skin: no rashes, warm and dry Neurologic: normal touch/pain/proprioception, CN's II-XI intact bilaterally, moves all extremities and awake Psychiatric: A+Ox3, euthymic affect Lymphatic: no cervical or axillary lymphadenopathy Results & Data Results & Data ([facility]) Vital Signs (Past 12 Hours) Vital Signs Temp Pulse Resp BP Pulse Ox 05/09/20 11:22 37.6 C H 60 20 124/63 99 05/09/20 07:58 37.2 C 76 18 141/56 H 96 05/09/20 07:40 62 18 98 Laboratory Results Laboratory Results - last 24 hr 05/08/20 05/09/20 05/09/20 20:59 07:27 09:44 POC Glucose 108 H 92 Phosphorus 2.4 L Iron 23 L Transferrin 109 L Transferrin % Sat 15 L 05/09/20 11:24 POC Glucose 158 H Phosphorus Iron Transferrin Transferrin % Sat Medications Administered Current Inpatient Medications Albuterol (Albuterol Hfa 8 Gm Inhaler) 2 puffs INH Q4H PRN PRN Reason: shortness of breath or wheezing Stop: 06/06/20 23:06 Albuterol (Albut/Ipratrop 3mg/0.5mg Neb 3 Ml Vial) 3 ml NEB BIDR [facility] Stop: 06/07/20 08:59 Last Admin: 05/09/20 07:35 Dose: 3 ml Documented by: Apixaban (Apixaban 5 Mg Tablet) 5 mg PO BID@0800,1600 [facility] Stop: 06/06/20 23:29 Last Admin: 05/09/20 08:49 Dose: 5 mg Documented by: Aripiprazole (Aripiprazole 15 Mg Tab) 15 mg PO QAM [facility] Stop: 06/07/20 08:59 Last Admin: 05/09/20 08:49 Dose: 15 mg Documented by: Calcium Acetate (Calcium Acetate 667 Mg Cap/Tab) 2,668 mg PO TIDM [facility] Stop: 06/07/20 07:59 Last Admin: 05/09/20 12:10 Dose: 2,668 mg Documented by: Dextrose (Dextrose 50% 50 Ml Syringe) 25 - 50 ml IV UD PRN; Protocol PRN Reason: Hypoglycemia Protocol Stop: 06/07/20 06:01 Famotidine (Famotidine 20 Mg Tab) 20 mg PO Q2D@0900 [facility] Stop: 06/07/20 08:59 Last Admin: 05/08/20 10:07 Dose: Not Given Documented by: Fluoxetine HCl (Fluoxetine Hcl 20 Mg Cap) 60 mg PO HS [facility] Stop: 06/06/20 23:06 Last Admin: 05/08/20 22:48 Dose: 60 mg Documented by: Gabapentin (Gabapentin 100 Mg Cap) 100 mg PO TID [facility] Stop: 06/06/20 23:06 Last Admin: 05/09/20 13:49 Dose: 100 mg Documented by: Glucagon (Glucagon For Inj 1 Mg Vial) 1 mg SQ UD PRN; Protocol PRN Reason: Hypoglycemia Protocol Stop: 06/07/20 06:01 Glucose (Glucose 10 Tabs/Tube) 4 - 8 tabs PO UD PRN; Protocol PRN Reason: Hypoglycemia Protocol Stop: 06/07/20 06:01 Glucose (Glucose 40% Gel 15 Gm Tube) 15 - 30 gm PO UD PRN; Protocol PRN Reason: Hypoglycemia Protocol Stop: 06/07/20 06:01 Guaifenesin (Guaifenesin 600 Mg Tabcr) 1,200 mg PO Q12 [facility] Stop: 06/06/20 23:06 Last Admin: 05/09/20 08:50 Dose: 1,200 mg Documented by: Metronidazole (Flagyl) 500 mg in 100 mls @ 100 mls/hr IV Q8H [facility] Stop: 05/15/20 05:59 Last Infusion: 05/09/20 15:02 Dose: Infused Documented by: Cefepime HCl 1,000 mg/ Syringe 11.3 mls @ 5.5 mls/min IV Q24H [facility] Stop: 05/13/20 18:03 Last Admin: 05/08/20 19:42 Dose: 5.5 mls/min Documented by: Insulin Aspart (Insulin Aspart 100 Units/Ml 3 Ml Pen) 0 units SC ACHS [facility] Stop: 06/07/20 07:29 Last Admin: 05/09/20 12:28 Dose: 1 units Documented by: Lisinopril (Lisinopril 20 Mg Tab) 20 mg PO QAM [facility] Stop: 06/07/20 08:59 Last Admin: 05/09/20 08:51 Dose: 20 mg Documented by: Miscellaneous (Teriflunomide~Order Awaiting Action) 1 ea N/A QS [facility] Stop: 06/07/20 07:59 Last Admin: 05/09/20 13:53 Dose: Not Given Documented by: Miscellaneous (Carbohydrates For Hypoglycemia ) 15 - 30 gm PO UD PRN PRN Reason: Hypoglycemia Protocol Stop: 06/07/20 06:01 Miscellaneous Information (Cefepime Consult Active) 1 ea N/A UD PRN PRN Reason: Consult Stop: 06/06/20 23:06 Pantoprazole Sodium (Pantoprazole 40 Mg Tab) 40 mg PO BID [facility] Stop: 06/06/20 23:06 Last Admin: 05/09/20 08:51 Dose: 40 mg Documented by: Ropinirole HCl (Ropinirole Hcl 0.25 Mg Tablet) 0.5 mg PO BID [facility] Stop: 06/06/20 23:06 Last Admin: 05/09/20 08:50 Dose: 0.5 mg Documented by: Sodium Chloride (Sodium Chlor 7% 4 Ml Neb) 4 ml NEB BIDR [facility] Stop: 06/07/20 18:59 Last Admin: 05/09/20 07:35 Dose: 4 ml Documented by: Tamsulosin HCl (Tamsulosin Hcl 0.4 Mg Cap) 0.4 mg PO QAM [facility] Stop: 06/07/20 08:59 Last Admin: 05/09/20 08:51 Dose: 0.4 mg Documented by: Trazodone HCl (Trazodone Hcl 100 Mg Tab) 100 mg PO HS [facility] Stop: 06/06/20 23:06 Last Admin: 05/08/20 22:49 Dose: 100 mg Documented by: PG Care Time/CCT Total # of Minutes Spent Total Time Spent with Patient: Total time spent is greater than 50% in coordination of care (as documented) at patient's floor/unit and/or counseling patient: Coding Level of Care Code 91426 Subseq Hosp Care Lvl 2 Diagnoses Acute and chronic respiratory failure with hypoxia J96.21 Aspiration pneumonia J69.0 Aspiration pneumonia type: unspecified Laterality: right Lung location: unspecified part of lung COVID-19 U07.1 Mucoid impaction of bronchi J98.09 ESRD (end stage renal disease) on dialysis N18.6; Z99.2 Multiple sclerosis G35 Type 2 diabetes mellitus E11.69 Diabetes mellitus complication status: with other specified complication Diabetes mellitus senior living insulin use: without senior living use Hypertension I10 Hypertension type: essential hypertension Anemia D64.9 Depression F32.9 Depression Type: unspecified DVT prophylaxis Z29.9 (1) Type 2 diabetes mellitus Diabetes mellitus complication status: with other specified complication Diabetes mellitus ad terminal makeup operator insulin use: without ad terminal makeup operator 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
[2020-05-09] MEDS: CEFEPIME 1,000 MG in SYRINGE 0 ML IV SCH (16:37)
[2020-05-09] MEDS: FLUoxetine HCL 20 MG CAP PO SCH (19:45)
[2020-05-09] MEDS: traZODone HCL 100 MG TAB PO SCH (19:46)
[2020-05-10] MEDS: metroNIDAZOLE 500 MG/100 ML BAG IV SCH ×3 (06:34→20:58)
[2020-05-10] MEDS ORDERED: HEPARIN SOD (PORCINE) 1000 UNIT/ML 10 ML VIAL IV ONE (07:03)
[2020-05-10] MEDS ORDERED: SODIUM CHLORIDE 0.9% 1000ML 1,000 ML IV PRN (07:03)
[2020-05-10] MEDS: ALBUT/IPRATROP 3MG/0.5MG NEB 3 ML VIAL NEB SCH ×2 (07:17→20:15)
[2020-05-10] MEDS: SODIUM CHLOR 7% 4 ML NEB NEB SCH ×2 (07:18→20:15)
[2020-05-10] MEDS ORDERED: EPOETIN ALFA 20,000 UNITS/ML VIAL IV ONE (08:00)
[2020-05-10] MEDS ORDERED: IRON SUCROSE 100 MG in SYRINGE 0 ML IV ONE (08:00)
[2020-05-10] MEDS: CALCIUM ACETATE 667 MG CAP/TAB PO SCH ×3 (08:15→17:01)
[2020-05-10] MEDS: APIXABAN 5 MG TABLET PO SCH ×2 (08:16→15:49)
[2020-05-10] MEDS: ARIPiprazole 15 MG TAB PO SCH (08:16)
[2020-05-10] MEDS: guaiFENesin 600 MG TABCR PO SCH ×2 (08:16→20:54)
[2020-05-10] MEDS: rOPINIRole HCL 0.25 MG TABLET PO SCH ×2 (08:16→20:57)
[2020-05-10] MEDS: PANTOprazole 40 MG TAB PO SCH ×2 (08:17→20:55)
[2020-05-10] MEDS: GABAPENTIN 100 MG CAP PO SCH ×3 (08:17→20:54)
[2020-05-10] MEDS: TAMSULOSIN HCL 0.4 MG CAP PO SCH (08:17)
[2020-05-10] MEDS: FAMOTIDINE 20 MG TAB PO SCH (08:18)
[2020-05-10] MEDS: amLODIPine BESYLATE 5 MG TAB PO SCH (08:18)
[2020-05-10] MEDS: lisinopril 20 MG TAB PO SCH (08:18)
[2020-05-10] MEDS: INSULIN ASPART 100 UNITS/ML 3 ML PEN SC SCH ×4 (09:27→21:06)
[2020-05-10] MEDS: HEPARIN SOD (PORCINE) 1000 UNIT/ML 10 ML VIAL IV SCH ×3 (14:47→14:50)
--- NOTE | 2020-05-10 16:43 | Hospitalist Progress Note ---
Date of Service May 10, 2020 Assessment & Plan (1) Acute and chronic respiratory failure with hypoxia: right lung collapse from mucoid impaction similar to previous hospitalization requiring intubation. flutter valve and vibration vest bronchoscopy by Dr. Melton 05/08 with suctioning of mucoid impaction, breathing great afterwards stable on 2L today, no distress, coughing more with percussion therapy appreciate recommendations from Dr. Melton patient with neuromuscular weakness related to MS plus deconditioning from recent COVID pneumonia cough assist twice a day, vibratory vest TID, hypertonic saline nebulizers continue antibiotics x 5 days due to amount of secretions in airway patient knows he needs to be more compliant with BIPAP, says his machine is broken will ask CM to help with getting new machine if needed looking into alternative placement to [facility] as he won't get the care he needs CM made referral to [facility] in [place], will wait to see if they have availability (2) Aspiration pneumonia: Cefepime + metronidazole IV WBC normal, no fever likely a degree of chronic aspiration based on bronchoscopy findings s/p suctioning of mucous plugging last day of antibiotics would be 05/12 (3) COVID-19: Persistently positive. Doubt represents new infection. Treated with IV dexamethasone and convalescent plasma previously on hospitalization 04/04 (initial diagnosis 04/02). Currently near baseline O2. can move out of negative pressure room (4) Mucoid impaction of bronchi: s/p bronch with suctioning see above (5) ESRD (end stage renal disease) on dialysis: Consult nephrology for help with management. Usual dialysis days MWF, tolerated HD today (6) Multiple sclerosis: Continue teriflunomide 14mg PO daily progression of disease led him to be at [facility] three months ago he is not pleased with care, he gets no therapy, they are short staffed (7) Type 2 diabetes mellitus: HbA1C 5.3 on prior labs although in setting of ESRD on dialysis this is unlikely to be indirect sales representative but on no outpatient medication for this. Will place on BSG ACHS/Q6H with correction coverage insulin only pending further measurements. (8) Hypertension: Norvasc Continue lisinopril 20mg PO daily. (9) Anemia: Close to baseline. Suspect secondary to ESRD. Managed per nephrology. (10) Depression: Continue fluoxetine 60mg PO daily (11) DVT prophylaxis: Continue Eliquis 5mg PO BID (presumably on this for prior DVT). Admission and Anticipated Discharge Date Admission Date: May 07, 2020 Subjective patient doing great, no acute issues tolerated HD today he is coughing up sputum but not as much, stable on minimal oxygen, sleeping well CM looking into [facility] Review of Systems Review of Systems: All systems reviewed & are unremarkable except as noted in Subjective Physical Exam Constitutional: WD/WN, vitals as above + obese; no acute distress Neck: trachea midline, no thyromegaly Respiratory: normal respiratory effort, lungs clear to auscultation normal respiratory effort and + cough; no respiratory distress Auscultation: + rhonchi; no crackles, no rales and no wheezes Cardiovascular: RRR, no murmur, no edema Gastrointestinal (Abdomen): normal bowel sounds, soft, nontender, no hepatosplenomegaly Musculoskeletal: Head/Neck/Chest: normocephalic, head atraumatic and neck supple Extremities: extremities normal to inspection and + abnormal strength (generalized weakness, especially legs, in wheelchair at baseline) Skin: no rashes, warm and dry Neurologic: normal touch/pain/proprioception, CN's II-XI intact bilaterally, moves all extremities and awake Psychiatric: A+Ox3, euthymic affect Lymphatic: no cervical or axillary lymphadenopathy Results & Data Results & Data ([facility]) Vital Signs (Past 12 Hours) Vital Signs Temp Pulse Pulse Resp BP BP Pulse Ox 05/10/20 16:05 37 C 56 L 146/76 H 05/10/20 15:00 36.7 C 59 L 18 124/65 96 05/10/20 13:40 56 L 141/70 H 05/10/20 13:20 53 L 135/45 L 05/10/20 13:00 53 L 135/65 05/10/20 12:40 56 L 141/70 H 05/10/20 12:20 57 L 123/61 05/10/20 12:00 59 L 141/65 H 05/10/20 11:44 58 L 108/63 05/10/20 11:20 42 L 105/89 05/10/20 11:00 53 L 122/66 05/10/20 10:40 54 L 111/60 05/10/20 10:20 53 L 120/65 05/10/20 10:00 37.1 C 54 L 05/10/20 09:58 53 L 122/66 05/10/20 08:00 62 05/10/20 07:30 37.1 C 59 L 18 144/73 H 97 05/10/20 07:21 48 L 20 92 05/10/20 05:00 45 L 19 Laboratory Results Laboratory Results - last 24 hr 05/09/20 05/10/20 05/10/20 19:51 07:49 11:38 POC Glucose 139 H 121 H 142 H 05/10/20 15:34 POC Glucose 132 H Medications Administered Current Inpatient Medications Albuterol (Albuterol Hfa 8 Gm Inhaler) 2 puffs INH Q4H PRN PRN Reason: shortness of breath or wheezing Stop: 06/06/20 23:06 Albuterol (Albut/Ipratrop 3mg/0.5mg Neb 3 Ml Vial) 3 ml NEB BIDR [facility] Stop: 06/07/20 08:59 Last Admin: 05/10/20 07:17 Dose: 3 ml Documented by: Amlodipine Besylate (Amlodipine Besylate 5 Mg Tab) 10 mg PO QAM [facility] Stop: 06/09/20 08:59 Last Admin: 05/10/20 08:18 Dose: 10 mg Documented by: Apixaban (Apixaban 5 Mg Tablet) 5 mg PO BID@0800,1600 [facility] Stop: 06/06/20 23:29 Last Admin: 05/10/20 15:49 Dose: 5 mg Documented by: Aripiprazole (Aripiprazole 15 Mg Tab) 15 mg PO QAM [facility] Stop: 06/07/20 08:59 Last Admin: 05/10/20 08:16 Dose: 15 mg Documented by: Calcium Acetate (Calcium Acetate 667 Mg Cap/Tab) 1,334 mg PO TIDM [facility] Stop: 06/09/20 07:59 Last Admin: 05/10/20 12:14 Dose: 1,334 mg Documented by: Dextrose (Dextrose 50% 50 Ml Syringe) 25 - 50 ml IV UD PRN; Protocol PRN Reason: Hypoglycemia Protocol Stop: 06/07/20 06:01 Famotidine (Famotidine 20 Mg Tab) 20 mg PO Q2D@0900 [facility] Stop: 06/07/20 08:59 Last Admin: 05/10/20 08:18 Dose: 20 mg Documented by: Fluoxetine HCl (Fluoxetine Hcl 20 Mg Cap) 60 mg PO HS [facility] Stop: 06/06/20 23:06 Last Admin: 05/09/20 19:45 Dose: 60 mg Documented by: Gabapentin (Gabapentin 100 Mg Cap) 100 mg PO TID [facility] Stop: 06/06/20 23:06 Last Admin: 05/10/20 14:27 Dose: 100 mg Documented by: Glucagon (Glucagon For Inj 1 Mg Vial) 1 mg SQ UD PRN; Protocol PRN Reason: Hypoglycemia Protocol Stop: 06/07/20 06:01 Glucose (Glucose 10 Tabs/Tube) 4 - 8 tabs PO UD PRN; Protocol PRN Reason: Hypoglycemia Protocol Stop: 06/07/20 06:01 Glucose (Glucose 40% Gel 15 Gm Tube) 15 - 30 gm PO UD PRN; Protocol PRN Reason: Hypoglycemia Protocol Stop: 06/07/20 06:01 Guaifenesin (Guaifenesin 600 Mg Tabcr) 1,200 mg PO Q12 [facility] Stop: 06/06/20 23:06 Last Admin: 05/10/20 08:16 Dose: 1,200 mg Documented by: Metronidazole (Flagyl) 500 mg in 100 mls @ 100 mls/hr IV Q8H [facility] Stop: 05/15/20 05:59 Last Infusion: 05/10/20 15:48 Dose: Infused Documented by: Cefepime HCl 1,000 mg/ Syringe 11.3 mls @ 5.5 mls/min IV Q24H [facility] Stop: 05/13/20 18:03 Last Admin: 05/09/20 16:37 Dose: 5.5 mls/min Documented by: Insulin Aspart (Insulin Aspart 100 Units/Ml 3 Ml Pen) 0 units SC ACHS [facility] Stop: 06/07/20 07:29 Last Admin: 05/10/20 11:57 Dose: 1 units Documented by: Lisinopril (Lisinopril 20 Mg Tab) 20 mg PO QAM [facility] Stop: 06/07/20 08:59 Last Admin: 05/10/20 08:18 Dose: 20 mg Documented by: Miscellaneous (Teriflunomide~Order Awaiting Action) 1 ea N/A QS [facility] Stop: 06/07/20 07:59 Last Admin: 05/10/20 14:51 Dose: Not Given Documented by: Miscellaneous (Carbohydrates For Hypoglycemia ) 15 - 30 gm PO UD PRN PRN Reason: Hypoglycemia Protocol Stop: 06/07/20 06:01 Miscellaneous Information (Cefepime Consult Active) 1 ea N/A UD PRN PRN Reason: Consult Stop: 06/06/20 23:06 Pantoprazole Sodium (Pantoprazole 40 Mg Tab) 40 mg PO BID [facility] Stop: 06/06/20 23:06 Last Admin: 05/10/20 08:17 Dose: 40 mg Documented by: Ropinirole HCl (Ropinirole Hcl 0.25 Mg Tablet) 0.5 mg PO BID [facility] Stop: 06/06/20 23:06 Last Admin: 05/10/20 08:16 Dose: 0.5 mg Documented by: Sodium Chloride (Sodium Chlor 7% 4 Ml Neb) 4 ml NEB BIDR [facility] Stop: 06/07/20 18:59 Last Admin: 05/10/20 07:18 Dose: 4 ml Documented by: Tamsulosin HCl (Tamsulosin Hcl 0.4 Mg Cap) 0.4 mg PO QAM [facility] Stop: 06/07/20 08:59 Last Admin: 05/10/20 08:17 Dose: 0.4 mg Documented by: Trazodone HCl (Trazodone Hcl 100 Mg Tab) 100 mg PO HS [facility] Stop: 06/06/20 23:06 Last Admin: 05/09/20 19:46 Dose: 100 mg Documented by: PG Care Time/CCT Total # of Minutes Spent Total Time Spent with Patient: Total time spent is greater than 50% in coordination of care (as documented) at patient's floor/unit and/or counseling patient: Coding Level of Care Code 98741 Subseq Hosp Care Lvl 2 Diagnoses Acute and chronic respiratory failure with hypoxia J96.21 Aspiration pneumonia J69.0 Aspiration pneumonia type: unspecified Laterality: right Lung location: unspecified part of lung COVID-19 U07.1 Mucoid impaction of bronchi J98.09 ESRD (end stage renal disease) on dialysis N18.6; Z99.2 Multiple sclerosis G35 Type 2 diabetes mellitus E11.69 Diabetes mellitus complication status: with other specified complication Diabetes mellitus residential insulin use: without termination clerk use Hypertension I10 Hypertension type: essential hypertension Anemia D64.9 Depression F32.9 Depression Type: unspecified DVT prophylaxis Z29.9 (1) Type 2 diabetes mellitus Diabetes mellitus complication status: with other specified complication Diabetes mellitus termination clerk insulin use: without residential 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
[2020-05-10] MEDS: CEFEPIME 1,000 MG in SYRINGE 0 ML IV SCH (17:50)
--- NOTE | 2020-05-10 18:30 | Dialysis Progress Note ---
Date of Service May 10, 2020 Assessment & Plan (1) ESRD (end stage renal disease) on dialysis: cont MWF HD > tolerated 4L UF. low sodium reflects volume overload; other chemistries generally acceptable >will update labs tomorrow -no extra txs unless decompensating from respiratory stand point -cont 1.5L FR to go with dialysis diet -halved phos binder dose d/t lower pohs -getting iron load and cont epo 11351 units w/ tx today to help with anemia (2) Neuromuscular respiratory weakness: from MS and Covid/recurrent PNA >> complicates acute respiratory failure recovery -- appreciate pulm recs; d/c plan for now is to send pt to LTACH > awaiting bed in [facility], or [place] (3) Acute and chronic respiratory failure with hypoxia: per pulmonary. >>>pulmonary signed off today but recommend following up on plan for L bronchial polyp noted below -note L bronchial sessile polyp-like lesion reported at bronch >> will need repeat bronch for this per pulm >> ? timing before or after d/c -pulm recs for chest toilet>>bipap use qhs; cough Assist bid; tid vest therapy; duonebs; aspiration precautions pending speech consult >>>?status of speech consult? (4) Multiple sclerosis: MS med stopped last admission by G neuro on neuro consult >>>>note that at discharge he needs to est care with on site neurologist to update/continue multiple sclerosis care >> no routine MS care for several months now (none since he was living in [place]) Admission and Anticipated Discharge Date Admission Date: May 07, 2020 Subjective seen and evaluated on dialysis this am at 1050; feels his breathing is better; wore cpap ON but found it "tight;" also doing chest PT; no pain; no sob; tolerating po; tolerating dialysis Review of Systems Review of Systems: All systems reviewed & are unremarkable except as noted in HPI & below Physical Exam Constitutional: well developed, well nourished, cooperative and + overweight; no acute distress Eyes: EOM intact bilaterally ENMT: Ears: no external ear abnormality Nose: no external nose abnormality Mouth: + dry oral mucous membranes Neck: no nuchal rigidity Respiratory: normal respiratory effort and able to speak in complete sentences; no labored breathing, does not use accessory muscles, no cough and not tachypneic Auscultation: + diminished lung sounds (not rhoncherous) Cardiovascular: Rate/Rhythm: regular rhythm and + bradycardic (in 50s) Extremities: + AV fistula (+ t/b); no edema Gastrointestinal (Abdomen): Inspection/Auscultation: normal bowel sounds Percussion/Palpation: abdomen soft; abdomen nontender Musculoskeletal: Extremities: + abnormal strength Skin: no rashes, warm and dry Neurologic: no tremor, fluent speech Psychiatric: A+Ox3, euthymic affect Results & Data ([facility]) Vital Signs (Past 12 Hours) Vital Signs Temp Pulse Pulse Resp BP BP Pulse Ox 05/10/20 16:30 20 98 05/10/20 16:05 37 C 56 L 146/76 H 05/10/20 16:00 20 97 05/10/20 15:30 93 05/10/20 15:00 36.7 C 59 L 18 124/65 96 05/10/20 13:40 56 L 141/70 H 05/10/20 13:20 53 L 135/45 L 05/10/20 13:00 53 L 135/65 05/10/20 12:40 56 L 141/70 H 05/10/20 12:20 57 L 123/61 05/10/20 12:00 59 L 141/65 H 05/10/20 11:44 58 L 108/63 05/10/20 11:20 42 L 105/89 05/10/20 11:00 53 L 122/66 05/10/20 10:40 54 L 111/60 05/10/20 10:20 53 L 120/65 05/10/20 10:00 37.1 C 54 L 05/10/20 09:58 53 L 122/66 05/10/20 08:00 62 05/10/20 07:30 37.1 C 59 L 18 144/73 H 97 05/10/20 07:21 48 L 20 92 Laboratory Results 05/08/20 05:27 05/08/20 05:27
[2020-05-10] MEDS: traZODone HCL 100 MG TAB PO SCH (20:54)
[2020-05-10] MEDS: FLUoxetine HCL 20 MG CAP PO SCH (20:56)
[2020-05-11] MEDS: metroNIDAZOLE 500 MG/100 ML BAG IV SCH ×3 (06:07→22:58)
[2020-05-11 07:00] LABS: Hematocrit (blood only) 25.7 % (42-52); Hemoglobin 7.9 g/dL (14.0-18.0); Mean Corpuscular Hgb Conc 30.7 g/dL (32-36); Mean Corpuscular Volume 91.1 fL (80-100); Mean Platelet Volume 8.7 fL (7.4-10.4); Platelet Count 115 K/uL (130-400); RDW Coefficient of Variation 14.6 % (11.5-14.5); RDW Standard Deviation 49.7 fL (36.4-46.3); Red Blood Count 2.82 M/uL (4.7-6.1); White Blood Count 5.32 K/uL (4.8-10.8)
[2020-05-11] MEDS: ALBUT/IPRATROP 3MG/0.5MG NEB 3 ML VIAL NEB SCH ×2 (07:19→19:29)
[2020-05-11] MEDS: SODIUM CHLOR 7% 4 ML NEB NEB SCH ×2 (07:19→19:29)
[2020-05-11 07:29] LABS: BUN Creatinine Ratio 5.8 (10-20); Calcium 8.3 mg/dl (8.5-10.1); Creatinine Clr Calc Pharmacy 24.1 ml/min; Est GFR (African American) 16.7; Est GFR (Non-African American) 14.4; Potassium 3.1 mmol/L (3.5-5.1)
[2020-05-11] MEDS: INSULIN ASPART 100 UNITS/ML 3 ML PEN SC SCH ×4 (08:00→23:35)
[2020-05-11] MEDS: APIXABAN 5 MG TABLET PO SCH ×2 (08:04→15:22)
[2020-05-11] MEDS: CALCIUM ACETATE 667 MG CAP/TAB PO SCH ×3 (08:06→16:46)
[2020-05-11] MEDS: ARIPiprazole 15 MG TAB PO SCH (08:07)
[2020-05-11] MEDS: lisinopril 20 MG TAB PO SCH (08:07)
[2020-05-11] MEDS: TAMSULOSIN HCL 0.4 MG CAP PO SCH (08:07)
[2020-05-11] MEDS: PANTOprazole 40 MG TAB PO SCH ×2 (08:07→23:08)
[2020-05-11] MEDS: rOPINIRole HCL 0.25 MG TABLET PO SCH ×2 (08:07→23:06)
[2020-05-11] MEDS: amLODIPine BESYLATE 5 MG TAB PO SCH (08:08)
[2020-05-11] MEDS: GABAPENTIN 100 MG CAP PO SCH ×3 (08:08→23:09)
[2020-05-11] MEDS: guaiFENesin 600 MG TABCR PO SCH ×2 (08:08→23:09)
[2020-05-11] MEDS: POTASSIUM CHLORIDE / WTR 10 MEQ/100 ML PLCT IV SCH ×3 (08:12→10:29)
--- NOTE | 2020-05-11 14:41 | Hospitalist Progress Note ---
Date of Service May 11, 2020 Assessment & Plan (1) Acute and chronic respiratory failure with hypoxia: right lung collapse from mucoid impaction similar to previous hospitalization requiring intubation. flutter valve and vibration vest bronchoscopy by Dr. Melton 05/08 with suctioning of mucoid impaction, breathing great afterwards stable on 1L today, no distress, coughing more with percussion therapy appreciate recommendations from Dr. Melton patient with neuromuscular weakness related to MS plus deconditioning from recent COVID pneumonia cough assist twice a day, vibratory vest TID, hypertonic saline nebulizers continue antibiotics x 5 days due to amount of secretions in airway, last day will be 05/12 patient knows he needs to be more compliant with BIPAP looking into alternative placement to [facility] as he won't get the care he needs CM made referral to [facility] in [place], no beds until next week (2) Aspiration pneumonia: Cefepime + metronidazole IV WBC normal, no fever likely a degree of chronic aspiration based on bronchoscopy findings s/p suctioning of mucous plugging last day of antibiotics would be 05/12 (3) COVID-19: Persistently positive. Doubt represents new infection. Treated with IV dexamethasone and convalescent plasma previously on hospitalization 04/04 (initial diagnosis 04/02). Currently near baseline O2. can move out of negative pressure room (4) Mucoid impaction of bronchi: s/p bronch with suctioning see above (5) ESRD (end stage renal disease) on dialysis: Consult nephrology for help with management. 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 Will place on BSG ACHS/Q6H with correction coverage insulin only pending further measurements. (8) Hypertension: Norvasc Continue lisinopril 20mg PO daily. (9) Anemia: Close to baseline. Suspect secondary to ESRD. Managed per nephrology. (10) Depression: Continue fluoxetine 60mg PO daily (11) DVT prophylaxis: Continue Eliquis 5mg PO BID (presumably on this for prior DVT). (12) Hypokalemia: low at 3.1 will give 30mEq IV today (13) Neuromuscular respiratory weakness: due to MS, difficulty clearing secretions and mucous working on getting him to [facility] for therapy Admission and Anticipated Discharge Date Admission Date: May 07, 2020 Subjective patient continues to feel well, no acute issues he refused to wear BIPAP last night, discussed that he needs to be compliant he is coughing less today, tolerating diet talked with CM, [facility] has no beds this weekend Review of Systems Review of Systems: All systems reviewed & are unremarkable except as noted in Subjective Physical Exam Constitutional: WD/WN, vitals as above + obese; no acute distress Neck: trachea midline, no thyromegaly Respiratory: normal respiratory effort, lungs clear to auscultation normal respiratory effort and + cough; no respiratory distress Auscultation: + rhonchi; no crackles, no rales and no wheezes Cardiovascular: RRR, no murmur, no edema Gastrointestinal (Abdomen): normal bowel sounds, soft, nontender, no hepatosplenomegaly Musculoskeletal: Head/Neck/Chest: normocephalic, head atraumatic and neck supple Extremities: extremities normal to inspection and + abnormal strength (generalized weakness, especially legs, in wheelchair at baseline) Skin: no rashes, warm and dry Neurologic: normal touch/pain/proprioception, CN's II-XI intact bilaterally, moves all extremities and awake Psychiatric: A+Ox3, euthymic affect Lymphatic: no cervical or axillary lymphadenopathy Results & Data Results & Data ([facility]) Vital Signs (Past 12 Hours) Vital Signs Temp Pulse Resp BP Pulse Ox 05/11/20 14:23 96 05/11/20 11:58 36.5 C 54 L 18 129/66 99 05/11/20 07:54 36.6 C 55 L 18 141/72 H 99 05/11/20 07:19 50 L 16 100 05/11/20 04:17 36.5 C 56 L 18 135/73 99 Laboratory Results Laboratory Results - last 24 hr 05/10/20 05/10/20 05/11/20 15:34 20:39 06:28 WBC 5.32 RBC 2.82 L Hgb 7.9 L Hct 25.7 L MCV 91.1 MCH 28.0 MCHC 30.7 L RDW Std Deviation 49.7 H RDW Coeff of Emiliano 14.6 H Plt Count 115 L MPV 8.7 Sodium Potassium Chloride Carbon Dioxide Anion Gap BUN Creatinine Est Cr Clr Drug Dosing Est GFR ( Amer) Est GFR (Non-Af Amer) BUN/Creatinine Ratio Glucose POC Glucose 132 H 180 H Calcium 05/11/20 05/11/20 05/11/20 06:28 07:52 11:55 WBC RBC Hgb Hct MCV MCH MCHC RDW Std Deviation RDW Coeff of Emiliano Plt Count MPV Sodium 134 L Potassium 3.1 L Chloride 100 Carbon Dioxide 29 Anion Gap 5.0 BUN 25 H Creatinine 4.36 H Est Cr Clr Drug Dosing 24.1 Est GFR ( Amer) 16.7 Est GFR (Non-Af Amer) 14.4 BUN/Creatinine Ratio 5.8 L Glucose 105 H POC Glucose 117 H 277 H Calcium 8.3 L Medications Administered Current Inpatient Medications Albuterol (Albuterol Hfa 8 Gm Inhaler) 2 puffs INH Q4H PRN PRN Reason: shortness of breath or wheezing Stop: 06/06/20 23:06 Albuterol (Albut/Ipratrop 3mg/0.5mg Neb 3 Ml Vial) 3 ml NEB BIDR [facility] Stop: 06/07/20 08:59 Last Admin: 05/11/20 07:19 Dose: 3 ml Documented by: Amlodipine Besylate (Amlodipine Besylate 5 Mg Tab) 10 mg PO QAM [facility] Stop: 06/09/20 08:59 Last Admin: 05/11/20 08:08 Dose: 10 mg Documented by: Apixaban (Apixaban 5 Mg Tablet) 5 mg PO BID@0800,1600 [facility] Stop: 06/06/20 23:29 Last Admin: 05/11/20 08:04 Dose: 5 mg Documented by: Aripiprazole (Aripiprazole 15 Mg Tab) 15 mg PO QAM [facility] Stop: 06/07/20 08:59 Last Admin: 05/11/20 08:07 Dose: 15 mg Documented by: Calcium Acetate (Calcium Acetate 667 Mg Cap/Tab) 1,334 mg PO TIDM [facility] Stop: 06/09/20 07:59 Last Admin: 05/11/20 12:23 Dose: 1,334 mg Documented by: Dextrose (Dextrose 50% 50 Ml Syringe) 25 - 50 ml IV UD PRN; Protocol PRN Reason: Hypoglycemia Protocol Stop: 06/07/20 06:01 Famotidine (Famotidine 20 Mg Tab) 20 mg PO Q2D@0900 [facility] Stop: 06/07/20 08:59 Last Admin: 05/10/20 08:18 Dose: 20 mg Documented by: Fluoxetine HCl (Fluoxetine Hcl 20 Mg Cap) 60 mg PO HS [facility] Stop: 06/06/20 23:06 Last Admin: 05/10/20 20:56 Dose: 60 mg Documented by: Gabapentin (Gabapentin 100 Mg Cap) 100 mg PO TID [facility] Stop: 06/06/20 23:06 Last Admin: 05/11/20 14:20 Dose: 100 mg Documented by: Glucagon (Glucagon For Inj 1 Mg Vial) 1 mg SQ UD PRN; Protocol PRN Reason: Hypoglycemia Protocol Stop: 06/07/20 06:01 Glucose (Glucose 10 Tabs/Tube) 4 - 8 tabs PO UD PRN; Protocol PRN Reason: Hypoglycemia Protocol Stop: 06/07/20 06:01 Glucose (Glucose 40% Gel 15 Gm Tube) 15 - 30 gm PO UD PRN; Protocol PRN Reason: Hypoglycemia Protocol Stop: 06/07/20 06:01 Guaifenesin (Guaifenesin 600 Mg Tabcr) 1,200 mg PO Q12 [facility] Stop: 06/06/20 23:06 Last Admin: 05/11/20 08:08 Dose: 1,200 mg Documented by: Metronidazole (Flagyl) 500 mg in 100 mls @ 100 mls/hr IV Q8H [facility] Stop: 05/15/20 05:59 Last Admin: 05/11/20 14:19 Dose: 100 mls/hr Documented by: Cefepime HCl 1,000 mg/ Syringe 11.3 mls @ 5.5 mls/min IV Q24H [facility] Stop: 05/13/20 18:03 Last Admin: 05/10/20 17:50 Dose: 5.5 mls/min Documented by: Insulin Aspart (Insulin Aspart 100 Units/Ml 3 Ml Pen) 0 units SC ACHS [facility] Stop: 06/07/20 07:29 Last Admin: 05/11/20 12:07 Dose: 4 units Documented by: Lisinopril (Lisinopril 20 Mg Tab) 20 mg PO QAM [facility] Stop: 06/07/20 08:59 Last Admin: 05/11/20 08:07 Dose: 20 mg Documented by: Miscellaneous (Teriflunomide~Order Awaiting Action) 1 ea N/A QS [facility] Stop: 06/07/20 07:59 Last Admin: 05/11/20 08:03 Dose: Not Given Documented by: Miscellaneous (Carbohydrates For Hypoglycemia ) 15 - 30 gm PO UD PRN PRN Reason: Hypoglycemia Protocol Stop: 06/07/20 06:01 Miscellaneous Information (Cefepime Consult Active) 1 ea N/A UD PRN PRN Reason: Consult Stop: 06/06/20 23:06 Pantoprazole Sodium (Pantoprazole 40 Mg Tab) 40 mg PO BID [facility] Stop: 06/06/20 23:06 Last Admin: 05/11/20 08:07 Dose: 40 mg Documented by: Ropinirole HCl (Ropinirole Hcl 0.25 Mg Tablet) 0.5 mg PO BID [facility] Stop: 06/06/20 23:06 Last Admin: 05/11/20 08:07 Dose: 0.5 mg Documented by: Sodium Chloride (Sodium Chlor 7% 4 Ml Neb) 4 ml NEB BIDR [facility] Stop: 06/07/20 18:59 Last Admin: 05/11/20 07:19 Dose: 4 ml Documented by: Tamsulosin HCl (Tamsulosin Hcl 0.4 Mg Cap) 0.4 mg PO QAM [facility] Stop: 06/07/20 08:59 Last Admin: 05/11/20 08:07 Dose: 0.4 mg Documented by: Trazodone HCl (Trazodone Hcl 100 Mg Tab) 100 mg PO HS [facility] Stop: 06/06/20 23:06 Last Admin: 05/10/20 20:54 Dose: 100 mg Documented by: PG Care Time/CCT Total # of Minutes Spent Total Time Spent with Patient: Total time spent is greater than 50% in coordination of care (as documented) at patient's floor/unit and/or counseling patient: Coding Level of Care Code 69737 Subseq Hosp Care Lvl 2 Diagnoses Acute and chronic respiratory failure with hypoxia J96.21 Aspiration pneumonia J69.0 Aspiration pneumonia type: unspecified Laterality: right Lung location: unspecified part of lung COVID-19 U07.1 Mucoid impaction of bronchi J98.09 ESRD (end stage renal disease) on dialysis N18.6; Z99.2 Multiple sclerosis G35 Type 2 diabetes mellitus E11.69 Diabetes mellitus senior living insulin use: without manager intermediate use Diabetes mellitus complication status: with other specified complication Hypertension I10 Hypertension type: essential hypertension Anemia D64.9 Depression F32.9 Depression Type: unspecified DVT prophylaxis Z29.9 Hypokalemia E87.6 Neuromuscular respiratory weakness J98.8 (1) Aspiration pneumonia Aspiration pneumonia type: unspecified Laterality: right Lung location: unspecified part of lung Qualified Code(s): J69.0 - Pneumonitis due to inhalation of food and vomit (2) Type 2 diabetes mellitus Diabetes mellitus senior living insulin use: without senior living use Diabetes mellitus complication status: with other specified complication Qualified Code(s): E11.69 - Type 2 diabetes mellitus with other specified complication (3) Hypertension Hypertension type: essential hypertension Qualified Code(s): I10 - Essential (primary) hypertension (4) Depression Depression Type: unspecified Qualified Code(s): F32.9 - Major depressive disorder, single episode, unspecified
[2020-05-11] MEDS: CEFEPIME 1,000 MG in SYRINGE 0 ML IV SCH (17:34)
[2020-05-11] MEDS: FLUoxetine HCL 20 MG CAP PO SCH (23:08)
[2020-05-11] MEDS: traZODone HCL 100 MG TAB PO SCH (23:09)
[2020-05-12] MEDS ORDERED: MELATONIN 3 MG TAB PO PRN (00:25)
[2020-05-12] MEDS: metroNIDAZOLE 500 MG/100 ML BAG IV SCH ×3 (06:16→20:56)
[2020-05-12] MEDS: ALBUT/IPRATROP 3MG/0.5MG NEB 3 ML VIAL NEB SCH ×2 (07:20→19:21)
[2020-05-12] MEDS: SODIUM CHLOR 7% 4 ML NEB NEB SCH ×2 (07:20→19:21)
[2020-05-12] MEDS: CALCIUM ACETATE 667 MG CAP/TAB PO SCH ×3 (07:58→17:31)
[2020-05-12] MEDS: APIXABAN 5 MG TABLET PO SCH ×2 (07:58→15:06)
[2020-05-12] MEDS: INSULIN ASPART 100 UNITS/ML 3 ML PEN SC SCH ×4 (08:00→22:14)
[2020-05-12] MEDS: guaiFENesin 600 MG TABCR PO SCH ×2 (08:06→20:27)
[2020-05-12] MEDS: TAMSULOSIN HCL 0.4 MG CAP PO SCH (08:06)
[2020-05-12] MEDS: GABAPENTIN 100 MG CAP PO SCH ×3 (08:07→20:28)
[2020-05-12] MEDS: ARIPiprazole 15 MG TAB PO SCH (08:07)
[2020-05-12] MEDS: rOPINIRole HCL 0.25 MG TABLET PO SCH ×2 (08:07→20:31)
[2020-05-12] MEDS: lisinopril 20 MG TAB PO SCH (08:07)
[2020-05-12] MEDS: PANTOprazole 40 MG TAB PO SCH ×2 (08:07→20:31)
[2020-05-12] MEDS: amLODIPine BESYLATE 5 MG TAB PO SCH (08:08)
[2020-05-12] MEDS: FAMOTIDINE 20 MG TAB PO SCH (08:08)
--- NOTE | 2020-05-12 10:44 | Hospitalist Progress Note ---
Date of Service May 12, 2020 Assessment & Plan (1) Acute and chronic respiratory failure with hypoxia: right lung collapse from mucoid impaction similar to previous hospitalization requiring intubation. flutter valve and vibration vest bronchoscopy by Dr. Melton 05/08 with suctioning of mucoid impaction, breathing great afterwards stable on room air, no distress, coughing more with percussion therapy appreciate recommendations from Dr. Melton patient with neuromuscular weakness related to MS plus deconditioning from recent COVID pneumonia cough assist twice a day, vibratory vest TID, hypertonic saline nebulizers continue antibiotics x 5 days due to amount of secretions in airway, last day will be 05/12 (today) patient knows he needs to be more compliant with BIPAP looking into alternative placement to [facility] as he won't get the care he needs CM made referral to [facility] in [place], no beds this weekend, will ask again on Wednesday (2) Aspiration pneumonia: Cefepime + metronidazole IV WBC normal, no fever, less cough today likely a degree of chronic aspiration based on bronchoscopy findings s/p suctioning of mucous plugging last day of antibiotics would be 05/12 (3) COVID-19: Persistently positive. Doubt represents new infection. Treated with IV dexamethasone and convalescent plasma previously on hospitalization 04/04 (initial diagnosis 04/02). Currently near baseline O2. can move out of negative pressure room (4) Mucoid impaction of bronchi: s/p bronch with suctioning see above (5) ESRD (end stage renal disease) on dialysis: Consult nephrology for help with management. 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 Will place on BSG ACHS/Q6H with correction coverage insulin only pending further measurements. (8) Hypertension: Norvasc Continue lisinopril 20mg PO daily. (9) Anemia: Close to baseline. Suspect secondary to ESRD. Managed per nephrology. (10) Depression: Continue fluoxetine 60mg PO daily (11) DVT prophylaxis: Continue Eliquis 5mg PO BID (presumably on this for prior DVT). (12) Hypokalemia: replaced on 05/11, repeat tomorrow morning (13) Neuromuscular respiratory weakness: due to MS, difficulty clearing secretions and mucous working on getting him to [facility] for therapy Admission and Anticipated Discharge Date Admission Date: May 07, 2020 Subjective patient resting comfortably on room air, no major changes no labs today eating well, less cough, less sputum production no fever Review of Systems Review of Systems: All systems reviewed & are unremarkable except as noted in Subjective Physical Exam Constitutional: WD/WN, vitals as above + obese; no acute distress Neck: trachea midline, no thyromegaly Respiratory: normal respiratory effort, lungs clear to auscultation normal respiratory effort and + cough; no respiratory distress Auscultation: + rhonchi; no crackles, no rales and no wheezes Cardiovascular: RRR, no murmur, no edema Gastrointestinal (Abdomen): normal bowel sounds, soft, nontender, no hepatosplenomegaly Musculoskeletal: Head/Neck/Chest: normocephalic, head atraumatic and neck supple Extremities: extremities normal to inspection and + abnormal strength (generalized weakness, especially legs, in wheelchair at baseline) Skin: no rashes, warm and dry Neurologic: normal touch/pain/proprioception, CN's II-XI intact bilaterally, moves all extremities and awake Psychiatric: A+Ox3, euthymic affect Lymphatic: no cervical or axillary lymphadenopathy Results & Data Results & Data ([facility]) Vital Signs (Past 12 Hours) Vital Signs Temp Pulse Pulse Resp BP Pulse Ox 05/12/20 07:25 37.1 C 60 18 145/85 H 96 05/12/20 07:20 59 L 16 96 05/12/20 04:00 36.5 C 63 18 147/76 H 93 05/12/20 00:06 37.0 C 66 18 144/79 H 94 Laboratory Results Laboratory Results - last 24 hr 05/11/20 05/11/20 05/11/20 11:55 15:15 20:57 POC Glucose 277 H 214 H 159 H 05/12/20 07:55 POC Glucose 134 H Medications Administered Current Inpatient Medications Albuterol (Albuterol Hfa 8 Gm Inhaler) 2 puffs INH Q4H PRN PRN Reason: shortness of breath or wheezing Stop: 06/06/20 23:06 Albuterol (Albut/Ipratrop 3mg/0.5mg Neb 3 Ml Vial) 3 ml NEB BIDR [facility] Stop: 06/07/20 08:59 Last Admin: 05/12/20 07:20 Dose: 3 ml Documented by: Amlodipine Besylate (Amlodipine Besylate 5 Mg Tab) 10 mg PO QAM [facility] Stop: 06/09/20 08:59 Last Admin: 05/12/20 08:08 Dose: 10 mg Documented by: Apixaban (Apixaban 5 Mg Tablet) 5 mg PO BID@0800,1600 [facility] Stop: 06/06/20 23:29 Last Admin: 05/12/20 07:58 Dose: 5 mg Documented by: Aripiprazole (Aripiprazole 15 Mg Tab) 15 mg PO QAM [facility] Stop: 06/07/20 08:59 Last Admin: 05/12/20 08:07 Dose: 15 mg Documented by: Calcium Acetate (Calcium Acetate 667 Mg Cap/Tab) 1,334 mg PO TIDM [facility] Stop: 06/09/20 07:59 Last Admin: 05/12/20 07:58 Dose: 1,334 mg Documented by: Dextrose (Dextrose 50% 50 Ml Syringe) 25 - 50 ml IV UD PRN; Protocol PRN Reason: Hypoglycemia Protocol Stop: 06/07/20 06:01 Famotidine (Famotidine 20 Mg Tab) 20 mg PO Q2D@0900 [facility] Stop: 06/07/20 08:59 Last Admin: 05/12/20 08:08 Dose: 20 mg Documented by: Fluoxetine HCl (Fluoxetine Hcl 20 Mg Cap) 60 mg PO HS [facility] Stop: 06/06/20 23:06 Last Admin: 05/11/20 23:08 Dose: 60 mg Documented by: Gabapentin (Gabapentin 100 Mg Cap) 100 mg PO TID [facility] Stop: 06/06/20 23:06 Last Admin: 05/12/20 08:07 Dose: 100 mg Documented by: Glucagon (Glucagon For Inj 1 Mg Vial) 1 mg SQ UD PRN; Protocol PRN Reason: Hypoglycemia Protocol Stop: 06/07/20 06:01 Glucose (Glucose 10 Tabs/Tube) 4 - 8 tabs PO UD PRN; Protocol PRN Reason: Hypoglycemia Protocol Stop: 06/07/20 06:01 Glucose (Glucose 40% Gel 15 Gm Tube) 15 - 30 gm PO UD PRN; Protocol PRN Reason: Hypoglycemia Protocol Stop: 06/07/20 06:01 Guaifenesin (Guaifenesin 600 Mg Tabcr) 1,200 mg PO Q12 [facility] Stop: 06/06/20 23:06 Last Admin: 05/12/20 08:06 Dose: 1,200 mg Documented by: Metronidazole (Flagyl) 500 mg in 100 mls @ 100 mls/hr IV Q8H [facility] Stop: 05/12/20 23:59 Last Infusion: 05/12/20 07:45 Dose: Infused Documented by: Cefepime HCl 1,000 mg/ Syringe 11.3 mls @ 5.5 mls/min IV Q24H [facility] Stop: 05/12/20 23:59 Last Admin: 05/11/20 17:34 Dose: 5.5 mls/min Documented by: Insulin Aspart (Insulin Aspart 100 Units/Ml 3 Ml Pen) 0 units SC ACHS [facility] Stop: 06/07/20 07:29 Last Admin: 05/12/20 08:00 Dose: Not Given Documented by: Lisinopril (Lisinopril 20 Mg Tab) 20 mg PO QAM [facility] Stop: 06/07/20 08:59 Last Admin: 05/12/20 08:07 Dose: 20 mg Documented by: Melatonin (Melatonin 3 Mg Tab) 6 mg PO HS PRN PRN Reason: Sleep Stop: 06/11/20 00:24 Miscellaneous (Teriflunomide~Order Awaiting Action) 1 ea N/A QS [facility] Stop: 06/07/20 07:59 Last Admin: 05/12/20 07:45 Dose: Not Given Documented by: Miscellaneous (Carbohydrates For Hypoglycemia ) 15 - 30 gm PO UD PRN PRN Reason: Hypoglycemia Protocol Stop: 06/07/20 06:01 Miscellaneous Information (Cefepime Consult Active) 1 ea N/A UD PRN PRN Reason: Consult Stop: 05/12/20 23:59 Pantoprazole Sodium (Pantoprazole 40 Mg Tab) 40 mg PO BID [facility] Stop: 06/06/20 23:06 Last Admin: 05/12/20 08:07 Dose: 40 mg Documented by: Ropinirole HCl (Ropinirole Hcl 0.25 Mg Tablet) 0.5 mg PO BID [facility] Stop: 06/06/20 23:06 Last Admin: 05/12/20 08:07 Dose: 0.5 mg Documented by: Sodium Chloride (Sodium Chlor 7% 4 Ml Neb) 4 ml NEB BIDR [facility] Stop: 06/07/20 18:59 Last Admin: 05/12/20 07:20 Dose: 4 ml Documented by: Tamsulosin HCl (Tamsulosin Hcl 0.4 Mg Cap) 0.4 mg PO QAM [facility] Stop: 06/07/20 08:59 Last Admin: 05/12/20 08:06 Dose: 0.4 mg Documented by: Trazodone HCl (Trazodone Hcl 100 Mg Tab) 100 mg PO HS [facility] Stop: 06/06/20 23:06 Last Admin: 05/11/20 23:09 Dose: 100 mg Documented by: PG Care Time/CCT Total # of Minutes Spent Total Time Spent with Patient: Total time spent is greater than 50% in coordination of care (as documented) at patient's floor/unit and/or counseling patient: Coding Level of Care Code 46249 Subseq Hosp Care Lvl 2 Diagnoses Acute and chronic respiratory failure with hypoxia J96.21 Aspiration pneumonia J69.0 Aspiration pneumonia type: unspecified Laterality: right Lung location: unspecified part of lung COVID-19 U07.1 Mucoid impaction of bronchi J98.09 ESRD (end stage renal disease) on dialysis N18.6; Z99.2 Multiple sclerosis G35 Type 2 diabetes mellitus E11.69 Diabetes mellitus ad terminal makeup operator insulin use: without ad terminal makeup operator use Diabetes mellitus complication status: with other specified complication Hypertension I10 Hypertension type: essential hypertension Anemia D64.9 Depression F32.9 Depression Type: unspecified DVT prophylaxis Z29.9 Hypokalemia E87.6 Neuromuscular respiratory weakness J98.8 (1) Aspiration pneumonia Aspiration pneumonia type: unspecified Laterality: right Lung location: unspecified part of lung Qualified Code(s): J69.0 - Pneumonitis due to inhalation of food and vomit (2) Type 2 diabetes mellitus Diabetes mellitus ad terminal makeup operator insulin use: without nursing home use Diabetes mellitus complication status: with other specified complication Qualified Code(s): E11.69 - Type 2 diabetes mellitus with other specified complication (3) Hypertension Hypertension type: essential hypertension Qualified Code(s): I10 - Essential (primary) hypertension (4) Depression Depression Type: unspecified Qualified Code(s): F32.9 - Major depressive disorder, single episode, unspecified
[2020-05-12] MEDS: CEFEPIME 1,000 MG in SYRINGE 0 ML IV SCH (17:34)
[2020-05-12] MEDS: traZODone HCL 100 MG TAB PO SCH (20:29)
[2020-05-12] MEDS: FLUoxetine HCL 20 MG CAP PO SCH (20:32)
[2020-05-13 06:34] LABS: Hemoglobin 7.7 g/dL (14.0-18.0); Mean Corpuscular Hemoglobin 28.5 pg (25-34); Mean Corpuscular Hgb Conc 32.1 g/dL (32-36); Mean Corpuscular Volume 88.9 fL (80-100); Mean Platelet Volume 9.2 fL (7.4-10.4); Platelet Count 121 K/uL (130-400); RDW Coefficient of Variation 14.8 % (11.5-14.5); RDW Standard Deviation 48.4 fL (36.4-46.3); White Blood Count 6.39 K/uL (4.8-10.8)
[2020-05-13] MEDS ORDERED: IRON SUCROSE 100 MG in SYRINGE 0 ML IV SCH (07:00)
[2020-05-13] MEDS ORDERED: HEPARIN SOD (PORCINE) 1000 UNIT/ML 10 ML VIAL IV SCH (07:00)
[2020-05-13] MEDS ORDERED: SODIUM CHLORIDE 0.9% 1000ML 1,000 ML IV PRN (07:00)
[2020-05-13] MEDS ORDERED: EPOETIN ALFA 20,000 UNITS/ML VIAL IV SCH (07:00)
[2020-05-13] MEDS: SODIUM CHLOR 7% 4 ML NEB NEB SCH ×2 (07:11→20:10)
[2020-05-13] MEDS: ALBUT/IPRATROP 3MG/0.5MG NEB 3 ML VIAL NEB SCH ×2 (07:11→20:10)
[2020-05-13 07:26] LABS: BUN Creatinine Ratio 6.6 (10-20); Calcium 8.1 mg/dl (8.5-10.1); Creatinine Clr Calc Pharmacy 16.8 ml/min; Est GFR (African American) 10.4; Magnesium 2.1 mg/dl (1.8-2.4); Phosphorus 1.7 mg/dl (2.5-4.9); Potassium 3.7 mmol/L (3.5-5.1)
[2020-05-13] MEDS: INSULIN ASPART 100 UNITS/ML 3 ML PEN SC SCH ×4 (09:19→23:12)
--- NOTE | 2020-05-13 09:21 | Hospitalist Progress Note ---
Date of Service May 13, 2020 Assessment & Plan (1) Acute and chronic respiratory failure with hypoxia: right lung collapse from mucoid impaction similar to previous hospitalization requiring intubation. flutter valve and vibration vest bronchoscopy by Dr. Melton 05/08 with suctioning of mucoid impaction, breathing great afterwards stable on room air, no distress, coughing more with percussion therapy appreciate recommendations from Dr. Melton patient with neuromuscular weakness related to MS plus deconditioning from recent COVID pneumonia cough assist twice a day, vibratory vest TID, hypertonic saline nebulizers continue antibiotics x 5 days due to amount of secretions in airway, last day 05/12 patient knows he needs to be more compliant with BIPAP looking into alternative placement to [facility] as he won't get the care he needs CM made referral to [facility] in [place], hopeful to discharge 05/14 (2) Aspiration pneumonia: Cefepime + metronidazole IV WBC normal, no fever, less cough today likely a degree of chronic aspiration based on bronchoscopy findings s/p suctioning of mucous plugging last day of antibiotics would be 05/12 (3) COVID-19: Persistently positive. Doubt represents new infection. Treated with IV dexamethasone and convalescent plasma previously on hospitalization 04/04 (initial diagnosis 04/02). Currently near baseline O2. can move out of negative pressure room (4) Mucoid impaction of bronchi: s/p bronch with suctioning see above (5) ESRD (end stage renal disease) on dialysis: Consult nephrology for help with management. Usual dialysis days MWF plan for HD tomorrow, check BMP, Mag Phos in AM (6) Multiple sclerosis: Continue teriflunomide 14mg PO daily progression of disease led him to be at [facility] three months ago he is not pleased with care, he gets no therapy, they are short staffed (7) Type 2 diabetes mellitus: HbA1C 5.3 on prior labs although in setting of ESRD on dialysis this is unlikely to be telephone claims representative but on no outpatient medication for this. Will place on BSG ACHS/Q6H with correction coverage insulin only pending further measurements. (8) Hypertension: Norvasc Continue lisinopril 20mg PO daily. (9) Anemia: Close to baseline. Suspect secondary to ESRD. Managed per nephrology. (10) Depression: Continue fluoxetine 60mg PO daily (11) DVT prophylaxis: Continue Eliquis 5mg PO BID (presumably on this for prior DVT). (12) Hypokalemia: replaced on 05/11, repeat tomorrow morning (13) Neuromuscular respiratory weakness: due to MS, difficulty clearing secretions and mucous working on getting him to [facility] for therapy Admission and Anticipated Discharge Date Admission Date: May 07, 2020 Subjective patient resting comfortably on room air, no major changes pt is having dialysis today labs with persisitent anemia of chronic disease and hyponatremia hopefully to be improved with dialysis no fever Review of Systems Review of Systems: Mild distress and fatigue no headache, blurry or double vision no speech or swallowing issues no chest pain, pressure or palpitations no shortness of breath, still with minor nonproductive cough no abdominal pain, nausea or vomiting, diarrhea or constipation no dysuria, hematuria or frequency no focal joint pain or swelling no back pain, CVA tenderness or radicular pain no bruising, bleeding or rashes no focal signs of weakness or numbness or altered sensation no complaints of anxiety or depression. Physical Exam Physical Exam: The patient appeared chronically ill but in no particular distress Vital signs as documented. Head exam is normocephalic atraumatic no scleral icterus Neck is without JVD, thyromegaly, or carotid bruits. Lungs are clear to auscultation, except decreased at the bases Cardiac exam, Rhythm is regular.. No murmurs, rubs or gallops. Abdominal exam reveals normal bowel sounds, soft non tender, no masses Extremities are 1+ edematous and both pedal pulses are present Neurologic exam is alert and oriented, no focal loss of strength or sensation Skin is without bruises or rashes Psychologically is without concerns for anxiety or depression. Results & Data Results & Data ([facility]) Vital Signs (Past 12 Hours) Vital Signs Temp Pulse Pulse Pulse Resp BP Pulse Ox 05/13/20 08:14 98.1 F 64 18 136/73 94 05/13/20 07:11 62 18 95 05/13/20 04:00 98.1 F 61 20 131/71 95 05/12/20 23:58 98.2 F 59 L 18 121/68 96 05/12/20 23:00 59 L PG Care Time/CCT Total # of Minutes Spent Total Time Spent with Patient: Total time spent is greater than 50% in coordination of care (as documented) at patient's floor/unit and/or counseling patient: Coding Level of Care Code 78377 Subseq Hosp Care Lvl 2 Diagnoses Acute and chronic respiratory failure with hypoxia J96.21 Aspiration pneumonia J69.0 Aspiration pneumonia type: unspecified Laterality: right Lung location: unspecified part of lung COVID-19 U07.1 Mucoid impaction of bronchi J98.09 ESRD (end stage renal disease) on dialysis N18.6; Z99.2 Multiple sclerosis G35 Type 2 diabetes mellitus E11.69 Diabetes mellitus complication status: with other specified complication Diabetes mellitus marine oil terminal superintendent insulin use: without marine oil terminal superintendent use Hypertension I10 Hypertension type: essential hypertension Anemia D64.9 Depression F32.9 Depression Type: unspecified DVT prophylaxis Z29.9 Hypokalemia E87.6 Neuromuscular respiratory weakness J98.8 (1) Type 2 diabetes mellitus Diabetes mellitus complication status: with other specified complication Diabetes mellitus marine oil terminal superintendent insulin use: without mcfp 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
[2020-05-13] MEDS: ARIPiprazole 15 MG TAB PO SCH (09:24)
[2020-05-13] MEDS: guaiFENesin 600 MG TABCR PO SCH ×2 (09:24→21:12)
[2020-05-13] MEDS: FAMOTIDINE 20 MG TAB PO SCH (09:25)
[2020-05-13] MEDS: CALCIUM ACETATE 667 MG CAP/TAB PO SCH ×3 (09:25→16:17)
[2020-05-13] MEDS: rOPINIRole HCL 0.25 MG TABLET PO SCH ×2 (09:25→21:13)
[2020-05-13] MEDS: lisinopril 20 MG TAB PO SCH (09:26)
[2020-05-13] MEDS: GABAPENTIN 100 MG CAP PO SCH ×3 (09:26→21:11)
[2020-05-13] MEDS: APIXABAN 5 MG TABLET PO SCH ×2 (09:27→16:18)
[2020-05-13] MEDS: TAMSULOSIN HCL 0.4 MG CAP PO SCH (09:27)
[2020-05-13] MEDS: amLODIPine BESYLATE 5 MG TAB PO SCH (09:27)
[2020-05-13] MEDS: PANTOprazole 40 MG TAB PO SCH ×2 (09:28→21:11)
[2020-05-13] MEDS ORDERED: EPOETIN ALFA 10,000 UNITS in SYRINGE 0 ML IV SCH (10:30)
--- NOTE | 2020-05-13 12:04 | Progress Notes ---
DATE: 05/13/2020 NEPHROLOGY PROGRESS NOTE SUBJECTIVE: Overnight, no new issues. He remains without oxygen most of the time. PHYSICAL EXAMINATION: VITAL SIGNS: Blood pressure 136/73, pulse rate 64, temperature 36.7, 94% on room air. CHEST: Bilateral decreased breath sounds, occasional crackles. CARDIOVASCULAR: S1, S2 regular. ABDOMEN: Soft, nontender. EXTREMITIES: Show trace edema. LABORATORY TEST: Shows hemoglobin 7.7, BUN 43, creatinine 6.47, sodium 127, potassium 3.7. ASSESSMENT AND PLAN: A 55-year-old male with end-stage renal disease, on hemodialysis [id number], admitted with continued ongoing complications related with COVID-19 pneumonia. He has low sodium, which will likely get better after dialysis and reflects volume overload. He is scheduled to get dialysis later today and plan for 4 liters of ultrafiltration. His next dialysis will be Wednesday. I would like to do a chest x-ray tomorrow to see his volume status. DAVEY
[2020-05-13] MEDS: HEPARIN SOD (PORCINE) 1000 UNIT/ML 10 ML VIAL IV SCH (13:18)
[2020-05-13] MEDS: traZODone HCL 100 MG TAB PO SCH (21:10)
[2020-05-13] MEDS: FLUoxetine HCL 20 MG CAP PO SCH (21:12)
[2020-05-14] MEDS: SODIUM CHLOR 7% 4 ML NEB NEB SCH (08:10)
[2020-05-14] MEDS: ALBUT/IPRATROP 3MG/0.5MG NEB 3 ML VIAL NEB SCH (08:10)
[2020-05-14] MEDS: guaiFENesin 600 MG TABCR PO SCH (08:49)
[2020-05-14] MEDS: APIXABAN 5 MG TABLET PO SCH (08:49)
[2020-05-14] MEDS: GABAPENTIN 100 MG CAP PO SCH (08:49)
[2020-05-14] MEDS: CALCIUM ACETATE 667 MG CAP/TAB PO SCH (08:50)
[2020-05-14] MEDS: TAMSULOSIN HCL 0.4 MG CAP PO SCH (08:50)
[2020-05-14] MEDS: ARIPiprazole 15 MG TAB PO SCH (08:50)
[2020-05-14] MEDS: rOPINIRole HCL 0.25 MG TABLET PO SCH (08:50)
[2020-05-14] MEDS: PANTOprazole 40 MG TAB PO SCH (08:51)
[2020-05-14] MEDS: lisinopril 20 MG TAB PO SCH (08:51)
[2020-05-14] MEDS: amLODIPine BESYLATE 5 MG TAB PO SCH (08:51)
[2020-05-14] MEDS: INSULIN ASPART 100 UNITS/ML 3 ML PEN SC SCH (10:49)
--- NOTE | 2020-05-14 16:35 | Discharge Summary ---
Date of Service May 14, 2020 Admission HPI Per Admitting Provider Ruel Santos is a 54 year old male with recent history of COVID-19 requiring intubation, ESRD on dialysis and multiple sclerosis who presents to the ER with acute shortness of breath after waking up this morning. He reports this is similar to his last hospitalization in March with acute hypoxic respiratory failure due to mucoid impaction requiring intubation in setting of recent diagnosis and treatment for COVID-19. He was discharged back to [facility] on that occasion just 5 days previously. No bronchoscopy was performed on that occasion. He was cleared by speech and language therapy for a regular diet. No paperwork was sent from [facility] other than from EMS. He denies any fevers or chills although has a fever here on arrival to the ER. Per prior records he was weaned down to 2L O2 at the end of his hospitalization here although the patient reports being on 4L O2 at all times and currently requiring 5L. He reports being on dialysis three times a week, Wednesday, Wednesday and Wednesday. Notes no problems with dialysis on Wednesday. In the ER his CXR was concerning for complete white out of his right lung. ER provider discussed with pulmonology and recommended no bronchoscopy to be performed at this stage. Principal Diagnosis acute gram negative aspiration pneumonia esrd on dialysis covid infection multiple sclerosis Discharge Exam The patient appeared well but chronically ill Vital signs as documented. Lungs are coarse R>L Cardiac exam, Rhythm is regular.. No murmurs, rubs or gallops. Abdominal exam reveals normal bowel sounds, soft non tender, no masses Extremities are mildly edematous and both pedal pulses are normal. Neurologic exam is alert and oriented, no focal loss of strength or sensation Skin is without bruises or rashes Psychologically is without concerns for anxiety or depression. Discharge Data Allergies Allergy/AdvReac Type Severity Reaction Status Date / Time No Known Allergies Allergy Verified 05/07/20 17:21 Consultations 05/07/20 17:47 ED Decision to Admit Stat 05/07/20 23:07 Consult Nephrology Routine Consult Pulmonology Routine Procedures Performed Operation Date: 05/08/20 09:00 Actual Procedures p Bronchoscopy(Bilateral) - Bo Melton MD Hospital Course (1) Acute and chronic respiratory failure with hypoxia: right lung collapse from mucoid impaction similar to previous hospitalization requiring intubation. flutter valve and vibration vest bronchoscopy by Dr. Melton 05/08 with suctioning of mucoid impaction, breathing great afterwards stable on room air, no distress, coughing more with percussion therapy appreciate recommendations from Dr. Melton patient with neuromuscular weakness related to MS plus deconditioning from recent COVID pneumonia cough assist twice a day, vibratory vest TID, hypertonic saline nebulizers continue antibiotics x 5 days due to amount of secretions in airway, last day 05/12 patient knows he needs to be more compliant with BIPAP looking into alternative placement to [facility] as he won't get the care he needs CM made referral to [facility] in [place], discharge 05/14 (2) Aspiration pneumonia: Cefepime + metronidazole IV, last day of antibiotics would be 05/12 WBC normal, no fever, less cough today likely a degree of chronic aspiration based on bronchoscopy findings s/p suctioning of mucous plugging (3) COVID-19: Persistently positive. Doubt represents new infection. Treated with IV dexamethasone and convalescent plasma previously on hospitalization 04/04 (initial diagnosis 04/02). Currently near baseline O2. can move out of negative pressure room (4) Mucoid impaction of bronchi: s/p bronch with suctioning see above (5) ESRD (end stage renal disease) on dialysis: Consult nephrology for help with management. Usual dialysis days MWF plan for HD continued at rehab (6) Multiple sclerosis: Continue teriflunomide 14mg PO daily Pt is motivated to have agressive rehab and eventually return to independent living with support (7) Type 2 diabetes mellitus: HbA1C 5.3 on prior labs although in setting of ESRD on dialysis this is unlikely to be dental detail representative but on no outpatient medication for this. sliding scale coverage (8) Hypertension: Norvasc Continue lisinopril 20mg PO daily. (9) Anemia: Close to baseline. Suspect secondary to ESRD. Managed per nephrology. (10) Depression: Continue fluoxetine 60mg PO daily (11) DVT prophylaxis: Continue Eliquis 5mg PO BID (presumably on this for prior DVT). (12) Hypokalemia: replaced (13) Neuromuscular respiratory weakness: due to MS, difficulty clearing secretions and mucous continue chest physiotherapy at rehab Total Time Total Time Spent Total Time Spent (In Minutes): It required greater than 30 minutes to prepare this patient for discharge Discharge Plan Discharge Items Patient Disposition: Transfer Inpatient Rehab Fac Reason For Visit: Acute hypoxic respiratory failure, mucus plugging, Discharge Diagnosis: recurrent aspiration pneumonia complicated by weakness from Multiple sclerosis previous Covid 19 infection with persistently postive testing Activity: Per Instructions section Activity Comment: PT/OT and pulmonary rehab, with vibration vest Non-emergency contact: Primary Care Provider and Scrubber System Attendant Call non-emergency contact if: your symptoms worsen Follow-up/Referrals: [facility] [Primary Care Provider] - Diet: Carb Consistent or DM2 Addtl Attending Provider Instructions: Patient has a lesion in left bronchus that should be biopsied, it was not done during this bronchoscopy because he was on anticoagulation and the purpose of the bronchoscopy was to suction out right bronchus, he can follow up with pulmonology at [facility] for this purpose Patient needs to be established with neurology, he needs his medication which is teriflunomide, it has been left at [facility] Pending Studies at Discharge: No Stand-Alone Forms: My [facility] Skilled Items Patient informed of condition?: Yes DNR: No Discharge Level of Care: Acute rehab Communicable Disease: Yes Discharge Prognosis: Stable Lines: None Urinary Catheter: Yes Medications and DC Order Prescriptions: New ipratropium-albuterol 0.5 mg-3 mg(2.5 mg base)/3 mL Solution For Nebulization 3 ml NEB BIDR Qty: 3 RF: 0 insulin aspart U-100 100 unit/mL (3 mL) insulin pen 1 unit subcut .qac Qty: 3 RF: 0 Continued amlodipine [Norvasc] 5 mg Tablet 10 mg PO QAM 30 Days Qty: 60 RF: 0 tamsulosin 0.4 mg Capsule 0.4 mg PO QAM 30 Days Qty: 30 RF: 0 trazodone 100 mg Tablet 100 mg PO HS 30 Days Qty: 30 RF: 0 ropinirole 0.25 mg Tablet 0.5 mg PO BID 30 Days Qty: 120 RF: 0 pantoprazole 40 mg Tablet,Delayed Release (Dr/Ec) 40 mg PO BID 30 Days Qty: 60 RF: 0 gabapentin 100 mg Capsule 100 mg PO TID 30 Days Qty: 90 RF: 0 fluoxetine 20 mg Capsule 60 mg PO HS 30 Days Qty: 90 RF: 0 aripiprazole [Abilify] 15 mg Tablet 15 mg PO QAM 30 Days Qty: 30 RF: 0 calcium acetate(phosphat bind) 667 mg Capsule 2,668 mg PO TIDM 30 Days Qty: 120 RF: 0 Eliquis 5 mg Tablet 5 mg PO BID 30 Days Qty: 60 RF: 0 Mucinex DM 30-600 mg Tablet Extended Release 12 Hr 1 tab PO Q12H PRN (Reason: COUGH/CONGESTION) RF: 0 teriflunomide 14 mg Tablet 14 mg PO QAM RF: 0 famotidine 20 mg tablet 20 mg PO Q OTHER DAY RF: 0 albuterol sulfate [Ventolin HFA] 90 mcg/actuation HFA aerosol inhaler 1 puff inhalation Q4H PRN (Reason: shortness of breath or wheezing) RF: 0 lisinopril 20 mg Tablet 20 mg PO QAM Qty: 30 RF: 0 Discharge Orders: Discharge Order (Routine); Ordered 05/14/20 Ordered By: Roel Macias Admission Data Admit Date/Time: 05/07/20 19:32 Attending Provider: Roel Macias Admit Provider: Tyrone Gonzales Primary Care Provider: Dionna Mayfield Other Providers: Tyrone Gonzales ; Kira North ; Bo Melton ; [facility] [place] Other Interventions: Discharge Summary Assessment (RN) Last Done: 05/14/20 10:26 Coding Level of Care Code D/C Day Management >30 mins Diagnoses Acute and chronic respiratory failure with hypoxia J96.21 Aspiration pneumonia J69.0 Aspiration pneumonia type: unspecified Laterality: right Lung location: unspecified part of lung COVID-19 U07.1 Mucoid impaction of bronchi J98.09 ESRD (end stage renal disease) on dialysis N18.6; Z99.2 Multiple sclerosis G35 Type 2 diabetes mellitus E11.69 Diabetes mellitus exterminator insulin use: without detention use Diabetes mellitus complication status: with other specified complication Hypertension I10 Hypertension type: essential hypertension Anemia D64.9 Depression F32.9 Depression Type: unspecified DVT prophylaxis Z29.9 Hypokalemia E87.6 Neuromuscular respiratory weakness J98.8
== END 2020-05-14 11:58 | DRG 177 ==
LOC: ED 15:23 → 2E 19:32 → SUATTDRO 19:32 → 2E 22:40 → 2S 05-10 09:20